=== PATIENT | female | born 1935 | race Caucasian/White ===

== ENCOUNTER 2018-09-21 09:42 | Inpatient (IN) | payer OTHER, MEDICAID ==
[~2018-09-21] VITALS: Ht 162.6 cm; Wt 85.7 kg
--- NOTE | 2018-09-21 09:42 | NUR ---
Patient BIBA ACLS, transferred to bed 10. RN evaluating patient at bedside.
[2018-09-21 09:45] VITALS: BP 140/54
--- NOTE | 2018-09-21 09:50 | NUR ---
BROUGHT IN BY EMS FROM [facility] WITH THE CHIEF C/O CHEST TIGHTNESS FOR 2 WEEKS. PT STATES RECENT ADMISSION FOR PNEUMONIA AND GOT DISCHARGE ON August. HAS SOB. ON NON-REBREATHER. SPO2 100%. HOB ELEVATED. DENIES CHEST PAIN AT THIS TIME. DENIES RECENT FEVER. DENIES N/V/D. BRUISE NOTED ON RIGHT LOWER LEG S/P BANGED ON WHEEL CHAIR. PT DOES NOT KNOWN WHEN IT HAPPENED. AMBULATORY PER PT. A/O X4. MAKES NEEDS KNOWN. DENIES ANY PAIN AT THIS TIME. HX---DM, HTN, CAD, ANXIETY, HYPERLIPIDEMIA, COPD, MRSA SPUTUM, BREAST CA
[2018-09-21] MEDS ORDERED: INSU100S5 SQ (09:58)
[2018-09-21] MEDS ORDERED: ASPI81EC97 PO (09:58)
[2018-09-21] MEDS ORDERED: LINE600T PO (09:58)
[2018-09-21] MEDS ORDERED: ASCO500T45 PO (09:58)
[2018-09-21] MEDS ORDERED: SYN.05 PO (09:58)
[2018-09-21] MEDS ORDERED: ATOR20TA PO ×2 (09:58→13:20)
--- NOTE | 2018-09-21 10:12 | NUR ---
CHEST XRAY AT BEDSIDE
--- NOTE | 2018-09-21 10:17 | NUR ---
CXR AT BEDSIDE----LABS DRAWN AT IV START AND HANED TO LAB
[2018-09-21] MEDS ORDERED: ALBUTEROL SULFATE/IPRATROPIU 3 ML SOL IH ONE ×2 (10:20→10:45)
--- NOTE | 2018-09-21 10:34 | NUR ---
Breathing treatment administered at bedside by respiratory therapist.
[2018-09-21 10:35] LABS: BASOPHILS # (AUTO) 0.1 K/uL (0.00-0.22); BASOPHILS % (AUTO) 0.9 % (0.0-2.0); EOSINOPHILS # (AUTO) 0.4 K/uL (0-0.4); HEMATOCRIT 27.2 % (36-48); HEMOGLOBIN 8.7 g/dL (12.0-16.0); LYMPHOCYTES # (AUTO) 1.5 K/uL (2.5-16.5); LYMPHOCYTES % (AUTO) 11.5 % (20.5-51.1); MEAN CORPUSCULAR HEMOGLOBIN 25 pg (27-31); MEAN CORPUSCULAR HGB CONC 32 g/dL (33-37); MONOCYTES # (AUTO) 1.1 K/uL (0.8-1.0); NEUTROPHILS # (AUTO) 9.7 K/uL (1.8-7.7); NEUTROPHILS % (AUTO) 75.6 % (42.2-75.2); PLATELET COUNT (AUTO) 364 K/uL (140-450); RED BLOOD CELL COUNT(AUTO) 3.54 MIL/uL (4.20-5.40); RED CELL DISTRIBUTION WIDTH 17.5 % (11.6-13.7); WHITE BLOOD COUNT (AUTO) 12.8 K/uL (4.8-10.8)
--- NOTE | 2018-09-21 10:35 | NUR ---
ADMITTING DX: CP HX: DENIES CPOD ASTHMA AWAKE AND ALERT RESPONSIVE TO ASSISTANT WOMEN'S SOCCER COACH VERBAL COMMANDS EDUCATION PROVIDED TO PATIENT WITH ACKNOWLEDGEMENT ON HHN THERAPY AND RESPIRATORY DRUG FOREMENTIONED GIVEN ORDERED ENCOURAGED PATIENT FOR INTERMITTENT DEEP BREATHING DURING THERAPY
--- NOTE | 2018-09-21 10:39 | NUR ---
PT BEING EVELUATED BY DWIGHT GODINEZ AT THIS TIME.
[2018-09-21] MEDS ORDERED: VANCOMYCIN PER PHARMACY MC PRN ×2 (10:45→13:40)
[2018-09-21] MEDS ORDERED: CEFEPIME 2,000 MG in DEXTROSE 5% 100 ML IV ONE (10:45)
[2018-09-21] MEDS ORDERED: LEVOFLOXACIN 750 MG/D5W PREMIX 150 ML IV ONE (10:45)
[2018-09-21] MEDS ORDERED: methylPREDNISolone SS 125 MG/2 ML VIAL IVP ONE (10:45)
[2018-09-21 10:46] LABS: ANION GAP 13.6 (8-16); CHLORIDE 102 mmol/L (98-107); GLUCOSE 169 mg/dL (74-106); POTASSIUM 3.6 mmol/L (3.5-5.1); SODIUM SERUM 140 mmol/L (136-145); UREA NITROGEN, BLOOD 12 mg/dL (7-18)
[2018-09-21 10:48] LABS: PROTHROMBIN TIME 10.8 secs (10.8-13.4)
[2018-09-21] MEDS ORDERED: FUROSEMIDE 40 MG/4 ML VIAL IVP ONE (10:50)
--- NOTE | 2018-09-21 10:57 | NUR ---
FOLLOW UP HHN THERAPY AND RESPIRATORY DRUG GIVEN ORDERED ENCOURAGED PATIENT FOR INTERMITTENT DEEP BREATHING DURING THERAPY
[2018-09-21 11:05] LABS: ALBUMIN 2.7 g/dL (3.4-5.0); ASPARTATE AMINOTRANSFERASE 16 U/L (15-37); TOTAL BILIRUBIN 0.5 mg/dL (0.0-1.0)
[2018-09-21 11:06] LABS: MAGNESIUM 1.1 mg/dL (1.8-2.4); THYROID STIMULATING HORMONE 16.63 uIU/mL (0.34-3.74)
[2018-09-21] MEDS ORDERED: CEFEPIME 2,000 MG VIAL IV ONE (11:06)
[2018-09-21 11:13] LABS: APPEARANCE,URINE SL CLOUDY (CLEAR); BILIRUBIN,URINE NEGATIVE (NEGATIVE); BLOOD, URINE NEGATIVE (NEGATIVE); COLOR,URINE YELLOW (YELLOW); LEUKOCYTE ESTERASE ,URINE 1+ (NEGATIVE); NITRITE, URINE POSITIVE (NEGATIVE); PH,URINE 5.5 (5.0-9.0); UGLUCOSE NEGATIVE (NEGATIVE)
[2018-09-21 11:19] LABS: RBC,URINE 0-5 /HPF (0-5); WBC,URINE 60-80 /HPF (0-5)
[2018-09-21] MEDS ORDERED: MAG SULF 2000 MG/WATER PREMIX 50 ML IV ONE (11:30)
[2018-09-21] MEDS ORDERED: DOCUSATE SODIUM 100 MG GELCAP PO PRN (11:55)
[2018-09-21] MEDS ORDERED: ONDANSETRON 4 MG/2 ML VIAL IM/IVP PRN (11:55)
--- NOTE | 2018-09-21 12:12 | NUR ---
Dr. Kang evaluating patient at bedside.
[2018-09-21 12:27] LABS: PHOSPHORUS 3.9 mg/dL (2.5-4.9)
--- NOTE | 2018-09-21 12:55 | NUR ---
Patient will be admitted to care of Dr. Gonzalez. Admited to tele unit. Transferred to room 116. Belongings list completed. Report to MARCIE Castanon.
--- NOTE | 2018-09-21 12:55 | NUR ---
PT ARRIVED ON THE UNIT. RECEIVED HAND OFF REPORT FROM ER NURSE ELIUD. PT IN ON 15L NON REBREATHER MASK. PT APPEARS STABLE AND IN NO APPARENT DISTRESS. ALL SAFETY MEASURES ARE IN PLACE WILL CONTINUE TO ASSESS PT.
[2018-09-21] MEDS ORDERED: DEXTROSE 50% 50 ML SYR IVP PRN (13:15)
[2018-09-21] MEDS ORDERED: MAGN400S60 PO (13:20)
[2018-09-21] MEDS ORDERED: BISA-213 RC (13:20)
[2018-09-21] MEDS ORDERED: FERR325E14 PO (13:20)
[2018-09-21] MEDS ORDERED: FLEPED RC (13:20)
[2018-09-21] MEDS ORDERED: METO25TA PO (13:20)
[2018-09-21] MEDS ORDERED: ATRN INH (13:20)
[2018-09-21] MEDS ORDERED: BISACODYL 10 MG SUPP RC PRN (13:25)
[2018-09-21] MEDS ORDERED: SODIUM PHOSPHATE PEDIATRIC 67.5 ML ENEM RC PRN (13:25)
[2018-09-21] MEDS ORDERED: MAGNESIUM HYDROXIDE 2400 MG/30 ML UDC PO PRN (13:25)
[2018-09-21] MEDS: ALBUTEROL SULFATE/IPRATROPIU 3 ML SOL IH SCH (13:43)
[2018-09-21] MEDS: NACL 0.9% 1,000 ML IV SCH (13:48)
--- NOTE | 2018-09-21 13:55 | NUR ---
STARTED PTS LEVAQUIN IV FROM ED. NO MORE THAN 25ML OUT OF THE IV WHEN PT ARRIVED FROM ER. 5 MINUTES AFTER STARTING THE IV I NOTICED THE PT ITCHING HER ARM, I NOTICED LOTS OF REDDNESS ON THE PTS ARM DISTAL TO THE IV SITE, STOPPED THE INFUSION AND STARTED MAGNESIUM INFUSION ALSO NOT STARTED IN ED. NOTIFIED DR. GALVAN OF PT ITCHING THE ARM AND THE REDNESS. DR. GALVAN SAID SHE WOULD TAKE A LOOK AT IT.
--- NOTE | 2018-09-21 14:00 | NUR ---
RT AT PT BEDSIDE. RT INFORMED THEY GAVE HER A BREATHING TREATMENT AND ARE WAITING TO SEE IF SHE NEEDS TO BE PLACED ON BIPAP.
--- NOTE | 2018-09-21 14:20 | NUR ---
PLATER HELPER AT BEDSIDE PERFORMING ULTRASOUND OF BILATERAL LOWER EXTREMITIES.
[2018-09-21] MEDS: guaiFENesin 20 MG/ML UDC PO PRN (14:57)
[2018-09-21 16:00] VITALS: BP 129/66
--- NOTE | 2018-09-21 16:04 | NUR ---
REMOVED PT FROM NON REBREATHER TO 4 LITERS OXIMIZER. PT SATURATING 93%
[2018-09-21] MEDS: VANCOMYCIN 1,000 MG in DEXTROSE 5% 250 ML IV SCH (16:08)
--- NOTE | 2018-09-21 16:10 | NUR ---
PT REMOVED NON REBREATHER AND PLACED HER ON 4L OXIMIZER. PT APPEARS STABLE AND IN NO APPARENT DISTRESS. ALL SAFETY MEASURES ARE IN PLACE WILL CONTINUE TO MONITOR.
[2018-09-21] MEDS: BLOOD GLUCOSE MONITORING 1 DEV DEV FS SCH ×2 (17:00→20:39)
--- NOTE | 2018-09-21 17:05 | NUR ---
FINGERSTICK GLUCOSE 337. ADMINISTERED 8 UNITS HUMALOG SUBQ PER SLIDING SCALE ORDERS.
[2018-09-21] MEDS: INSULIN LISPRO SLIDING SCALE 100 UNITS/ML VIAL SUBQ PRN ×2 (17:12→20:44)
--- NOTE | 2018-09-21 18:46 | NUR ---
FREQUENT ROUNDING ON PT PT APPEARS STABLE AND IN NO APPARENT DISTRESS. ALL SAFETY MEASURES ARE IN PLACE. WILL CONTINUE TO MONITOR
[2018-09-21] MEDS ORDERED: SODIUM FERRIC GLUCONATE 125 MG in NACL 0.9% 100 ML IV SCH (19:00)
[2018-09-21] MEDS ORDERED: IPRATROPIUM 0.02% 0.5 MG/2.5 ML NEBU INH SCH (19:00)
--- NOTE | 2018-09-21 19:24 | NUR ---
ENDORSED PT TO PM RN. PT IS STABLE AND IN NO APPARENT DISTRESS. ALL SAFETY MEASURES ARE IN PLACE. IVF INFUSING IV SITE IS PATENT AND SHOWS NO SIGNS OF INFLAMMATION OR INFILTRATION.
--- NOTE | 2018-09-21 19:24 | NUR ---
RECEIVED PATIENT FROM AM SHIFT NURSE FOR CONTINUITY OF CARE. PATIENT IS LYING DOWN, AWAKE, WATCHING TV. PATIENT IS ON 4L OXIMIZER NC. HAS IV ON LEFT FOREARM 22 GA WITH 10 ML/HR OF NORMAL SALINE. PATIENT DENIES ANY PAIN AT THIS TIME. WILL MONITOR PATIENT THROUGHOUT SHIFT.
[2018-09-21 20:00] VITALS: BP 131/60
[2018-09-21] MEDS: BENZONATATE 100 MG CAPLF PO PRN (20:02)
[2018-09-21] MEDS: ACETAMINOPHEN 325 MG TAB PO PRN (20:02)
--- NOTE | 2018-09-21 20:02 | NUR ---
PATIENT COMPLAINS OF COUGH AND THROAT PAIN. ADMINISTERED PO MEDICATIONS ORDERED. WILL CONTINUE TO MONITOR PATIENT.
[2018-09-21] MEDS: LORazepam 2 MG/ML VIAL IM/IVP PRN (20:03)
--- NOTE | 2018-09-21 20:45 | NUR ---
ADMINISTERED MEDICATIONS ORDERED. PATIENT TOLERATED THEM WELL. PATIENT C/O OF COUGH. SENT SPUTUM CULTURE TO THE LAB. WILL CONTINUE TO MONITOR PATIENT.
[2018-09-21] MEDS: MELATONIN 3 MG TAB PO PRN (20:59)
[2018-09-21] MEDS: METOPROLOL 25 MG TAB PO SCH (20:59)
[2018-09-21] MEDS: ATORVASTATIN 20 MG TAB PO SCH (21:00)
[2018-09-21] MEDS: methylPREDNISolone SS 125 MG/2 ML VIAL IVP SCH (21:01)
--- NOTE | 2018-09-21 22:30 | NUR ---
MADE ROUNDS. PATIENT LYING DOWN IN BED, ASLEEP, WITH NO SIGNS OF DISTRESS. WILL CONTINUE TO MONITOR PATIENT.
[2018-09-21] MEDS: PIPER/TAZO 2.25GM/D5W PREMIX 50 ML IV SCH (22:47)
[2018-09-22] VITALS (7 sets, daily range): BP systolic 99–142; BP diastolic 46–67
--- NOTE | 2018-09-22 | NUR ---
VITAL SIGNS TAKEN AND CHARTED. PATIENT DENIES ANY PAIN AT THIS TIME. WILL CONTINUE TO MONITOR PATIENT.
[2018-09-22] MEDS: guaiFENesin 20 MG/ML UDC PO PRN ×3 (00:51→14:53)
[2018-09-22] MEDS: methylPREDNISolone SS 125 MG/2 ML VIAL IVP SCH ×2 (04:38→12:32)
[2018-09-22] MEDS: PIPER/TAZO 2.25GM/D5W PREMIX 50 ML IV SCH ×3 (04:40→20:32)
--- NOTE | 2018-09-22 04:40 | NUR ---
ADMINISTERED IV PUSH MEDICATION ORDERED. PATIENT TOLERATED IT WELL.
[2018-09-22] MEDS: LEVOTHYROXINE 0.075 MG TAB PO SCH (05:44)
--- NOTE | 2018-09-22 05:44 | NUR ---
PATIENT REQUESTED FOR COUGH MEDICATION. HUNG IV ANTIBIOTICS ORDERED. ADMINISTERED 0500 MEDICATIONS ORDERED. PATIENT TOLERATED THEM WELL.
[2018-09-22] MEDS: BLOOD GLUCOSE MONITORING 1 DEV DEV FS SCH ×4 (05:55→20:13)
[2018-09-22] MEDS: INSULIN LISPRO SLIDING SCALE 100 UNITS/ML VIAL SUBQ PRN ×4 (05:57→20:50)
--- NOTE | 2018-09-22 06:00 | NUR ---
CHECKED BLOOD SUGAR LEVEL. ADMINISTERED INSULIN PER SLIDING SCALE ORDER. PATIENT DENIES ANY PAIN AT THIS TIME.
[2018-09-22] MEDS ORDERED: LEVOTHYROXINE 0.05 MG TAB PO SCH (06:30)
--- NOTE | 2018-09-22 07:24 | NUR ---
RECEIVED BEDSIDE REPORT FROM MARCIE BARTHOLOMEW. PT STABLE, SLEEPING, BUT EASILY AROUSABLE. NO SIGNS OF DISTRESS NOTED. DENIES PAIN OR SOB. ON 4L O2 VIA OXIMIZER. NO REDNESS, SWELLING, OR INFLAMMATION NOTED ON IV SITE. CALL SANDERSON WITHIN REACH. BED IN LOWEST POSITION, BED ALARM ON. SAFETY MEASURES IN PLACE. PLAN OF CARE REVIEWED.
--- NOTE | 2018-09-22 07:25 | NUR ---
ENDORSED PATIENT TO AM SHIFT NURSE FOR CONTINUITY OF CARE. PATIENT IS LYING DOWN, ASLEEP, WITH NO SIGNS OF DISTRESS.
[2018-09-22 07:28] LABS: ANION GAP 15.4 (8-16); CARBON DIOXIDE 26.7 mmol/L (21-32); CHLORIDE 100 mmol/L (98-107); CREATININE 1.2 mg/dL (0.6-1.3); GLUCOSE 258 mg/dL (74-106); POTASSIUM 4.1 mmol/L (3.5-5.1); SODIUM SERUM 138 mmol/L (136-145); UREA NITROGEN, BLOOD 16 mg/dL (7-18)
[2018-09-22 07:35] LABS: BASOPHILS % (AUTO) 0.1 % (0.0-2.0); HEMATOCRIT 24.8 % (36-48); HEMOGLOBIN 7.9 g/dL (12.0-16.0); LYMPHOCYTES # (AUTO) 0.8 K/uL (2.5-16.5); LYMPHOCYTES % (AUTO) 10.8 % (20.5-51.1); MEAN CORPUSCULAR HEMOGLOBIN 25 pg (27-31); MEAN CORPUSCULAR HGB CONC 32 g/dL (33-37); MEAN CORPUSCULAR VOLUME 77.1 fL (80-94); MONOCYTES # (AUTO) 0.2 K/uL (0.8-1.0); MONOCYTES % (AUTO) 2.6 % (1.7-9.3); NEUTROPHILS # (AUTO) 6.6 K/uL (1.8-7.7); NEUTROPHILS % (AUTO) 86.5 % (42.2-75.2); PLATELET COUNT (AUTO) 332 K/uL (140-450); RED BLOOD CELL COUNT(AUTO) 3.22 MIL/uL (4.20-5.40); RED CELL DISTRIBUTION WIDTH 16.9 % (11.6-13.7); WHITE BLOOD COUNT (AUTO) 7.7 K/uL (4.8-10.8)
[2018-09-22] MEDS: ALBUTEROL SULFATE/IPRATROPIU 3 ML SOL IH SCH ×3 (07:36→19:47)
[2018-09-22 07:51] LABS: MAGNESIUM 1.5 mg/dL (1.8-2.4); PHOSPHORUS 4.4 mg/dL (2.5-4.9)
[2018-09-22 07:52] LABS: CHOL/HDL RATIO 2.5 (1-4.5)
--- NOTE | 2018-09-22 08:15 | NUR ---
PT REPOSITIONED, LINENS AND GOWN CHANGED, PT STABLE.
[2018-09-22] MEDS: FUROSEMIDE 40 MG/4 ML VIAL IVP SCH ×2 (09:00→09:23)
[2018-09-22] MEDS: METOPROLOL 25 MG TAB PO SCH ×3 (09:00→20:34)
[2018-09-22] MEDS ORDERED: LACTOBACILLUS RHAMNOSUS GG 1 EACH CAP PO SCH (09:00)
[2018-09-22] MEDS: BENZONATATE 100 MG CAPLF PO PRN ×2 (09:22→17:34)
[2018-09-22] MEDS: ASCORBIC ACID 500 MG TAB PO SCH (09:24)
[2018-09-22] MEDS: LACTOBACILLUS RHAMNOSUS GG 1 EACH CAP PO SCH (09:24)
[2018-09-22] MEDS: ECOTRIN 81 MG TABEC PO SCH (09:25)
[2018-09-22] MEDS: FERROUS SULFATE 325 MG TABEC PO SCH (09:25)
[2018-09-22] MEDS: SERTRALINE 50 MG TAB PO SCH (09:25)
--- NOTE | 2018-09-22 09:32 | NUR ---
HELD SCHEDULED METOPROLOL AND LASIX FOR BP 109/45 HR 104, ADMINISTERED ALL OTHER SCHEDULED MEDICATIONS AND PRN TESSALON FOR C/O COUGH. PT TOLERATED WELL. NO OTHER NEEDS AT THIS TIME.
[2018-09-22] MEDS ORDERED: MAG SULF 2000 MG/WATER PREMIX 50 ML IV ONE (10:00)
--- NOTE | 2018-09-22 10:54 | NUR ---
ADMINISTERED SCHEDULED MAGNESIUM, PT TOLERATED WELL. NO OTHER NEEDS AT THIS TIME.
[2018-09-22] MEDS: NACL 0.9% 1,000 ML IV SCH (11:51)
[2018-09-22] MEDS: ACETAMINOPHEN 325 MG TAB PO PRN (11:57)
[2018-09-22] MEDS: LORazepam 2 MG/ML VIAL IM/IVP PRN (11:58)
--- NOTE | 2018-09-22 11:58 | NUR ---
ADMINISTERED 8 UNITS HUMALOG FOR BG 304, PRN ATIVAN FOR C/O ANXIETY, AND PRN TYNEOL FOR 8/10 THROAT PAIN. PT TOLERATED WELL. WILL CONTINUE TO MONITOR.
--- NOTE | 2018-09-22 12:37 | NUR ---
ADMINISTERED SCHEDULED MEDICATIONS, PT TOLERATED WELL. NO OTHER NEEDS AT THIS TIME.
--- NOTE | 2018-09-22 13:10 | NUR ---
INSTRUCTED PT TO BE NPO STARTING AT THIS TIME FOR HER SCHEDULED CT OF CHEST WITH CONTRAST AT 1700. PT VERBALIZED UNDERSTANDING.
--- NOTE | 2018-09-22 14:20 | NUR ---
PT REPOSITIONED, LINENS AND CHUCKS CHANGED. NO OTHER NEEDS AT THIS TIME.
[2018-09-22] MEDS: VANCOMYCIN 1,000 MG in DEXTROSE 5% 250 ML IV SCH (14:54)
--- NOTE | 2018-09-22 15:00 | NUR ---
ADMINISTERED SCHEDULED VANCOMYCIN AND PRN ROBITUSSIN FOR C/O COUGH. PT TOLERATED WELL. PT IS NOW SLEEPING, NO SIGNS OF DISTRESS NOTED. WILL CONTINUE TO MONITOR.
--- NOTE | 2018-09-22 16:30 | NUR ---
VITAL SIGNS TAKEN, PT STABLE. BG CHECKED, 329, PT NEEDS COVERAGE.
--- NOTE | 2018-09-22 17:36 | NUR ---
ADMINISTERED PRN TESSALON PERLES FOR C/O OF COUGH AND 8 UNITS HUMALOG FOR BG 329. PT TOLERATED WELL. NO OTHER NEEDS AT THIS TIME.
--- NOTE | 2018-09-22 18:00 | NUR ---
PER DR WASSERMAN, HE IS CANCELLING BOTH CT CHEST WITH CONTRAST AND VQ SCAN. MADE RADIOLOGY AWARE.
--- NOTE | 2018-09-22 19:05 | NUR ---
ENDORSED PT TO RN TALHA FOR CONTINUITY OF CARE. PT STABLE.
--- NOTE | 2018-09-22 19:10 | NUR ---
RECEIVED FROM AM RN IN BED SITTING UP IN BED AND ABLE TO CARRY A CONVERSATION WELL IN ETHIOPIAN WITH ME . CARE PLANS FOR THE NIGHT DISCUSSED WITH HER AND CALL LIGHT WITH IN REACH. ABLE TO USE CALL LIGHT WELL. A/O X 4. DX. OF SEPSIS, UTI AND CHF. ON ISOLATION PRECAUTION RT HX. MRSA SPUTUM. ENCOURAGED TO CALL FOR ANY HELP SHE MAY NEED. DENIES PAIN AT THIS TIME. TELEMETRY MONITORING.
--- NOTE | 2018-09-22 20:14 | NUR ---
BLOOD SUGAR PER FINGERSTICK 329. PT. REFUSED TO BE COVERED BY INSULIN PER PROTOCOL. A/O X 4. "NO INSULIN FOR ME" EXPLAINED PROS AND CONS OF NOT TAKING IT OR TAKING IT. STILL REFUSED ADAMANTLY. "NO".
[2018-09-22] MEDS: methylPREDNISolone SS 40 MG/ML VIAL IVP SCH (20:33)
[2018-09-22] MEDS: ATORVASTATIN 20 MG TAB PO SCH (20:33)
[2018-09-22] MEDS: MELATONIN 3 MG TAB PO PRN (20:34)
--- NOTE | 2018-09-22 20:50 | NUR ---
PT. HAS DECIDED TO HAVE HUMALOG INSULIN FOR 329 BLOOD SUGAR TAKEN PER FINGERSTICK. MADE RESIDENT MD AWARE THAT SHE HAS FINALLY AGREED TO HAVE IT AFTER FURTHER EXPLAINING AGAIN.
--- NOTE | 2018-09-22 22:14 | NUR ---
PT. SLEEPING AT THIS TIME BUT HR IS 143 JUNCTIONAL . RESIDENT MADE AWARE AND SEEN MONITOR. WITH NEW ORDER FOR EKG. PT. ASYMPTOMATIC. ASKED HER IS SHE IS OK.." YES, I AM OK" WENT BACK TO SLEEP. CALL LIGHT WITH IN REACH.
--- NOTE | 2018-09-22 22:38 | NUR ---
EKG RESULT IN AND RESIDENT MD ERICKSON TALKED WITH PT. AND WITH NEW ORDER TO LOWER HEART RATE. PT. NO COMPLAINTS DONE. A/O X 4. WENT BACK TO SLEEP AFTER.
[2018-09-22] MEDS ORDERED: DILTIAZEM 25 MG/5 ML VIAL IVP SCH (23:00)
--- NOTE | 2018-09-22 23:03 | NUR ---
CARDIZEM IVP 10 MG FOR HR 143 ORDERED . PT. WOKE UP EASILY WHEN TOUCHED. WENT BACK TO SLEEP WHEN EXPLAINED REASON FOR CARDIZEM ORDERED. IVF FLUID INCREASED TO 40 ML/H ORDERED BY RESIDENT MD VERBALLY AT THIS TIME. BP AT THIS TIME 98/50 HR 143. WILL MONITOR CLOSELY.
[2018-09-23] VITALS (9 sets, daily range): BP systolic 114–156; BP diastolic 43–78
--- NOTE | 2018-09-23 01:08 | NUR ---
WAKES UP EASILY WHEN TOUCHED . VITAL SIGNS TAKEN. ABLE TO CARRY A CONVERSATION WITH ME WELL AT THIS TIME. TELEMETRY MONITORING. CALL LIGHT WITH IN REACH. NO SOB.
--- NOTE | 2018-09-23 01:10 | NUR ---
HEART RATE AT THIS TIME WITH IN NORMAL LIMITS. HR 78 .
[2018-09-23] MEDS: guaiFENesin 20 MG/ML UDC PO PRN ×3 (02:08→21:01)
--- NOTE | 2018-09-23 02:08 | NUR ---
WOKE UP AND REQUESTED FOR COUGH SYRUP . MEDICATING REQUESTED. A/O X 4. CALL LIGHT WITH IN REACH.
--- NOTE | 2018-09-23 04:59 | NUR ---
PT. AWAKE AND HR AT THIS TIME RANGING FROM 140'S. RESIDENT MD AWARE. WITH NEW ORDER TO GIVE ATIVAN IVP.
[2018-09-23] MEDS: LORazepam 2 MG/ML VIAL IM/IVP PRN (05:23)
[2018-09-23] MEDS: BLOOD GLUCOSE MONITORING 1 DEV DEV FS SCH ×4 (05:28→20:29)
[2018-09-23] MEDS: methylPREDNISolone SS 40 MG/ML VIAL IVP SCH ×2 (05:31→13:27)
[2018-09-23] MEDS: LEVOTHYROXINE 0.075 MG TAB PO SCH (05:31)
[2018-09-23] MEDS: PIPER/TAZO 2.25GM/D5W PREMIX 50 ML IV SCH ×3 (05:32→20:27)
[2018-09-23] MEDS: INSULIN LISPRO SLIDING SCALE 100 UNITS/ML VIAL SUBQ PRN ×3 (05:37→20:33)
[2018-09-23] MEDS: ALBUTEROL SULFATE/IPRATROPIU 3 ML SOL IH SCH ×3 (06:00→19:24)
--- NOTE | 2018-09-23 06:06 | NUR ---
PATIENT HAS BEEN SCREENED AND CATEGORIZED HIGH NUTRITION RISK. PATIENT WILL BE SEEN WITHIN 1-2 DAYS OF ADMISSION. 09/22/18-09/23/18 FERDINAND ORDOÑEZ MS, RDN
[2018-09-23 06:11] LABS: FOLIC ACID 10.8 ng/mL (>3.0)
--- NOTE | 2018-09-23 06:22 | NUR ---
RESIDENT MD AWARE OF 144 HR PER TELEMETRY. NO FURTHER ORDERS GIVEN. STATED WE WILL WAIT TILL AM SHIFT BECAUSE IT IS TOO SOON FROM ATIVAN IVP ADMINISTERED LATELY.
--- NOTE | 2018-09-23 06:34 | NUR ---
no breathing tx given due to high heart rate of 149 pt has no sob lab at bedside
--- NOTE | 2018-09-23 07:10 | NUR ---
RECEIVED REPORT FROM BINDER TECHNICIAN RN TALHA. PT IS AAOX4, PT ABLE TO FOLLOW COMMANDS AND MAKE NEEDS KNOWN, DENIES PAIN, NO S/S OF DISTRESS OR SOB ON OXYMIZER AT 4L.. DENIES ANY CP, GEN WEAKNESS TO ALL EXTREMITIES, SKIN IS INTACT, WARM AND DRY TO TOUCH. IV TO LEFT FOREARM, 22G, PATENT, RUNNING NS AT 10ML/HR. UPDATED BOARD. UPDATED PATIENT WITH PLAN OF CARE. SAFETY AND ISOLATION MEASURES IN PLACE, CALL LIGHT WITHIN REACH, WILL CONTINUE TO MONITOR.
[2018-09-23 08:17] LABS: HEMATOCRIT 26.3 % (36-48); HEMOGLOBIN 8.2 g/dL (12.0-16.0); MEAN CORPUSCULAR HEMOGLOBIN 24 pg (27-31); MEAN CORPUSCULAR HGB CONC 31 g/dL (33-37); MEAN CORPUSCULAR VOLUME 77.1 fL (80-94); MONOCYTES # (AUTO) 0.5 K/uL (0.8-1.0); MONOCYTES % (AUTO) 3.5 % (1.7-9.3); PLATELET COUNT (AUTO) 394 K/uL (140-450); RED BLOOD CELL COUNT(AUTO) 3.41 MIL/uL (4.20-5.40); RED CELL DISTRIBUTION WIDTH 17.4 % (11.6-13.7); WHITE BLOOD COUNT (AUTO) 15.5 K/uL (4.8-10.8)
[2018-09-23 08:49] LABS: NEUTROPHILS % (AUTO) 90.4 % (42.2-75.2)
[2018-09-23 08:50] LABS: LYMPHOCYTES % (AUTO) 6.1 % (20.5-51.1)
[2018-09-23] MEDS: ECOTRIN 81 MG TABEC PO SCH (08:53)
[2018-09-23] MEDS: LACTOBACILLUS RHAMNOSUS GG 1 EACH CAP PO SCH (08:54)
[2018-09-23] MEDS: SERTRALINE 50 MG TAB PO SCH (08:55)
[2018-09-23] MEDS: FERROUS SULFATE 325 MG TABEC PO SCH (08:55)
[2018-09-23] MEDS: ASCORBIC ACID 500 MG TAB PO SCH (08:55)
--- NOTE | 2018-09-23 09:08 | NUR ---
09/23/18 RD INITIAL ASSESSMENT COMPLETED PLEASE REFER TO NUTRITION ASSESSMENT UNDER CARE ACTIVITY FOR ESTIMATED NUTRITIONAL NEEDS. RD RECOMMENDATIONS: 1. CONTINUE ON CCHO 60 GM DIET TOLERATED. 2. CONSULT RDN PRN. 3. RD WILL F/U 3-5 DAYS; MODERATE RISK. 4. RDN PROVIDED DIABETIC DIET EDUCATION TO PATIENT; PT ACCEPTED DIABETIC DIET EDUCATION. FERDINAND ORDOÑEZ, MS, RDN
[2018-09-23 09:28] LABS: ANION GAP 18.9 (8-16); CARBON DIOXIDE 24.1 mmol/L (21-32); CHLORIDE 100 mmol/L (98-107); CREATININE 1.1 mg/dL (0.6-1.3); GLUCOSE 278 mg/dL (74-106); SODIUM SERUM 139 mmol/L (136-145); UREA NITROGEN, BLOOD 21 mg/dL (7-18)
[2018-09-23 09:30] LABS: MAGNESIUM 2.1 mg/dL (1.8-2.4)
[2018-09-23] MEDS: METOPROLOL 25 MG TAB PO SCH ×2 (09:38→20:30)
[2018-09-23] MEDS: FUROSEMIDE 40 MG/4 ML VIAL IVP SCH (10:00)
[2018-09-23] MEDS ORDERED: ADENOSINE 6 MG/2 ML VIAL IVP SCH (10:05)
--- NOTE | 2018-09-23 10:05 | NUR ---
DR GARCIA DOING ROUNDS. INFORMED DR. SOLIS ABOUT DR. GARCIA'S PRESENCE. NEW ORDERS IN. CALLED PHARMACY TO CHECK ABOUT HOSPITAL PROTOCOLS. WAITING FOR THEIR CALL BACK.
--- NOTE | 2018-09-23 11:10 | NUR ---
RECEIVED PT TRANSFERRED FROM ROOM 116, REPORT OBTAINED AT BEDSIDE, PT IS AAOX4, ABLE TO FOLLOW COMMANDS AND MAKE NEEDS KNOWN, DENIES PAIN, NO S/S OF DISTRESS, WHEEZING LUNG SOUND RICHI. NOTED, ON OXYMIZER AT 4L, O2 SAT 96%. DENIES ANY CP, SVT AT [address], SOFT ROUND ABDOMEN WITH ACTIVE BOWEL SOUNDS, INCONTINENT WITH B&B'S, GENERALIZED WEAKNESS TO ALL EXTREMITIES, SKIN IS INTACT, WARM AND DRY TO TOUCH, BRUISE NOTED TO RIGHT LOWER LEG. IV SITE TO LEFT FOREARM, 22GA, PATENT, RUNNING NS AT 10ML/HR. POSITION CHANGED FOR COMFORT, HOB ELEVATED 30 DEGREES, SAFETY MEASURES IN PLACE, CALL LIGHT WITHIN REACH, WILL CONTINUE TO MONITOR.
--- NOTE | 2018-09-23 11:10 | NUR ---
TRANSFERRED TO ICU BED 1. REPORT GIVEN TO MACHINE OILER AT BEDSIDE FOR CONTINUITY OF CARE. PATIENT IN STABLE CONDITION. ENDORSED ADENOSINE ORDER FROM DR. GARCIA. TOOK ALL OF PATIENT'S BELONGINGS WITH HER.
[2018-09-23] MEDS ORDERED: AMIODARONE 200 MG TAB PO SCH (11:28)
--- NOTE | 2018-09-23 11:28 | NUR ---
PATIENT WAS SVT ON MONITOR, GIVEN ADENOSINE 6MG IVP, PATIENT'S HR WAS CONVERTED TO SR AT [address] GARCIA AND RESIDENT PHYSICIANS AT BEDSIDE.
[2018-09-23] MEDS: NACL 0.9% 1,000 ML IV SCH (11:40)
--- NOTE | 2018-09-23 12:00 | NUR ---
PT HR DROP TO 85, MORE CLAM, STATED MORE COMFORTABLE NOW, VSS, DENIES PAIN, ATE 25% OF LUNCH, WILL CONTINUE TO MONITOR.
--- NOTE | 2018-09-23 12:59 | NUR ---
pt sleeping with no signs of distress at this time no hhn given
--- NOTE | 2018-09-23 14:00 | NUR ---
PT IS ASLEEP IN BED, NO S/S OF DISTRESS, VSS, SELF CHANGED POSITION, WILL CONTINUE TO MONITOR.
[2018-09-23] MEDS: VANCOMYCIN 1,000 MG in DEXTROSE 5% 250 ML IV SCH (14:04)
--- NOTE | 2018-09-23 16:00 | NUR ---
PT IS AWAKE, WATCHING TV AT ROOM, NO S/S OF DISTRESS, VSS, DENIES PAIN, PM CARE AND ORAL CARE PROVIDED, POSITION CHANGED FOR COMFORT.
--- NOTE | 2018-09-23 16:09 | NUR ---
ACCU CHECK WITH 237 MG/DL, PT REFUSED INSULIN AT THIS TIME, RISK AND BENEFIT EXPLAINED TO PT, PT STILL REFUSED, MD AWARE.
--- NOTE | 2018-09-23 18:20 | NUR ---
TRANSFERRED PT BACK TO ROOM 116 VIA BED, REPORT GIVEN TO MARCIE EISENBERG AT BEDSIDE. PT IS IN STABLE CONDITION AT THIS TIME, VSS, DENIES PAIN.
--- NOTE | 2018-09-23 18:21 | NUR ---
PATIENT TRANSFERRED BACK FROM ICU TO ROOM 116. PATIENT SETTLED IN BED, HR 84 ON TELE MONITOR. NO SIGN OF DISTRESS OR SOB NOTED ON 4L O2 VIA OXIMIZER. PATIENT DENIES PAIN. SAFETY AND ISOLATION PRECAUTIONS IN PLACE, CALL LIGHT WITHIN REACH, WILL CONTINUE TO MONITOR PATIENT.
--- NOTE | 2018-09-23 19:10 | NUR ---
REPORT GIVEN TO BOX ESTIMATOR RN AT BEDSIDE FOR CONTINUITY OF CARE. PATIENT IN STABLE CONDITION.
--- NOTE | 2018-09-23 19:20 | NUR ---
RECEIVED FROM AM RN IN BED AWAKE AND WITH BREATHING TREATMENT ON GOING. NO COMPLAINTS DONE AT THIS TIME . CALL LIGHT WITH IN REACH. ABLE TO VERBALIZE NEEDS WELL WITH UTILITY TRACTOR OPERATOR AT THIS TIME. CARE PLANS FOR THE NIGHT EXPLAINED TO HER.
[2018-09-23] MEDS: ACETAMINOPHEN 325 MG TAB PO PRN (20:26)
[2018-09-23] MEDS: ATORVASTATIN 20 MG TAB PO SCH (20:26)
[2018-09-23] MEDS: AMIODARONE 200 MG TAB PO SCH (20:27)
[2018-09-23] MEDS: MELATONIN 3 MG TAB PO PRN (20:46)
--- NOTE | 2018-09-23 21:21 | NUR ---
SLEEPING AT THIS TIME. ALL P.O. MEDICATION TAKEN AND TOLERATED WELL. CALL LIGHT WITH IN REACH. PT. COMFORTABLE . CLEANED BY GIBRAN RT HAD BM. TELEMETRY MONITORING.
--- NOTE | 2018-09-23 21:24 | NUR ---
NEW ORDER BY RESIDENT FOR SPUTUM CULTURE RT PREVIOUS SPUTUM COLLECTED BY RESPIRATORY THERAPIST. EXPLAINED TO PT. AWARE.
--- NOTE | 2018-09-23 22:16 | NUR ---
PATIENT HAS DRY COUGH. UNABLE TO PRODUCE SPUTUM AT THIS TIME. ENCOURAGED TO KEEP TRYING AND THAT I WOULD CHECK EVERY FEW HOURS. CUP LEFT AT BEDSIDE.
--- NOTE | 2018-09-24 00:10 | NUR ---
VITAL SIGNS TAKEN. NO COMPLAINTS DONE. SLEPT BACK EASILY. TELEMETRY MONITORING.
--- NOTE | 2018-09-24 02:43 | NUR ---
SLEEPING WELL. NO RESTLESSNESS. CALL LIGHT WITH IN REACH. ON TELEMETRY MONITORING. HR WITH IN NORMAL LIMITS.
[2018-09-24] MEDS: guaiFENesin 20 MG/ML UDC PO PRN (03:46)
[2018-09-24] MEDS: ALBUTEROL SULFATE/IPRATROPIU 3 ML SOL IH PRN (03:57)
--- NOTE | 2018-09-24 04:00 | NUR ---
PATIENT UNDERSTAND THE USE AND IMPORTANCE OF INCENTIVE SPIROMETRY. REFUSED ATTEMPT STATING SHE WAS TIRED AND REQUESTED TRYING AT A LATER TIME.
--- NOTE | 2018-09-24 04:45 | NUR ---
AM PERSONAL HYGIENE RENDERED BY CNAS. PT. ABLE TO VERBALIZE NEEDS WELL. ABLE TO USE CALL LIGHT FOR HELP WELL. NO COMPLAINT OF SOB THIS SHIFT. ON BREATHING TREATMENTS.
[2018-09-24] MEDS: LEVOTHYROXINE 0.075 MG TAB PO SCH (05:30)
[2018-09-24] MEDS: PIPER/TAZO 2.25GM/D5W PREMIX 50 ML IV SCH ×3 (05:30→20:14)
[2018-09-24] MEDS: BLOOD GLUCOSE MONITORING 1 DEV DEV FS SCH ×4 (05:30→20:14)
[2018-09-24] MEDS: INSULIN LISPRO SLIDING SCALE 100 UNITS/ML VIAL SUBQ PRN ×3 (05:36→20:21)
--- NOTE | 2018-09-24 06:49 | NUR ---
AWAKE AND WANTING TO BE CHANGED BY CNAS RT SHE SAID SHE IS WET WITH URINE. INFORMED CNAS. WILL HAVE HER CLEANED UP. PT. VERBALIZES WELL. TELEMETRY MONITORING. NO S/S OF HYPOGLYCEMIA.
[2018-09-24 07:11] LABS: BASOPHILS % (AUTO) 0.1 % (0.0-2.0); HEMATOCRIT 26.6 % (36-48); HEMOGLOBIN 8.3 g/dL (12.0-16.0); LYMPHOCYTES # (AUTO) 0.9 K/uL (2.5-16.5); LYMPHOCYTES % (AUTO) 7.7 % (20.5-51.1); MEAN CORPUSCULAR HEMOGLOBIN 24 pg (27-31); MEAN CORPUSCULAR HGB CONC 31 g/dL (33-37); MEAN CORPUSCULAR VOLUME 77.3 fL (80-94); MONOCYTES # (AUTO) 0.7 K/uL (0.8-1.0); MONOCYTES % (AUTO) 6.3 % (1.7-9.3); NEUTROPHILS # (AUTO) 9.8 K/uL (1.8-7.7); NEUTROPHILS % (AUTO) 85.9 % (42.2-75.2); PLATELET COUNT (AUTO) 379 K/uL (140-450); RED BLOOD CELL COUNT(AUTO) 3.44 MIL/uL (4.20-5.40); RED CELL DISTRIBUTION WIDTH 17.3 % (11.6-13.7); WHITE BLOOD COUNT (AUTO) 11.5 K/uL (4.8-10.8)
[2018-09-24] MEDS: ALBUTEROL SULFATE/IPRATROPIU 3 ML SOL IH SCH ×3 (07:14→18:53)
--- NOTE | 2018-09-24 07:20 | NUR ---
ENDORSED TO THE AM RN FOR CONTINUITY OF CARE. AWAKE AND ALERT. NO COMPLAINTS DONE.
--- NOTE | 2018-09-24 07:21 | NUR ---
RECEIVED REPORT FROM FORENSIC TOXICOLOGIST NURSE TALHA FOR CONTINUITY OF CARE. PT IN STABLE CONDITION. RESPIRATIONS EVEN AND UNLABORED. O2 4L VIA OXYMIZER. IV INTACT AND PATENT. SAFETY MEASURES IN PLACE. CALL LIGHT AT BEDSIDE. BED IN LOW POSITION. BED ALARM ON. WILL CONTINUE TO MONITOR.
[2018-09-24 07:51] LABS: ANION GAP 14.4 (8-16); CHLORIDE 98 mmol/L (98-107); GLUCOSE 231 mg/dL (74-106); POTASSIUM 3.4 mmol/L (3.5-5.1); SODIUM SERUM 136 mmol/L (136-145); UREA NITROGEN, BLOOD 28 mg/dL (7-18)
[2018-09-24 08:00] VITALS: BP 156/46
[2018-09-24] MEDS: METOPROLOL 25 MG TAB PO SCH ×2 (09:00→20:17)
[2018-09-24] MEDS ORDERED: methylPREDNISolone SS 40 MG/ML VIAL IVP SCH (09:05)
[2018-09-24] MEDS ORDERED: FUROSEMIDE 40 MG TAB PO SCH (09:10)
[2018-09-24] MEDS ORDERED: POTASSIUM CHLORIDE 10 MEQ TABER PO SCH (09:15)
[2018-09-24] MEDS ORDERED: HYDRAGUARD CREAM TP PRN (10:10)
[2018-09-24] MEDS: guaiFENesin 600 MG TABER PO SCH ×2 (10:12→20:18)
[2018-09-24] MEDS: AMIODARONE 200 MG TAB PO SCH ×2 (10:12→20:16)
[2018-09-24] MEDS: ECOTRIN 81 MG TABEC PO SCH (10:12)
[2018-09-24] MEDS: LACTOBACILLUS RHAMNOSUS GG 1 EACH CAP PO SCH (10:12)
[2018-09-24] MEDS: ASCORBIC ACID 500 MG TAB PO SCH (10:12)
[2018-09-24] MEDS: SERTRALINE 50 MG TAB PO SCH (10:13)
[2018-09-24] MEDS: FERROUS SULFATE 325 MG TABEC PO SCH (10:13)
[2018-09-24] MEDS: CHLORHEXADINE GLUC 2% CLOTH TP SCH (10:27)
--- NOTE | 2018-09-24 10:28 | NUR ---
PT LYING IN BED SLEEP AT THIS TIME. RESPIRATIONS EVEN AND UNLABORED. WILL CONTINUE TO MONITOR. BED IN LOW POSITION. CALL LIGHT AT BEDSIDE. BED ALARM ON.
[2018-09-24 12:00] VITALS: BP 143/48
--- NOTE | 2018-09-24 12:01 | NUR ---
PT LYING IN BED WATCHING TV AT THIS TIME. RESPIRATIONS EVEN AND UNLABORED. WILL CONTINUE TO MONITOR.
[2018-09-24] MEDS: NACL 0.9% 1,000 ML IV SCH (13:13)
[2018-09-24] MEDS: ACETYLCYSTEINE 10% (100 MG/ML) 100 MG/ML VIAL INH SCH ×2 (13:23→18:54)
--- NOTE | 2018-09-24 13:32 | NUR ---
PT TALKING TO FAMILY AT BEDSIDE. RESPIRATIONS EVEN AND UNLABORED. CALL LIGHT AT BEDSIDE. BED IN LOW POSITION. BED ALARM ON. WILL CONTINUE TO MONITOR.
[2018-09-24] MEDS: BENZONATATE 100 MG CAPLF PO PRN (13:34)
--- NOTE | 2018-09-24 13:42 | NUR ---
S.T. BEDSIDE SWALLOW EVAL COMPLETED. See report for details. Pt presents w/ adequate oropharyngeal swallow function. No overt s/s aspiration observed. Pt able to self-feed without difficulties. Recommend continue current diet textures (regular diet, thin liquids). No further tx indicated at this time as pt is functioning at baseline leve. DC to [facility]. D/w MARCIE Morel. Time [id number]
[2018-09-24] MEDS: VANCOMYCIN 500 MG in DEXTROSE 5% 100 ML IV SCH (14:52)
--- NOTE | 2018-09-24 15:33 | NUR ---
PT LYING IN BED TALKING TO AT THIS TIME. RESPIRATIONS EVEN AND UNLABORED. BED IN LOW POSITION. BED ALARM ON. CALL LIGHT AT BED SIDE. WILL CONTINUE TO MONITOR.
[2018-09-24] MEDS: ACETAMINOPHEN 325 MG TAB PO PRN (15:49)
[2018-09-24 16:00] VITALS: BP 154/73
--- NOTE | 2018-09-24 17:25 | NUR ---
GAVE ORDERED DUE MEDICATIONS AT THIS TIME. PT TOLERATED WELL. WILL CONTINUE TO MONITOR.
--- NOTE | 2018-09-24 19:15 | NUR ---
GAVE REPORT TO CURRICULUM SUPERVISOR NURSE FOR CONTINUITY OF CARE. PT IN STABLE CONDITION.
--- NOTE | 2018-09-24 19:15 | NUR ---
RECEIVED BEDSIDE REPORT FROM DAY SHIFT NURSE DL RN, PT STABLE, NO DISTRESS NOTED, IV TO L FA 24G PATENT INTACT, INFUSING WELL, PT ON 4LPM O2 VIA OXYMIZER, NO SOB NOTED, V/S TAKEN WNL, INITIAL ASSESSMENT DONE, ALL SAFETY PRECAUTION MET, CALL LIGHT WITHIN REACH, WILL CONTINUE TO MONITOR.
[2018-09-24 20:00] VITALS: BP 147/58
[2018-09-24] MEDS: ATORVASTATIN 20 MG TAB PO SCH (20:16)
[2018-09-24] MEDS: LORazepam 2 MG/ML VIAL IM/IVP PRN (20:25)
[2018-09-24] MEDS: MELATONIN 3 MG TAB PO PRN (20:25)
--- NOTE | 2018-09-24 20:25 | NUR ---
DUE MEDICATION ADMINISTERED, PT STATED WANTS TO TAKE HER MELATONIN, MEDICATION ADMINISTERED, PT TOLERATED WELL, NO DISTRESS NOTED, CALL LIGHT WITHIN REACH, WILL CONTINUE TO MONITOR. Addendum: 09/25/18 at 0131 by Maritza Noguera RN PT ALSO COMPLAINT OF NEEDING HER ANXIETY MEDICATION, MEDICATION PER MD ORDER ADMINISTERED.
[2018-09-24] MEDS ORDERED: FUROSEMIDE 20 MG/2 ML VIAL IVP SCH (21:00)
--- NOTE | 2018-09-24 23:40 | NUR ---
CHECKED ON PT, V/S TAKEN, WITHIN PT BASELINE, CALL LIGHT WITHIN REACH, WILL CONTINUE TO MONITOR.
[2018-09-25] VITALS: BP 152/59
[2018-09-25] MEDS: ALBUTEROL SULFATE/IPRATROPIU 3 ML SOL IH PRN (00:39)
[2018-09-25] MEDS: ACETAMINOPHEN 325 MG TAB PO PRN (01:05)
[2018-09-25] MEDS: BENZONATATE 100 MG CAPLF PO PRN ×2 (01:05→16:44)
[2018-09-25] MEDS: VANCOMYCIN 500 MG in DEXTROSE 5% 100 ML IV SCH (01:05)
--- NOTE | 2018-09-25 01:05 | NUR ---
PT COMPLAINT OF COUGHING AND HEADACHE, MEDICATION PER DR ORDER ADMINISTERED, PT TOLERATED WLEL, NO DISTRESS NOTED, CALL LIGHT WITHIN REACH, WILL CONTINUE TO MONITOR.
[2018-09-25 04:00] VITALS: BP 156/69
--- NOTE | 2018-09-25 04:20 | NUR ---
CHECKED ON PT, PT SLEEPING, V/S TAKEN, WITHIN PT BASELINE, CALL LIGHT WITHIN REACH, WILL CONTINUE TO MONITOR.
[2018-09-25] MEDS: PIPER/TAZO 2.25GM/D5W PREMIX 50 ML IV SCH ×2 (04:44→12:46)
[2018-09-25] MEDS: LEVOTHYROXINE 0.075 MG TAB PO SCH (05:37)
--- NOTE | 2018-09-25 05:37 | NUR ---
DUE MEDICATION ADMINISTERED, PT TOLERATED WELL, NO DISTRESS NOTED, CALL LIGHT WITHIN REACH, WILL CONTINUE TO MONITOR.
[2018-09-25] MEDS: BLOOD GLUCOSE MONITORING 1 DEV DEV FS SCH ×2 (05:39→11:30)
[2018-09-25] MEDS: INSULIN LISPRO SLIDING SCALE 100 UNITS/ML VIAL SUBQ PRN ×2 (06:19→12:51)
[2018-09-25] MEDS: ALBUTEROL SULFATE/IPRATROPIU 3 ML SOL IH SCH ×2 (06:48→13:00)
[2018-09-25] MEDS: ACETYLCYSTEINE 10% (100 MG/ML) 100 MG/ML VIAL INH SCH ×2 (06:48→13:00)
--- NOTE | 2018-09-25 06:48 | NUR ---
PT HAS REFUSED BREATHING TX WANTS TO SLEEP NO SIGNS OF DISTRESS OR SOB
[2018-09-25 07:12] LABS: ANION GAP 10.8 (8-16); CARBON DIOXIDE 32.1 mmol/L (21-32); CHLORIDE 101 mmol/L (98-107); GLUCOSE 228 mg/dL (74-106); POTASSIUM 3.9 mmol/L (3.5-5.1); SODIUM SERUM 140 mmol/L (136-145); UREA NITROGEN, BLOOD 22 mg/dL (7-18)
[2018-09-25 07:16] LABS: BASOPHILS % (AUTO) 0.1 % (0.0-2.0); HEMATOCRIT 25.4 % (36-48); HEMOGLOBIN 8.1 g/dL (12.0-16.0); LYMPHOCYTES % (AUTO) 11.6 % (20.5-51.1); MEAN CORPUSCULAR HEMOGLOBIN 24 pg (27-31); MEAN CORPUSCULAR HGB CONC 32 g/dL (33-37); MEAN CORPUSCULAR VOLUME 76.8 fL (80-94); MONOCYTES # (AUTO) 0.9 K/uL (0.8-1.0); MONOCYTES % (AUTO) 10.2 % (1.7-9.3); NEUTROPHILS # (AUTO) 6.6 K/uL (1.8-7.7); NEUTROPHILS % (AUTO) 78.1 % (42.2-75.2); PLATELET COUNT (AUTO) 348 K/uL (140-450); RED CELL DISTRIBUTION WIDTH 17.4 % (11.6-13.7); WHITE BLOOD COUNT (AUTO) 8.4 K/uL (4.8-10.8)
[2018-09-25 07:25] LABS: MAGNESIUM 1.6 mg/dL (1.8-2.4); PHOSPHORUS 2.8 mg/dL (2.5-4.9)
--- NOTE | 2018-09-25 07:27 | NUR ---
ENDORSED PT TO DAY SHIFT NURSE ALDAIR JACK, PT STABLE, NO DISTRESS NOTED,, CALL LIGHT WITHIN REACH.
--- NOTE | 2018-09-25 07:28 | NUR ---
RECEIVED REPORT FROM SCRAP CRUSHER RNBART. PATIENT RESTING IN BED, NO DISTRESS NOTE ON 3L OXIMIZER. SAFETY PRECAUTIONS IN PLACE. WILL CONTINUE TO MONITOR.
[2018-09-25 08:00] VITALS: BP 168/81
[2018-09-25] MEDS ORDERED: MELA3TAB PO (08:23)
[2018-09-25] MEDS ORDERED: HEPA500056 SUBQ (08:23)
[2018-09-25] MEDS ORDERED: BENZ100C6 PO (08:23)
[2018-09-25] MEDS ORDERED: SYN.075 PO (08:23)
[2018-09-25] MEDS ORDERED: GUAI-791 PO (08:23)
[2018-09-25] MEDS ORDERED: AMIO200T59 PO (08:23)
[2018-09-25] MEDS ORDERED: SERT-146 PO (08:23)
[2018-09-25] MEDS ORDERED: METH40PD15 IVP (08:23)
[2018-09-25] MEDS ORDERED: Hydraguard TP (08:23)
[2018-09-25] MEDS ORDERED: LACT10CA PO (08:23)
[2018-09-25] MEDS ORDERED: METO25TA PO (08:23)
[2018-09-25] MEDS ORDERED: DOCU-299 PO (08:23)
[2018-09-25] MEDS ORDERED: PIPE50SO5 IV (08:23)
[2018-09-25] MEDS ORDERED: METF850T PO (08:37)
[2018-09-25] MEDS ORDERED: POTA10TE30 PO (08:39)
[2018-09-25] MEDS ORDERED: FURO-570 PO (08:39)
[2018-09-25] MEDS ORDERED: metFORMIN 850 MG TAB PO SCH ×2 (08:40→17:00)
[2018-09-25] MEDS ORDERED: FUROSEMIDE 40 MG TAB PO SCH (09:00)
[2018-09-25] MEDS ORDERED: methylPREDNISolone SS 40 MG/ML VIAL IVP SCH (09:00)
[2018-09-25] MEDS ORDERED: CLINICAL MONITORING MC SCH (09:00)
[2018-09-25] MEDS ORDERED: FUROSEMIDE 20 MG/2 ML VIAL IVP SCH (09:00)
[2018-09-25] MEDS: CHLORHEXADINE GLUC 2% CLOTH TP SCH (09:00)
[2018-09-25] MEDS ORDERED: MAGNESIUM OXIDE 400 MG TAB PO SCH (09:00)
[2018-09-25] MEDS: ECOTRIN 81 MG TABEC PO SCH (09:19)
[2018-09-25] MEDS: LACTOBACILLUS RHAMNOSUS GG 1 EACH CAP PO SCH (09:19)
[2018-09-25] MEDS: FERROUS SULFATE 325 MG TABEC PO SCH (09:19)
[2018-09-25] MEDS: AMIODARONE 200 MG TAB PO SCH (09:19)
[2018-09-25] MEDS: guaiFENesin 600 MG TABER PO SCH (09:20)
[2018-09-25] MEDS: METOPROLOL 25 MG TAB PO SCH (09:20)
--- NOTE | 2018-09-25 09:20 | NUR ---
ADMINISTERED SCHEDULED MEDICATIONS. PATIENT REFUSED METFORMIN AND STATED SHE NO LONGER NEEDS TYLENOL.
[2018-09-25] MEDS: SERTRALINE 50 MG TAB PO SCH (09:21)
[2018-09-25] MEDS: ASCORBIC ACID 500 MG TAB PO SCH (09:21)
--- NOTE | 2018-09-25 10:58 | NUR ---
CALLED [facility] [phone] SPOKE WITH ELLY CHISHOLM TO GO TO [facility] AND PROVIDE AUTH FOR [facility] AND [facility] AUTHORIZATION AUTH # [id number] CAN BE USED FOR BOTH. AGA FROM [facility] V[facility]ITED PT AND ACCEPTED PT PT CAN GO TO ROOM 31B. ARRANGED TRANSPORT WITH [facility] TIME 3:30 PM NOTIFIED TYSON JACK
[2018-09-25] MEDS: NACL 0.9% 1,000 ML IV SCH (11:51)
--- NOTE | 2018-09-25 12:51 | NUR ---
GAVE 4 UNITS FOR 214 GLUCOSE. PATIENT TOLERATED WELL. ADMINISTERED SCHEDULED ZOSYN.
[2018-09-25 15:41] VITALS: BP 147/73
--- NOTE | 2018-09-25 16:44 | NUR ---
ADMINSTERED TESSALON REQUESTED BY PATIENT. GAVE REPORT TO [facility] TEAM.
--- NOTE | 2018-09-25 17:15 | NUR ---
PATIENT DISCHARGED TO [facility]. GAVE REPORT TO DHARMESH HILLMAN. PER FACILITY REQUEST 24 GAUGE IV WAS LEFT IN PLACE IN THE LEFT WRIST. PATIENT CHANGED AND CLEANED PRIOR TO TRANSPORT. VITALS STABLE. NO SIGNS OF DISTRESS ON 3L NC, SATURATION 92%, PATIENT HAS COPD.
== END 2018-09-25 17:15 | DRG 871 ==
LOC: MED 09:42 → MTU 11:51 → MIC 09-23 11:20 → MTU 09-23 18:16
PROVIDERS: ADMIT General Practice; ATTEND General Practice
DX: A41.9 Sepsis, unspecified organism (principal); I50.43 Acute on chronic combined systolic (congestive) and diastolic (congestive) heart failure; E43 Unspecified severe protein-calorie malnutrition; J96.01 Acute respiratory failure with hypoxia; N39.0 Urinary tract infection, site not specified; J44.0 Chronic obstructive pulmonary disease with (acute) lower respiratory infection; J44.1 Chronic obstructive pulmonary disease with (acute) exacerbation; I47.1 Supraventricular tachycardia; J70.0 Acute pulmonary manifestations due to radiation; M84.48XA Pathological fracture, other site, initial encounter for fracture; Z68.32 Body mass index [BMI] 32.0-32.9, adult; I11.0 Hypertensive heart disease with heart failure; E83.42 Hypomagnesemia; E86.0 Dehydration; E11.69 Type 2 diabetes mellitus with other specified complication; G31.89 Other specified degenerative diseases of nervous system; Z85.3 Personal history of malignant neoplasm of breast; E89.0 Postprocedural hypothyroidism; Z87.891 Personal history of nicotine dependence; Z90.710 Acquired absence of both cervix and uterus; F32.9 Major depressive disorder, single episode, unspecified; I25.10 Atherosclerotic heart disease of native coronary artery without angina pectoris; E78.5 Hyperlipidemia, unspecified; Z88.8 Allergy status to other drugs, medicaments and biological substances; Z88.2 Allergy status to sulfonamides; Z88.7 Allergy status to serum and vaccine; Z87.01 Personal history of pneumonia (recurrent); Z79.899 Other long term (current) drug therapy; F41.9 Anxiety disorder, unspecified; Z86.14 Personal history of Methicillin resistant Staphylococcus aureus infection; Z96.653 Presence of artificial knee joint, bilateral; D50.9 Iron deficiency anemia, unspecified; X58.XXXA Exposure to other specified factors, initial encounter; Y93.89 Activity, other specified; Y92.89 Other specified places as the place of occurrence of the external cause; Y99.8 Other external cause status; S80.11XA Contusion of right lower leg, initial encounter; E87.6 Hypokalemia; I70.0 Atherosclerosis of aorta; E66.9 Obesity, unspecified
CPT/HCPCS: 36415; 36600; 71045; 71250; 73590; 80048; 80053; 80202; 81001; 82150; 82272; 82607; 82728; 82746; 82803; 82948; 83036; 83540; 83605; 83690; 83735; 83880; 84100; 84134; 84439; 84443; 84481; 84484; 85025; 85045; 85610; 85730; 87040; 87070; 87081; 87086; 87186; 87205; 92610; 93005; 93925; 93970; 94640; 96365; 96372; 96375; 97110; 97116; 97161-GP; 97530; 99285; J0153; J0692; J0696; J1644; J1815; J1940; J1956; J2060; J2543; J2916; J2920; J2930; J3370; J3475; J3490; J7030; J7060; J7620; Q0092

== ENCOUNTER 2018-10-14 18:06 | Emergency (ER) | payer OTHER, MEDICAID ==
[~2018-10-14] VITALS: Ht 149.9 cm; Wt 80.7 kg
[~2018-10-14 18:06] MED LIST: AMIO200T59 PO; ASCO500T45 PO; ASPI81EC97 PO; ATOR20TA PO; ATRN INH; BENZ100C6 PO; BISA-213 RC; DOCU-299 PO; FERR325E14 PO; FLEPED RC; FURO-570 PO; GUAI-791 PO; HEPA500056 SUBQ; Hydraguard TP; INSU100S5 SQ; LACT10CA PO; MAGN400S60 PO; MELA3TAB PO; METF850T PO; METH40PD15 IVP; METO25TA PO; PIPE50SO5 IV; POTA10TE30 PO; SERT-146 PO; SYN.075 PO
--- NOTE | 2018-10-14 18:09 | NUR ---
PATIENT BIBA TO BED 10 AT THIS TIME.
[2018-10-14 18:14] VITALS: BP 136/36
--- NOTE | 2018-10-14 18:15 | NUR ---
PT CRUZA TO ED FROM [facility], C/O GENERALIZED BODY RASH THAT STARTED THIS MORNING, NO C/O PAIN OR ITCHING AT THIS TIME. DENIES ANY UNUSUAL WITH HER ROUTINE. PT AAOX3, RR EVEN AND UNLABORED, IN NO ACUTE DISTRESS. ED MD DR. DIALLO MADE AWARE, WILL CONTINUE TO MONITOR CLOSELY, BED IN LOWEST POSITION.
[2018-10-14] MEDS ORDERED: KETOROLAC 60 MG/2 ML VIAL IM ONE (18:40)
--- NOTE | 2018-10-14 20:00 | NUR ---
PT RESTING IN BED, IN STABLE CONDITION.
--- NOTE | 2018-10-14 21:04 | NUR ---
CALLED [facility] TO GIVE REPORT ON PT RETURN TO THEIR FACILITY, NO ANSWER AT THIS TIME
--- NOTE | 2018-10-14 21:43 | NUR ---
PT LAYING IN BED, SPO2 94% ON RA, RR EVEN AND UNLABORED. PT STATED THAT SHE FEELS GOOD WITHOUT THE OXYGEN, WILL MONITOR. PT ABLE TO AMBULATE TO RESTROOM WITH ASSIST. ALL NEEDS MET AT THIS TIME.
--- NOTE | 2018-10-14 22:31 | NUR ---
CALLED KATHI FROM [facility], MADE HER AWARE THAT PT WILL BE RETURNING TO FACILITY, [facility] SHOT [facility]ACKER TIME AT 2245.
[2018-10-14 23:25] VITALS: BP 124/54
--- NOTE | 2018-10-14 23:25 | NUR ---
Patient discharged with v/s stable. Written and verbal after care instructions given and explained. Patient alert, oriented and verbalized understanding of instructions. Wheelchair assisted with [facility] to custodial [facility]. All questions addressed prior to discharge. ID band removed. Patient advised to follow up with PMD. Rx of LOTRIMIN, BENADRYL given. Patient educated on indication of medication including possible reaction and side effects. Opportunity to ask questions provided and answered.
== END 2018-10-14 23:25 | disposition home or self-care (01) ==
LOC: MED 18:06
DX: R21 Rash and other nonspecific skin eruption (principal); J44.9 Chronic obstructive pulmonary disease, unspecified; I10 Essential (primary) hypertension; E11.9 Type 2 diabetes mellitus without complications; Z79.84 Long term (current) use of oral hypoglycemic drugs; Z79.82 Long term (current) use of aspirin; Z79.4 Long term (current) use of insulin; Z79.899 Other long term (current) drug therapy; Z88.5 Allergy status to narcotic agent; Z88.8 Allergy status to other drugs, medicaments and biological substances
CPT/HCPCS: 99282; J1885

== ENCOUNTER 2018-11-09 10:59 | Inpatient (IN) | payer OTHER, MEDICAID ==
[~2018-11-09] VITALS: Ht 149.9 cm; Wt 78.5 kg
[2018-11-09 11:00] VITALS: BP 148/73
--- NOTE | 2018-11-09 11:20 | NUR ---
83F BIBA C/O EPITAXIS FOR APPROX 20 MIN. NO ACTIVE BLEEDING AT THIS TIME. C/O LEFT TEMPORAL HEADACHE ACHING IN QUALITY, PAIN 5/10. PATIENT STARTED ON 4 L NC. COARSE LUNG SOUNDS. SATURATING 95% ON 4L NC NOW. NAD. AOX4.
--- NOTE | 2018-11-09 11:45 | NUR ---
DR. MIGUEL EVALUATING PATIENT AT BEDSIDE
--- NOTE | 2018-11-09 11:55 | NUR ---
PER DR. MIGUEL, WEAN DOWN O2 NC TO 2L.
--- NOTE | 2018-11-09 12:17 | NUR ---
REFRIGERATION BRAZER/SOLDERER AT BEDSIDE
--- NOTE | 2018-11-09 12:25 | NUR ---
PATIENT IS SATURATING 93% NOW ON 2L NC
--- NOTE | 2018-11-09 12:26 | NUR ---
EMT AT BEDSIDE FOR 12 LEAD EKG
[2018-11-09 12:28] LABS: BASOPHILS # (AUTO) 0.1 K/uL (0.00-0.22); BASOPHILS % (AUTO) 0.5 % (0.0-2.0); EOSINOPHILS # (AUTO) 0.2 K/uL (0-0.4); EOSINOPHILS % (AUTO) 0.9 % (0.0-4.0); HEMATOCRIT 36.6 % (36-48); HEMOGLOBIN 11.5 g/dL (12.0-16.0); LYMPHOCYTES # (AUTO) 2.6 K/uL (2.5-16.5); LYMPHOCYTES % (AUTO) 12.7 % (20.5-51.1); MEAN CORPUSCULAR HEMOGLOBIN 24 pg (27-31); MEAN CORPUSCULAR HGB CONC 31 g/dL (33-37); MEAN CORPUSCULAR VOLUME 77.8 fL (80-94); MONOCYTES # (AUTO) 1.3 K/uL (0.8-1.0); MONOCYTES % (AUTO) 6.3 % (1.7-9.3); NEUTROPHILS # (AUTO) 16.2 K/uL (1.8-7.7); NEUTROPHILS % (AUTO) 79.6 % (42.2-75.2); PLATELET COUNT (AUTO) 428 K/uL (140-450); RED CELL DISTRIBUTION WIDTH 18.1 % (11.6-13.7); WHITE BLOOD COUNT (AUTO) 20.4 K/uL (4.8-10.8)
--- NOTE | 2018-11-09 12:36 | NUR ---
NOTIFIED THAT PATIENT WAS WEANED TO 2L NC AND RANGING 90-93%. PLACED PATIENT ON BEDPAN, PT BECAME SOB AND DESAT TO 84% ON 2L, AND PLACED PT BACK ON 4.5L NC AT THIS TIME. AWARE.
[2018-11-09 12:38] LABS: ANION GAP 8.7 (8-16); CARBON DIOXIDE 32.9 mmol/L (21-32); CHLORIDE 98 mmol/L (98-107); CREATININE 1.3 mg/dL (0.6-1.3); GLUCOSE 269 mg/dL (74-106); POTASSIUM 3.6 mmol/L (3.5-5.1); SODIUM SERUM 136 mmol/L (136-145); UREA NITROGEN, BLOOD 22 mg/dL (7-18)
--- NOTE | 2018-11-09 13:08 | NUR ---
ENDORSED PATIENT TO MARCIE VILLEGAS. PT IN STABLE CONDITION.
--- NOTE | 2018-11-09 13:08 | NUR ---
RECEIVED REPORT FROM MARCIE BANKS. PT IN BED RESTING, IN STABLE CONDITION AT THIS TIME.
[2018-11-09 13:38] LABS: APPEARANCE,URINE CLEAR (CLEAR); BILIRUBIN,URINE NEGATIVE (NEGATIVE); BLOOD, URINE NEGATIVE (NEGATIVE); COLOR,URINE YELLOW (YELLOW); LEUKOCYTE ESTERASE ,URINE TRACE (NEGATIVE); NITRITE, URINE NEGATIVE (NEGATIVE); UGLUCOSE TRACE (NEGATIVE)
[2018-11-09 13:48] LABS: RBC,URINE 0-5 /HPF (0-5)
[2018-11-09] MEDS ORDERED: ACETAMINOPHEN 325 MG TAB PO ONE (14:15)
[2018-11-09] MEDS ORDERED: cefTRIAXone 1,000 MG VIAL ONE (14:44)
[2018-11-09] MEDS ORDERED: MELA3TAB PO (14:49)
[2018-11-09] MEDS ORDERED: NITR0.4T2 SL (14:49)
[2018-11-09] MEDS ORDERED: SLIDE SUBQ (14:49)
[2018-11-09] MEDS ORDERED: [UNRECOGNIZED DRUG - CODE] PO (14:49)
[2018-11-09] MEDS ORDERED: MULT-1868 PO (14:49)
[2018-11-09] MEDS ORDERED: TRAM50TA1 PO (14:49)
[2018-11-09] MEDS ORDERED: LEVO0.083 PO (14:49)
[2018-11-09] MEDS ORDERED: ONDANSETRON 4 MG/2 ML VIAL IM/IVP PRN (14:55)
[2018-11-09] MEDS ORDERED: HYDROcodone/APAP 5/325 MG 1 TAB TAB PO PRN (14:55)
[2018-11-09] MEDS ORDERED: LOTC TP (15:01)
[2018-11-09] MEDS ORDERED: MENT1OIN22 TP (15:01)
[2018-11-09] MEDS ORDERED: FLONAS NS (15:02)
--- NOTE | 2018-11-09 15:36 | NUR ---
PT TRANSFERRED TO THE FLOOR.
[2018-11-09 15:38] LABS: PROTHROMBIN TIME 9.8 secs (10.8-13.4)
[2018-11-09] MEDS ORDERED: NON-FORMULARY ITEM (Melatonin 3 MG) PO PRN (15:45)
--- NOTE | 2018-11-09 15:45 | NUR ---
Patient will be admitted to care of DR. WAYNE. Admited to [facility]. Will go to room 126B. Belongings list completed. BEDSIDE Report GIVEN to MARCIE TUTTLE.
--- NOTE | 2018-11-09 15:50 | NUR ---
PT ARRIVED TO 126B FROM ER, PT AWAKE ALERT RESP EVEN UNLABORED, ON 4L NC O2, PT DENIES PAIN OR DISCOMFORT, SKIN INSPECTED, INTACT, PT ORIENTED TO ROOM AND FLOOR, CALL SANDERSON WITHIN REACH, POC REVIEWED, WILL CONTINUE TO MONITOR
[2018-11-09 16:00] VITALS: BP 145/58
[2018-11-09 16:13] LABS: MAGNESIUM 1.6 mg/dL (1.8-2.4); THYROID STIMULATING HORMONE 20.17 uIU/mL (0.34-3.74)
[2018-11-09] MEDS ORDERED: DEXTROSE 50% 50 ML SYR IVP PRN (16:20)
[2018-11-09] MEDS ORDERED: ALBUTEROL SULFATE/IPRATROPIU 3 ML SOL IH PRN (16:20)
[2018-11-09] MEDS ORDERED: MELATONIN 3 MG TAB PO PRN ×2 (16:30→19:20)
[2018-11-09] MEDS: BLOOD GLUCOSE MONITORING 1 DEV DEV FS SCH ×2 (16:30→21:00)
[2018-11-09] MEDS ORDERED: AZITHROMYCIN 250 MG TAB PO SCH (17:00)
[2018-11-09] MEDS ORDERED: MAG SULF 2000 MG/WATER PREMIX 50 ML IV SCH (18:00)
[2018-11-09] MEDS: INSULIN LISPRO SLIDING SCALE 100 UNITS/ML VIAL SUBQ PRN (18:19)
--- NOTE | 2018-11-09 18:20 | NUR ---
PT C/O PAIN AT IV SITE WITH MAGNESIUM INFUSION, IV FLUSHES WELL WITH NS, PT REFUSES IV MAG, DR BYERS MADE AWARE, OK TO STOP INFUSION.
[2018-11-09] MEDS: NACL 0.9% 1,000 ML IV SCH (18:36)
[2018-11-09] MEDS: ALBUTEROL SULFATE/IPRATROPIU 3 ML SOL IH SCH (19:03)
--- NOTE | 2018-11-09 19:22 | NUR ---
RECIEVED PT AAOX4 ,NID ,IV SITE INTACT AND PATENT ALTHOUGH PT SAID SHE HAD PAIN IN IV SITE WHILE ON MAG . IV BUT IT IS NOW ON 1/10 PAIN SCALE -WILL MONITOR. CALL LIGHT WITHIN REACH , WITH BEDSIDE COMMODE PROVIDED AT BEDSIDE , BED IN LOW POSITION , SIDERAILS UPX2 , PLAN OF CARE INSTRUCTED AND VERBALIZE UNDERSTANDING . WILL CONT. TO MONITOR.
--- NOTE | 2018-11-09 19:22 | NUR ---
REPORT GIVEN TO OFFICE MACHINERY OR EQUIPMENT INSTALLER RN.
[2018-11-09 20:00] VITALS: BP 121/71
[2018-11-09] MEDS: MELATONIN 3 MG TAB PO SCH (20:34)
[2018-11-09] MEDS: METOPROLOL 25 MG TAB PO SCH (21:00)
[2018-11-09] MEDS: AMIODARONE 200 MG TAB PO SCH (21:00)
--- NOTE | 2018-11-09 21:25 | NUR ---
PT COMPLAINING OF NASAL PUFFINESS - WITH O2 AT 4LPM/NC , O2 SAT 96% - WILL REFER TO DR ROSAS .
[2018-11-09] MEDS: FLUTICASONE NASAL 50 MCG/ACTUATION 16 GM BTL NS SCH (21:35)
--- NOTE | 2018-11-09 21:35 | NUR ---
DR ROSAS ORDERED FLONASE NASAL BUT NOT GIVEN BECAUSE WHEN I'M ABOUT TO GIVE THE FLONASE THE PT SLEEP SOUNDLY -WILL GIVE LATTER. CALL LIGHT WITHIN REACH.
[2018-11-10] VITALS: BP 108/60
--- NOTE | 2018-11-10 | NUR ---
MADE ROUNDS , NO SIGNS OF DISTRESS NOTED AT THIS TIME . CALL LIGHT WITHIN REACH.
[2018-11-10] MEDS: traMADol 50 MG TAB PO PRN ×2 (01:55→14:23)
[2018-11-10] MEDS ORDERED: traMADol 50 MG TAB ONE (02:03)
[2018-11-10 04:00] VITALS: BP 108/61
--- NOTE | 2018-11-10 04:00 | NUR ---
MADE ROUNDS , RESP. EVEN AND UNLABORED . CALL LIGHT WITHIN REACH.
[2018-11-10] MEDS: ACETAMINOPHEN 325 MG TAB PO PRN (06:10)
[2018-11-10] MEDS: BLOOD GLUCOSE MONITORING 1 DEV DEV FS SCH ×4 (06:15→21:20)
[2018-11-10] MEDS: INSULIN LISPRO SLIDING SCALE 100 UNITS/ML VIAL SUBQ PRN ×4 (06:52→21:19)
--- NOTE | 2018-11-10 07:15 | NUR ---
RECEIVED BEDSIDE REPORT FROM MARCIE JENKINS. PT STABLE, AWAKE, ALERT AND ORIENTED X4. NO SIGNS OF DISTRESS NOTED. DENIES PAIN OR SOB. ON 4L 02 VIA NC. PT DOES NOT HAVE IV ACCESS, PT REFUSED, MADE AWARE BY PM MARCIE JENKINS. CALL SANDERSON WITHIN REACH. BED IN LOWEST POSITION, BED ALARM ON. SAFETY MEASURES IN PLACE. PLAN OF CARE REVIEWED.
--- NOTE | 2018-11-10 07:15 | NUR ---
ENDORSED TO AM SHIFT - NO IV SITE YET BECAUSE PT. REFUSED - TIM AWARED . FLONASE NOT GIVEN BEC. OF NOT AVAILABLE.
[2018-11-10] MEDS: ALBUTEROL SULFATE/IPRATROPIU 3 ML SOL IH SCH ×3 (07:18→19:39)
[2018-11-10] MEDS: NACL 0.9% 1,000 ML IV SCH (07:35)
[2018-11-10 07:51] LABS: BASOPHILS # (AUTO) 0.1 K/uL (0.00-0.22); BASOPHILS % (AUTO) 0.7 % (0.0-2.0); EOSINOPHILS # (AUTO) 0.6 K/uL (0-0.4); EOSINOPHILS % (AUTO) 4.3 % (0.0-4.0); LYMPHOCYTES % (AUTO) 13.8 % (20.5-51.1); MEAN CORPUSCULAR HEMOGLOBIN 25 pg (27-31); MEAN CORPUSCULAR HGB CONC 31 g/dL (33-37); MONOCYTES # (AUTO) 1.1 K/uL (0.8-1.0); MONOCYTES % (AUTO) 7.6 % (1.7-9.3); NEUTROPHILS # (AUTO) 10.7 K/uL (1.8-7.7); NEUTROPHILS % (AUTO) 73.6 % (42.2-75.2); PLATELET COUNT (AUTO) 381 K/uL (140-450); RED BLOOD CELL COUNT(AUTO) 4.06 MIL/uL (4.20-5.40); RED CELL DISTRIBUTION WIDTH 17.7 % (11.6-13.7); WHITE BLOOD COUNT (AUTO) 14.6 K/uL (4.8-10.8)
[2018-11-10 08:00] VITALS: BP 125/52
[2018-11-10 08:03] LABS: ANION GAP 13.7 (8-16); CARBON DIOXIDE 29.9 mmol/L (21-32); CHLORIDE 98 mmol/L (98-107); CREATININE 1.2 mg/dL (0.6-1.3); GLUCOSE 217 mg/dL (74-106); POTASSIUM 3.6 mmol/L (3.5-5.1); SODIUM SERUM 138 mmol/L (136-145); UREA NITROGEN, BLOOD 19 mg/dL (7-18)
[2018-11-10 08:12] LABS: MAGNESIUM 1.6 mg/dL (1.8-2.4); PHOSPHORUS 3.9 mg/dL (2.5-4.9)
[2018-11-10 08:19] LABS: CHOL/HDL RATIO 3.6 (1-4.5)
--- NOTE | 2018-11-10 08:20 | NUR ---
DR FU AND DR THOMPSON AT THE BEDSIDE TO INFORM PT REGARDING PICC LINE INSERTION.
[2018-11-10] MEDS ORDERED: MAGNESIUM OXIDE 400 MG TAB PO SCH (08:52)
[2018-11-10] MEDS: METOPROLOL 25 MG TAB PO SCH ×2 (09:00→21:00)
[2018-11-10] MEDS ORDERED: LEVOTHYROXINE 0.088 MG TAB PO SCH (09:00)
[2018-11-10] MEDS ORDERED: ASPIRIN PO SCH (09:00)
[2018-11-10] MEDS ORDERED: SERTRALINE HCL 50 MG PO SCH (09:00)
[2018-11-10] MEDS: ATORVASTATIN 20 MG TAB PO SCH (09:32)
[2018-11-10] MEDS: LORATADINE 10 MG TAB PO SCH (09:32)
[2018-11-10] MEDS: LACTOBACILLUS RHAMNOSUS GG 1 EACH CAP PO SCH (09:32)
[2018-11-10] MEDS: ASCORBIC ACID 500 MG TAB PO SCH (09:32)
[2018-11-10] MEDS: POTASSIUM CHLORIDE 10 MEQ TABER PO SCH (09:34)
[2018-11-10] MEDS: AMIODARONE 200 MG TAB PO SCH ×2 (09:34→20:52)
[2018-11-10] MEDS: FERROUS SULFATE 325 MG TABEC PO SCH (09:35)
[2018-11-10] MEDS: ECOTRIN 81 MG TABEC PO SCH (09:35)
[2018-11-10] MEDS: FLUTICASONE NASAL 50 MCG/ACTUATION 16 GM BTL NS SCH ×2 (09:35→20:52)
[2018-11-10] MEDS: SERTRALINE 50 MG TAB PO SCH (09:35)
--- NOTE | 2018-11-10 09:45 | NUR ---
HELD SCHEDULED METOPROLOL FOR BP 125/52, ADMINISTERED ALL OTHER SCHEDULED MEDICATIONS, PT TOLERATED WELL. NO OTHER NEEDS AT THIS TIME.
--- NOTE | 2018-11-10 09:50 | NUR ---
PT SIGNED CONSENT FOR PICC LINE INSERTION.
--- NOTE | 2018-11-10 11:20 | NUR ---
LINENS AND GOWN CHANGED, PT STABLE. NO OTHER NEEDS AT THIS TIME.
[2018-11-10 12:00] VITALS: BP 122/50
--- NOTE | 2018-11-10 12:35 | NUR ---
ADMINISTERED 6 UNITS HUMALOG FOR BG 267. PT TOLERATED WELL.
--- NOTE | 2018-11-10 13:48 | NUR ---
K-PAD APPLIED TO PT'S LOWER BACK PER MD ORDER. PT TOLERATED WELL. WILL CONTINUE TO MONITOR.
--- NOTE | 2018-11-10 13:53 | NUR ---
PATIENT HAS BEEN SCREENED AND CATEGORIZED MODERATE NUTRITION RISK. PATIENT WILL BE SEEN WITHIN 3-5 DAYS OF ADMISSION. 11/12/18 - 11/14/18 RENETTA KING MBA, RD
[2018-11-10] MEDS ORDERED: CYCLOBENZAPRINE 10 MG TAB PO SCH (13:58)
--- NOTE | 2018-11-10 14:27 | NUR ---
ADMINISTERED PRN TRAMADOL FOR C/O 6/10 LOWER BACK PAIN. SCHEDULED ROCEPHIN NOT GIVEN DUE TO PT DOES NOT HAVE IV ACCESS, AWAITING PICC LINE NURSE TO INSERT PICC LINE, DR FU AWARE. PT TOLERATED WELL. WILL CONTINUE TO MONITOR.
[2018-11-10 16:00] VITALS: BP 131/53
--- NOTE | 2018-11-10 16:20 | NUR ---
VITAL SIGNS TAKEN, PT STABLE. NO OTHER NEEDS AT THIS TIME.
[2018-11-10] MEDS: AZITHROMYCIN 250 MG TAB PO SCH (18:05)
--- NOTE | 2018-11-10 18:05 | NUR ---
ADMINISTERED SCHEDULED AZITHROMYCIN AND 2 UNITS HUMALOG FOR BG 168. PT TOLERATED WELL.
[2018-11-10] MEDS ORDERED: CYCLOBENZAPRINE 10 MG TAB PO ONE (18:40)
--- NOTE | 2018-11-10 18:54 | NUR ---
ADMINISTERED SCHEDULED FLEXERIL, PT TOLERATED WELL. PT'S PHONE RECEIVED TO CHARGE IN THE UNIT. WILL ENDORSE TO PRIMO JACK.
--- NOTE | 2018-11-10 19:08 | NUR ---
ENDORSED PT TO MARCIE BRANTLEY FOR CONTINUITY OF CARE. PT STABLE.
[2018-11-10 20:00] VITALS: BP 125/50
--- NOTE | 2018-11-10 20:50 | NUR ---
PICC LINE NURSE PUT A MIDLINE AT LEFT UPPER ARM, PER PICC LINE NURSE SHE CAN ONLY INSERT A SHORT LENGTH SINCE PT HAS NO VEINS AND EMPHASIZE TO BE VERY CAREFUL IN NOT ACCIDENTALLY PULLING IT DURING DRESSING CHANGES, 2 PORTS FLUSHES WELL, IVF FLUID OF NS AT 60ML/H RESUMED, ALL NEEDS ATTENDED.
[2018-11-10] MEDS: MELATONIN 3 MG TAB PO SCH (20:51)
--- NOTE | 2018-11-10 21:30 | NUR ---
BLOOD SUGAR CHECKED WITH 215 RESULT, COVERAGE GIVEN, SNACK PROVIDED, DUE MEDS ADMINISTERED, MONITORED CLOSELY.
[2018-11-11] VITALS: BP 120/42
--- NOTE | 2018-11-11 | NUR ---
PT SLEEPING, EASILY AROUSABLE, VITAL SIGNS STABLE, SAT 93% ON O2 4L NC, NO SOB NOTED, DENIES ANY PAIN, IVF INFUSING WELL, CONTINUE TO MONITOR CLOSELY.
[2018-11-11] MEDS: NACL 0.9% 1,000 ML IV SCH ×2 (00:15→09:47)
[2018-11-11] MEDS ORDERED: KETOROLAC 15 MG/ML VIAL IVP SCH ×2 (01:00→12:00)
--- NOTE | 2018-11-11 04:30 | NUR ---
PT SLEEPING, EASILY AROUSABLE, VITAL SIGNS TAKEN, DBP ON THE LOW SIDE BUT MAP IS ABOVE 65, DENIES ANY PAIN, SAT-92% ON 4L O2 VIA NC, IVF INFUSING WELL, MONITORED CLOSELY.
[2018-11-11 04:35] VITALS: BP 114/42
--- NOTE | 2018-11-11 06:00 | NUR ---
BLOOD SUGAR CHECKED WITH 193 RESULT, COVERAGE GIVEN, DUE SYNTHROID AND PRN TRAMADOL ADMINISTERED FOR BACK PAIN, MONITORED CLOSELY.
[2018-11-11] MEDS: LEVOTHYROXINE 0.1 MG TAB PO SCH (06:01)
[2018-11-11] MEDS: INSULIN LISPRO SLIDING SCALE 100 UNITS/ML VIAL SUBQ PRN ×4 (06:08→20:49)
[2018-11-11] MEDS: BLOOD GLUCOSE MONITORING 1 DEV DEV FS SCH ×4 (06:37→20:51)
[2018-11-11] MEDS: traMADol 50 MG TAB PO PRN (06:38)
[2018-11-11] MEDS: ALBUTEROL SULFATE/IPRATROPIU 3 ML SOL IH SCH ×3 (07:09→19:07)
--- NOTE | 2018-11-11 07:15 | NUR ---
RECEIVED REPORT FROM WOODWORKER NURSE. LYING ON RT SIDE, AAOX4. VSS, NO C/O PAIN AT THIS TIME. NOTED LT UA MIDLINE RUNNING IVF PER ORDER, PORTS FLUSHING WELL WITH NO RESISTANCE. RESPIRATIONS EVEN AND UNLABORED ON 4L O2 VIA N/C, O2 SAT 97%, AUDIBLE CRACKLES TO RT POSTERIOR LOBES UPON AUSCULTATION. LBM ON 11/10, BOWEL SOUNDS ACTIVE, SOFT ABD. PT ON FALL RISK PRECAUTIONS, SAFETY MEASURES IN PLACE, BED ON LOW POSITION, CALL LIGHT WITHIN REACH. REVIEWED POC WITH PT, PT VERBALIZED UNDERSTANDING.
--- NOTE | 2018-11-11 07:20 | NUR ---
PT AWAKE, NO SIGNS OF DISTRESS, REPORT GIVEN TO MARCIE LANGLEY FOR CONTINUITY OF CARE.
[2018-11-11 07:34] LABS: BASOPHILS # (AUTO) 0.1 K/uL (0.00-0.22); BASOPHILS % (AUTO) 0.9 % (0.0-2.0); EOSINOPHILS # (AUTO) 0.8 K/uL (0-0.4); EOSINOPHILS % (AUTO) 6.3 % (0.0-4.0); HEMATOCRIT 30.7 % (36-48); HEMOGLOBIN 9.5 g/dL (12.0-16.0); LYMPHOCYTES # (AUTO) 2.4 K/uL (2.5-16.5); LYMPHOCYTES % (AUTO) 19.8 % (20.5-51.1); MEAN CORPUSCULAR HEMOGLOBIN 25 pg (27-31); MEAN CORPUSCULAR HGB CONC 31 g/dL (33-37); MEAN CORPUSCULAR VOLUME 78.9 fL (80-94); MONOCYTES # (AUTO) 0.9 K/uL (0.8-1.0); MONOCYTES % (AUTO) 7.6 % (1.7-9.3); NEUTROPHILS # (AUTO) 8.1 K/uL (1.8-7.7); NEUTROPHILS % (AUTO) 65.4 % (42.2-75.2); PLATELET COUNT (AUTO) 380 K/uL (140-450); RED BLOOD CELL COUNT(AUTO) 3.89 MIL/uL (4.20-5.40); RED CELL DISTRIBUTION WIDTH 18.1 % (11.6-13.7); WHITE BLOOD COUNT (AUTO) 12.4 K/uL (4.8-10.8)
[2018-11-11 07:50] LABS: ANION GAP 11.5 (8-16); CARBON DIOXIDE 29.1 mmol/L (21-32); CHLORIDE 100 mmol/L (98-107); CREATININE 1.2 mg/dL (0.6-1.3); GLUCOSE 199 mg/dL (74-106); POTASSIUM 3.6 mmol/L (3.5-5.1); SODIUM SERUM 137 mmol/L (136-145); UREA NITROGEN, BLOOD 22 mg/dL (7-18)
[2018-11-11 07:52] LABS: MAGNESIUM 1.8 mg/dL (1.8-2.4); PHOSPHORUS 4.4 mg/dL (2.5-4.9)
[2018-11-11 08:00] VITALS: BP 128/52
[2018-11-11] MEDS: FERROUS SULFATE 325 MG TABEC PO SCH (09:39)
[2018-11-11] MEDS: LACTOBACILLUS RHAMNOSUS GG 1 EACH CAP PO SCH (09:39)
[2018-11-11] MEDS: ATORVASTATIN 20 MG TAB PO SCH (09:39)
[2018-11-11] MEDS: FLUTICASONE NASAL 50 MCG/ACTUATION 16 GM BTL NS SCH ×2 (09:39→20:43)
[2018-11-11] MEDS: LORATADINE 10 MG TAB PO SCH (09:39)
[2018-11-11] MEDS: ECOTRIN 81 MG TABEC PO SCH (09:39)
[2018-11-11] MEDS: ASCORBIC ACID 500 MG TAB PO SCH (09:40)
[2018-11-11] MEDS: SERTRALINE 50 MG TAB PO SCH (09:40)
[2018-11-11] MEDS: AMIODARONE 200 MG TAB PO SCH ×2 (09:40→20:43)
[2018-11-11] MEDS: METOPROLOL 25 MG TAB PO SCH ×2 (09:40→20:53)
--- NOTE | 2018-11-11 10:15 | NUR ---
PROVIDED PT WITH TOOTHBRUSH AND TOOTHPASTE, PT IS INDEPENDENT WITH ORAL CARE. NO SIGNS OF SOB NOTED.
--- NOTE | 2018-11-11 12:25 | NUR ---
PT GIVEN 4 UNITS OF HUMALOG SC TO LT UA PER ORDER. PT HAS NO SIGNS OF HYPERGLYCEMIA AT THIS TIME. WILL CONTINUE TO MONITOR.
[2018-11-11] MEDS: ACETAMINOPHEN 325 MG TAB PO PRN ×2 (12:30→23:29)
--- NOTE | 2018-11-11 13:00 | NUR ---
PT SITTING UP HAVING LUNCH. NO SIGNS OF SOB AT THIS TIME.
--- NOTE | 2018-11-11 13:24 | NUR ---
PT ON O2 3L VIA N/C, PER RESPIRATORY THERAPIST O2 THERAPY GIVEN TO KEEP O2 SAT ABOVE 92%, CHECKED AT 97% AT THIS TIME.
[2018-11-11] MEDS: MUPIROCIN CA NASAL 2% 1GM TUBE NS SCH (14:55)
[2018-11-11] MEDS: CHLORHEXADINE GLUC 2% CLOTH TP SCH (14:56)
--- NOTE | 2018-11-11 14:57 | NUR ---
PT IS AWARE OF POSITIVE RESULT OF MRSA SCREEN IN NARES. GIVEN BACTROBAN, CHLORHEXIDINE AND ROCEPHIN PER ORDER. PT IS AWARE OF INDICATIONS AND POTENTIAL SIDE EFFECTS OF MEDICATIONS. NO C/O PAIN AT THIS TIME.
[2018-11-11 16:00] VITALS: BP 113/42
[2018-11-11] MEDS: AZITHROMYCIN 250 MG TAB PO SCH (17:16)
--- NOTE | 2018-11-11 17:20 | NUR ---
ASSISTED PT TO BSC, GIVEN YUDITH AND SKIN CARE. PT IS ABLE TO STAND UP WITH STANDBY ASSISTANCE.
--- NOTE | 2018-11-11 19:15 | NUR ---
ENDORSED PT TO MOLD LAMINATOR NURSE. PT HAS NO SIGNS OF DISTRESS AT THIS TIME.
--- NOTE | 2018-11-11 19:20 | NUR ---
RECEIVED PT ON BED, AAOX4, ABLE TO MAKE NEEDS KNOWN, VITAL SIGNS TAKEN, DBP ON THE LOW SIDE BUT STABLE, DENIES ANY PAIN, ON O2 3L NC WITH SAT-93%, NO SOB NOTED, HHN BREATHING PER RT, PLAN OF CARE DISCUSSED, SAFETY MEASURES IN PLACE, MAINTAINED ON CONTACT ISOLATION, CALL LIGHT WITHIN REACH.
[2018-11-11] MEDS: MELATONIN 3 MG TAB PO SCH (20:42)
--- NOTE | 2018-11-11 21:10 | NUR ---
BLOOD SUGAR CHECKED WITH 185 RESULT, COVERAGE GIVEN, SNACK PROVIDED, DUE MEDS ADMINISTERED, TOLERATED WELL, ALL NEEDS ATTENDED.
--- NOTE | 2018-11-11 23:30 | NUR ---
PT AWAKE, VITAL SIGNS STABLE, SAT-93% ON 3L NC, NO SOB NOTED, ASSISTED TO BEDSIDE COMMODE AND VOIDED FREELY, ASSISTED BACK TO BED, MEDICATED FOR BACK PAIN WITH TYLENOL, CONTINUE TO MONITOR CLOSELY.
[2018-11-12] VITALS: BP 118/42
--- NOTE | 2018-11-12 03:00 | NUR ---
ROUNDS MADE, SEEN PT SLEEPING, NO SIGNS OF DISTRESS, MONITORED CLOSELY.
[2018-11-12] MEDS: LEVOTHYROXINE 0.1 MG TAB PO SCH (06:00)
[2018-11-12] MEDS: INSULIN LISPRO SLIDING SCALE 100 UNITS/ML VIAL SUBQ PRN ×3 (06:07→20:58)
[2018-11-12 06:35] LABS: ANION GAP 11.2 (8-16); CARBON DIOXIDE 29.8 mmol/L (21-32); CHLORIDE 101 mmol/L (98-107); CREATININE 1.2 mg/dL (0.6-1.3); GLUCOSE 171 mg/dL (74-106); SODIUM SERUM 138 mmol/L (136-145); UREA NITROGEN, BLOOD 24 mg/dL (7-18)
[2018-11-12 06:41] LABS: MAGNESIUM 1.6 mg/dL (1.8-2.4); PHOSPHORUS 4.7 mg/dL (2.5-4.9)
[2018-11-12] MEDS: BLOOD GLUCOSE MONITORING 1 DEV DEV FS SCH ×4 (07:04→20:49)
[2018-11-12] MEDS: ALBUTEROL SULFATE/IPRATROPIU 3 ML SOL IH SCH ×3 (07:14→19:13)
--- NOTE | 2018-11-12 07:26 | NUR ---
PT AWAKE, NO SIGNS OF DISTRESS, BEDSIDE REPORT GIVEN TO MARCIE MORILLO FOR CONTINUITY OF CARE.
--- NOTE | 2018-11-12 07:53 | NUR ---
RECEIVED REPORT FROM LOIN TRIMMER RN. PT RESTING IN BED RECEIVING BREATHING TREATMENT. PT IS AAOX4, AMBULATORY WITH ASSISTANCE. PT ABLE TO MAKE NEEDS KNOWN. PT HAS LEFT UPPER ARM MIDLINE RUNNING NS @ 60ML/HR. EXPLAINED POC TO PT. PT VERBALIZED UNDERSTANDING. WILL ROUND FREQUENTLY ON PT.
[2018-11-12 08:00] VITALS: BP 148/56
[2018-11-12] MEDS ORDERED: guaiFENesin DM 200/20 MG-10 ML 10 ML UDC PO PRN (08:00)
[2018-11-12 08:31] LABS: BASOPHILS # (AUTO) 0.1 K/uL (0.00-0.22); EOSINOPHILS # (AUTO) 0.8 K/uL (0-0.4); EOSINOPHILS % (AUTO) 7.2 % (0.0-4.0); HEMATOCRIT 29.9 % (36-48); HEMOGLOBIN 9.3 g/dL (12.0-16.0); LYMPHOCYTES # (AUTO) 2.3 K/uL (2.5-16.5); LYMPHOCYTES % (AUTO) 20.8 % (20.5-51.1); MEAN CORPUSCULAR HEMOGLOBIN 25 pg (27-31); MEAN CORPUSCULAR HGB CONC 31 g/dL (33-37); MEAN CORPUSCULAR VOLUME 79.3 fL (80-94); MONOCYTES # (AUTO) 0.8 K/uL (0.8-1.0); MONOCYTES % (AUTO) 7.3 % (1.7-9.3); NEUTROPHILS % (AUTO) 63.7 % (42.2-75.2); PLATELET COUNT (AUTO) 392 K/uL (140-450); RED BLOOD CELL COUNT(AUTO) 3.77 MIL/uL (4.20-5.40); RED CELL DISTRIBUTION WIDTH 17.9 % (11.6-13.7); WHITE BLOOD COUNT (AUTO) 10.9 K/uL (4.8-10.8)
[2018-11-12] MEDS: FLUTICASONE NASAL 50 MCG/ACTUATION 16 GM BTL NS SCH ×2 (08:45→20:44)
[2018-11-12] MEDS: FERROUS SULFATE 325 MG TABEC PO SCH (08:45)
[2018-11-12] MEDS: LACTOBACILLUS RHAMNOSUS GG 1 EACH CAP PO SCH (08:45)
[2018-11-12] MEDS: AMIODARONE 200 MG TAB PO SCH ×2 (08:46→20:47)
[2018-11-12] MEDS: LORATADINE 10 MG TAB PO SCH (08:46)
[2018-11-12] MEDS: ATORVASTATIN 20 MG TAB PO SCH (08:47)
[2018-11-12] MEDS: ASCORBIC ACID 500 MG TAB PO SCH (08:47)
[2018-11-12] MEDS: ECOTRIN 81 MG TABEC PO SCH (08:47)
[2018-11-12] MEDS: SERTRALINE 50 MG TAB PO SCH (08:47)
[2018-11-12] MEDS: METOPROLOL 25 MG TAB PO SCH ×2 (08:47→20:47)
[2018-11-12] MEDS: ACETAMINOPHEN 325 MG TAB PO PRN ×2 (08:48→20:46)
--- NOTE | 2018-11-12 09:47 | NUR ---
ADMINISTERED MORNING MEDS. PT TOLERATED WELL. ALL NEEDS CURRENTLY MET. WILL CONTINUE TO ROUND FREQUENTLY ON PT. WILL CONTINUE TO ROUND FREQUENTLY ON PT.
[2018-11-12] MEDS ORDERED: MAG SULF 2000 MG/WATER PREMIX 50 ML IV SCH (10:00)
--- NOTE | 2018-11-12 11:47 | NUR ---
ADMINISTERED 4 UNITS HUMALOG FOR 217 BS. PT TOLERATED WELL. PT LUNCH TO BE DELIVERED. ALL NEEDS MET AT THIS TIME. WILL CONTINUE TO ROUND FREQUENTLY ON PT.
--- NOTE | 2018-11-12 13:18 | NUR ---
PT RESTING IN BED. ALL NEEDS CURRENTLY MET. WILL CONTINUE TO ROUND FREQUENTLY ON PT.
--- NOTE | 2018-11-12 15:29 | NUR ---
PT RESTING IN BED, WILL CONTINUE TO ROUND FREQUENTLY. BED IN LOW POSITION, CALL LIGHT WITHIN REACH.
[2018-11-12 16:05] VITALS: BP 144/87
[2018-11-12] MEDS: AZITHROMYCIN 250 MG TAB PO SCH (16:05)
[2018-11-12] MEDS: MUPIROCIN CA NASAL 2% 1GM TUBE NS SCH (16:06)
[2018-11-12] MEDS: CHLORHEXADINE GLUC 2% CLOTH TP SCH (16:07)
--- NOTE | 2018-11-12 17:32 | NUR ---
PT RESTING IN BED AWAITING DINNER. WILL CONTINUE TO ROUND FREQUENTLY ON PT. BED IN LOW POSITION, CALL LIGHT WITHIN REACH.
--- NOTE | 2018-11-12 19:18 | NUR ---
ENDORSED PT TO INSPECTOR SUBASSEMBLY FOR CONTINUITY OF CARE. PT IN STABLE CONDITION AT THIS TIME.
--- NOTE | 2018-11-12 19:21 | NUR ---
PATIENT IS UNABLE TO GIVE SPUTUM SAMPLE AT THIS TIME. PATIENT STATES SHE HAS NO SPUTUM
--- NOTE | 2018-11-12 19:22 | NUR ---
RECEIVED PT FROM YISEL JACK PT AAOX4 AMBULATES USING BSC ON 02 3 LTS VIA NC NOT SOB NOTED ON TELEMETRY SR INITIAL ASSESSMENT DONE
[2018-11-12 20:00] VITALS: BP 128/89
[2018-11-12] MEDS: MELATONIN 3 MG TAB PO SCH (20:45)
--- NOTE | 2018-11-12 21:30 | NUR ---
BLOOD SUGAR TEST 212 COVERAGE FO;NAN PROTOCOL
[2018-11-12] MEDS: traMADol 50 MG TAB PO PRN (23:54)
[2018-11-13] VITALS: BP 142/57
--- NOTE | 2018-11-13 | NUR ---
PT IS ASSISTED TO USED BSC VOIDING WELL NOT DISTRESS NOTED
[2018-11-13] MEDS: NACL 0.9% 1,000 ML IV SCH (00:15)
--- NOTE | 2018-11-13 04:00 | NUR ---
SPONGE BATH GIVEN LINEN CHANGED PT REPOSITIONED REMAIN STABLE
[2018-11-13] MEDS: BLOOD GLUCOSE MONITORING 1 DEV DEV FS SCH ×2 (06:14→12:16)
[2018-11-13] MEDS: INSULIN LISPRO SLIDING SCALE 100 UNITS/ML VIAL SUBQ PRN ×2 (06:16→12:17)
[2018-11-13] MEDS: ACETAMINOPHEN 325 MG TAB PO PRN (06:19)
[2018-11-13] MEDS: LEVOTHYROXINE 0.1 MG TAB PO SCH (06:19)
[2018-11-13 06:25] LABS: ANION GAP 12.2 (8-16); CARBON DIOXIDE 28.3 mmol/L (21-32); CHLORIDE 101 mmol/L (98-107); CREATININE 1.2 mg/dL (0.6-1.3); GLUCOSE 181 mg/dL (74-106); POTASSIUM 4.5 mmol/L (3.5-5.1); SODIUM SERUM 137 mmol/L (136-145); UREA NITROGEN, BLOOD 19 mg/dL (7-18)
[2018-11-13 06:33] LABS: MAGNESIUM 1.9 mg/dL (1.8-2.4)
[2018-11-13] MEDS: ALBUTEROL SULFATE/IPRATROPIU 3 ML SOL IH SCH ×2 (06:46→13:10)
--- NOTE | 2018-11-13 06:47 | NUR ---
BLOOD SUGAR TEST 180 COVERAGE WITH 2 UNIS SUBQ HUMALOG FOLLOW PROTOCO, AND AFTER PAIN ;MEDIC GIVEN PT IS SLEEPING WELLL
--- NOTE | 2018-11-13 07:15 | NUR ---
RECEIVED BEDSIDE REPORT FROM RING SEWER NURSE FOR CONTINUITY OF CARE. PATIENT AWAKE AND RESTING ON BED AT THIS TIME. PATIENT IS AAOX4. RESPIRATION EVEN AND UNLABORED ON 3LPM VIA NC. LUNG SOUND CLEAR ON AUSCULTATION. DENIED PAIN AT THIS TIME. NO SIGNS OF DISTRESS NOTED. IV ON L WRIST 22G, CLEAN AND INTACT, INFUSING PER MD ORDER. PATIENT IS CONTINENT AND BEDSIDE COMMODE IN PLACE. AMBULATE WITH ASSIST. FALL RISK PROTOCOL IN PLACE. DISCUSSED PLAN OF CARE WITH PATIENT AND PATIENT VERBALIZED UNDERSTANDING. SAFETY MEASURES IN PLACE. BED IN LOW POSITION AND CALL LIGHT WITHIN REACH. INSTRUCTED PATIENT TO USE THE CALL LIGHT FOR ANY ASSISTANCE AND PATIENT SAID OK.
[2018-11-13 07:33] LABS: BASOPHILS # (AUTO) 0.1 K/uL (0.00-0.22); EOSINOPHILS # (AUTO) 0.8 K/uL (0-0.4); EOSINOPHILS % (AUTO) 6.5 % (0.0-4.0); HEMATOCRIT 32.8 % (36-48); HEMOGLOBIN 10.1 g/dL (12.0-16.0); LYMPHOCYTES # (AUTO) 2.5 K/uL (2.5-16.5); LYMPHOCYTES % (AUTO) 20.3 % (20.5-51.1); MEAN CORPUSCULAR HEMOGLOBIN 24 pg (27-31); MEAN CORPUSCULAR HGB CONC 31 g/dL (33-37); MEAN CORPUSCULAR VOLUME 78.8 fL (80-94); MONOCYTES # (AUTO) 0.8 K/uL (0.8-1.0); MONOCYTES % (AUTO) 6.3 % (1.7-9.3); NEUTROPHILS % (AUTO) 65.9 % (42.2-75.2); PLATELET COUNT (AUTO) 376 K/uL (140-450); RED BLOOD CELL COUNT(AUTO) 4.16 MIL/uL (4.20-5.40); RED CELL DISTRIBUTION WIDTH 18.1 % (11.6-13.7); WHITE BLOOD COUNT (AUTO) 12.2 K/uL (4.8-10.8)
[2018-11-13 08:00] VITALS: BP 145/60
[2018-11-13] MEDS: ECOTRIN 81 MG TABEC PO SCH (08:28)
[2018-11-13] MEDS: LACTOBACILLUS RHAMNOSUS GG 1 EACH CAP PO SCH (08:28)
[2018-11-13] MEDS: METOPROLOL 25 MG TAB PO SCH (08:29)
[2018-11-13] MEDS: LORATADINE 10 MG TAB PO SCH (08:29)
[2018-11-13] MEDS: ATORVASTATIN 20 MG TAB PO SCH (08:29)
[2018-11-13] MEDS: POTASSIUM CHLORIDE 10 MEQ TABER PO SCH (08:29)
[2018-11-13] MEDS: AMIODARONE 200 MG TAB PO SCH (08:30)
[2018-11-13] MEDS: FERROUS SULFATE 325 MG TABEC PO SCH (08:30)
[2018-11-13] MEDS: SERTRALINE 50 MG TAB PO SCH (08:30)
[2018-11-13] MEDS: ASCORBIC ACID 500 MG TAB PO SCH (08:30)
[2018-11-13] MEDS: FLUTICASONE NASAL 50 MCG/ACTUATION 16 GM BTL NS SCH (08:32)
--- NOTE | 2018-11-13 08:32 | NUR ---
ADMINISTERED MEDS PER MD ORDER, PATIENT TOLERATED WELL. MEDS EDUCATION PROVIDED TO PATIENT AND PATIENT VERBALIZED UNDERSTANDING. PATIENT AWAKE AND RESTING ON BED AT THIS TIME. FALL RISK PROTOCOL AND CONTACT ISOLATION PROTOCOL IN PLACE. SAFETY SAFETY MEASURES IN PLACE. BED IN LOW POSITION AND CALL LIGHT WITHIN REACH. BED ALARM ACTIVATED. INSTRUCTED PATIENT TO USE THE CALL LIGHT FOR ANY ASSISTANCE AND PATIENT WAS AWARE.
[2018-11-13] MEDS ORDERED: SYN.1 PO (08:56)
[2018-11-13] MEDS ORDERED: LEVO500T98 PO (08:58)
--- NOTE | 2018-11-13 09:45 | NUR ---
PATIENT AWAKE AND RESTING ON BED AT THIS TIME. NO SIGNS OF DISTRESS NOTE. SAFETY MEASURES IN PLACE. BED IN LOW POSITION AND CALL LIGHT WITHIN REACH. BED ALARM ACTIVATED. INSTRUCTED PATIENT TO USE THE CALL LIGHT FOR ANY ASSISTANCE AND PATIENT WAS AWARE.
--- NOTE | 2018-11-13 10:27 | NUR ---
RECEIVED A CALL FROM PATIENT'S SON JOHN AND JOHN WANTS TO KNOW HOW HIS MOM IS DOING, PROVIDED THE CURRENT INFORMATION AND INFORMED THAT PATIENT WILL BE TRANSFER BACK TO [facility] TODAY. JOHN WAS ACKNOWLEDGE AND AWARE OF THE TRANSFER.
--- NOTE | 2018-11-13 10:40 | NUR ---
CALLED [facility] AND SPOKE WITH EDITOR SOUND DHEERAJ. PER DHEERAJ, THE HYDRAULIC CONTROLS TECHNICIAN WILL BE ABLE TO PICK PATIENT UP AT 1445. NOTIFIED PATIENT AND PATIENT WAS AWARE OF THE HASSOCK MAKER TIME.
[2018-11-13] MEDS: traMADol 50 MG TAB PO PRN (10:55)
--- NOTE | 2018-11-13 10:56 | NUR ---
PT RN BUSY AT THE MOMENT. SPOKE WITH SADE AND ADMINISTERED TRAMADOL 50MG PO PRN PER DR. MACHUCA. SCANNER NOT WORKING ON WOW1. WILL ENDORSE TO SADE TO REASSESS PAIN
--- NOTE | 2018-11-13 11:20 | NUR ---
PATIENT AWAKE AND WATCHING TV ON BED. NO SIGN OF DISTRESS NOTED. SAFETY MEASURES IN PLACE. BED IN LOW POSITION AND CALL LIGHT WITHIN REACH. INSTRUCTED PATIENT TO USE THE CALL LIGHT FOR ANY ASSISTANCE AND PATIENT WAS AWARE.
--- NOTE | 2018-11-13 12:40 | NUR ---
ASSISTED PATIENT TO USE THE BEDSIDE COMMODE AND BACK ON BED. POSITIONED PATIENT ON BED COMFORTABLY. NO SIGNS OF DISTRESS NOTES. SAFETY MEASURES IN PLACE. BED IN LOW POSITION AND CALL LIGHT WITHIN REACH. BED ALARM ACTIVATED. INSTRUCTED PATIENT TO USE THE CALL LIGHT FOR ANY ASSISTANCE AND PATIENT WAS AWARE.
--- NOTE | 2018-11-13 13:07 | NUR ---
PATIENT COMPLAINED THAT SHE COUGHS TOO MUCH AND FEELS SO IRRITABLE AND RESTLESS. ADMINISTERED ROBITUSSIN PER MD ORDER, PATIENT TOLERATED WELL. PATIENT AWAKE AND RESTING ON BED AT THIS TIME. NO SIGNS OF DISTRESS NOTES. SAFETY MEASURES IN PLACE. BED IN LOW POSITION AND CALL LIGHT WITHIN REACH. INSTRUCTED PATIENT TO USE THE CALL LIGHT FOR ANY ASSISTANCE AND PATIENT WAS AWARE.
[2018-11-13] MEDS: MUPIROCIN CA NASAL 2% 1GM TUBE NS SCH (14:34)
[2018-11-13] MEDS: CHLORHEXADINE GLUC 2% CLOTH TP SCH (14:34)
--- NOTE | 2018-11-13 14:34 | NUR ---
APPLIED BACTROBAN AND WIPE PATIENT WITH CHLORHEXIDINE CLOTHES, EDUCATION PROVIDED TO PATIENT. YOUTH PASTOR ASSISTED PATIENT TO CHANGE INTO HER OWN CLOTHES. PATIENT IS READY FOR DISCHARGE AND AWAITING FOR PLASTIC BATTERY ASSEMBLER TO ARRIVE. NO SIGNS OF DISTRESS NOTED.
--- NOTE | 2018-11-13 15:10 | NUR ---
DISCHARGE INSTRUCTION PROVIDED TO PATIENT AT BEDSIDE. EDUCATED PATIENT ON FOLLOW UP WITH MD, SEEK MEDICAL HELP IN CASE OF MEDICAL EMERGENCY, DISEASE MANAGEMENT, MEDS REGIMEN AND SIDE EFFECTS. PATIENT VERBALIZED UNDERSTANDING. DC PATIENT'S IV AND CANNULA INTACT, NO BLEEDING AT IV SITE. REMOVED ALL ARM BANDS. PATIENT TOOK ALL HER BELONGINGS. DYE LINE OPERATOR ESCORTED PATIENT WITH THE WHEEL CHAIR TO THE FRONT LOBBY. PATIENT IS GOING TO DISCHARGE AT THIS TIME. PATIENT IS IN STABLE CONDITION.
[2018-11-18] MEDS ORDERED: LACT10CA1 PO (09:56)
[2018-11-18] MEDS ORDERED: AZIT250T3 PO (09:56)
[2018-11-18] MEDS ORDERED: ROC1PM IV (09:56)
[2018-11-18] MEDS ORDERED: FERR325E14 PO (17:19)
== END 2018-11-13 15:10 | disposition home or self-care (01) | DRG 871 ==
LOC: MED 10:59 → MMU 14:58
PROVIDERS: ADMIT General Practice; ATTEND General Practice
PROC: 05HY33Z Insertion of Infusion Device into Upper Vein, Percutaneous Approach (ICD-10-PCS; principal; 2018-11-10)
PROC: B54NZZA Ultrasonography of Left Upper Extremity Veins, Guidance (ICD-10-PCS; 2018-11-10)
DX: A41.9 Sepsis, unspecified organism (principal); J18.9 Pneumonia, unspecified organism; J96.21 Acute and chronic respiratory failure with hypoxia; N39.0 Urinary tract infection, site not specified; I47.1 Supraventricular tachycardia; J44.0 Chronic obstructive pulmonary disease with (acute) lower respiratory infection; I11.0 Hypertensive heart disease with heart failure; I50.9 Heart failure, unspecified; E66.9 Obesity, unspecified; Z68.34 Body mass index [BMI] 34.0-34.9, adult; D50.9 Iron deficiency anemia, unspecified; E03.9 Hypothyroidism, unspecified; E11.65 Type 2 diabetes mellitus with hyperglycemia; E78.5 Hyperlipidemia, unspecified; E83.42 Hypomagnesemia; F41.8 Other specified anxiety disorders; G47.00 Insomnia, unspecified; Z85.3 Personal history of malignant neoplasm of breast; Z92.3 Personal history of irradiation; Z88.5 Allergy status to narcotic agent; Z88.7 Allergy status to serum and vaccine; Z88.8 Allergy status to other drugs, medicaments and biological substances; Z80.3 Family history of malignant neoplasm of breast; Z90.710 Acquired absence of both cervix and uterus; Z96.653 Presence of artificial knee joint, bilateral
CPT/HCPCS: 36415; 71045; 80048; 81001; 82948; 83735; 83880; 84100; 84436; 84443; 84484; 85025; 85610; 85730; 87040; 87070; 87081; 87086; 93005; 94640; 96365; 99285; C1751; J0696; J1644; J1815; J1885; J3475; J7030; J7060; J7620; Q0092

== ENCOUNTER 2018-12-21 11:05 | Inpatient (IN) | payer OTHER, MEDICAID ==
[~2018-12-21] VITALS: Ht 160 cm; Wt 81.6 kg
[~2018-12-21 11:05] MED LIST changes: -ASPI81EC97 PO; -ATOR20TA PO; +AZIT250T3 PO; -BENZ100C6 PO; -BISA-213 RC; -DOCU-299 PO; -FLEPED RC; +FLONAS NS; -GUAI-791 PO; -HEPA500056 SUBQ; -Hydraguard TP; -INSU100S5 SQ; -LACT10CA PO; +LACT10CA1 PO; -MAGN400S60 PO; -MELA3TAB PO; +MELA3TAB56 PO; +MENT1OIN22 TP; -METF850T PO; -METH40PD15 IVP; +MULT-1868 PO; +NITR0.4T2 SL; -PIPE50SO5 IV; -POTA10TE30 PO; +ROC1PM IV; +SLIDE SUBQ; -SYN.075 PO; +SYN.1 PO; +TRAM50TA1 PO; +[UNRECOGNIZED DRUG - CODE] PO
--- NOTE | 2018-12-21 11:05 | NUR ---
Patient [facility] from [facility], transferred to bed 4. RN evaluating patient at bedside.
[2018-12-21 11:11] VITALS: BP 146/57
--- NOTE | 2018-12-21 11:12 | NUR ---
PT BIBA C/O SOB. PT PLACED ON 10L O2 VIA NON-REBREATHER MASK FOR O2 SAT IN 60'S, CURRENT O2 SAT AT 90%. PT TACHYPNEA WITH LABORED BREATHING, WHEEZES PRESNENT THROUGHOUT WITH EXHALATION. PT DENIES CP. ER MD MADE AWARE OF PT CONDITION. MEDHX:COPD, HTN, CHF RX:SEE LIST.
[2018-12-21] MEDS ORDERED: ALBUTEROL 0.083% 2.5 MG/3 ML NEBU INH ONE ×2 (11:15→13:55)
[2018-12-21] MEDS ORDERED: predniSONE 20 MG TAB PO ONE (11:15)
[2018-12-21] MEDS ORDERED: ALBUTEROL SULFATE/IPRATROPIU 3 ML SOL IH ONE ×2 (11:15→13:55)
--- NOTE | 2018-12-21 11:18 | NUR ---
RT AT BEDSIDE FOR TX.
--- NOTE | 2018-12-21 11:30 | NUR ---
LAB AT BEDSIDE
--- NOTE | 2018-12-21 11:35 | NUR ---
UNABLE TO PERFORM IV INSERTION, AFTER 2 ATTEMPTS PT TOLD ME TO STOP, ER CHARGE NURSE YISEL INFORMED.
[2018-12-21 11:40] LABS: HEMATOCRIT 38.6 % (36-48); MEAN CORPUSCULAR HEMOGLOBIN 24 pg (27-31); MEAN CORPUSCULAR HGB CONC 31 g/dL (33-37); MEAN CORPUSCULAR VOLUME 77.3 fL (80-94); PLATELET COUNT (AUTO) 240 K/uL (140-450); RED BLOOD CELL COUNT(AUTO) 4.99 MIL/uL (4.20-5.40); RED CELL DISTRIBUTION WIDTH 16.1 % (11.6-13.7)
[2018-12-21 11:53] LABS: ANION GAP 12.3 (8-16); CARBON DIOXIDE 31.7 mmol/L (21-32); CHLORIDE 98 mmol/L (98-107); CREATININE 1.3 mg/dL (0.6-1.3); GLUCOSE 157 mg/dL (74-106); SODIUM SERUM 139 mmol/L (136-145); UREA NITROGEN, BLOOD 24 mg/dL (7-18)
[2018-12-21 11:59] LABS: ALBUMIN 3.4 g/dL (3.4-5.0); ASPARTATE AMINOTRANSFERASE 23 U/L (15-37); LYMPHOCYTES % (MANUAL) 8 % (20-46); MONOCYTES % (MANUAL) 4 % (5-12); TOTAL BILIRUBIN 0.9 mg/dL (0.0-1.0); WHITE BLOOD COUNT (AUTO) 25.2 K/uL (4.8-10.8)
[2018-12-21] MEDS ORDERED: POTA10TE30 PO (12:45)
[2018-12-21] MEDS ORDERED: ATOR20TA PO (12:45)
--- NOTE | 2018-12-21 13:04 | NUR ---
CALLED LAB TO HAVE BLOOD CULTURES DRAWN ON PT.
--- NOTE | 2018-12-21 13:04 | NUR ---
RECEIVED REPORT FROM YISEL JACK. ASSUMED CARE OF PT AT THIS TIME.
[2018-12-21] MEDS ORDERED: cefTRIAXone 1,000 MG VIAL ONE (13:17)
[2018-12-21] MEDS ORDERED: POTASSIUM CHLORIDE 10 MEQ TABER PO ONE (13:30)
[2018-12-21] MEDS: NACL 0.9% 1,000 ML IV SCH (13:34)
[2018-12-21] MEDS ORDERED: DOCUSATE SODIUM 100 MG GELCAP PO PRN (13:35)
[2018-12-21] MEDS ORDERED: HYDROcodone/APAP 7.5/325 MG 1 TAB PO PRN (13:35)
[2018-12-21] MEDS ORDERED: ONDANSETRON 4 MG/2 ML VIAL IM/IVP PRN (13:35)
[2018-12-21] MEDS ORDERED: FUROSEMIDE 40 MG/4 ML VIAL IVP SCH (13:45)
[2018-12-21] MEDS ORDERED: ONDANSETRON 4 MG/2 ML VIAL IVP ONE (13:55)
--- NOTE | 2018-12-21 14:00 | NUR ---
PT C/O SOB, AND NAUSEA, DR SCHWAB MADE AWARE, WILL REEVALUATE PT.
--- NOTE | 2018-12-21 14:04 | NUR ---
Dr. Paz re-evaluating patient at bedside.
--- NOTE | 2018-12-21 14:05 | NUR ---
Dr. Yoder evaluating patient at bedside.
[2018-12-21 14:28] LABS: CHOL/HDL RATIO 2.2 (1-4.5); FREE T4 (FREE THYROXINE) 1.51 ng/dL (0.76-1.46); MAGNESIUM 1.4 mg/dL (1.8-2.4); PHOSPHORUS 3.9 mg/dL (2.5-4.9); THYROID STIMULATING HORMONE 1.23 uIU/mL (0.34-3.74)
[2018-12-21] MEDS ORDERED: ALBUTEROL SULFATE/IPRATROPIU 3 ML SOL IH PRN (14:35)
[2018-12-21] MEDS ORDERED: DEXTROSE 50% 50 ML SYR IVP PRN (14:35)
--- NOTE | 2018-12-21 14:35 | NUR ---
PT STATES SHE IS FEELING BETTER, NO LONGER C/O SOB. PT 02 SAT AT 86% ON NON REBREATHER. DR POWELL AWARE AND DR SCHWAB MADE AWARE AND OK FOR PT TO BE ADMITTED. PER RT PT ABG DRAWN PH 7.35, AND CO2 W/IN NORMAL RANGE.
--- NOTE | 2018-12-21 14:41 | NUR ---
PT RECEIVING BREATHING TREATMENT AT THIS TIME. O2 SAT 92%
[2018-12-21 14:43] LABS: PROTHROMBIN TIME 10.9 secs (10.8-13.4)
[2018-12-21 14:58] LABS: APPEARANCE,URINE CLEAR (CLEAR); BILIRUBIN,URINE NEGATIVE (NEGATIVE); BLOOD, URINE NEGATIVE (NEGATIVE); COLOR,URINE YELLOW (YELLOW); LEUKOCYTE ESTERASE ,URINE TRACE (NEGATIVE); NITRITE, URINE NEGATIVE (NEGATIVE); UGLUCOSE NEGATIVE (NEGATIVE)
[2018-12-21 15:00] VITALS: BP 98/36
[2018-12-21] MEDS: PIPERACILLIN/TAZOBACTAM 3.375 GM in DEXTROSE 5% 50 ML IV SCH (15:00)
--- NOTE | 2018-12-21 15:00 | NUR ---
RECEIVED ENDORSEMENT FROM ED NURSE. PATIENT IS AAOX4, URUGUAYAN SPEAKING. RESPIRATIONS ARE SHALLOW AND DEEPER WITH SPEAKING ON 15 NON REBREATHER MASK. LEFT HAND 24G IV INTACT AND SL. PATIENT DENIES ANY PAIN AT THIS TIME. VS OBTAINED, MRSA DONE. PLAN OF CARE WAS REVIEWED WITH PATIENT. PATIENT VERBALIZED UNDERSTANDING. SAFETY MEASURES IN PLACE, CALL LIGHT WITHIN REACH.
--- NOTE | 2018-12-21 15:12 | NUR ---
Patient will be admitted to care of DR WAYNE. Admited to TELE. Will go to room 127B. Belongings list completed. Report to JACLYN JACK.
--- NOTE | 2018-12-21 15:15 | NUR ---
PATIENT O2 SAT OF 89-90% ON 15 NONREBREATHER, DR. POWELL MADE AWARE.
[2018-12-21 16:00] VITALS: BP 133/40
[2018-12-21] MEDS ORDERED: MAG SULF 2000 MG/WATER PREMIX 100 ML IV SCH (16:00)
--- NOTE | 2018-12-21 16:15 | NUR ---
LEBRON CATHETER INSERTED. PATIENT TOLERATED WELL. NO OTHER NEEDS AT THIS TIME. Addendum: 12/21/18 at 1847 by Miladys Holt RN ADMINISTERED SCHEDULED MEDICATIONS. PATIENT TOLERATED WELL.
[2018-12-21 16:25] LABS: RBC,URINE NONE SEEN /HPF (0-5); WBC,URINE 0-5 /HPF (0-5)
[2018-12-21] MEDS ORDERED: metFORMIN 500 MG TAB PO SCH (17:00)
[2018-12-21] MEDS: BLOOD GLUCOSE MONITORING 1 DEV DEV FS SCH ×2 (17:02→21:12)
--- NOTE | 2018-12-21 17:20 | NUR ---
RESPONDED TO CALL LIGHT. PATIENT STATED SHE WAS HAVING DIFFICULTY BREATHING. VS OBTAINED. O2 SAT OF 77% ON 15L NONREBREATHER. AT THIS TIME, CALL A RAPID.
--- NOTE | 2018-12-21 17:28 | NUR ---
RESPONDED TO RAPID RESPONSE AND FOUND PT ON NRB SOB. PT THEN PLACED ON BIPAP 14/6, R14, 60%. BIPAP PLUGGED INTO A RED OUTLET WITH ALARMS ON AND FUNCTIONING. PT TACHYPNEIC WILL CONTINUE TO MONITOR.
[2018-12-21] MEDS: INSULIN LISPRO SLIDING SCALE 100 UNITS/ML VIAL SUBQ PRN ×2 (17:48→20:58)
--- NOTE | 2018-12-21 17:54 | NUR ---
ADMINISTERED SCHEDULED MEDICATION. PATIENT TOLERATED WELL. PATIENT ON BIPAP. CRASH CART AT BEDSIDE.
[2018-12-21] MEDS: ALBUTEROL SULFATE/IPRATROPIU 3 ML SOL IH SCH (19:09)
--- NOTE | 2018-12-21 19:41 | NUR ---
ENDORSED TO HEALTH ADMINISTRATOR FOR CONTINUITY OF CARE. PATIENT IS STABLE AT THIS TIME.
--- NOTE | 2018-12-21 19:45 | NUR ---
RECEIVED ENDORSEMENT FORM JACLYN RN DAYSHIFT NURSE AT BEDSIDE FOR CONTINUITY OF CARE, PT IN STABLE CONDITION.
[2018-12-21 20:00] VITALS: BP 108/72
--- NOTE | 2018-12-21 20:00 | NUR ---
PT IS AOX4 , SHE IS IN A LOW BED WITH ALL FALLS PRECAUTIONS IN PLACE. RT AT BEDSIDE, PT ON BIPAP MACHINE, AND IS REQUESTING TYLENOL FOR HER ARM DUE TO HAVING ABG BLOOD GASSES DRAWN. HER IV SITE 24 G ON LEFT HAND. RUNNING MAGNESIUM ORDERED. V/S FOLLOWS T 97.7 P 72 R 28 B/P 108/72 02 95% WITH ALL BIPAP SETTINGS. CALL SANDERSON IN REACH AND ALL NEEDS ATTENDED REQUESTED BY PT.
[2018-12-21] MEDS: MELATONIN 3 MG TAB PO SCH (20:28)
[2018-12-21] MEDS: ACETAMINOPHEN 325 MG TAB PO PRN (20:29)
[2018-12-21] MEDS: METOPROLOL 25 MG TAB PO SCH (20:58)
--- NOTE | 2018-12-21 21:00 | NUR ---
PT GIVEN MELATONIN FOR SLEEP AND HEPARIN ORDERED FOR DVT PREVENTION. EDUCATION REGARDING MEDICATION GIVEN WELL RECEIVED REQUESTED TYLENOL FOR PAIN. WILL CONTINUE TO MONITOR FOR SOB.
[2018-12-21] MEDS ORDERED: VANCOMYCIN PER PHARMACY MC PRN (21:35)
[2018-12-21] MEDS ORDERED: VANCOMYCIN 1GM/DEXT 5% PREMIX 200 ML IV SCH (22:00)
--- NOTE | 2018-12-21 22:00 | NUR ---
FIDELIA HERNÁNDEZ AND IS RUNNING AT 135MLS/HR VIA IV SITE 24G ON LEFT HAND NO S/S OF SOB, PT CONTINUES ON BIPAP. ALL FALLS PRECAUTIONS IN PLACE.
[2018-12-22] VITALS: BP 114/73
--- NOTE | 2018-12-22 00:30 | NUR ---
[facility] V/S FOLLOWS T 97 P 57 R 18 B/P 114/73 02 95% WITH ALL BIPAP SETTINGS.
[2018-12-22] MEDS: PIPERACILLIN/TAZOBACTAM 3.375 GM in DEXTROSE 5% 50 ML IV SCH ×4 (00:53→23:02)
[2018-12-22] MEDS ORDERED: VANCOMYCIN 1,000 MG VIAL ONE (01:27)
[2018-12-22 04:00] VITALS: BP 132/40
--- NOTE | 2018-12-22 04:00 | NUR ---
PT IN BED SLEEPING BIPAP IN PLACE V/S FOLLOWS T 97.0 P 59 R 30 B/P 132/40 02 96% WITH ALL BIPAP SETTINGS.
[2018-12-22] MEDS: LEVOTHYROXINE 0.1 MG TAB PO SCH (06:26)
--- NOTE | 2018-12-22 06:30 | NUR ---
PT GIVEN SYNTHROID. FINGERSTICK IS 183, PT GIVEN 2 UNITS OF HUMALOG COVERAGE WELL ORDERED ZOSYN RUNNING AT 100MLS/HR.
[2018-12-22] MEDS: INSULIN LISPRO SLIDING SCALE 100 UNITS/ML VIAL SUBQ PRN ×2 (06:41→21:17)
[2018-12-22] MEDS: BLOOD GLUCOSE MONITORING 1 DEV DEV FS SCH ×4 (06:43→21:14)
--- NOTE | 2018-12-22 06:50 | NUR ---
RECEIVED PT OFF BIPAP ANXIOUS PT NOT WANTING TO WEAR MASK EXPLAINED TO PT ABOUT HER SATS DROPING LOW AND THAT SHE NEEDED TO CONT WEARING BIPAP SEE AGREED AND PT PLACED BACK ON BIPAP WITH SETTINGS CHARTED WILL CONTINUE TO MONITOR PT
[2018-12-22 06:56] LABS: BASOPHILS % (AUTO) 0.1 % (0.0-2.0); HEMATOCRIT 32.6 % (36-48); LYMPHOCYTES % (AUTO) 8.6 % (20.5-51.1); MEAN CORPUSCULAR HEMOGLOBIN 24 pg (27-31); MEAN CORPUSCULAR HGB CONC 31 g/dL (33-37); MEAN CORPUSCULAR VOLUME 78.3 fL (80-94); MONOCYTES # (AUTO) 1.5 K/uL (0.8-1.0); MONOCYTES % (AUTO) 6.5 % (1.7-9.3); NEUTROPHILS # (AUTO) 19.4 K/uL (1.8-7.7); NEUTROPHILS % (AUTO) 84.8 % (42.2-75.2); PLATELET COUNT (AUTO) 235 K/uL (140-450); RED BLOOD CELL COUNT(AUTO) 4.16 MIL/uL (4.20-5.40); RED CELL DISTRIBUTION WIDTH 15.8 % (11.6-13.7); WHITE BLOOD COUNT (AUTO) 22.9 K/uL (4.8-10.8)
[2018-12-22] MEDS: ALBUTEROL SULFATE/IPRATROPIU 3 ML SOL IH SCH ×3 (06:58→18:56)
[2018-12-22 07:08] LABS: ANION GAP 13.8 (8-16); CARBON DIOXIDE 29.9 mmol/L (21-32); CHLORIDE 99 mmol/L (98-107); CREATININE 1.6 mg/dL (0.6-1.3); GLUCOSE 248 mg/dL (74-106); POTASSIUM 3.7 mmol/L (3.5-5.1); SODIUM SERUM 139 mmol/L (136-145); UREA NITROGEN, BLOOD 32 mg/dL (7-18)
--- NOTE | 2018-12-22 07:10 | NUR ---
REPORT GIVEN TO DL JACK DAYSHIFT NURSE AT BEDSIDE FOR CONTINUITY OF CARE, PT IN STABLE CONDITION.
--- NOTE | 2018-12-22 07:11 | NUR ---
RECEIVED REPORT FROM SHAKER SCREEN OPERATOR NURSE ISAAC FOR CONTINUITY OF CARE. PT IN STABLE CONDITION. RESPIRATIONS EVEN AND UNLABORED. IV INTACT AND PATENT. BIPAP IN PLACE AND PATENT. SAFETY MEASURES IN PLACE. BED IN LOW POSITION. CALL LIGHT AT BEDSIDE. BED ALARM ON. WILL CONTINUE TO MONITOR.
[2018-12-22 08:00] VITALS: BP 101/59
[2018-12-22] MEDS ORDERED: FUROSEMIDE 40 MG/4 ML VIAL IVP SCH (09:00)
--- NOTE | 2018-12-22 09:24 | NUR ---
PT LYING IN BED SLEEP AT THIS TIME. BED IN LOW POSITION. CALL LIGHT AT BEDSIDE. BED ALARM ON. WILL CONTINUE TO MONITOR.
--- NOTE | 2018-12-22 10:01 | NUR ---
FAMILY REQUEST VISIT WITH DR. MUNOZ. DR. MUNOZ AT BEDSIDE TALKING WITH FAMILY.
[2018-12-22] MEDS: FUROSEMIDE 40 MG/4 ML VIAL IVP SCH ×2 (10:23→20:56)
[2018-12-22] MEDS: BENZONATATE 100 MG CAPLF PO PRN (10:23)
[2018-12-22] MEDS: LACTOBACILLUS RHAMNOSUS GG 1 EACH CAP PO SCH (10:23)
[2018-12-22] MEDS: METOPROLOL 25 MG TAB PO SCH (10:23)
[2018-12-22] MEDS: ATORVASTATIN 20 MG TAB PO SCH (10:24)
[2018-12-22] MEDS: POTASSIUM CHLORIDE 10 MEQ TABER PO SCH (10:24)
[2018-12-22] MEDS: ACETAMINOPHEN 325 MG TAB PO PRN ×2 (11:26→17:38)
[2018-12-22 12:00] VITALS: BP 113/60
--- NOTE | 2018-12-22 12:33 | NUR ---
ASSISTED PT WITH A FEW BITES OF FOOD. PT HAS BIPAP ON AT THIS TIME. PT IN STABLE CONDITION. BED IN LOW POSITION. CALL LIGHT AT BEDSIDE. BED ALARM ON. WILL CONTINUE TO MONITOR.
[2018-12-22] MEDS: NACL 0.9% 1,000 ML IV SCH (13:34)
--- NOTE | 2018-12-22 14:01 | NUR ---
PT LYING IN BED SLEEP AT THIS TIME. BIPAP IN PLACE. BED IN LOW POSITION. CALL LIGHT AT BEDSIDE. BED ALARM ON. WILL CONTINUE TO MONITOR.
--- NOTE | 2018-12-22 15:30 | NUR ---
NEW IV PLACED 24G LEFT FOREARM. PT TOLERATED WELL. REMOVED 24G LEFT HAND, PT C/O PAIN. NO INJURY AT SITE NOTED. WILL CONTINUE TO MONITOR.
[2018-12-22 16:00] VITALS: BP 109/69
--- NOTE | 2018-12-22 16:26 | NUR ---
ASSISTED PT TO BEDSIDE COMMODE. PT TOLERATED WELL. WILL CONTINUE TO MONITOR.
--- NOTE | 2018-12-22 17:30 | NUR ---
continued to monitor pt on vent with settings as charted pt awake alert anxious bipap plugged into red outlet ambu bag at bedside
--- NOTE | 2018-12-22 17:30 | NUR ---
POSITIVE MRSA NARES WILL INFORM RESIDENT
--- NOTE | 2018-12-22 18:55 | NUR ---
RECEIVED PT ON BIPAP, LOOKING COMFORTABLE, HHN TX IN LINE , PT DESAT VERY FAST, AND HER RR ARE OVER 30.PT ALERT , NO DISTRESS NOTED
--- NOTE | 2018-12-22 19:27 | NUR ---
GAVE REPORT TO RETAIL PROJECT MERCHANDISER NURSE KISSTAMANNA FOR CONTINUITY OF CARE. PT IN STABLE CONDITION.
--- NOTE | 2018-12-22 19:28 | NUR ---
RECEIVED BEDSIDE REPORT FROM DAY SHIFT NURSE. PATIENT IS AWAKE, ALERT, AND COOPERATIVE. RESPIRATION EVEN UNLABORED ON BIPAP. NO DISTRESS NOTED. SKIN IS WARM AND DRY. IV PATENT AND INTACT. CONTACT PRECAUTION MAINTAINED. PLAN OF CARE WAS DISCUSSED. ALL SAFETY MEASURES IN PLACE. BED IS AT LOW POSITION. CALL LIGHT WITHIN REACH AND VERBALIZES ITS USE. WILL CONTINUE TO MONITOR.
[2018-12-22 20:00] VITALS: BP 110/39
--- NOTE | 2018-12-22 20:00 | NUR ---
VITALS WERE TAKEN. PATIENT BP 110/[address] LOERA (RESIDENTS) REGARDING BP. DR. LOERA INSTRUCT TO HOLD COREG MEDICATION. WILL CONTINUE TO MONITOR.
[2018-12-22] MEDS: VANCOMYCIN 750 MG in DEXTROSE 5% 250 ML IV SCH (20:55)
[2018-12-22] MEDS: MUPIROCIN CA NASAL 2% 1GM TUBE NS SCH (20:55)
[2018-12-22] MEDS: CHLORHEXADINE GLUC 2% CLOTH TP SCH (20:55)
[2018-12-22] MEDS: MELATONIN 3 MG TAB PO SCH (20:56)
[2018-12-22] MEDS: CARVEDILOL 6.25 MG TAB PO SCH (21:00)
--- NOTE | 2018-12-22 21:00 | NUR ---
ALL SCHEDULED MEDS WERE GIVEN PER ORDER. NO ASE NOTED. CALL LIGHT WITHIN REACH. WILL CONTINUE TO MONITOR.
--- NOTE | 2018-12-22 22:55 | NUR ---
PATIENT SLEEPING RESPIRATION EVEN UNLABORED ON BIPAP. NO DISTRESS NOTED. WILL CONTINUE TO MONITOR.
[2018-12-23] VITALS: BP 137/67
--- NOTE | 2018-12-23 | NUR ---
VITALS WERE TAKEN. PATIENT IN STABLE CONDITION. CALL LIGHT WITHIN REACH. WILL CONTINUE TO MONITOR.
--- NOTE | 2018-12-23 02:10 | NUR ---
CHECKED ON PATIENT. PATIENT SLEEPING RESPIRATION EVEN UNLABORED ON ROOM AIR. NO DISTRESS NOTED. CALL LIGHT WITHIN REACH. WILL CONTINUE TO MONITOR. Addendum: 12/23/18 at 0212 by Korin Escoto RN CHECKED ON PATIENT. PATIENT SLEEPING RESPIRATION EVEN UNLABORED ON BIPAP. NO DISTRESS NOTED. CALL LIGHT WITHIN REACH. WILL CONTINUE TO MONITOR.
--- NOTE | 2018-12-23 03:58 | NUR ---
PT STAY IN BIPAP ALL NIGHT, SHE LOOKS COMFORTABLE WITHOUT ANY DISTRESS, BS ARE BILAT CLEAR,
[2018-12-23 04:00] VITALS: BP 136/50
--- NOTE | 2018-12-23 04:17 | NUR ---
VITALS WERE TAKEN. PATIENT IN STABLE CONDITION. NO DISTRESS NOTED. WILL CONTINUE TO MONITOR.
[2018-12-23] MEDS: LEVOTHYROXINE 0.1 MG TAB PO SCH (05:59)
[2018-12-23] MEDS: PIPERACILLIN/TAZOBACTAM 3.375 GM in DEXTROSE 5% 50 ML IV SCH ×3 (06:00→23:03)
[2018-12-23] MEDS: BLOOD GLUCOSE MONITORING 1 DEV DEV FS SCH ×4 (06:39→20:34)
--- NOTE | 2018-12-23 07:11 | NUR ---
ENDORSED PATIENT TO DAY SHIFT NURSE FOR CONTINUITY OF CARE. PATIENT IN STABLE CONDITION,
--- NOTE | 2018-12-23 07:12 | NUR ---
RECEIVED REPORT FROM AROMATHERAPIST NURSE FOR CONTINUITY OF CARE. PT IN STABLE CONDITION. IV INTACT AND PATENT. RESPIRATIONS EVEN AND UNLABORED, BIPAP IN PLACE. SAFETY MEASURES IN PLACE. BED IN LOW POSITION. BED ALARM ON. CALL LIGHT AT BEDSIDE. WILL CONTINUE TO MONITOR.
[2018-12-23 07:43] LABS: BASOPHILS # (AUTO) 0.1 K/uL (0.00-0.22); BASOPHILS % (AUTO) 0.3 % (0.0-2.0); EOSINOPHILS # (AUTO) 0.5 K/uL (0-0.4); EOSINOPHILS % (AUTO) 2.5 % (0.0-4.0); HEMATOCRIT 31.4 % (36-48); HEMOGLOBIN 9.9 g/dL (12.0-16.0); LYMPHOCYTES # (AUTO) 1.7 K/uL (2.5-16.5); LYMPHOCYTES % (AUTO) 9.4 % (20.5-51.1); MEAN CORPUSCULAR HEMOGLOBIN 24 pg (27-31); MEAN CORPUSCULAR HGB CONC 31 g/dL (33-37); MONOCYTES # (AUTO) 1.4 K/uL (0.8-1.0); MONOCYTES % (AUTO) 7.5 % (1.7-9.3); NEUTROPHILS # (AUTO) 14.5 K/uL (1.8-7.7); NEUTROPHILS % (AUTO) 80.3 % (42.2-75.2); PLATELET COUNT (AUTO) 278 K/uL (140-450); RED BLOOD CELL COUNT(AUTO) 4.07 MIL/uL (4.20-5.40); RED CELL DISTRIBUTION WIDTH 15.4 % (11.6-13.7)
[2018-12-23 07:45] LABS: ANION GAP 10.7 (8-16); CARBON DIOXIDE 31.8 mmol/L (21-32); CHLORIDE 100 mmol/L (98-107); CREATININE 1.3 mg/dL (0.6-1.3); GLUCOSE 155 mg/dL (74-106); POTASSIUM 3.5 mmol/L (3.5-5.1); SODIUM SERUM 139 mmol/L (136-145); UREA NITROGEN, BLOOD 32 mg/dL (7-18)
[2018-12-23 07:54] LABS: MAGNESIUM 1.6 mg/dL (1.8-2.4); PHOSPHORUS 3.9 mg/dL (2.5-4.9)
[2018-12-23] MEDS: ALBUTEROL SULFATE/IPRATROPIU 3 ML SOL IH SCH ×3 (07:54→20:27)
[2018-12-23 08:00] VITALS: BP 122/53
--- NOTE | 2018-12-23 08:12 | NUR ---
REMOVED FROM BIPAP TO MASK FOR BREAKFAST MEAL PLACED ON SUPPLEMENTAL OXYGEN AT 10 LPM VIA OXYMIZER ENVIRONMENTAL QUALITY ANALYST TO MONITOR
--- NOTE | 2018-12-23 08:15 | NUR ---
TOLERATING SUPPLEMENTAL OXYGENT VIA OXYMIZER WELL SATURATION 92% ROSA NOTIFIED Addendum: 12/23/18 at 1026 by Rafy Cooper RT OXYGENT = OXYGEN
[2018-12-23] MEDS ORDERED: metFORMIN 500 MG TAB PO SCH (08:30)
[2018-12-23] MEDS: CARVEDILOL 6.25 MG TAB PO SCH ×2 (09:00→20:19)
--- NOTE | 2018-12-23 09:01 | NUR ---
ASSISTED WITH BEDSIDE COMMODE. PT TOLERATED WELL. BIPAP IN PLACE AT THIS TIME.
[2018-12-23] MEDS: ACETAMINOPHEN 325 MG TAB PO PRN ×2 (09:28→21:02)
[2018-12-23] MEDS: ATORVASTATIN 20 MG TAB PO SCH (09:29)
[2018-12-23] MEDS: BENZONATATE 100 MG CAPLF PO PRN (09:29)
[2018-12-23] MEDS: LACTOBACILLUS RHAMNOSUS GG 1 EACH CAP PO SCH (09:29)
[2018-12-23] MEDS: FUROSEMIDE 40 MG/4 ML VIAL IVP SCH ×2 (09:30→20:18)
[2018-12-23] MEDS: POTASSIUM CHLORIDE 10 MEQ TABER PO SCH (09:30)
--- NOTE | 2018-12-23 10:23 | NUR ---
ASLEEP RESTING COMFORTABLY GOOD EQUAL CHEST RISE REMAINS OFF BIPAP TO MASK TOLERATING SUPPLEMENTAL OXYGEN AT 10 LPM VIA OXYMIZER SATURATION 91%
--- NOTE | 2018-12-23 10:26 | NUR ---
REVIEWED PATIENT ASSESSMENT AND DIAGNOSTIC (IE: SATURATION, RR AND CXR'S) ADMITTING COORDINATOR RECOMMENDATION: ACETYLCYSTEINE 2ml/10% WITH HHN TX Q6WA R; CPT Q6WA WITH HHN TX; SATURATION GREATER THAN 89% OR 90%
--- NOTE | 2018-12-23 11:12 | NUR ---
ASSISTED WITH BEDSIDE COMMODE. PT TOLERATED WELL. BIPAP IN PLACE AT THIS TIME.
--- NOTE | 2018-12-23 11:20 | NUR ---
SATURATION 93% ON SUPPLEMENTAL OXYGEMAT 10 LPM VIA OXYMIZER TITRATED FIO2 TO 9 LPM ASSEMBLER TO MONITOR
[2018-12-23 12:00] VITALS: BP 122/43
--- NOTE | 2018-12-23 12:11 | NUR ---
BLOOD SUGAR 158 PT REFUSED COVERAGE. PT IN STABLE CONDITION.
--- NOTE | 2018-12-23 12:52 | NUR ---
PT REQUESTING DEPRESSION MEDICATION. DR. GALVAN IS AWARE ORDERS GIVEN.
[2018-12-23] MEDS ORDERED: busPIRone 5 MG TAB PO SCH (13:00)
[2018-12-23] MEDS ORDERED: MAG SULF 2000 MG/WATER PREMIX 50 ML IV SCH (13:15)
[2018-12-23] MEDS: ACETYLCYSTEINE 10% (100 MG/ML) 100 MG/ML VIAL INH SCH ×2 (13:27→20:27)
--- NOTE | 2018-12-23 13:27 | NUR ---
AWAKE AND ALERT DAUGHTER LEAVING ROOM VISITING 2.5 HOURS SATURATION 89% ON SUPPLEMENTAL OXYGEN 89% ON SUPPLEMENTAL OXYGEN AT 9 LPM VIA OXYMIZER POST HHN THERAPY INCREASED FIO2 TO 10 LPM
--- NOTE | 2018-12-23 13:27 | NUR ---
PATIENT HAS BEEN SCREENED AND CATEGORIZED HIGH NUTRITION RISK. PATIENT WILL BE SEEN WITHIN 1-2 DAYS OF ADMISSION. 12/22/18 - 12/23/18 RENETTA KING MBA, RD
--- NOTE | 2018-12-23 13:27 | NUR ---
THROUGHOUT HHN/CPT THERAPY PATIENT PRESENTING WITH STRONG COUGH WHILE MOBILIZING SECRETIONS PATIENT STATES THAT SHE CANNOT "SPIT OUT SECRETIONS BUT IS SWALLOWING IT"
[2018-12-23] MEDS: NACL 0.9% 1,000 ML IV SCH (13:28)
--- NOTE | 2018-12-23 13:29 | NUR ---
GAVE ORDERED DUE MEDICATIONS AT THIS TIME. FAMILY AT BEDSIDE. RESPIRATIONS EVEN AND UNLABORED. BED IN LOW POSITION. CALL LIGHT AT BEDSIDE. BED ALARM ON.
--- NOTE | 2018-12-23 14:16 | NUR ---
12/23/18 RD INITIAL ASSESSMENT COMPLETED PLEASE REFER TO NUTRITION ASSESSMENT UNDER CARE ACTIVITY FOR ESTIMATED NUTRITIONAL NEEDS. RD RECOMMENDATIONS: 1. RECOMMEND CONTINUE 60G CCHO DIET 2. ADD DIET HEALTHSHAKES TID TO HELP INCREASE PROTEIN & ENERGY INTAKE 3. ENCOURAGE AND ASSIST PATIENT WITH MEALS NEEDED 4. F/U 2-3 DAYS; HIGH RISK RENETTA IKNG MBA, RD
[2018-12-23] MEDS: KETOROLAC 15 MG/ML VIAL IVP SCH (14:44)
--- NOTE | 2018-12-23 15:03 | NUR ---
PLACED BACK ON BIPAP TO MASK AT THIS TIME DUE TO INCREASED SOB AND MAINTAINED DESCENDING SATURATION AT 85%
--- NOTE | 2018-12-23 15:04 | NUR ---
PATIENT C/O OF "TOO MUCH PRESSURE" DECREASED IPAP TO [id number] USING IDEAL BODY WEIGHT FORMULA SpVT GREATER THAN 7CC
--- NOTE | 2018-12-23 15:33 | NUR ---
ASSISTED WITH BEDSIDE COMMODE. PT TOLERATED WELL.
[2018-12-23 16:00] VITALS: BP 110/41
[2018-12-23] MEDS: metFORMIN 500 MG TAB PO SCH (16:52)
--- NOTE | 2018-12-23 18:24 | NUR ---
ASSISTED WITH BEDSIDE COMMODE. PT TOLERATED WELL. BIPAP IN PLACE AT THIS TIME.
--- NOTE | 2018-12-23 19:10 | NUR ---
GAVE REPORT TO FILM COMPOSER NURSE JADYN FOR CONTINUITY OF CARE. PT IN STABLE CONDITION.
--- NOTE | 2018-12-23 19:11 | NUR ---
RECEIVED BEDSIDE REPORT AM SHIFT PATIENT IS AAOX4, THAI SPEAKING. ON TELEMONITOR. PT IS ON BIPAP. LEFT HAND 24G IV INTACT AND INFUSING NS AT 30 ML/ HR PATIENT DENIES ANY PAIN AT THIS TIME. PLAN OF CARE WAS REVIEWED WITH PATIENT. PATIENT VERBALIZED UNDERSTANDING. SAFETY MEASURES IN PLACE, CALL LIGHT WITHIN REACH.
[2018-12-23 20:15] VITALS: BP 124/39
[2018-12-23] MEDS: MUPIROCIN CA NASAL 2% 1GM TUBE NS SCH (20:16)
[2018-12-23] MEDS: CHLORHEXADINE GLUC 2% CLOTH TP SCH (20:17)
[2018-12-23] MEDS: VANCOMYCIN 750 MG in DEXTROSE 5% 250 ML IV SCH (20:18)
[2018-12-23] MEDS: MELATONIN 3 MG TAB PO SCH (20:19)
[2018-12-23] MEDS: INSULIN LISPRO SLIDING SCALE 100 UNITS/ML VIAL SUBQ PRN (20:38)
--- NOTE | 2018-12-23 22:15 | NUR ---
PT DESAT 86%, CALLED RT, FIXED THE BIPAP MACHINE MASK ONLY.CRITICAL CARE TRANSPORT NURSE ALSO CHECKED THE BIPAP MACHINE. PT O2 SAT WENT BACK TO 90%
--- NOTE | 2018-12-23 22:31 | NUR ---
RECHECKED AGAIN OF PT'S BIPAP MACHINE, PT'S BIPAP KEEP ON BEEPING O2 SAT AT 88%, INFORMED RT.
[2018-12-24 00:15] VITALS: BP 109/46
[2018-12-24] MEDS: KETOROLAC 15 MG/ML VIAL IVP SCH ×5 (00:20→17:38)
--- NOTE | 2018-12-24 00:40 | NUR ---
PT ASSISTED TO BEDSIDE COMMODE WITH HELP FROM ANOTHER NURSE. PT O2 SATURATION MONITORED DURING ASSIST TO COMMODE WITH O2 OF 92-93%. PT HAD A BM. PT CLEANED BY TIRE REPAIRER AND ASSISTED BACK INTO BED. O2 SATURATION 90%. PT STATED SHES "FINE" AND WHEN ASKED IF THERE IS DIFFICULTY OF BREATHING, PATIENT STATED "NO".
[2018-12-24 04:10] VITALS: BP 143/61
--- NOTE | 2018-12-24 04:25 | NUR ---
0400 patient did not want to wear bipap any longer. she felt like she couldnt breath with it on. hhntx given to patient and placed pt on 12l nrb mask. pt sats 91%. pt feels better after hhntx and wearing nrb
[2018-12-24] MEDS: PIPERACILLIN/TAZOBACTAM 3.375 GM in DEXTROSE 5% 50 ML IV SCH ×2 (06:42→14:14)
[2018-12-24] MEDS: ACETAMINOPHEN 325 MG TAB PO PRN (06:45)
[2018-12-24] MEDS: LEVOTHYROXINE 0.1 MG TAB PO SCH (06:45)
[2018-12-24] MEDS: BLOOD GLUCOSE MONITORING 1 DEV DEV FS SCH ×4 (06:51→20:41)
--- NOTE | 2018-12-24 06:51 | NUR ---
PT REFUSED INSULIN SHOT OF 2 UNITS Addendum: 12/24/18 at 0655 by Ciara Guerrero RN INFORMED DR. VILLEGAS THAT PT REFUSED 2 UNITS OF HUMALOG , WITH BLD SUGAR 168
--- NOTE | 2018-12-24 06:53 | NUR ---
PT REFUSED THE TORADOL. INFORMED DR. CENTENO
[2018-12-24] MEDS: ALBUTEROL SULFATE/IPRATROPIU 3 ML SOL IH SCH ×3 (07:10→19:34)
[2018-12-24 07:11] LABS: BASOPHILS # (AUTO) 0.1 K/uL (0.00-0.22); BASOPHILS % (AUTO) 0.5 % (0.0-2.0); EOSINOPHILS # (AUTO) 0.8 K/uL (0-0.4); EOSINOPHILS % (AUTO) 5.5 % (0.0-4.0); HEMATOCRIT 32.8 % (36-48); LYMPHOCYTES # (AUTO) 1.7 K/uL (2.5-16.5); LYMPHOCYTES % (AUTO) 11.3 % (20.5-51.1); MEAN CORPUSCULAR HEMOGLOBIN 24 pg (27-31); MEAN CORPUSCULAR HGB CONC 30 g/dL (33-37); MEAN CORPUSCULAR VOLUME 77.7 fL (80-94); MONOCYTES # (AUTO) 1.2 K/uL (0.8-1.0); MONOCYTES % (AUTO) 8.2 % (1.7-9.3); NEUTROPHILS # (AUTO) 11.4 K/uL (1.8-7.7); NEUTROPHILS % (AUTO) 74.5 % (42.2-75.2); PLATELET COUNT (AUTO) 316 K/uL (140-450); RED BLOOD CELL COUNT(AUTO) 4.22 MIL/uL (4.20-5.40); RED CELL DISTRIBUTION WIDTH 15.3 % (11.6-13.7); WHITE BLOOD COUNT (AUTO) 15.3 K/uL (4.8-10.8)
[2018-12-24] MEDS: ACETYLCYSTEINE 10% (100 MG/ML) 100 MG/ML VIAL INH SCH ×3 (07:11→19:34)
--- NOTE | 2018-12-24 07:11 | NUR ---
NOTED AT 0425 OFF BIPAP AT 0400 ON STANDBY RECEIVED ON SUPPLEMENTAL OXYGEN AT 15 LPM VIA NONREBREATHER SATURATION 94% POST THERAPY'S PLACE ON SUPPLEMENTAL OXYGEN AT 10 LPM VIA OXYMIZER HEALTH PLAN MANAGER TO MONITOR HEALTH PLAN MANAGER TO NOTIFY YISEL/MARCIE
--- NOTE | 2018-12-24 07:30 | NUR ---
GAVE REPORT TO AM SHIFT, PT IN STABLE CONDITION FROM BIPAP SWITCHED TO OXYMIZER ON PER RT AT 13 ML/HR. ENDORSED TO NEXT SHIFT
[2018-12-24 07:32] LABS: ANION GAP 11.1 (8-16); CARBON DIOXIDE 30.4 mmol/L (21-32); CHLORIDE 101 mmol/L (98-107); CREATININE 1.3 mg/dL (0.6-1.3); GLUCOSE 168 mg/dL (74-106); POTASSIUM 3.5 mmol/L (3.5-5.1); SODIUM SERUM 139 mmol/L (136-145); UREA NITROGEN, BLOOD 35 mg/dL (7-18)
--- NOTE | 2018-12-24 07:34 | NUR ---
RECEIVED BEDSIDE REPORT FROM VOYAGE MANAGEMENT SYSTEM OPERATOR RN FOR CONTINUITY OF CARE. PATIENT IS AAOX4, MONTSERRATIAN SPEAKING. ON TELE MONITOR. PT IS ON AN OXYMIZER @ 10ML O2 PER HR. PT HAS A LEFT WRIST 20G IV INTACT AND INFUSING NS AT 30 ML/ HR. PATIENT DENIES ANY PAIN AT THIS TIME. PLAN OF CARE WAS REVIEWED WITH PATIENT AND PT VERBALIZED UNDERSTANDING. SAFETY MEASURES IN PLACE, CALL LIGHT WITHIN REACH, BED IN LOW POSITION. WILL ROUND FREQUENTLY ON PT.
[2018-12-24 08:10] VITALS: BP 140/54
[2018-12-24] MEDS: metFORMIN 500 MG TAB PO SCH ×2 (08:50→17:37)
[2018-12-24] MEDS: LACTOBACILLUS RHAMNOSUS GG 1 EACH CAP PO SCH (08:50)
[2018-12-24] MEDS: POTASSIUM CHLORIDE 10 MEQ TABER PO SCH (08:51)
[2018-12-24] MEDS: ATORVASTATIN 20 MG TAB PO SCH (08:51)
[2018-12-24] MEDS: CARVEDILOL 6.25 MG TAB PO SCH ×2 (08:52→20:44)
[2018-12-24] MEDS: busPIRone 5 MG TAB PO SCH (08:52)
[2018-12-24] MEDS: FUROSEMIDE 40 MG/4 ML VIAL IVP SCH (08:53)
--- NOTE | 2018-12-24 09:22 | NUR ---
ADMINISTERED MORNING MEDS TO PT. PT TOLERATED THEM WELL. ALL NEEDS MET. WILL CONTINUE TO ROUND FREQUENTLY ON PT. BED IN LOW POSITION, CALL LIGHT WITHIN REACH.
--- NOTE | 2018-12-24 09:28 | NUR ---
AWAKE AND ALERT VERBALLY RESPONSIVE SATURATION 96% ON SUPPLEMENTAL OXYGEN AT 10 LPM VIA OXYMIZER TITRATED FIO2 TO 9 LPM YISEL/RN NOTIFIED
--- NOTE | 2018-12-24 11:34 | NUR ---
PT RESTING IN BED. ALL NEEDS MET. PT DENIES PAIN AT THIS TIME. WILL CONTINUE TO ROUND FREQUENTLY ON PT.
[2018-12-24 12:00] VITALS: BP 118/70
--- NOTE | 2018-12-24 12:31 | NUR ---
SCHEDULED TORADOL NOT GIVEN TO PT BECAUSE PT DENIES PAIN AT THIS TIME. WILL CONTINUE TO ROUND FREQUENTLY ON PT.
[2018-12-24] MEDS: NYSTATIN POW 100 MU/GM 15 GM BTL TP SCH ×2 (13:16→20:48)
[2018-12-24] MEDS: NACL 0.9% 1,000 ML IV SCH ×2 (13:34→20:34)
--- NOTE | 2018-12-24 13:47 | NUR ---
PT RESTING IN BED. ALL NEEDS MET. WILL CONTINUE TO ROUND FREQUENTLY ON PT.
--- NOTE | 2018-12-24 14:07 | NUR ---
DURING HHN AND CPT THERAPY'S PATIENT WITH INCREASED COUGHING AND SOB SATURATION DESCENDING TO 82% POST THERAPY'S PLACED PATIENT ON SUPPLEMENTAL OXYGEN AT 15 LPM VIA NON REBREATHER FOR SATURATION STABILIZATION DIRECTOR OF GLOBAL SALES TO MONITOR YISEL/MARCIE NOTIFIED
--- NOTE | 2018-12-24 14:38 | NUR ---
SATURATION 94% ON SUPPLEMENTAL OXYGEN AT 15 LPM VIA NON REBREATHER ENVIRONMENTAL JOURNALIST TO MONITOR
--- NOTE | 2018-12-24 15:02 | NUR ---
SATURATION 97% ON SUPPLEMENTAL OXYGEN 15 LPM VIA NON REBREATHER TITRATED TO OXYMIZER AT 12 LPM HOME HEALTH CARE SOCIAL WORKER TO MONITOR
--- NOTE | 2018-12-24 15:43 | NUR ---
PT RESTING IN BE WATCHING TV. ALL NEEDS MET. WILL CONTINUE TO ROUND FREQUENTLY ON PT.
[2018-12-24 16:00] VITALS: BP 115/63
--- NOTE | 2018-12-24 16:39 | NUR ---
PT BS IS 154. PT IS REFUSING INSULIN COVERAGE AT THIS TIME. PT IN STABLE CONDITION BUT WILL KEEP AN EYE ON PT.
[2018-12-24] MEDS: methylPREDNISolone SS 40 MG/ML VIAL IVP SCH (17:38)
[2018-12-24] MEDS: MUPIROCIN CA NASAL 2% 1GM TUBE NS SCH (18:24)
[2018-12-24] MEDS: CHLORHEXADINE GLUC 2% CLOTH TP SCH (18:24)
--- NOTE | 2018-12-24 18:59 | NUR ---
PT RESTING IN BED HAVING DINNER. ALL NEEDS MET.WILL ROUND FREQUENTLY
--- NOTE | 2018-12-24 19:00 | NUR ---
REPORT RECIEVED FROM DAY SHIFT NURSE YISEL JACK. PT. AAOX4. PT. ON O2 HI JEVON 65%. IV L HAND PATENT FLUSHING . F/C PATENT AND DRAINING. PT. STABLE. SAFETY MEASURES IN PLACE. INITIAL ASSESSMENT DONE.
--- NOTE | 2018-12-24 19:43 | NUR ---
192 PLACED PATIENT ON HIGH FLOW AT 67% FIO2. PATIENTS SATS ARE 90% AT THIS TIME. PATIENT STATES IT SEEMS TO HELP HER BETTER THEN DONN
--- NOTE | 2018-12-24 19:47 | NUR ---
ENDORSED PT TO SENIOR ACCOUNT DIRECTOR FOR CONTINUITY OF CARE. PT IN STABLE CONDITION AT THIS TIME.
--- NOTE | 2018-12-24 19:48 | NUR ---
PATIENT REFUSES TO WEAR BIPAP
[2018-12-24 20:00] VITALS: BP 140/70
[2018-12-24] MEDS: MELATONIN 3 MG TAB PO SCH (20:53)
[2018-12-24] MEDS: INSULIN LISPRO SLIDING SCALE 100 UNITS/ML VIAL SUBQ PRN (20:57)
[2018-12-24] MEDS ORDERED: NYSTATIN CRE 100 MU/GM 15 GM TUBE TP SCH (21:00)
--- NOTE | 2018-12-24 22:00 | NUR ---
PT. REMAIN STABLE AFTER MEDS GIVEN. REPOSITION Q2H. CALL LIGHT WITHIN REACH ON TELE SR
--- NOTE | 2018-12-24 22:01 | NUR ---
PATIENT PLACED ON 100% FIO2 ON HIGH FLOW. PATIENT SATS ARE 95%.
[2018-12-25] VITALS: BP 121/51
--- NOTE | 2018-12-25 | NUR ---
PT. RESTING WITH NO DISTRESS. SAFETY MEASURES IN PLACE. CALL LIGHT WITHIN REACH.
[2018-12-25] MEDS: PIPERACILLIN/TAZOBACTAM 3.375 GM in DEXTROSE 5% 50 ML IV SCH ×4 (00:01→23:45)
[2018-12-25] MEDS: methylPREDNISolone SS 40 MG/ML VIAL IVP SCH ×5 (00:02→23:45)
[2018-12-25] MEDS: KETOROLAC 15 MG/ML VIAL IVP SCH ×5 (00:03→23:45)
[2018-12-25] MEDS: VANCOMYCIN 750 MG in DEXTROSE 5% 250 ML IV SCH ×2 (00:04→20:16)
--- NOTE | 2018-12-25 03:00 | NUR ---
PT APPEARS TO BE SLEEPING . RESP WNL. NO DISTRESS NOTED SAFETY MEASURES IN PLACE CALL LIGHT WITHIN REACH.
[2018-12-25 04:42] VITALS: BP 111/58
[2018-12-25] MEDS: LEVOTHYROXINE 0.1 MG TAB PO SCH (06:20)
[2018-12-25] MEDS: BLOOD GLUCOSE MONITORING 1 DEV DEV FS SCH ×4 (06:36→20:17)
[2018-12-25] MEDS: INSULIN LISPRO SLIDING SCALE 100 UNITS/ML VIAL SUBQ PRN ×4 (06:39→20:16)
--- NOTE | 2018-12-25 06:42 | NUR ---
BLOOD SUGAR 240 COVERAGE WITH 4 UNITS SUBQ HUMALOG FOLLOW PROTOCOL
[2018-12-25 06:47] LABS: ANION GAP 13.8 (8-16); CARBON DIOXIDE 28.7 mmol/L (21-32); CHLORIDE 101 mmol/L (98-107); CREATININE 1.3 mg/dL (0.6-1.3); GLUCOSE 252 mg/dL (74-106); POTASSIUM 4.5 mmol/L (3.5-5.1); SODIUM SERUM 139 mmol/L (136-145); UREA NITROGEN, BLOOD 34 mg/dL (7-18)
[2018-12-25] MEDS: ALBUTEROL SULFATE/IPRATROPIU 3 ML SOL IH SCH ×3 (06:56→20:25)
[2018-12-25] MEDS: ACETYLCYSTEINE 10% (100 MG/ML) 100 MG/ML VIAL INH SCH ×3 (06:57→20:26)
[2018-12-25 07:08] LABS: BASOPHILS % (AUTO) 0.1 % (0.0-2.0); HEMATOCRIT 34.2 % (36-48); HEMOGLOBIN 10.6 g/dL (12.0-16.0); LYMPHOCYTES # (AUTO) 1.3 K/uL (2.5-16.5); LYMPHOCYTES % (AUTO) 14.9 % (20.5-51.1); MEAN CORPUSCULAR HEMOGLOBIN 24 pg (27-31); MEAN CORPUSCULAR HGB CONC 31 g/dL (33-37); MEAN CORPUSCULAR VOLUME 78.3 fL (80-94); MONOCYTES # (AUTO) 0.1 K/uL (0.8-1.0); MONOCYTES % (AUTO) 1.5 % (1.7-9.3); NEUTROPHILS # (AUTO) 7.3 K/uL (1.8-7.7); NEUTROPHILS % (AUTO) 83.5 % (42.2-75.2); PLATELET COUNT (AUTO) 339 K/uL (140-450); RED BLOOD CELL COUNT(AUTO) 4.37 MIL/uL (4.20-5.40); RED CELL DISTRIBUTION WIDTH 15.5 % (11.6-13.7); WHITE BLOOD COUNT (AUTO) 8.8 K/uL (4.8-10.8)
--- NOTE | 2018-12-25 07:10 | NUR ---
RECEIVED BEDSIDE REPORT FROM NIGHT NURSE. PT SLEEPING, AROUSABLE TO SPEECH AAO X4. RESPIRATIONS EVEN AND UNLABORED ON HIGH FLOW OXYGEN. IV IN PLACE L H 24 G, ASYMPTOMATIC AND PATENT. SKIN INTACT. NO DISTRESS NOTED. BED IN LOW POSITION. SAFETY MEASURES IN PLACE. CALL LIGHT WITHIN REACH. WILL CONTINUE TO MONITOR.
[2018-12-25 08:00] VITALS: BP 149/64
--- NOTE | 2018-12-25 08:56 | NUR ---
CONTACTED EDITH DELACRUZ OF [employer] AT [phone] REGARDING SNF EVALUATION FOR IV ANTIBIOTICS AND PT. SHE PROVIDED ME WITH FAX NUMBER [phone] TO SEND ORDER. ORDER SENT TO THE PROVIDED NUMBER. I PROVIDED HER WITH MY FAX NUMBER TO SEND CONTRACTED FACILITIES.
[2018-12-25] MEDS: NYSTATIN POW 100 MU/GM 15 GM BTL TP SCH ×3 (09:00→20:17)
[2018-12-25] MEDS: FUROSEMIDE 40 MG/4 ML VIAL IVP SCH (09:47)
[2018-12-25] MEDS: busPIRone 5 MG TAB PO SCH (09:48)
[2018-12-25] MEDS: LACTOBACILLUS RHAMNOSUS GG 1 EACH CAP PO SCH (09:49)
[2018-12-25] MEDS: ATORVASTATIN 20 MG TAB PO SCH (09:49)
[2018-12-25] MEDS: metFORMIN 500 MG TAB PO SCH ×2 (09:49→17:35)
[2018-12-25] MEDS: CARVEDILOL 6.25 MG TAB PO SCH ×2 (09:50→20:16)
--- NOTE | 2018-12-25 10:01 | NUR ---
MEDICATIOSN ADMINISTERED PER ORDER. PT TOLERATED WELL. WILL CONTINUE TO MONITOR.
--- NOTE | 2018-12-25 10:01 | NUR ---
CONTACTED W[facility] AGAIN, TO FOLLOW UP LIST OF CONTRACTED FACILITY. SHE STATED SHE FAXED IT OVER, BUT WILL FAX IT AGAIN. I ALSO PROVIDED HER OF MY EMAIL ADDRESS. WILL FOLLOW UP. Addendum: 12/25/18 at 1045 by Chetna Michelle CM CONTACTED EDITH DELACRUZ AGAIN, I INFORMED HER THAT I CANNOT OPEN THE EMAIL THAT SHE SENT ME. SHE PROVIDED ME WITH THE LISTS. CLINICALS FAXED TO [facility], [facility] AND [facility]. CM TO FOLLOW UP. Addendum: 12/25/18 at 113 by Chetna Michelle CM CONTACTED TERESA ASCENCIO OF [facility] AT [phone], TO FOLLOW UP WITH INQUIRY. SHE STATED SHE DID NOT RECEIVE THE REFERRAL. PROVIDED ME WITH ANOTHER FAX NUMBER [phone]. INQUIRY SENT OVER CONTACTED AGA ADMISSIONS OF [facility] AT [phone], SH STATED HE WILL REVIEW REFERRAL AND WILL GIVE ME A CALL. CONTACTED PATTY ADMISSIONS [facility] AT [phone], SHE STATED SHE WILL HAVE THEIR DON REVIEW REFERRAL AND WILL GIVE ME A CALL BACK. RECEIVED A CALL FROM [facility] REQUESTING FOR CULTURES. PROVIDED ME WITH FAX NUMBER [phone]. COPIES OF CULTURES FAXED OVER TO THE PROVIDED NUMBER. Addendum: 12/25/18 at 1157 by Chetna Michelle CM PER [facility], THEY ARE ABLE TO ACCEPT THE PATIENT. PATIENT WILL GO TO ROOM 38B UNDER DR. GONZALEZ. CHARGE NURSE AND DR. GALVAN MADE AWARE. Addendum: 12/25/18 at 1332 by Chetna Michelle CM EDITH HUNT [employer] MADE AWARE THAT [facility] ACCEPTED THE PATIENT. SHE PROVIDED ME WITH AUTH NUMBER FOR TRANSPORT [id number] AND SAME AUTH NUMBER FOR SNF. CONTACTED PATIENT'S SON JOHN AND INFORMED HIM OF THE DC PLAN AND IS AGREEABLE. I TOLD HIM I WILL GIVE HIM A CALL SOON I GET THE ORDER FOR DC AND THE NAME OF THE ACCEPTING FACILITY. ABLE TO VERBALIZE UNDERSTANDING.
--- NOTE | 2018-12-25 10:15 | NUR ---
DECREASD FIO2 TO 66% SPO2 92
--- NOTE | 2018-12-25 11:34 | NUR ---
MEDICATIONS ADMINISTERED PER ORDER. PT TOLERATED WELL. NO DISTRESS NOTED. WILL CONTINUE TO MONITOR.
[2018-12-25 12:00] VITALS: BP 140/66
--- NOTE | 2018-12-25 12:01 | NUR ---
PT WANTED HIGH FLOW OFF. SPOKE WITH AND TO KEEP O2 SAT AT 92% CHANGED PT TO 7L OXYMIZER AND RN NATALEE AT BEDSIDE
--- NOTE | 2018-12-25 14:06 | NUR ---
MEDICATIONS ADMINISTERED PER ORDER. PT TOLERATED WELL. NO DISTRESS NOTED. WILL CONTINUE TO MONITOR.
[2018-12-25 16:00] VITALS: BP 138/59
--- NOTE | 2018-12-25 17:43 | NUR ---
MEDICATION ADMINISTERED PER ORDER. PT TOLERATED WELL. NO DISTRESS NOTED. WILL CONTINUE TO MONITOR.
[2018-12-25] MEDS: CHLORHEXADINE GLUC 2% CLOTH TP SCH (18:33)
[2018-12-25] MEDS: MUPIROCIN CA NASAL 2% 1GM TUBE NS SCH (18:33)
--- NOTE | 2018-12-25 18:33 | NUR ---
PATIENT SITTING IN BED WITH DINNER TRAY IN FRONT. NO DISTRESS NOTED. SCHEDULED MEDICATIONS DUE GIVEN. WILL CONTINUE TO MONITOR.
--- NOTE | 2018-12-25 19:30 | NUR ---
REPORT GIVEN TO NIGHT NURSE FOR CONTINUITY OF CARE. PT IN STABLE CONDITION.
--- NOTE | 2018-12-25 19:31 | NUR ---
RECEIVED BEDSIDE REPORT FROM DAY RN. PT IS AAOX4 ON OXIMIZER 10L SAT 88-92%. LUNG SOUNDS ARE DIMINISHED. SKIN IS INTACT PER RN. IV ON L HAND 20G NS INFUSING AT 30ML/H. PT WITH LEBRON CATH DRAINING YELLOW URINE. HAS BEDSIDE COMMODE AT BEDSIDE. ON CONTACT ISOLATION FOR ACTIVE MRSA/NARES AND R/O C-DIFF. HAD ONE WATERY BM TODAY PER RN. PT ON IV ANTIBIOTICS. POC DISCUSSED WITH PT. PT ON FLUID RESTRICTION FOR 1.5L CALL LIGHT IS WITHIN REACH. WILL CONTINUE TO MONITOR.
[2018-12-25 20:00] VITALS: BP 153/65
[2018-12-25] MEDS: MELATONIN 3 MG TAB PO SCH (20:16)
--- NOTE | 2018-12-25 20:16 | NUR ---
VITAL SIGNS ARE WITHIN NORMAL LIMITS. GERMAN MEDICATIONS GIVEN. PT TOLERATED WELL. BLOOD SUGAR IS 225 INSULIN GIVEN PER PROTOCOL. ALL NEEDS MET AT THIS TIME. WILL CONTINUE TO MONITOR.
--- NOTE | 2018-12-25 20:30 | NUR ---
RT IS AT BEDSIDE. CALL LIGHT IS WITHIN REACH. WILL CONTINUE TO MONITOR
--- NOTE | 2018-12-25 22:00 | NUR ---
PATIENT IS RESTING COMFORTABLY IN BED. CHEST RISE AND FALL. CALL LIGHT IS WITHIN REACH. WILL CONTINUE TO MONITOR
--- NOTE | 2018-12-25 23:45 | NUR ---
VITAL SIGNS ARE WITHIN NORMAL LIMITS. GERMAN MEDICATIONS GIVEN. PATIENT TOLERATED WELL. ALL NEEDS MET AT THIS TIME. CALL LIGHT IS WITHIN REACH.
[2018-12-26] VITALS: BP 115/56
--- NOTE | 2018-12-26 01:15 | NUR ---
ASSISTED PATIENT TO BEDSIDE COMMODE. HAD ONE SOFT/FORM BM. ALL NEEDS MET AT THIS TIME. CALL LIGHT IS WITHIN REACH. WILL CONTINUE TO MONITOR.
--- NOTE | 2018-12-26 02:10 | NUR ---
PATIENT IS SLEEPING COMFORTABLY IN BED. CHEST RISE AND FALL. CALL LIGHT IS WITHIN REACH. WILL CONTINUE TO MONITOR.
[2018-12-26 04:00] VITALS: BP 139/79
--- NOTE | 2018-12-26 04:00 | NUR ---
VITAL SIGNS ARE WITHIN NORMAL LIMITS. CALL LIGHT IS WITHIN REACH. WILL CONTINUE TO MONITOR
[2018-12-26] MEDS: KETOROLAC 15 MG/ML VIAL IVP SCH ×4 (06:06→23:29)
[2018-12-26] MEDS: methylPREDNISolone SS 40 MG/ML VIAL IVP SCH ×4 (06:06→23:29)
[2018-12-26] MEDS: PIPERACILLIN/TAZOBACTAM 3.375 GM in DEXTROSE 5% 50 ML IV SCH ×3 (06:06→23:31)
[2018-12-26] MEDS: LEVOTHYROXINE 0.1 MG TAB PO SCH (06:06)
[2018-12-26] MEDS: INSULIN LISPRO SLIDING SCALE 100 UNITS/ML VIAL SUBQ PRN ×4 (06:13→20:31)
--- NOTE | 2018-12-26 06:13 | NUR ---
GERMAN MEDICATIONS GIVEN PER ORDERS. BLOOD SUGAR 260 ADMINISTERED INSULIN PER SLIDING SCALE. SNACK AT BEDSIDE. CALL LIGHT IS WITHIN REACH. WILL CONTINUE TO MONITOR.
[2018-12-26] MEDS: ALBUTEROL SULFATE/IPRATROPIU 3 ML SOL IH SCH ×3 (06:46→18:54)
[2018-12-26] MEDS: ACETYLCYSTEINE 10% (100 MG/ML) 100 MG/ML VIAL INH SCH ×3 (06:47→18:54)
[2018-12-26 07:01] LABS: HEMATOCRIT 32.8 % (36-48); LYMPHOCYTES # (AUTO) 1.7 K/uL (2.5-16.5); LYMPHOCYTES % (AUTO) 12.1 % (20.5-51.1); MEAN CORPUSCULAR HEMOGLOBIN 24 pg (27-31); MEAN CORPUSCULAR HGB CONC 30 g/dL (33-37); MEAN CORPUSCULAR VOLUME 78.2 fL (80-94); MONOCYTES # (AUTO) 0.5 K/uL (0.8-1.0); MONOCYTES % (AUTO) 3.3 % (1.7-9.3); NEUTROPHILS % (AUTO) 84.6 % (42.2-75.2); PLATELET COUNT (AUTO) 388 K/uL (140-450); RED CELL DISTRIBUTION WIDTH 15.5 % (11.6-13.7); WHITE BLOOD COUNT (AUTO) 14.2 K/uL (4.8-10.8)
--- NOTE | 2018-12-26 07:26 | NUR ---
GAVE BEDSIDE REPORT TO DAY RN. PT ENDORSED IN STABLE CONDITION.
--- NOTE | 2018-12-26 07:29 | NUR ---
RECEIVED PT FROM NIGHT NURSE IN STABLE CONDITION. IV IN PLACE INFUSING PER ORDER, ASYMPTOMATIC AND PATENT. RESPIRATIONS EVEN AND UNLABORED. NO DISTRESS NOTED. DENIES PAIN. SKIN INTACT. BED IN LOW POSITION. SAFETY MEASURES IN PLACE. CALL LIGHT WITHIN REACH. WILL CONTINUE TO MONITOR.
[2018-12-26 07:52] LABS: ANION GAP 15.2 (8-16); CARBON DIOXIDE 28.8 mmol/L (21-32); CHLORIDE 100 mmol/L (98-107); SODIUM SERUM 140 mmol/L (136-145)
[2018-12-26 07:53] LABS: CREATININE 1.6 mg/dL (0.6-1.3); GLUCOSE 267 mg/dL (74-106); UREA NITROGEN, BLOOD 48 mg/dL (7-18)
[2018-12-26 08:00] VITALS: BP 156/58
[2018-12-26] MEDS: BLOOD GLUCOSE MONITORING 1 DEV DEV FS SCH ×4 (08:01→20:34)
[2018-12-26] MEDS ORDERED: CLINICAL MONITORING MC PRN (08:05)
[2018-12-26] MEDS: ATORVASTATIN 20 MG TAB PO SCH (08:24)
[2018-12-26] MEDS: LACTOBACILLUS RHAMNOSUS GG 1 EACH CAP PO SCH (08:26)
[2018-12-26] MEDS: CARVEDILOL 6.25 MG TAB PO SCH ×2 (08:26→20:34)
[2018-12-26] MEDS: busPIRone 5 MG TAB PO SCH (08:26)
[2018-12-26] MEDS: FUROSEMIDE 40 MG/4 ML VIAL IVP SCH (08:27)
[2018-12-26] MEDS: NYSTATIN POW 100 MU/GM 15 GM BTL TP SCH ×2 (08:28→20:34)
--- NOTE | 2018-12-26 09:31 | NUR ---
MEDICATIONS ADMINISTERED PER ORDER. PT TOLERATED WELL, NO DISTRESS NOTED. WILL CONTINUE TO MONITOR.
[2018-12-26] MEDS ORDERED: CARV6.252 PO (10:10)
[2018-12-26] MEDS ORDERED: LAS20I PO (10:10)
[2018-12-26] MEDS ORDERED: BUS5 PO (10:10)
[2018-12-26] MEDS ORDERED: METF500T PO (10:10)
[2018-12-26] MEDS ORDERED: ALBU3SOL83 IH (10:10)
--- NOTE | 2018-12-26 11:46 | NUR ---
MEDICATIONS ADMINISTERED PER ORDER. PT TOLERATED WELL. NO DISTRESS NOTED. WILL CONTINUE TO MONITOR.
[2018-12-26 12:00] VITALS: BP 155/72
--- NOTE | 2018-12-26 13:18 | NUR ---
Insurance Risk Analyst Note: Per patient's daughter Jocelynn Lancaster , she would like me to meet with patient and explained some sections on Power of Encapsulator for health care documents (patient has a document, it is not completed, it is not notarized nor signed by witnesses). I met with patient at bedside. I explained parts of Power of Encapsulator documents patient did not understand. She verbalized understanding.
--- NOTE | 2018-12-26 13:20 | NUR ---
Machine Finisher Note: Per patient's daughter Jocelynn Lancaster , patient would prefer to be transferred to [facility] upon discharge.
[2018-12-26] MEDS: NACL 0.9% 1,000 ML IV SCH (13:34)
--- NOTE | 2018-12-26 13:44 | NUR ---
MEDICATIONS ADMINISTERED PER ORDER. PT TOLERATED WELL. NO DISTRESS NOTED. WILL CONTINUE TO MONITOR.
--- NOTE | 2018-12-26 15:48 | NUR ---
MEDICATIONS ADMINISTERED PER ORDER. PT TOLERATED WELL. NO DISTRESS NOTED. WILL CONTINUE TO MONITOR.
--- NOTE | 2018-12-26 15:57 | NUR ---
12/26/18 RD FOLLOW UP COMPLETED PLEASE REFER TO NUTRITION ASSESSMENT UNDER CARE ACTIVITY FOR ESTIMATED NUTRITIONAL NEEDS. 1. RECOMMEND 60G CCHO MECHANICAL SOFT DIET 2. RECOMMEND GLUCERNA TID 3. ENCOURAGE AND ASSIST PATIENT WITH MEALS NEEDED 4. NUTRITION EDUCATION ON GENERAL HEALTHY EATING WAS GIVEN. 5. F/U 2-3 DAYS; HIGH RISK REBEKAH VERMA, RD
[2018-12-26 16:00] VITALS: BP 158/70
--- NOTE | 2018-12-26 17:15 | NUR ---
MEDICATIONS ADMINISTERED PER ORDER. PT TOLERATED WELL. NO DISTRESS NOTED. WILL CONTINUE TO MONITOR.
[2018-12-26] MEDS: MUPIROCIN CA NASAL 2% 1GM TUBE NS SCH (18:38)
[2018-12-26] MEDS: CHLORHEXADINE GLUC 2% CLOTH TP SCH (18:39)
--- NOTE | 2018-12-26 19:05 | NUR ---
REPORT GIVEN TO NIGHT NURSE FOR CONTINUITY OF CARE. PT IN STABLE CONDITION.
--- NOTE | 2018-12-26 19:06 | NUR ---
RECEIVED BEDSIDE REPORT FROM DAY RN. PT IS AAOX4 ON OXIMIZER 5L SAT 88-90% PT WITH HX COPD. LUNG SOUNDS ARE DIMINISHED. SKIN IS INTACT PER RN. IV ON L HAND 20G NS INFUSING AT 50ML/H. PT WITH LEBRON CATH DRAINING YELLOW URINE. HAS BEDSIDE COMMODE AT BEDSIDE. ON CONTACT ISOLATION FOR ACTIVE MRSA/NARES. HAD TWO SOFT BM TODAY PER RN. PT ON IV ANTIBIOTICS. POC DISCUSSED WITH PT. PT ON FLUID RESTRICTION FOR 1.5L CALL LIGHT IS WITHIN REACH. WILL CONTINUE TO MONITOR.
[2018-12-26 20:00] VITALS: BP 143/87
[2018-12-26] MEDS: MELATONIN 3 MG TAB PO SCH (20:33)
--- NOTE | 2018-12-26 20:34 | NUR ---
VITAL SIGNS ARE WITHIN NORMAL LIMITS. GERMAN MEDICATIONS GIVEN PER ORDERS. BLOOD SUGAR IS 259 ADMINISTERED INSULIN PER SLIDING SCALE. ALL NEEDS MET AT AT THIS TIME. WILL CONTINUE TO MONITOR.
[2018-12-26] MEDS ORDERED: VANCOMYCIN 750 MG in DEXTROSE 5% 250 ML IV SCH (21:00)
--- NOTE | 2018-12-26 22:04 | NUR ---
PATIENT IS RESTING COMFORTABLY IN BED NO S/S OF RESPIRATORY DISTRESS. ALL NEEDS MET AT THIS TIME. CALL LIGHT IS WITHIN REACH. WILL CONTINUE TO MONITOR
--- NOTE | 2018-12-26 23:29 | NUR ---
VITAL SIGNS ARE WITHIN NORMAL LIMITS. GERMAN MEDICATIONS GIVEN. REPOSITION PATIENT FOR COMFORT. ALL NEEDS MET AT THIS TIME. CALL LIGHT IS WITHIN REACH. WILL CONTINUE TO MONITOR.
[2018-12-27] VITALS: BP 147/90
--- NOTE | 2018-12-27 02:00 | NUR ---
NORCO GIVEN FOR PAIN 08/27. PT TOLERATED WELL. CALL LIGHT IS WITHIN REACH. WILL CONTINUE TO MONITOR.
[2018-12-27 04:00] VITALS: BP 159/80
--- NOTE | 2018-12-27 04:00 | NUR ---
VITAL SIGNS ARE WITHIN NORMAL LIMITS. SAFETY MEASURES ARE IN PLACE. CALL LIGHT IS WITHIN REACH. WILL CONTINUE TO MONITOR.
[2018-12-27] MEDS: INSULIN LISPRO SLIDING SCALE 100 UNITS/ML VIAL SUBQ PRN ×3 (06:00→17:42)
[2018-12-27] MEDS: PIPERACILLIN/TAZOBACTAM 3.375 GM in DEXTROSE 5% 50 ML IV SCH ×2 (06:05→15:16)
[2018-12-27] MEDS: KETOROLAC 15 MG/ML VIAL IVP SCH (06:07)
[2018-12-27] MEDS: LEVOTHYROXINE 0.1 MG TAB PO SCH (06:08)
[2018-12-27] MEDS: methylPREDNISolone SS 40 MG/ML VIAL IVP SCH (06:08)
--- NOTE | 2018-12-27 06:08 | NUR ---
GERMAN MEDICATIONS GIVEN. BLOOD SUGAR 302 INSULIN GIVEN PER SLIDING SCALE. SAFETY MEASURES ARE IN PLACE. NO S/S OF DISTRESS. CALL LIGHT IS WITHIN REACH.
[2018-12-27] MEDS: BLOOD GLUCOSE MONITORING 1 DEV DEV FS SCH ×3 (06:17→16:30)
[2018-12-27] MEDS: ALBUTEROL SULFATE/IPRATROPIU 3 ML SOL IH SCH ×3 (07:10→19:08)
[2018-12-27] MEDS: ACETYLCYSTEINE 10% (100 MG/ML) 100 MG/ML VIAL INH SCH (07:10)
--- NOTE | 2018-12-27 07:10 | NUR ---
GAVE BEDSIDE REPORT TO DAY RN. PT ENDORSED IN STABLE CONDITION.
--- NOTE | 2018-12-27 07:11 | NUR ---
PT RECEIVED FROM NIGHT RN. PT IN BED. 20G IV TO L HAND RUNNING NO AT 50ML/HR. PT AAOX4. RESPIRATORY AT BEDSIDE, PT WILL RECEIVE BREATHING TREATMENT. NO SIGNS OF ACUTE DISTRESS AT THIS TIME. WILL CONTINUE CARE.
[2018-12-27 08:00] VITALS: BP 149/81
--- NOTE | 2018-12-27 08:08 | NUR ---
REVIEWED HHN THERAPY DELIVERY WITH DR ANDRE SANABRIA TO GIVE VIA EZPAP
--- NOTE | 2018-12-27 08:29 | NUR ---
BEDSIDE REPORT RECEIVED FROM KATHRINE JACK FOR CONTINUITY OF CARE.
[2018-12-27] MEDS: LACTOBACILLUS RHAMNOSUS GG 1 EACH CAP PO SCH (09:54)
[2018-12-27] MEDS: busPIRone 5 MG TAB PO SCH (09:55)
[2018-12-27] MEDS: CARVEDILOL 6.25 MG TAB PO SCH (09:55)
[2018-12-27] MEDS: ATORVASTATIN 20 MG TAB PO SCH (09:55)
[2018-12-27] MEDS: FUROSEMIDE 40 MG/4 ML VIAL IVP SCH (09:56)
[2018-12-27] MEDS: NYSTATIN POW 100 MU/GM 15 GM BTL TP SCH (09:58)
[2018-12-27] MEDS: NACL 0.9% 1,000 ML IV SCH (10:01)
--- NOTE | 2018-12-27 10:02 | NUR ---
ADMINISTERED MEDS PER MD ORDER, PATIENT TOLERATED WELL. MEDS EDUCATION PROVIDED TO PATIENT AND PATIENT VERBALIZED UNDERSTANDING. PATIENT DENIED PAIN, SOB AND DIZZINESS. PATIENT IS SITTING UP AND WATCHING TV AT THIS TIME. NO SIGNS OF DISTRESS NOTED. TELE MONITOR ATTACHED. SAFETY MEASURES IN PLACE. BED IN LOW POSITION AND CALL LIGHT WITHIN REACH. INSTRUCTED PATIENT TO USE THE CALL LIGHT FOR ANY ASSISTANCE AND PATIENT WAS AWARE.
--- NOTE | 2018-12-27 10:03 | NUR ---
DR ZIEGLER IS TALKING AND ASSESSING PATIENT BY BEDSIDE AT THIS TIME. NO SIGNS OF DISTRESS NOTED. TELE MONITOR ATTACHED. SAFETY MEASURES IN PLACE.
--- NOTE | 2018-12-27 10:34 | NUR ---
RECEIVED A CALL FROM EDITH HUNT [facility], UPDATED HER OF THE PATIENT'S CONDITION.
--- NOTE | 2018-12-27 11:30 | NUR ---
RESUMED PT CARE FROM MARCIE STUART. PT IN BED. AAOX4. NO SIGNS OF ACUTE DISTRESS AT THIS TIME.
[2018-12-27 12:00] VITALS: BP 117/59
--- NOTE | 2018-12-27 12:06 | NUR ---
DR POWELL NOTIFIED OF BLOOD GLUCOSE 401 AND GAVE A VERBAL ORDER FOR ONE TIME DOSE OF 12 UNITS SLIDING SCALE HUMALOG. WILL ADMINISTER DOSE.
--- NOTE | 2018-12-27 12:42 | NUR ---
PT IN BED EATING LUNCH. SPO2 WAS 79-80 ON 5 L OXYMIZER. PT BREATHING EVEN AND UNLABORED WITH NO SIGNS OF ACUTE DISTRESS. PT WAS ENCOURAGED TO INHALE THROUGH NOSE AND SPO2 RAISED TO 92%. PT RECEIVED TEACHING REGARDING INHALING THROUGH NOSTRILS WHEN EATING.
--- NOTE | 2018-12-27 13:42 | NUR ---
SATURATION 92% ON 4 LPM VOA OXYMIZER POST HHN THERAPY CHANGED OXYGEN DEVICE TO NASAL CANNULA TITRATED FIO2 TO 3 LPM KATHRINE/MARCIE NOTIFIED PATIENT C/O NASAL DRYNESS WITH SLIGHT EPISTASIS HOMOGENIZER OPERATOR TO ADD HUMIDIFIER
--- NOTE | 2018-12-27 13:46 | NUR ---
PT IN BED RT AT BEDSIDE. NO SIGNS OF ACUTE DISTRESS AT THIS TIME. WILL CONTINUE TO ASSESS FOR CHANGES IN CONDITION.
--- NOTE | 2018-12-27 13:50 | NUR ---
TONJA FROM RT ON UNIT AND CHANGED PATIENT TO NASAL CANNULA ON 3L. WILL MONITOR PAT PSO2 SO THAT IT REMAINS ABOVE 88%. PT SPO2 VISUALIZED AT WAS 89% ON 3L ERIC.
--- NOTE | 2018-12-27 14:11 | NUR ---
SPO2 90% ON 3L NC. PT BREATHING EVEN AND UNLABORED. NO SIGNS OF ACUTE DISTRESS. WILL CONTINUE TO ASSESS FOR CHANGES IN CONDITION.
[2018-12-27] MEDS ORDERED: AZITHROMYCIN 500 MG in DEXTROSE 5% 250 ML IV SCH (15:00)
--- NOTE | 2018-12-27 15:03 | NUR ---
SATURATION 86% ON SUPPLEMENTAL OXYGEN AT 3 LPM VIA NC INCREASED FIO2 TO 4 LPM TO MAINTAIN SATURATION EQUAL OR GREATER THAN 88% KATHRINE/MARCIE AWARE
[2018-12-27] MEDS ORDERED: PRED20TA5 PO (15:32)
[2018-12-27] MEDS ORDERED: VANC1PIG IV (15:39)
[2018-12-27] MEDS ORDERED: PIPE1SOL IV (15:39)
--- NOTE | 2018-12-27 15:44 | NUR ---
CALLED [facility] SPOKE WITH RIGO ,PT CAN GO TO ROOM 38B SHE WILL HAVE A ROOMMATE # TO GIVE REPORT [phone] .ARRANGED TRANSPORT WITH [facility] STAFF FIELD ENGINEER TIME 7PM PATIENT AGREED TO GO TO [facility] AND OK WITH STAFF FIELD ENGINEER TIME AT 7 PM NOTIFIED RAF JACK
[2018-12-27 16:00] VITALS: BP 153/94
--- NOTE | 2018-12-27 16:00 | NUR ---
PT REQUESTED THAT I CALL HER SON WANDA TO INFORM HIM THAT SHE IS BEING TRANSFERRED TO [facility] IN [facility]. WANDA WAS INFORMED THAT SHE WILL BE TRANSPORTED AT 7PM TO ROOM 38B.
[2018-12-27] MEDS ORDERED: metFORMIN 850 MG TAB PO SCH (17:00)
--- NOTE | 2018-12-27 17:22 | NUR ---
PT GOWN AND LINENS CHANGED. AFTER CHANGE, PT SPO2 IS 90% ON 5L NC. PT BREATHING EVEN AND UNLABORED ON ROOM AIR. NO SIGNS OF ACUTE DISTRESS AT THIS TIME.
--- NOTE | 2018-12-27 18:15 | NUR ---
SBAR GIVEN TO NURSE KENNEDY FROM [facility] . ALL QUESTIONS ANSWERED AND CALL-BACK NUMBER PROVIDED. PRESCRIPTIONS EXPLAINED IN SBAR.
[2018-12-27] MEDS: ACETAMINOPHEN 325 MG TAB PO PRN (18:22)
[2018-12-27 18:26] VITALS: BP 153/94
--- NOTE | 2018-12-27 19:00 | NUR ---
PT GIVEN DISCHARGE PACKET. ALL DISCHARGE QUESTIONS ANSWERED.
--- NOTE | 2018-12-27 19:15 | NUR ---
PT TAKEN OFF UNIT VIA GURNEY BY [employer] TO [facility]. PT TOOL ALL BELONGINGS WITH HER. LEBRON REMOVED AND DIAPER APPLIED. 20 G IV TO L HAND WAS SALINE LOCKED. PT WAS SUPPLIED WITH SUPPLEMENTAL OXYGEN AT 3L VIA NASAL CANNULA. ALL BELONGINGS TAKEN WITH PATIENT. PT BREATHING EVEN AND UNLABORED AT DISCHARGE. PT STABLE AT DISCHARGE. Addendum: 12/27/18 at 1945 by Brandi Irby RN PATIENT INFORMATION PACKET GIVEN TO [employer] [facility] EMPLOYE[employer] TO HAND OVER TO [facility].
[2018-12-27] MEDS ORDERED: methylPREDNISolone SS 40 MG/ML VIAL IVP SCH (21:00)
== END 2018-12-27 19:25 | DRG 871 ==
LOC: MED 11:05 → MMU 13:40 → MTU 20:50
PROVIDERS: ADMIT Family Medicine; ATTEND Family Medicine
PROC: 5A09457 Assistance with Respiratory Ventilation, 24-96 Consecutive Hours, Continuous Positive Airway Pressure (ICD-10-PCS; principal; 2018-12-21)
PROC: 5A09357 Assistance with Respiratory Ventilation, Less than 24 Consecutive Hours, Continuous Positive Airway Pressure (ICD-10-PCS; 2018-12-23)
PROC: 5A09357 Assistance with Respiratory Ventilation, Less than 24 Consecutive Hours, Continuous Positive Airway Pressure (ICD-10-PCS; 2018-12-24)
DX: A41.9 Sepsis, unspecified organism (principal); J18.9 Pneumonia, unspecified organism; J96.21 Acute and chronic respiratory failure with hypoxia; I26.99 Other pulmonary embolism without acute cor pulmonale; J44.0 Chronic obstructive pulmonary disease with (acute) lower respiratory infection; N39.0 Urinary tract infection, site not specified; I50.30 Unspecified diastolic (congestive) heart failure; E03.9 Hypothyroidism, unspecified; E11.9 Type 2 diabetes mellitus without complications; E78.5 Hyperlipidemia, unspecified; E87.6 Hypokalemia; F32.9 Major depressive disorder, single episode, unspecified; F41.9 Anxiety disorder, unspecified; I11.0 Hypertensive heart disease with heart failure; M19.90 Unspecified osteoarthritis, unspecified site; Z96.653 Presence of artificial knee joint, bilateral; E83.42 Hypomagnesemia; Z79.01 Long term (current) use of anticoagulants; Z88.2 Allergy status to sulfonamides; Z90.710 Acquired absence of both cervix and uterus; Z88.5 Allergy status to narcotic agent; Z88.7 Allergy status to serum and vaccine; Z88.8 Allergy status to other drugs, medicaments and biological substances; Z79.899 Other long term (current) drug therapy; Z85.3 Personal history of malignant neoplasm of breast
CPT/HCPCS: 36415; 36600; 71045; 80048; 80053; 80202; 81001; 82040; 82550; 82803; 82948; 83036; 83605; 83735; 83880; 84100; 84439; 84443; 84484; 85025; 85379; 85610; 85730; 87040; 87070; 87081; 87086; 93005; 94640; 94660; 94667; 96365; 96375; 97110; 97116; 97161-GP; 97530; 99285; J0456; J0696; J1644; J1815; J1885; J1940; J2405; J2543; J2920; J3370; J3475; J7030; J7060; J7512; J7613; J7620; Q0092

== ENCOUNTER 2019-02-13 15:24 | Inpatient (IN) | payer OTHER, MEDICAID ==
[2019-02-13] VITALS (7 sets, daily range): BP systolic 103–174; BP diastolic 49–71
[~2019-02-13] VITALS: Ht 152.4 cm; Wt 83.9 kg
[~2019-02-13 15:24] MED LIST changes: +ALBU3SOL83 IH; -AMIO200T59 PO; -ASCO500T45 PO; +ATOR20TA PO; -AZIT250T3 PO; +BUS5 PO; +CARV6.252 PO; -FLONAS NS; -FURO-570 PO; -LACT10CA1 PO; +LAS20I PO; -MENT1OIN22 TP; +METF500T PO; -METO25TA PO; -MULT-1868 PO; +PIPE1SOL IV; +POTA10TE30 PO; +PRED20TA5 PO; -ROC1PM IV; -SERT-146 PO; +VANC1PIG IV; -[UNRECOGNIZED DRUG - CODE] PO
--- NOTE | 2019-02-13 15:48 | NUR ---
83 Y/O F KENDELL FROM [facility] WITH C/O SOB OVER THE LAST THREE DAYS, PATIENT STATES IT IS GETTING HARDER TO "CATCH HER BREATH". PATIENT HAS SWELLING OF THE ANKLES, BILATERAL FEET X2. PATIENT IS AO4. PATIENT'S SKIN IS INTACT. HX: PNEUMONIA, COPD, HTN, DM, HLD, CHF ALLERGIES: MORPHINE, SULFA, CELEBREX Addendum: 02/13/19 at 1649 by [email or web address] Amendment undone in EDM - 02/13/19 at 1651 by [email or web address] RICHI FOOT PITTING EDEMA Addendum: 02/13/19 at 1650 by [email or web address] R BREAST CANCER & SURGERY
--- NOTE | 2019-02-13 15:54 | NUR ---
LAB AT BEDSIDE
[2019-02-13] MEDS ORDERED: ACETAMINOPHEN 650 MG SUPP RC ONE (15:55)
[2019-02-13] MEDS ORDERED: ACETAMINOPHEN 325 MG TAB PO ONE (15:55)
[2019-02-13] MEDS ORDERED: CEFEPIME 1,000 MG in DEXTROSE 5% 50 ML IV ONE (16:00)
[2019-02-13] MEDS ORDERED: VANCOMYCIN PER PHARMACY MC PRN (16:00)
--- NOTE | 2019-02-13 16:01 | NUR ---
oral surgery technician at bedside.
[2019-02-13] MEDS ORDERED: CEFEPIME 1,000 MG VIAL ONE (16:08)
--- NOTE | 2019-02-13 16:08 | NUR ---
CALLED PHARMACY FOR VANCOMYCIN.
[2019-02-13 16:20] LABS: MEAN CORPUSCULAR VOLUME 75.4 fL (80-94)
--- NOTE | 2019-02-13 16:23 | NUR ---
FLU SWAB PERFORMED AND GIVEN TO LAB
--- NOTE | 2019-02-13 16:24 | NUR ---
LAB AT BEDSIDE
[2019-02-13 16:26] LABS: HEMATOCRIT 33.3 % (36-48); HEMOGLOBIN 10.3 g/dL (12.0-16.0); MEAN CORPUSCULAR HEMOGLOBIN 23 pg (27-31); MEAN CORPUSCULAR HGB CONC 31 g/dL (33-37); PLATELET COUNT (AUTO) 415 K/uL (140-450); RED BLOOD CELL COUNT(AUTO) 4.41 MIL/uL (4.20-5.40); RED CELL DISTRIBUTION WIDTH 17.9 % (11.6-13.7)
[2019-02-13 16:28] LABS: WHITE BLOOD COUNT (AUTO) 31.8 K/uL (4.8-10.8)
--- NOTE | 2019-02-13 16:29 | NUR ---
LAB AT BEDSIDE, DRAWING ADDITIONAL LABS FOR PATEINT
[2019-02-13 16:30] LABS: PROTHROMBIN TIME 10.7 secs (10.8-13.4)
[2019-02-13 16:31] LABS: ANION GAP 19.6 (8-16); ASPARTATE AMINOTRANSFERASE 19 U/L (15-37); CARBON DIOXIDE 25.2 mmol/L (21-32); CHLORIDE 102 mmol/L (98-107); CREATININE 1.5 mg/dL (0.6-1.3); GLUCOSE 223 mg/dL (74-106); POTASSIUM 3.8 mmol/L (3.5-5.1); SODIUM SERUM 143 mmol/L (136-145); TOTAL BILIRUBIN 0.5 mg/dL (0.0-1.0); UREA NITROGEN, BLOOD 21 mg/dL (7-18)
--- NOTE | 2019-02-13 16:31 | NUR ---
CALLED PHARMACY FOR VANCOMYCIN.
--- NOTE | 2019-02-13 16:42 | NUR ---
PT CAME TO ED SOB AND ON NRB MASK. TRIED TO DO ABG ON ROOM AIR BUT PT'S DESATTED VERY FAST. BLOOD GAS DONE ON 100% FIO2. MD AWARE AND AGREES. BLOOD GAS DONE WITH NO INCIDENT. PLACED PT O BIPAP PER MD ORDER AND SETTINGS CHARTED. PT FEEL MORE COMFORTABLE ON BIPAP. PT WAS MILDLY IMPROVED AFTER BIPAP ON. WILL CONTINUE TO MONITOR.
--- NOTE | 2019-02-13 16:43 | NUR ---
ON BIPAP. IPAP 12, EPAP 6, RAte 12, O2 60%.
--- NOTE | 2019-02-13 16:49 | NUR ---
PATIENT HAD BREAST CANCER X 12 YEARS AGO WITH SURGERY, UNABLE TO ACCESS RT ARM FOR IV'S
[2019-02-13] MEDS ORDERED: VANCOMYCIN 1,000 MG in DEXTROSE 5% 250 ML IV SCH (17:05)
[2019-02-13] MEDS ORDERED: VANCOMYCIN 1,000 MG in DEXTROSE 5% 250 ML IV ONE (17:10)
[2019-02-13 17:15] LABS: APPEARANCE,URINE HAZY (CLEAR); BILIRUBIN,URINE 1+ (NEGATIVE); BLOOD, URINE TRACE-I (NEGATIVE); COLOR,URINE YELLOW (YELLOW); LEUKOCYTE ESTERASE ,URINE 1+ (NEGATIVE); NITRITE, URINE NEGATIVE (NEGATIVE); UGLUCOSE NEGATIVE (NEGATIVE)
[2019-02-13 17:16] LABS: RBC,URINE 0-5 /HPF (0-5)
[2019-02-13 17:18] LABS: BASOPHILS % (MANUAL) 0 % (0-2); EOSINOPHILS % (MANUAL) 0 % (0-4); LYMPHOCYTES % (MANUAL) 12 % (20-46); MONOCYTES % (MANUAL) 6 % (5-12)
--- NOTE | 2019-02-13 17:25 | NUR ---
MD ORDERED 500 ML NS BOLUS RELATED TO LACTIC ACID 3.0. IV BOLUS NS STARTED.
[2019-02-13] MEDS ORDERED: DEXT 5% /NACL 0.9% 1,000 ML IV SCH (17:39)
[2019-02-13] MEDS ORDERED: ACETAMINOPHEN 325 MG TAB PO PRN (17:40)
[2019-02-13] MEDS ORDERED: ONDANSETRON 4 MG/2 ML VIAL IM/IVP PRN (17:40)
[2019-02-13] MEDS ORDERED: DOCUSATE SODIUM 100 MG GELCAP PO PRN (17:40)
--- NOTE | 2019-02-13 17:44 | NUR ---
CALLED PHARMACY FOR NITROGLYCERIN TO BE ADMINISTERED.
[2019-02-13] MEDS: NITROGLYCERIN 50 MG/D5W PREMIX 250 ML IV ONE ×2 (17:47→18:55)
--- NOTE | 2019-02-13 18:30 | NUR ---
PT ARRIVED FROM ER. AAXO4. VSS. NO SIGNS OF DISTRESS NOTED. BEDSIDE REPORT RECEIVED FROM MARCIE FRASER.
--- NOTE | 2019-02-13 18:30 | NUR ---
Patient will be admitted to care of dr jiang. Admited to icu. Will go to room 3. Belongings list completed. Report to DENIA JACK.
[2019-02-13] MEDS ORDERED: LORazepam 2 MG/ML VIAL IVP SCH (18:50)
[2019-02-13 18:51] LABS: PHOSPHORUS 3.3 mg/dL (2.5-4.9); THYROID STIMULATING HORMONE 0.65 uIU/mL (0.34-3.74)
--- NOTE | 2019-02-13 18:55 | NUR ---
DR. WASSERMAN AT BEDSIDE. STOP IV NITRO PER DR. WASSERMAN. ORDER CARRIED OUT.
--- NOTE | 2019-02-13 19:10 | NUR ---
PT'S SON WANDA LOUIS ([phone]) CALLED. PER PT, OK TO GIVE FULL UPDATES/INFORMATION TO WANDA. DR. WASSERMAN SPEAKING WITH WANDA ON PHONE AT THIS TIME.
[2019-02-13] MEDS ORDERED: MELATONIN 3 MG TAB PO PRN (19:20)
[2019-02-13] MEDS ORDERED: ALBUTEROL SULFATE/IPRATROPIU 3 ML SOL IH PRN (19:20)
--- NOTE | 2019-02-13 19:30 | NUR ---
RECEIVED BEDSIDE REPORT FROM MORNING NURSE, PATIENT AAO X3, ABLE TO FOLLOW COMMANDS AND MAKE NEEDS KNOWN. BILATERAL LUNGS SOUND RALES WITH TACHYPNEA WITH BIPAP, FIO2 60%, O2 SAT ABOVE 90%, TOLERATE WELL. SR ON THE MONITOR. ACTIVE BOWEL SOUND FROM ALL 4 QUADS, PERIPHERAL IV TO LEFT HAND RUNNING WITH VANCO AT THIS TIME. GENERALIZED WEAKNESS NOTED. PATIENT ABLE TO CHANGE POSITION. SKIN IS INTACT. DENIES PAIN AT THIS TIME. AT BEDSIDE TO ASSESS THE PATIENT. BED IN LOW, BILATERAL SIDE RAILS UP. CALL LIGHT WITHIN REACH. WILL CONTINUE TO MONITOR.
[2019-02-13] MEDS ORDERED: methylPREDNISolone SS 125 MG/2 ML VIAL IVP ONE (19:50)
[2019-02-13] MEDS ORDERED: DEXTROSE 50% 50 ML SYR IVP PRN (20:00)
--- NOTE | 2019-02-13 20:35 | NUR ---
DR. WASSERMAN AND TECH AT BEDSIDE FOR CENTRAL LINE PLACEMENT.
[2019-02-13] MEDS ORDERED: KETOROLAC 30 MG/ML VIAL ONE (20:37)
[2019-02-13] MEDS ORDERED: PIPERACILLIN/TAZOBACTAM 3.375 GM in DEXTROSE 5% 50 ML IV SCH (21:00)
[2019-02-13] MEDS: FERROUS SULFATE 325 MG TABEC PO SCH (21:00)
[2019-02-13] MEDS: CARVEDILOL 6.25 MG TAB PO SCH (21:00)
[2019-02-13] MEDS ORDERED: KETOROLAC 30 MG/ML VIAL IVP SCH (21:30)
--- NOTE | 2019-02-13 21:30 | NUR ---
ADMINISTERED ATIVAN, TORADOL FOR CENTRAL LINE PLACEMENT.
[2019-02-13] MEDS: MAG SULF 2000 MG/WATER PREMIX 50 ML IV SCH (21:39)
[2019-02-13] MEDS: BLOOD GLUCOSE MONITORING 1 DEV DEV FS SCH (21:44)
[2019-02-13] MEDS: PANTOPRAZOLE 40 MG INJ VIAL IVP SCH (21:53)
--- NOTE | 2019-02-13 22:00 | NUR ---
ADMINISTERED SCHEDULED MEDICATIONS ORDERED. COREG AND FERROUS SULFATE TABS ARE HOLD FROM .
[2019-02-13] MEDS ORDERED: FUROSEMIDE 40 MG/4 ML VIAL IVP SCH (22:50)
[2019-02-14] VITALS (17 sets, daily range): BP systolic 101–149; BP diastolic 48–95
--- NOTE | 2019-02-14 | NUR ---
PATIENT IN SLEEP, AROUSABLE TO VOICE, TOLERATED WELL WITH BIPAP. WILL CONTINUE TO MONITOR.
[2019-02-14] MEDS ORDERED: PIPERACILLIN/TAZOBACTAM 2.25 GM VIAL IV ONE (00:07)
[2019-02-14] MEDS: PIPERACILLIN/TAZOBACTAM 2.25 GM in DEXTROSE 5% 50 ML IV SCH ×4 (00:28→18:04)
[2019-02-14] MEDS: MAG SULF 2000 MG/WATER PREMIX 50 ML IV SCH (00:31)
--- NOTE | 2019-02-14 02:30 | NUR ---
PATIENT IN SLEEP WITHOUT DISTRESS. VSS. WILL CONTINUE TO MONITOR.
--- NOTE | 2019-02-14 03:00 | NUR ---
LEBRON CATH INSERTED BY CHARGE NURSE. NO S/S BLEEDING. TOLERATED WELL. WILL CONTINUE TO MONITOR.
--- NOTE | 2019-02-14 05:33 | NUR ---
PT TOLERATING BiPAP WELL. Fi02 60% WITH SP02 98% AND RR 20-22. WILL CONTINUE TO MONITOR PT.
[2019-02-14 06:03] LABS: ANION GAP 14.4 (8-16); CARBON DIOXIDE 27.6 mmol/L (21-32); CHLORIDE 105 mmol/L (98-107); CREATININE 1.3 mg/dL (0.6-1.3); GLUCOSE 265 mg/dL (74-106); SODIUM SERUM 143 mmol/L (136-145); UREA NITROGEN, BLOOD 23 mg/dL (7-18)
[2019-02-14 06:10] LABS: BASOPHILS # (AUTO) 0.1 K/uL (0.00-0.22); BASOPHILS % (AUTO) 0.4 % (0.0-2.0); HEMATOCRIT 28.3 % (36-48); HEMOGLOBIN 8.7 g/dL (12.0-16.0); LYMPHOCYTES % (AUTO) 5.2 % (20.5-51.1); MEAN CORPUSCULAR HEMOGLOBIN 23 pg (27-31); MEAN CORPUSCULAR HGB CONC 31 g/dL (33-37); MEAN CORPUSCULAR VOLUME 75.7 fL (80-94); MONOCYTES # (AUTO) 0.2 K/uL (0.8-1.0); MONOCYTES % (AUTO) 1.2 % (1.7-9.3); NEUTROPHILS # (AUTO) 17.3 K/uL (1.8-7.7); NEUTROPHILS % (AUTO) 93.2 % (42.2-75.2); PLATELET COUNT (AUTO) 318 K/uL (140-450); RED BLOOD CELL COUNT(AUTO) 3.74 MIL/uL (4.20-5.40); RED CELL DISTRIBUTION WIDTH 17.9 % (11.6-13.7); WHITE BLOOD COUNT (AUTO) 18.6 K/uL (4.8-10.8)
[2019-02-14 06:14] LABS: MAGNESIUM 2.3 mg/dL (1.8-2.4)
--- NOTE | 2019-02-14 06:15 | NUR ---
ADMINISTERED SCHEDULED MEDICATION, TOLERATED WELL. NO ACUTE DISTRESS NOTED. VSS. WILL CONTINUE TO MONITOR.
--- NOTE | 2019-02-14 06:20 | NUR ---
AT BEDSIDE TO ASSESS THE PATIENT. WILL FOLLOW THE ORDERS.
[2019-02-14] MEDS: LEVOTHYROXINE 0.1 MG TAB PO SCH (06:26)
[2019-02-14] MEDS: ALBUTEROL SULFATE/IPRATROPIU 3 ML SOL IH SCH ×4 (06:58→19:07)
[2019-02-14] MEDS ORDERED: ALBUTEROL SULFATE/IPRATROPIU 3 ML SOL IH SCH (07:00)
--- NOTE | 2019-02-14 07:15 | NUR ---
RECEIVED BEDSIDE REPORT FROM RENEWALS REPRESENTATIVE NURSE. PT IN BED, ON BIPAP, IPAP 12, EPAP 6, RR12, FIO2 60%. VITALS STABLE. AAO X3, ABLE TO FOLLOW COMMANDS AND MAKE NEEDS KNOWN. LUNGS SOUNDS COARSE. BOWEL SOUNDS ACTIVE. NO EDEMA NOTED. CAP REFILL LESS THAN 2 SECS. SR ON THE MONITOR. CVC TO RIGHT IJ, TRIPLE LUMEN, PATENT AND RUNNING D5NS AT 10ML/HR. IV TO LEFT HAND 20G, FLUSHED, PATENT AND DRESSING INTACT, SL. BED IN LOWEST POSITION, BILATERAL SIDE RAILS UP. CALL LIGHT WITHIN REACH. WILL CONTINUE TO MONITOR.
--- NOTE | 2019-02-14 07:16 | NUR ---
RECEIVED PT ON BIPAP 02/22,12,60% SAT 99%. BIPAP PLUGGED INTO RED OUTLET. BMV AT BEDSIDE. WILL TRY TO PLACE PT ON A NASAL CANNULA AT 5 LPM. MARCIE PARKER NOTIFIED
[2019-02-14] MEDS: BLOOD GLUCOSE MONITORING 1 DEV DEV FS SCH ×4 (07:17→20:26)
[2019-02-14] MEDS: INSULIN LISPRO SLIDING SCALE 100 UNITS/ML VIAL SUBQ PRN ×4 (07:20→20:30)
--- NOTE | 2019-02-14 07:30 | NUR ---
PT DID NOT TOLERATE NASAL CANNULA. PT PLACED BACK ON BIPAP AT PREVIOUS SETTINGS
--- NOTE | 2019-02-14 07:47 | NUR ---
PATIENT HAS BEEN SCREENED AND CATEGORIZED HIGH NUTRITION RISK. PATIENT WILL BE SEEN WITHIN 1-2 DAYS OF ADMISSION. 02/15/19-02/16/[address]
[2019-02-14] MEDS ORDERED: metFORMIN 500 MG TAB PO SCH (08:00)
[2019-02-14] MEDS: FERROUS SULFATE 325 MG TABEC PO SCH ×2 (08:18→20:20)
[2019-02-14] MEDS: CARVEDILOL 6.25 MG TAB PO SCH ×2 (08:18→20:20)
[2019-02-14] MEDS: LACTOBACILLUS RHAMNOSUS GG 1 EACH CAP PO SCH (08:18)
[2019-02-14] MEDS: ATORVASTATIN 20 MG TAB PO SCH (08:18)
[2019-02-14] MEDS: PANTOPRAZOLE 40 MG INJ VIAL IVP SCH ×2 (08:18→20:20)
[2019-02-14] MEDS: FUROSEMIDE 20 MG/2 ML VIAL IVP SCH (08:19)
[2019-02-14] MEDS: methylPREDNISolone SS 40 MG/ML VIAL IVP SCH ×3 (08:22→20:20)
[2019-02-14] MEDS: guaiFENesin DM 200/20 MG-10 ML 10 ML UDC PO PRN ×2 (08:35→17:09)
[2019-02-14] MEDS: busPIRone 5 MG TAB PO SCH (09:02)
[2019-02-14] MEDS ORDERED: SODIUM FERRIC GLUCONATE 125 MG in NACL 0.9% 100 ML IV SCH (09:30)
--- NOTE | 2019-02-14 09:36 | NUR ---
PT PLACED ON HIGH FLOW PER DR. WALKER. AT 40L @60%
[2019-02-14] MEDS ORDERED: traMADol 50 MG TAB PO PRN (09:45)
[2019-02-14] MEDS ORDERED: diphenhydrAMINE 50 MG/ML VIAL IVP PRN (09:45)
--- NOTE | 2019-02-14 10:10 | NUR ---
PT HAD BREAKFAST. EATING WELL.
--- NOTE | 2019-02-14 10:25 | NUR ---
DR GARCIA CAME AND ASSESSED PT, IS AWARE OF ELEVATED TROP.
--- NOTE | 2019-02-14 10:30 | NUR ---
DENIES ANY PAIN AT THIS TIME.
--- NOTE | 2019-02-14 10:40 | NUR ---
DR GANDARA CAME AND ASSESSED PT.
--- NOTE | 2019-02-14 10:45 | NUR ---
PT OXYGEN SAT IS 90-94% WITH HIGH FLOW OXYGEN AT FIO2 60%. PT HAS INTERMITTENT COUGHING, NOT ABLE TO COUGH UP SPUTUM. DR GANDARA ORDERED IS. TAUGHT PT HOW TO USE IS. PT DID RETURN DEMONSTRATION, ABLE TO REACH 500ML VOLUME.
--- NOTE | 2019-02-14 12:05 | NUR ---
BLOOD SUGAR 415, CONFIRMED 2ND TRY 412. NOTIFIED DR WALKER WHO SAID 10 UNITS IS GOOD, NO ADDITIONAL NEEDED RIGHT NOW.
[2019-02-14] MEDS: BENZOCAINE/MENTHOL 1 LOZ MM PRN ×2 (12:12→14:20)
--- NOTE | 2019-02-14 14:30 | NUR ---
PT PLACED ON 6 LITERS OXYMIZER SAT 92-93%. PT SEEMS MORE COMFORTABLE ON THIS DEVICE. WILL CONTINUE TO MONITOR
--- NOTE | 2019-02-14 14:30 | NUR ---
PT C/O TOO MUCH CONDENSATION FROM THE HIGH FLOW O2. CALLED RTLOBO SWITCH IT TO OXYMIZER. PT TOLERATED WELL, O2 SAT 95%. Addendum: 02/14/19 at 1521 by Ulises Espinoza RN OXYMIZER 8L.
[2019-02-14] MEDS: NACL 0.9% 500 ML IV SCH (15:31)
--- NOTE | 2019-02-14 15:40 | NUR ---
RECEIVED REPORT FROM ELENA FOR CONTINUITY OF CARE.NO CO PAIN NOR ANY DISCOMFORT.PT ON OXYMIZER.RIGHT IJ CENTRAL LINE PATENT AND INTACT.LEFT HAND 20 GAUGE IV INTACT AND PATENT.LEBRON TO GRAVITY.
[2019-02-14] MEDS: KETOROLAC 15 MG/ML VIAL IVP PRN (16:03)
[2019-02-14] MEDS: BUDESONIDE 0.5 MG/2 ML NEBU INH SCH (19:11)
--- NOTE | 2019-02-14 19:30 | NUR ---
RECEIVED REPORT FROM MORNING RNRICHARD, FOR CONTINUITY OF CARE. VS STABLE AT THIS TIME. AFEBRILE. PT SPEAKS DANISH. ABLE TO MAKE NEEDS KNOWN. ABLE TO FOLLOW COMMANDS. PERRL. DENIES PAIN. ALERT AND ORIENTED X4. S1+S2 HEARD. SR ON MONITOR. PULSES PALPABLE IN ALL EXTREMITIES. LUNG SOUNDS CLEAR. ON OXIMIZER AT 9L/MIN. NO SOB NOTED. INTERMITTENT COUGH BUT NON-PRODUCTIVE. BOWEL SOUNDS ACTIVE. ABDOMEN ROUND, SOFT AND NONDISTENDED. LEBRON CATHETER IN PLACE. DRAINING CLEAR AND YELLOW URINE. LEBRON CATHETER SECURED IN PLACE. SKIN IS WARM AND DRY. PT HAS PERIPHERAL IV ACCESS ON LEFT HAND 20G THAT IS SALINE LOCKED. RIGHT IJ CENTRAL LINE TRIPLE LUMEN PRESENT. DRESSING CLEAN, DRY AND ASYMPTOMATIC. HOB KEPT AT 30 DEGREES. CALL LIGHT WITHIN REACH. ALL SAFETY PRECAUTIONS ARE IN PLACE. WILL CONTINUE TO MONITOR PT.
--- NOTE | 2019-02-14 20:00 | NUR ---
PT LOOKING FOR HER PHONE TESTER ROCKET ENGINE. LOOKED ALL OVER THE ROOM AND THERE WAS NO PHONE TESTER ROCKET ENGINE FOUND. WILL FOLLOW-UP REGARDING THE PHONE TESTER ROCKET ENGINE.
--- NOTE | 2019-02-14 22:13 | NUR ---
NO CHANGE IN PT'S CONDITION AT THIS TIME. VS REMAINS STABLE. PT ABLE TO REPOSITION SELF WITH MINIMAL ASSIST. NO SOB NOTED. ALL SAFETY PRECAUTIONS ARE IN PLACE.
--- NOTE | 2019-02-14 22:58 | NUR ---
RECEIVED PT ON OXYMIZER 6L WITH SP02 95%, AND CLEAR BREATH SOUNDS. NO RESPIRATORY DISTRESS NOTED. TX GIVEN ORDERED WITH NO ADVERSE REACTION. WILL CONTINUE TO MONITOR PT.
[2019-02-15] VITALS (9 sets, daily range): BP systolic 123–155; BP diastolic 55–95
[2019-02-15] MEDS: PIPERACILLIN/TAZOBACTAM 2.25 GM in DEXTROSE 5% 50 ML IV SCH ×4 (00:35→17:16)
--- NOTE | 2019-02-15 00:39 | NUR ---
VS STABLE. SR ON MONITOR. OXYGEN SATURATION WNL. DENIES PAIN. PT ATTEMPTING TO SLEEP AT THIS TIME. MELATONIN ALREADY GIVEN TO PT. ADVISED PT TO GIVE THE MEDICATION TIME TO TAKE EFFECT. OFFERED EXTRA BLANKET TO PT BUT REFUSED. WILL CONTINUE TO MONITOR RESPIRATORY STATUS.
--- NOTE | 2019-02-15 02:28 | NUR ---
PT AFEBRILE. AWAKENS TO NAME. PT DENIES ANY DISCOMFORT AT THIS TIME. DENIES PAIN. OFFERED TO ASSIST IN REPOSITIONING AND PT AGREED. VS REMAINS STABLE. ALL SAFETY PRECAUTIONS ARE STILL IN PLACE. WILL CONTINUE TO MONITOR PT.
--- NOTE | 2019-02-15 04:15 | NUR ---
PT WANTED TO BE CLEANED AROUND 6AM. WILL WAKE UP PT THEN. AT THIS TIME. VS REMAINS STABLE. OXYGEN SATURATION WNL. ALL SAFETY PRECAUTIONS ARE IN PLACE. WILL CONTINUE TO MONITOR PT.
[2019-02-15] MEDS: methylPREDNISolone SS 40 MG/ML VIAL IVP SCH ×3 (05:53→20:46)
[2019-02-15] MEDS: LEVOTHYROXINE 0.1 MG TAB PO SCH (05:54)
--- NOTE | 2019-02-15 06:03 | NUR ---
WOKE UP PT TO START BED BATH, BUT PT SAID TO WAIT LATER IN THE MORNING WHEN IT IS NO LONGER SO COLD. INFORMED PT THAT WARM WATER CAN BE USED, BUT STILL REFUSED.
--- NOTE | 2019-02-15 06:10 | NUR ---
DR. WALKER AT BEDSIDE TO SEE PT. UPDATED HIM REGARDING PT'S CONDITION.
[2019-02-15 06:36] LABS: BASOPHILS % (AUTO) 0.1 % (0.0-2.0); HEMATOCRIT 27.2 % (36-48); HEMOGLOBIN 8.4 g/dL (12.0-16.0); LYMPHOCYTES # (AUTO) 1.3 K/uL (2.5-16.5); LYMPHOCYTES % (AUTO) 5.7 % (20.5-51.1); MEAN CORPUSCULAR HEMOGLOBIN 23 pg (27-31); MEAN CORPUSCULAR HGB CONC 31 g/dL (33-37); MEAN CORPUSCULAR VOLUME 75.1 fL (80-94); MONOCYTES # (AUTO) 0.7 K/uL (0.8-1.0); MONOCYTES % (AUTO) 2.8 % (1.7-9.3); NEUTROPHILS # (AUTO) 21.1 K/uL (1.8-7.7); NEUTROPHILS % (AUTO) 91.4 % (42.2-75.2); PLATELET COUNT (AUTO) 356 K/uL (140-450); RED BLOOD CELL COUNT(AUTO) 3.62 MIL/uL (4.20-5.40); WHITE BLOOD COUNT (AUTO) 23.1 K/uL (4.8-10.8)
[2019-02-15 06:44] LABS: ANION GAP 12.7 (8-16); CARBON DIOXIDE 29.2 mmol/L (21-32); CHLORIDE 104 mmol/L (98-107); CREATININE 1.5 mg/dL (0.6-1.3); GLUCOSE 269 mg/dL (74-106); POTASSIUM 3.9 mmol/L (3.5-5.1); SODIUM SERUM 142 mmol/L (136-145); UREA NITROGEN, BLOOD 29 mg/dL (7-18)
[2019-02-15 06:46] LABS: MAGNESIUM 1.8 mg/dL (1.8-2.4); PHOSPHORUS 4.8 mg/dL (2.5-4.9)
--- NOTE | 2019-02-15 07:15 | NUR ---
RECEIVED BEDSIDE REPORT FROM SANTO HAT BLOCKING OPERATOR RN, FOR CONTINUITY OF CARE. PATIENT IS AAOX4, SKIN IS WARM, DRY, INTACT. SHE HAS NASAL OXIMIZER 9LPM, BREATHING EVEN AND UNLABORED, PATIENT HAS A NON PRODUCTIVE COUGH. SHE IS SR ON MONITOR, COMPLAINS OF 8/10 NECK PAIN. SHE HAS LEBRON CATHETER IN PLACE. HOB IS 45 DEGREES, SIDE RAILS UP 3X, BED LOCKED IN LOW POSITION. NO DISTRESS AT THIS TIME.
[2019-02-15] MEDS: ALBUTEROL SULFATE/IPRATROPIU 3 ML SOL IH SCH ×3 (07:16→18:57)
[2019-02-15] MEDS: BUDESONIDE 0.5 MG/2 ML NEBU INH SCH ×2 (07:16→18:57)
[2019-02-15] MEDS: BLOOD GLUCOSE MONITORING 1 DEV DEV FS SCH ×4 (07:35→20:47)
[2019-02-15] MEDS: INSULIN LISPRO SLIDING SCALE 100 UNITS/ML VIAL SUBQ PRN ×4 (07:38→20:50)
--- NOTE | 2019-02-15 07:38 | NUR ---
DR. WAYNE AND RESIDENTS AT BEDSIDE, WILL FOLLOW UP ON ANY ORDERS.
[2019-02-15] MEDS: FERROUS SULFATE 325 MG TABEC PO SCH ×2 (08:05→20:46)
[2019-02-15] MEDS: LACTOBACILLUS RHAMNOSUS GG 1 EACH CAP PO SCH (08:05)
[2019-02-15] MEDS: CARVEDILOL 6.25 MG TAB PO SCH ×2 (08:05→20:46)
[2019-02-15] MEDS: PANTOPRAZOLE 40 MG INJ VIAL IVP SCH ×2 (08:06→20:45)
[2019-02-15] MEDS: guaiFENesin DM 200/20 MG-10 ML 10 ML UDC PO PRN (08:06)
[2019-02-15] MEDS: ATORVASTATIN 20 MG TAB PO SCH (08:06)
[2019-02-15] MEDS: KETOROLAC 15 MG/ML VIAL IVP PRN (08:07)
[2019-02-15] MEDS: FUROSEMIDE 20 MG/2 ML VIAL IVP SCH (08:07)
[2019-02-15] MEDS: busPIRone 5 MG TAB PO SCH (08:07)
--- NOTE | 2019-02-15 08:39 | NUR ---
ADMINISTERED SCHEDULED MEDS AND PRN TORADOL AND ROBITUSSIN. PATIENT TOLERATED WELL.
[2019-02-15] MEDS: LORazepam 2 MG/ML VIAL IM/IVP PRN (12:23)
[2019-02-15] MEDS: BENZOCAINE/MENTHOL 1 LOZ MM PRN (12:24)
--- NOTE | 2019-02-15 12:51 | NUR ---
*S.T. Bedside swallow eval completed* See report. Pt presents w/ adequate oropharyngeal swallow function for currently ordered diet textures of mechanical soft diet and thin liquids. Pt was observed self-feeding from lunch tray diced fruit and juice from straw. No overt s/s aspiration observed. Pt did demonstrate mild delay of pharyngeal swallow initiation due to SOB. However, pt is able to self-feed w/o difficulty. Pt requests that foods be chopped slightly smaller than what she has been receiving. Recommend: 1) Continue current diet textures of mechanical soft chopped, thin liquids okay. Request for FNS kitchen to chop food into slightly smaller bite sized pieces, per pt request. 2) P.O. meds okay whole as tolerated. Pt is currently tolerating her reported baseline diet. Therefore, no further swallow tx indicated at this time. DC to [facility]. Endorsed to MARCIE Silveira. Time [id number]
--- NOTE | 2019-02-15 13:51 | NUR ---
DR. WALKER AT BEDSIDE TO INFORM PATIENT ON CT SCAN OF CHEST WITH CONTRAST, PATIENT'S SON AT BEDSIDE. PATIENT PROVIDES CONSENT FOR CT SCAN
--- NOTE | 2019-02-15 15:07 | NUR ---
PT REFUSED BREATHING TX. PT SAID SHE IS IN NO SOB. PT SAT 96-97%.
[2019-02-15] MEDS: NACL 0.9% 500 ML IV SCH (16:07)
--- NOTE | 2019-02-15 16:08 | NUR ---
CALLED DOG HANDLER OR TRAINER REGARDING TAKING PATIENT TO CT FOR CT OF CHEST WITH CONTRAST, STATES THAT PATIENT'S CREATININE IS HIGH FOR CONTRAST. WILL NOTIFY THE PHYSICIAN
--- NOTE | 2019-02-15 16:39 | NUR ---
CALLED RESIDENT CAN VACUUM TESTER PHYSICIAN, DR. ASHRAF, AWARE ABOUT PATIENT'S CREATININE AND FLUID RESTRICTION OF 1500ML/DAY.
[2019-02-15] MEDS: VANCOMYCIN HCL 750 MG in NACL 0.9% 250 ML IV SCH (17:06)
--- NOTE | 2019-02-15 18:16 | NUR ---
ENDORSED REPORT TO [facility] RNLISA FOR CONTINUITY OF CARE.
--- NOTE | 2019-02-15 18:32 | NUR ---
TRANSFERRED PATIENT TO [facility] BED 121 B VIA WHEELCHAIR. PATIENT IS ON 9LPM NASAL OXIMIZER, SR ON MONITOR. NO SIGNS OF DISTRESS NOTED.
--- NOTE | 2019-02-15 18:45 | NUR ---
PT ARRIVED ON THE UNIT ORIENTED PT TO THE UNIT. SET UP IVF. PT APPEARS STABLE AND IN NO APPARENT DISTRESS. RT AT BEDSIDE PERFORMING TREATMENT.
--- NOTE | 2019-02-15 19:22 | NUR ---
ENDORSED PT TO PM RN PT APPEARS STABLE AND NO APPARENT DISTRESS. ALL SAFETY MEASURES ARE IN PLACE PT HAS LEBRON CATH IN PLACE. RIGHT IJ CENTRAL LINE IN PLACE AND IS ON 5L 02 VIA NASAL OXIMIZER/
--- NOTE | 2019-02-15 19:24 | NUR ---
RECIEVED PT AAOX4 , ON O2 OXIMIZER AT 5LPM - O2 SAT WNL , WITH CENTRAL LINE AT JUGULAR VEIN AT RIGHT SIDE AND LEFT HAND G 20G , ON ACCESS LEAD PLAN OF CARE DISCUSSED AND VERBALIZE UNDERSTANDING , WITH FC DRAINING CLEAR U.O , SKIN INTACT , CALL LIGHT WITHIN REACH- FOR CT SCAN OF THE CHEST W/O CONTRAST BUT THE PT SAID MAYBE LATTER BECAUSE I WANT TO REST AND SLEP FOR A WHILE - WILL CONT. TO MONITOR.
--- NOTE | 2019-02-15 22:00 | NUR ---
MADE ROUNDS , NO S/SX OF ACUTE DISTRESS - O2 SAT WNL.
[2019-02-16] VITALS: BP 136/60
--- NOTE | 2019-02-16 | NUR ---
MADE ROUNDS , NO S/SXS OF ACUTE DISTRESS - O2 SAT WNL . ON DRESS OPERATOR - SR
[2019-02-16] MEDS: PIPERACILLIN/TAZOBACTAM 2.25 GM in DEXTROSE 5% 50 ML IV SCH ×5 (00:17→23:51)
--- NOTE | 2019-02-16 02:00 | NUR ---
SLEEPING - O2 SAT 94% CALL LIGHT WITHIN GUERLINE - CALL LIGHT WITHIN REACH
[2019-02-16] MEDS: KETOROLAC 15 MG/ML VIAL IVP PRN ×2 (02:30→15:43)
[2019-02-16] MEDS: guaiFENesin DM 200/20 MG-10 ML 10 ML UDC PO PRN ×3 (02:58→21:16)
[2019-02-16 04:00] VITALS: BP 152/72
--- NOTE | 2019-02-16 04:00 | NUR ---
MADE ROUNDS , COUGHING INTERMITTENTLY , SLEEPS AT INTERVALS - CALL LIGHT WITHIN REACH O2 SAT . -WNL
[2019-02-16] MEDS: methylPREDNISolone SS 40 MG/ML VIAL IVP SCH ×2 (05:25→21:11)
[2019-02-16 06:07] LABS: FOLIC ACID 9.1 ng/mL (>3.0)
[2019-02-16] MEDS ORDERED: BENZONATATE 100 MG CAPLF PO PRN (06:15)
--- NOTE | 2019-02-16 06:20 | NUR ---
CHEST CT SCAN W/O CONTRAST NOT YET DONE - TRIED TO CONTACT CT DEPT - NO ONE ANSWER - DR WASSERMAN INFORMED.
[2019-02-16] MEDS: BLOOD GLUCOSE MONITORING 1 DEV DEV FS SCH ×4 (06:23→21:04)
[2019-02-16] MEDS: LEVOTHYROXINE 0.1 MG TAB PO SCH (06:25)
[2019-02-16] MEDS: BENZOCAINE/MENTHOL 1 LOZ MM PRN ×2 (06:26→10:52)
[2019-02-16] MEDS: INSULIN LISPRO SLIDING SCALE 100 UNITS/ML VIAL SUBQ PRN ×3 (06:33→17:49)
[2019-02-16] MEDS: LORazepam 2 MG/ML VIAL IM/IVP PRN (06:50)
--- NOTE | 2019-02-16 07:05 | NUR ---
RECEIVED BEDSIDE REPORT FROM NIGHTSHIFT NURSE. PATIENT WAS LYING IN BED UPON ARRIVAL. ABLE TO MAKE NEEDS KNOWN. NO COMPLAINTS OF PAIN AT THIS TIME. SKIN WARM AND DRY TO TOUCH. RESPIRATIONS EVEN AND UNLABORED WITH NO SOB OR RESPIRATORY DISTRESS. IV SITE IS IN LEFT WRIST. IV SITE IS CLEAN, PATENT, AND INTACT. PATIENT IS STABLE. SAFETY MEASURES: HOB ELEVATED, BE DIN LOWEST POSITION, BED ALARM ACTIVATED, TELE MONITORS ATTACHED, AND CALL LIGHT WITHIN REACH. WILL CONTINUE TO MONITOR.
[2019-02-16 07:07] LABS: HEMATOCRIT 30.1 % (36-48); HEMOGLOBIN 9.2 g/dL (12.0-16.0); MEAN CORPUSCULAR HEMOGLOBIN 23 pg (27-31); MEAN CORPUSCULAR HGB CONC 31 g/dL (33-37); MEAN CORPUSCULAR VOLUME 75.4 fL (80-94); PLATELET COUNT (AUTO) 478 K/uL (140-450); RED BLOOD CELL COUNT(AUTO) 3.99 MIL/uL (4.20-5.40); RED CELL DISTRIBUTION WIDTH 18.3 % (11.6-13.7)
[2019-02-16] MEDS: ALBUTEROL SULFATE/IPRATROPIU 3 ML SOL IH SCH ×4 (07:09→21:15)
[2019-02-16] MEDS: BUDESONIDE 0.5 MG/2 ML NEBU INH SCH ×2 (07:09→21:15)
--- NOTE | 2019-02-16 07:15 | NUR ---
ENDORSED TO AM SHIFT WITH STABLE CONDITION - STILL FOR CT SCAN OF THE CHEST.
[2019-02-16 07:16] LABS: ANION GAP 12.6 (8-16); CARBON DIOXIDE 29.3 mmol/L (21-32); CHLORIDE 104 mmol/L (98-107); CREATININE 1.4 mg/dL (0.6-1.3); GLUCOSE 291 mg/dL (74-106); POTASSIUM 3.9 mmol/L (3.5-5.1); SODIUM SERUM 142 mmol/L (136-145); UREA NITROGEN, BLOOD 37 mg/dL (7-18)
[2019-02-16 08:00] VITALS: BP 173/77
[2019-02-16 08:20] LABS: WHITE BLOOD COUNT (AUTO) 25.4 K/uL (4.8-10.8)
[2019-02-16 08:21] LABS: LYMPHOCYTES % (MANUAL) 6 % (20-46); MONOCYTES % (MANUAL) 3 % (5-12)
--- NOTE | 2019-02-16 08:29 | NUR ---
RECEIVED A CRITICAL LAB FOR WBC 25.4. REPORTED TO DR PAPPAS AND DR PAPPAS WAS AWARE. NO ORDER RECEIVED AT THIS TIME.
[2019-02-16] MEDS: busPIRone 5 MG TAB PO SCH (08:35)
[2019-02-16] MEDS: LACTOBACILLUS RHAMNOSUS GG 1 EACH CAP PO SCH (08:35)
[2019-02-16] MEDS: CARVEDILOL 6.25 MG TAB PO SCH ×2 (08:37→21:12)
[2019-02-16] MEDS: FERROUS SULFATE 325 MG TABEC PO SCH ×2 (08:37→21:12)
[2019-02-16] MEDS: PANTOPRAZOLE 40 MG INJ VIAL IVP SCH ×2 (08:37→21:12)
[2019-02-16] MEDS: FUROSEMIDE 20 MG/2 ML VIAL IVP SCH (08:38)
--- NOTE | 2019-02-16 08:38 | NUR ---
PATIENT'S BP 177/77, NOTIFIED DR PAPPAS AND ADMINISTERED SCHEDULED BP MED, WILL REASSESS BP. ADMINISTERED MEDICATIONS PRESCRIBED PER MD. PATIENT TOLERATED WELL. MEDICATION EDUCATION PERFORMED TO PATIENT. PT ABLE TO VERBALIZE UNDERSTANDING. PATIENT COMPLAINED IV SITE ON L HAND MAKING HER NOT COMFORTABLE, DC IV AND CANNULA INTACT, NO BLEEDING AT IV SITE. NO COMPLAINTS AT THIS TIME. PATIENT IS LYING IN BED AWAKE, SPO2 AT 96% ON 5LPM VIA OXYMIZER. ABLE TO MAKE NEEDS KNOWN. RESPIRATIONS EVEN AND UNLABORED WITH NO SOB OR RESPIRATORY DISTRESS. SAFETY MEASURES: HOB ELEVATED, BED IN LOWEST POSITION, BED ALARM ACTIVATED, TELE MONITOR ATTACHED. CALL LIGHT WITHIN REACH. INSTRUCTED PATIENT TO USE THE CALL LIGHT FOR ANY ASSISTANCE AND PATIENT WAS AWARE.
--- NOTE | 2019-02-16 08:39 | NUR ---
CALLED RADIOLOGY DEPT [id number] AND SPOKE TO JIMMY. NOTIFIED JIMMY THAT PATIENT IS READY FOR CT SCAN. JIMMY WAS AWARE AND SAID [facility] DIRECTOR [employer]OL WILL BE COMING SHORTLY.
[2019-02-16] MEDS ORDERED: ATORVASTATIN 20 MG TAB PO SCH (09:00)
--- NOTE | 2019-02-16 09:25 | NUR ---
PATIENT COUGHS INTERMITTENT, AND FEELS UNCOMFORTABLE. ADMINISTERED COUGH SYRUP MD PRESCRIBED, MED EDUCATION PROVIDED TO PATIENT AND PATIENT VERBALIZED OK. CT [facility] TRANSFERRED PATIENT TO [facility] FOR CT SCAN. PATIENT IS IN STABLE CONDITION.
[2019-02-16] MEDS ORDERED: amLODIPine 5 MG TAB PO SCH (10:20)
[2019-02-16] MEDS ORDERED: hydrALAZINE 20 MG/ML VIAL IVP SCH ×2 (10:30→12:04)
--- NOTE | 2019-02-16 10:33 | NUR ---
RECHECKED PT'S BP WHICH RESULTED IN 164/83. DR. PAPPAS MADE AWARE. DR. PAPPAS PUT IN A ONE TIME ORDER FOR APRESOLINE 20MG.
--- NOTE | 2019-02-16 10:35 | NUR ---
02/16/19 RD INITIAL ASSESSMENT COMPLETED PLEASE REFER TO NUTRITION ASSESSMENT UNDER CARE ACTIVITY FOR ESTIMATED NUTRITIONAL NEEDS. RD RECOMMENDATIONS 1. ADD CCHO 60 G DIET TO CURRENT DIET REGIMEN (CARDIAC, MECH SOFT TEXTURE, THIN LIQUIDS) FOR IMPROVED BG MANAGEMENT. 2. IF PO INTAKE DECREASES TO <75% ESTIMATED NEEDS, ADD GLUCERNA BID WITH MEALS FOR ADDED SUPPLEMENTATION. 3. RD TO FOLLOW UP MODERATE RISK, 3-5 DAYS KENDALL YEAGER, RD
--- NOTE | 2019-02-16 10:40 | NUR ---
SENIOR IT SECURITY ANALYST ASSISTED PATIENT TO USE THE BEDSIDE COMMODE AND BACK TO BED. NO SIGNS OF DISTRESS NOTED. SAFETY MEASURES IN PLACE. FALL RISK PROTOCOL IN PLACE AND BED ALARM ACTIVATED.
[2019-02-16] MEDS: ATORVASTATIN 20 MG TAB PO SCH (10:51)
--- NOTE | 2019-02-16 10:54 | NUR ---
RDN spoke with Pt and Pt's daughter regarding Pt's dislike for Mechanical Soft diet. Pt expressed dislike for grounded meat and preference for chopped. Pt expresses desire for a grilled cheese sandwich with the bread toast every well. RDN explained reason for mechanical soft diet as well as risk and benefits for prescribed diet. RN and Pt's daughter explained reason for diet order and encouraged Pt to follow order. MATAN spoke with MD regarding Pt's concerns. MD to discuss current diet texture/consistency with Pt.
--- NOTE | 2019-02-16 10:55 | NUR ---
ASSESS BP PRIOR TO ADMINISTERING MEDICATION. BP RESULTED IN 169/79 WITH A PULSE OF 86BPM. ADMINISTERED SCHEDULED MEDICATION PRESCRIBED PER MD. MEDICATION EDUCATION PERFORMED TO PATIENT. PATIENT ABLE TO VERBALIZE UNDERSTANDING. PATIENT TOLERATED WELL. NO COMPLAINTS OR CONCERNS AT THIS TIME.
--- NOTE | 2019-02-16 11:45 | NUR ---
PATIENT IS LAYING IN BED RELAXING. NO COMPLAINTS OR CONCERNS AT THIS TIME. RESPIRATIONS EVEN AND UNLABORED WITH NO SOB. SPO2 STATING AT 95% ON OXIMIZER AT 5.0. PICC LINE TRIPLE LUMEN IS DRY, INTACT, AND PATENT. NO REDNESS, INFILTRATING, OR COMPLICATIONS AT THIS TIME. LEBRON CATHETER IS DRAINING CLEAR YELLOW URINE WITHIN THE DRAINAGE BAG. NO SEDIMENTS OR HEMATURIA NOTED. SAFETY MEASURES: HOB ELEVATED, BED IN LOWEST POSITION, CALL LIGHT WITHIN REACH, BED ALARM ACTIVATED, TELE MONITORS ATTACHED. FREQUENT ROUNDS MADE. WILL CONTINUE TO MONITOR
--- NOTE | 2019-02-16 11:54 | NUR ---
REASSESSED PATIENTS BLOOD PRESSURE AFTER ALLOTTED TIME. RESULTED IN 178/84 WITH A HEART RATE OF 79. DR. PAPPAS WAS MADE AWARE AND MADE A NEW ONE TIME ORDER OF APRESOLINE 20MG VIA IVPUSH. Addendum: 02/16/19 at 1225 by Brittani Leal RN APRESOLINE 0.25
[2019-02-16 12:00] VITALS: BP 178/84
--- NOTE | 2019-02-16 12:11 | NUR ---
PATIENT RECEIVED HER LUNCH TRAY, ADMINISTERED 8 UNITS OF HUMALOG FOR BLOOD GLUCOSE 330 VIA SUBQ. ADMINISTERED HYDRALAZINE FOR HIGH BP AND SCHEDULE ANTIBIOTIC, MEDS EDUCATION PROVIDED TO PATIENT AND PATIENT VERBALIZED UNDERSTANDING. PATIENT AWAKE AND DENIED ANY PAIN, SOB, AND DIZZINESS AT THIS TIME. NO SIGNS OF DISTRESS NOTED. SAFETY MEASURES IN PLACE. BED IN LOW POSITION AND CALL LIGHT WITHIN REACH. TELE MONITOR ATTACHED. BED ALARM ACTIVATED.
--- NOTE | 2019-02-16 13:24 | NUR ---
REASSESS PATIENTS BLOOD PRESSURE WHICH RESULTED IN 142/61 WITH A HEART RATE OF 89. PATIENT TOLERATED WELL. NO COMPLICATIONS AT THIS TIME. REPOSITIONED THE PATIENT PER HER REQUEST. SAFETY MEASURES: HOB ELEVATED, BED ALARM ACTIVATED, TELE MONITOR ACTIVATED, BED IN LOWEST POSITION, CALL LIGHT WITHIN REACH.
--- NOTE | 2019-02-16 14:30 | NUR ---
PATIENT IS LYING IN BED WATCHING TV. ABLE TO MAKE NEEDS KNOWN. NO COMPLAINTS OR CONCERNS AT THIS TIME. SKIN WARM AND DRY TO TOUCH. RESPIRATIONS EVEN AND UNLABORED WITH NO SOB OR RESPIRATORY DISTRESS. SAFETY MEASURES: HOB ELEVATED, BED ALARM IN PLACE, BED IN LOWEST POSITION, TELE MONITOR ATTACHED, AND CALL LIGHT WITHIN REACH. FREQUENT CHECKS MADE
[2019-02-16] MEDS ORDERED: VANCOMYCIN PER PHARMACY MC PRN (14:40)
--- NOTE | 2019-02-16 15:02 | NUR ---
PATIENT IS ASLEEP IN BED. AROUSABLE TO VOICE AND TACTILE STIMULATION. ABLE TO MAKE NEEDS KNOWN. RESPIRATIONS EVEN AND UNLABORED WITH NO SOB OR RESPIRATORY DISTRESS. SAFETY MEASURES IN PLACE: BED IN LOWEST POSITION, HOB ELEVATED, BED ALARM ACTIVATED, TELE MONITOR ATTACHED, AND CALL LIGHT WITHIN REACH. FREQUENT CHECKS MADE
--- NOTE | 2019-02-16 15:20 | NUR ---
ASSESSED PATIENT AND TOLD PATIENT IS GOING TO RECEIVE A BREATHING TX. PT CLAIMS SHE IS IN NO SOB AND IS SAT AROUND 95-96%. I LET THE PATIENT KNOW THAT SHE DOES HAVE A PRN IF NEEDED JUST LET THE NURSE KNOW. PT AGREED AND LET HER KNOW HER NEXT ONE WILL BE 1900
[2019-02-16] MEDS: NACL 0.9% 500 ML IV SCH (15:43)
--- NOTE | 2019-02-16 15:43 | NUR ---
PATIENT CALLED AND MENTIONED THAT HER PAIN WAS A 7 OUT OF 10 ON HER LOWER BACK. ADMINISTRATED IV PUSH PRN PAIN MEDICATION. PT TOLERATED WELL. MEDICATION EDUCATION PERFORMED, PATIENT ABLE TO VERBALIZE UNDERSTANDING AND TEACH BACK. SAFETY MEASURES: HOB ELEVATED, BED IN LOWEST POSITION, CALL LIGHT WITHIN REACH, BED ALARM ACTIVATED, AND TELE MONITORS ATTACHED.
[2019-02-16 16:00] VITALS: BP 160/67
--- NOTE | 2019-02-16 16:23 | NUR ---
NOTIFIED MD PAPPAS ABOUT PT BP BEING 160/67. DR. PAPPAS MADE AWARE. SAID TO GIVE THE PO APRESOLINE EARLY, DESPITE THE NEXT DOSE BEING AT 2100. ADMINISTERED PER MD ORDERED.
[2019-02-16] MEDS: hydrALAZINE 25 MG TAB PO SCH (16:30)
--- NOTE | 2019-02-16 17:19 | NUR ---
MANAGER SOCIAL RESPONSIBILITY NOTIFIED THAT WE NEED TO GRAB SOME BLOOD SAMPLES FROM THE PT PICC LINE. UNCLAMPED AND CLEANED OFF LUMEN PRIOR TO FLUSHING.FLUSHED WITH 10ML OF NORMAL SALINE, WITHDREW 10ML OF BLOOD TO DISCARD, WITHDREW 10ML OF BLOOD FOR THE SAMPLES, FLUSHED 10ML OF NORMAL SALINE, AND THEN CLEANED THE HUB AND CLAMPED THE LUMEN. PATIENT TOLERATED WELL. NO SIGNS OF COMPLICATIONS OR DISTRESS. PATIENT IS STABLE.
--- NOTE | 2019-02-16 17:49 | NUR ---
PATIENT RECEIVED HER DINNER TRAY, ADMINISTERED 10 UNIT HUMALOG FOR BLOOD GLUCOSE 356. PATIENT TOLERATED WELL. MED Dec[employer] PROVIDED TO PATIENT. DR PAPPAS IS TALKING TO PATIENT AT BEDSIDE. NO SIGNS OF DISTRESS NOTED. SAFETY MEASURES IN PLACE. TELE MONITOR ATTACHED.
[2019-02-16] MEDS ORDERED: metFORMIN 850 MG TAB PO SCH (17:50)
--- NOTE | 2019-02-16 18:04 | NUR ---
ADMINISTERED IVPB MEDICATION PRESCRIBED PER MD ORDER. MEDICATION WOULD NOT SCAN SO MANUAL ENTRY HAD TO BE PERFORMED. MEDICATION EDUCATION PERFORMED TO PATIENT. PATIENT IS ABLE TO VERBALIZE UNDERSTANDING AND TEACH BACK. PATIENT TOLERATED MEDICATION. NO COMPLAINTS OR CONCERNS AT THIS TIME. RESPIRATIONS EVEN AND UNLABORED WITH NO SOB OR RESPIRATORY DISTRESS. SAFETY MEASURES: HOB ELEVATED, BED IN LOWEST POSITION, CALL LIGHT WITHIN REACH.
--- NOTE | 2019-02-16 19:02 | NUR ---
ENDORSED AT BEDSIDE TO NIGHTSHIFT NURSE. PATIENT WAS LYING IN BED WATCHING TV UPON ARRIVAL. ABLE TO MAKE NEEDS KNOWN. RESPIRATIONS EVEN AND UNLABORED WITHOUT SOB OR RESPIRATORY DISTRESS. NO COMPLAINTS OR CONCERNS AT THIS TIME. PATIENT IS STABLE
--- NOTE | 2019-02-16 19:02 | NUR ---
RECIEVED PT AAOX4 , ON HOOK TO V/S MACHINE - O2 SAT AT WNL , BP ON WNL , ON O2 OXIMIZER AT 5LPM , WITH TRIPLE LUMEN ON RIGHJT JUGULAR LINDSAY , DENIES ANY PAIN AT THIS TIME , PLAN OF CARE DISCUSSED AND VERBALIZE UNDERSTANDING - CALL LIGHT WITH REACH , RING SANDERSON WITHIN REACH , WITH FC DRAINING CLEAR U.O , ON SAFETY / FALL PREACAUTION PROTOCOL , ON STRICTLY 1.5L ORAL FLD. INTAKE - REMINDS THE PT, ON WARE CLEANER - SR - WILL CONT. TO MONITOR.
[2019-02-16 20:00] VITALS: BP 144/72
--- NOTE | 2019-02-16 21:00 | NUR ---
HGT 244 - REFUSED INSULIN SHOT - INFORMED CHARGE NURSE - WILL CONT. TO MONITOR.
--- NOTE | 2019-02-16 21:00 | NUR ---
REQUESTING MELATONIN TAB - NO MELATONIN IN MST - INFORMED FACTORY MANAGER .
--- NOTE | 2019-02-16 21:42 | NUR ---
MELATONIN BROUGHT BY DEVELOPMENT GEOLOGIST - BUT PT ALREADY SLEEPING - STANDY MELATONIN - IF PT WILL ASK IT AGAIN.
[2019-02-17] VITALS: BP 140/70
[2019-02-17 04:00] VITALS: BP 142/68
[2019-02-17] MEDS: hydrALAZINE 25 MG TAB PO SCH ×3 (05:00→21:18)
[2019-02-17] MEDS: PIPERACILLIN/TAZOBACTAM 2.25 GM in DEXTROSE 5% 50 ML IV SCH ×3 (06:40→18:30)
[2019-02-17] MEDS: LEVOTHYROXINE 0.1 MG TAB PO SCH (06:41)
[2019-02-17] MEDS: BLOOD GLUCOSE MONITORING 1 DEV DEV FS SCH ×5 (06:41→21:41)
[2019-02-17] MEDS: INSULIN LISPRO SLIDING SCALE 100 UNITS/ML VIAL SUBQ PRN ×5 (06:43→21:29)
--- NOTE | 2019-02-17 07:20 | NUR ---
PATIENT HANDOFF REPORT CONDUCTED BY SURVEY ASSOCIATE NURSE FOR CONTINUITY OF CARE. PATIENT IS RESTING IN BED, IV RUNNING NORMAL SALINE IN RIGHT AC. NO SIGNS OF DISTRESS NOTED. BED IN LOWEST POSITION, CALL LIGHT ON AND WITHIN REACH, WILL CONTINUE TO MONITOR.
[2019-02-17 07:21] LABS: BASOPHILS % (AUTO) 0.1 % (0.0-2.0); HEMATOCRIT 29.7 % (36-48); HEMOGLOBIN 9.1 g/dL (12.0-16.0); LYMPHOCYTES # (AUTO) 1.5 K/uL (2.5-16.5); LYMPHOCYTES % (AUTO) 7.9 % (20.5-51.1); MEAN CORPUSCULAR HEMOGLOBIN 23 pg (27-31); MEAN CORPUSCULAR HGB CONC 31 g/dL (33-37); MEAN CORPUSCULAR VOLUME 75.4 fL (80-94); MONOCYTES # (AUTO) 0.6 K/uL (0.8-1.0); MONOCYTES % (AUTO) 3.1 % (1.7-9.3); NEUTROPHILS # (AUTO) 17.1 K/uL (1.8-7.7); NEUTROPHILS % (AUTO) 88.9 % (42.2-75.2); PLATELET COUNT (AUTO) 443 K/uL (140-450); RED BLOOD CELL COUNT(AUTO) 3.94 MIL/uL (4.20-5.40); RED CELL DISTRIBUTION WIDTH 17.7 % (11.6-13.7); WHITE BLOOD COUNT (AUTO) 19.2 K/uL (4.8-10.8)
[2019-02-17 07:58] LABS: ANION GAP 12.5 (8-16); CARBON DIOXIDE 30.4 mmol/L (21-32); CHLORIDE 102 mmol/L (98-107); CREATININE 1.5 mg/dL (0.6-1.3); GLUCOSE 295 mg/dL (74-106); POTASSIUM 3.9 mmol/L (3.5-5.1); SODIUM SERUM 141 mmol/L (136-145); UREA NITROGEN, BLOOD 45 mg/dL (7-18)
[2019-02-17] MEDS: BUDESONIDE 0.5 MG/2 ML NEBU INH SCH ×2 (07:58→19:51)
[2019-02-17] MEDS: ALBUTEROL SULFATE/IPRATROPIU 3 ML SOL IH SCH ×4 (07:58→19:50)
[2019-02-17 08:00] VITALS: BP 156/82
[2019-02-17 08:00] LABS: MAGNESIUM 1.6 mg/dL (1.8-2.4); PHOSPHORUS 3.9 mg/dL (2.5-4.9)
--- NOTE | 2019-02-17 08:10 | NUR ---
AWAKE AND ALERT TOLERATED INCENTIVE SPIROMETRY THERAPY WELL WITHOUT INCIDENT ENCOURAGED PATIENT TO USE INCENTIVE SPIROMETRY EVERY 1-2 HOURS WHILE AWAKE
[2019-02-17] MEDS: PANTOPRAZOLE 40 MG INJ VIAL IVP SCH ×2 (08:48→21:15)
[2019-02-17] MEDS: methylPREDNISolone SS 40 MG/ML VIAL IVP SCH ×2 (08:49→21:13)
[2019-02-17] MEDS: FUROSEMIDE 20 MG/2 ML VIAL IVP SCH (08:51)
[2019-02-17] MEDS: FERROUS SULFATE 325 MG TABEC PO SCH ×2 (08:52→21:18)
[2019-02-17] MEDS: busPIRone 5 MG TAB PO SCH (08:53)
[2019-02-17] MEDS: ATORVASTATIN 20 MG TAB PO SCH (08:53)
[2019-02-17] MEDS: CARVEDILOL 6.25 MG TAB PO SCH ×2 (08:54→21:19)
[2019-02-17] MEDS: LACTOBACILLUS RHAMNOSUS GG 1 EACH CAP PO SCH (08:54)
--- NOTE | 2019-02-17 09:30 | NUR ---
PATIENT IS IN BED WATCHING TELEVISION, NO SIGNS OF DISTRESS NOTED. MEDICATIONS TOLERATED WELL. DENIES PAIN AT THIS TIME, VERBALIZES READINESS FOR DISCHARGE. BED IN LOW POSITION, CALL LIGHT ON AND WITHIN REACH. WILL CONTINUE TO MONITOR.
--- NOTE | 2019-02-17 11:07 | NUR ---
PATIENT IS SLEEPING IN BED, OBSERVED CHEST RISE AND FALL. BED IN LOW POSITION, CALL LIGHT ON AND WITHIN REACH. WILL CONTINUE TO MONITOR.
--- NOTE | 2019-02-17 11:59 | NUR ---
SATURATION 96% ON SUPPLEMENTAL OXYGEN AT 5 LPM VIA OXYMIZER POST HHN THERAPY TITRATED FIO2 TO 3 LPM
[2019-02-17 12:00] VITALS: BP 155/66
[2019-02-17] MEDS ORDERED: MAGNESIUM OXIDE 400 MG TAB PO SCH (12:31)
--- NOTE | 2019-02-17 13:40 | NUR ---
FREQUENT ROUNDING ON PT PT APPEARS STABLE AND IN NO APPARENT DISTRESS. ALL SAFETY MEASURES ARE IN PLACE WILL CONTINUE TO MONITOR.
[2019-02-17] MEDS: NACL 0.9% 500 ML IV SCH (15:30)
--- NOTE | 2019-02-17 15:34 | NUR ---
FREQUENT ROUNDING ON PT PT APPEARS STABLE AND IN NO APPARENT DISTRESS. ALL SAFETY MEASURES ARE IN PLACE PT HAS RIGHT IJ CENTRAL LINE. PT HAS OXIMIZER IN PLACE. PT HAS LEBRON CATH IN PLACE. DRAINING WELL. ALL SAFETY MEASURES ARE IN PLACE WILL CONTINUE TO MONITOR
[2019-02-17 16:00] VITALS: BP 172/73
--- NOTE | 2019-02-17 16:35 | NUR ---
SATURATION 94% ON SUPPLEMENTAL OXYGEN AT 3 LPM VIA OXYMIZER POST HHN THERAPY CHANGED OXYGEN DEVICE TO A NASAL CANNULA TITRATED FIO2 TO 2 LPM MARCIE JERRY "Mariano"/RN NOTIFIED
[2019-02-17] MEDS: VANCOMYCIN HCL 750 MG in NACL 0.9% 250 ML IV SCH (17:14)
--- NOTE | 2019-02-17 17:30 | NUR ---
PATIENT IS RESTING IN BED, DINNER IS SERVED, COVERAGE OF HUMALOG INSULIN WAS GIVEN FOR HIGH BLOOD SUGAR. TOLERATING IV ANTIBIOTICS WELL. PATIENT WAS MOVED TO 2 L O2 NASAL CANNULA. O2 SAT ARE WNL. BED IN LOW POSITION, CALL LIGHT ON AND WITHIN REACH, WILL CONTINUE TO MONITOR.
--- NOTE | 2019-02-17 19:25 | NUR ---
RECEIVED BEDSIDE REPORT FROM AM SHIFT NURSE. PATIENT LYING IN BED AWAKE. NO SOB OR DISTRESS NOTED. ON 2LPM VIA NC. IV ACCESS NOTED ON RIGHT IJ TRIPLE LUMEN AND LEFT HAND 22 GAUGE, PATENT AND INTACT. SKIN IS INTACT. F/C IN PLACE, DRAINING WELL. INITIAL ASSESSMENT DONE. BOARD UPDATED. BED IN LOW. CALL LIGHT PLACED WITHIN PT REACH. WILL CONTINUE TO MONITOR PATIENT.
[2019-02-17 20:15] VITALS: BP 138/56
[2019-02-17] MEDS: LORazepam 2 MG/ML VIAL IM/IVP PRN (21:14)
--- NOTE | 2019-02-17 22:10 | NUR ---
ROUNDS DONE. VISIBLE CHEST RISE AND FALL NOTED. WILL CONTINUE TO MONITOR PATIENT.
--- NOTE | 2019-02-18 00:02 | NUR ---
VITALS TAKEN AT THIS TIME. NO SOB OR DISTRESS NOTED. WILL CONTINUE TO MONITOR PATIENT.
[2019-02-18 00:20] VITALS: BP 141/63
[2019-02-18] MEDS: PIPERACILLIN/TAZOBACTAM 2.25 GM in DEXTROSE 5% 50 ML IV SCH ×3 (01:00→11:39)
--- NOTE | 2019-02-18 02:56 | NUR ---
RT CAME TO ASSESS PATIENT. O2 INCREASED TO 4LPM VIA NASAL CANNULA TO MAINTAIN O2 OF 95-96%. WILL CONTINUE TO MONITOR PATIENT.
--- NOTE | 2019-02-18 04:03 | NUR ---
VITALS TAKEN AT THIS TIME. NO SOB OR DISTRESS NOTED. WILL CONTINUE TO MONITOR PATIENT.
[2019-02-18 04:57] VITALS: BP 163/77
[2019-02-18] MEDS: hydrALAZINE 25 MG TAB PO SCH ×3 (05:12→20:37)
--- NOTE | 2019-02-18 06:55 | NUR ---
BLOOD GLUCOSE RESULT OF 269 WITH 6 UNITS OF REGULAR HUMALOG INSULIN GIVEN.
[2019-02-18] MEDS: INSULIN LISPRO SLIDING SCALE 100 UNITS/ML VIAL SUBQ PRN ×4 (06:57→20:44)
[2019-02-18] MEDS: LEVOTHYROXINE 0.1 MG TAB PO SCH (07:00)
[2019-02-18] MEDS: BLOOD GLUCOSE MONITORING 1 DEV DEV FS SCH ×4 (07:02→20:52)
[2019-02-18] MEDS: BUDESONIDE 0.5 MG/2 ML NEBU INH SCH ×2 (07:13→21:20)
[2019-02-18] MEDS: ALBUTEROL SULFATE/IPRATROPIU 3 ML SOL IH SCH ×4 (07:13→21:20)
--- NOTE | 2019-02-18 07:13 | NUR ---
HX: COPD/CHF SATURATION 98% ON SUPPLEMENTAL OXYGEN AT 4 LPM VIA NC POST HHN THERAPY TITRATED FIO2 TO 2 LPM KAY/MARCIE NOTIFIED
--- NOTE | 2019-02-18 07:25 | NUR ---
PT IN STABLE CONDITION. CALL LIGHT WITHIN PATIENT REACH. ENDORSED TO WILSON FOR CONTINUITY OF CARE.
--- NOTE | 2019-02-18 07:34 | NUR ---
RECEIVED PT FROM MUD ANALYSIS SUPERVISOR NURSEBELGICA, PT IS HAVING BREATHING TREATMENT, RT ON THE BEDSIDE, RT LOWERED O2 AT 2L NC, SIDE RAILS ARE UP AND CALL LIGHT WITHIN REACH, LEBRON CATHETER IN PLACE, FALL PRECAUTION ENFORCED, AOX4, ON FLUID RESTRICTION OF 1,500ML/DAY, ON BEDREST, BUT ASSIST, NO SIGN OF DISTRESS NOTED AND WILL CONTINUE TO MONITOR PT.
[2019-02-18 08:00] VITALS: BP 163/63
[2019-02-18 08:03] LABS: BASOPHILS % (AUTO) 0.2 % (0.0-2.0); EOSINOPHILS % (AUTO) 0.2 % (0.0-4.0); HEMATOCRIT 30.8 % (36-48); HEMOGLOBIN 9.5 g/dL (12.0-16.0); LYMPHOCYTES % (AUTO) 11.8 % (20.5-51.1); MEAN CORPUSCULAR HEMOGLOBIN 23 pg (27-31); MEAN CORPUSCULAR HGB CONC 31 g/dL (33-37); MEAN CORPUSCULAR VOLUME 74.7 fL (80-94); MONOCYTES # (AUTO) 0.8 K/uL (0.8-1.0); MONOCYTES % (AUTO) 4.8 % (1.7-9.3); NEUTROPHILS # (AUTO) 14.3 K/uL (1.8-7.7); PLATELET COUNT (AUTO) 454 K/uL (140-450); RED BLOOD CELL COUNT(AUTO) 4.12 MIL/uL (4.20-5.40); RED CELL DISTRIBUTION WIDTH 17.4 % (11.6-13.7); WHITE BLOOD COUNT (AUTO) 17.2 K/uL (4.8-10.8)
[2019-02-18] MEDS: LACTOBACILLUS RHAMNOSUS GG 1 EACH CAP PO SCH (08:26)
[2019-02-18] MEDS: CARVEDILOL 6.25 MG TAB PO SCH ×2 (08:27→20:37)
[2019-02-18] MEDS: FERROUS SULFATE 325 MG TABEC PO SCH ×2 (08:27→20:37)
[2019-02-18] MEDS: busPIRone 5 MG TAB PO SCH (08:28)
[2019-02-18] MEDS: ATORVASTATIN 20 MG TAB PO SCH (08:28)
[2019-02-18] MEDS: FUROSEMIDE 20 MG/2 ML VIAL IVP SCH (08:31)
[2019-02-18] MEDS: methylPREDNISolone SS 40 MG/ML VIAL IVP SCH ×2 (08:32→20:38)
--- NOTE | 2019-02-18 08:59 | NUR ---
GIVEN AM MEDICATIONS. EXPLAINED TO PATIENT THE INDICATIONS AND SIDE EFFECTS. VERBALIZED UNDERSTANDING. PT. TOLERATED WELL. WILL CONTINUE TO MONITOR. BED IN LOW POSITION. CALL LIGHT WITHIN REACH. NO DISTRESS NOTED AT THIS TIME.
[2019-02-18 09:06] LABS: ANION GAP 10.5 (8-16); CARBON DIOXIDE 32.4 mmol/L (21-32); CHLORIDE 103 mmol/L (98-107); CREATININE 1.4 mg/dL (0.6-1.3); GLUCOSE 277 mg/dL (74-106); POTASSIUM 3.9 mmol/L (3.5-5.1); SODIUM SERUM 142 mmol/L (136-145); UREA NITROGEN, BLOOD 38 mg/dL (7-18)
[2019-02-18 09:08] LABS: MAGNESIUM 1.5 mg/dL (1.8-2.4); PHOSPHORUS 3.2 mg/dL (2.5-4.9)
[2019-02-18] MEDS: PANTOPRAZOLE 40 MG INJ VIAL IVP SCH ×2 (09:48→20:38)
--- NOTE | 2019-02-18 11:35 | NUR ---
DR. FU CAME TO THE ROOM OF PT AND SPOKE TO PT REGARDING DIET REGIMEN FOR THE DM, PT RESPONDED APPROPRIATELY AND VERBALIZED UNDERSTANDING. WILL MONITOR PT.
--- NOTE | 2019-02-18 11:39 | NUR ---
PT' WAS GIVEN ZOSYN VIA PIGGYBACK NOW AND 10 UNITS INSULIN FOR THE BLOOD GLUCOSE RESULT OS 393. WILL MONITOR PT.
--- NOTE | 2019-02-18 11:48 | NUR ---
TEACHINGS REGARDING DM DIET MANAGEMENT WAS GIVEN TO PT AND VERBALIZED UNDERSTANDING.
[2019-02-18 12:00] VITALS: BP 160/53
--- NOTE | 2019-02-18 12:12 | NUR ---
PT WQAS GIVEN HYDRALAZINE NOW, BP IS 160/56, PULSE IS 90, O2 SATURATION IS 93%. WILL MONITOR PT.
[2019-02-18] MEDS ORDERED: ZOS2.25I IV (13:33)
--- NOTE | 2019-02-18 14:10 | NUR ---
DC PLANN[age] YRS OLD WAS ADMITTED FROM [facility] WITH A DX OF SEPSIS, CHF AND HYPOXIA. PT HAS A HX OF COPD, HTN, DM. PT AMBULATES WITH WALKER AND WHEELCHAIR . ADMINISTER NITRO DRIP FOR CHF VANCO AND CEFEPIME, IVF, PULMO CONSULT WITH DR GANDARA VISITED PT AND CONTINUE WITH CURRENT TREATMENT , RT PROTOCOL INITIATED. DC PLAN LTAC EVAL VS SNF PLACEMENT. MARYELLEN FROM [place] EVALUATED PT AND JINA FROM [place] VISITED AND EVALUATED PT. CALLED [facility] [phone] AND LEFT MESSAGE FOR AUTHORIZATION. JAN TO FOLLOW. Addendum: 02/18/19 at 1543 by Valerie Vences CM DC PLANNING: RECEIVED A CALL FROM [facility] STATED THEY ARE DENYING FOR LTAC EVAL BECAUSE THEY ARE NOT CONTRACTED. BUT PT CAN STILL GO TO SNF. [place] IS THE CONTRACTED FACILITY .[id number] LOMELI WAITING FOR RESPONSE. Addendum: 02/18/19 at 1639 by Valerie Vences CM DC PLANNING PER DR LOMELI PT CAN GO TO [facility] FOR IV ROCEPHIN QDAILY AND ZITHROMAX PO . SPOKE WITH JINA AT [place] ,PT CAN GO TO ROOM [facility] # TO GIVE [id number] AND ARRANGED TRANSPORT WITH [facility] [phone] PROCESS IMPROVEMENT MANAGER TIME BETWEEN 9:00-9:15 PM
[2019-02-18] MEDS: NACL 0.9% 500 ML IV SCH (15:42)
[2019-02-18 16:00] VITALS: BP 152/68
--- NOTE | 2019-02-18 16:36 | NUR ---
BLOOD GLUCOSE CHECK DONE AND RESULT IS 460, DR. FU WAS INFORMED AND MADE AN ORDER TO GIVE HUMALOG 20 UNITS.
--- NOTE | 2019-02-18 16:57 | NUR ---
MAGNESIUM RIDER 2GM WAS GIVEN VIA IV TO PT FOR MG LEVEL OF 1.5, INSULIN 20 UNITS WAS GIVEN ON THE ABDOMEN FOR BLOOD GLUCOSE OF 469. WILL MONITOR PT.
[2019-02-18] MEDS ORDERED: MAG SULF 2000 MG/WATER PREMIX 50 ML IV SCH (17:00)
[2019-02-18] MEDS ORDERED: CEFT1VIA7 IV (17:12)
[2019-02-18] MEDS ORDERED: AZIT250T11 PO (17:12)
--- NOTE | 2019-02-18 17:30 | NUR ---
GIVEN ROCEPHIN VIA IVPB. EXPLAINED TO PATIENT INDICATION AND SIDE EFFECTS. VERBALIZED UNDERSTANDING. CALL LIGHT WITHIN REACH. BED IN LOW POSITION. NO DISTRESS NOTED AT THIS TIME.
--- NOTE | 2019-02-18 18:47 | NUR ---
CALLED [facility] AT [phone], GAVE REPORT TO CAR SALTEREdwige STILLAH, AND GAVE REPORT REGARDING THE PT, INFORMED [facility] THAT PT WILL BE TRANSPIRED AT 9PM VIA [facility], AND WILL BE PLACE IN 21-B. PLAN OF CARE WAS STATED TO CAR SALTER LYDIA TO CONTINUE ROCEPHIN 1G DAILY X5 AND AZITHROMYCIN 500 MG PO DAILY X5 DAYS, OXYGEN SUPPLEMENT, INHALED BRONCHODILATORS, FOLLOW UP CXR FOR RESOLUTION OF PNA. [facility] ACKNOWLEDGE AND VERBALIZED UNDERSTANDING.
--- NOTE | 2019-02-18 19:15 | NUR ---
ENDORSED PT TO LEAD GENERATION SPECIALIST NURSEBELGICA FOR CONTINUITY OF THE DISCHARGE PROCESS. PT IS STABLE AT THIS TIME.
--- NOTE | 2019-02-18 19:16 | NUR ---
RECEIVED BEDSIDE REPORT FROM AM SHIFT NURSE. PATIENT IS LYING IN BED AWAKE. NO SOB OR DISTRESS NOTED. ON 2LPM VIA NASAL CANNULA. IV ACCESS ON RIGHT IJ TRIPLE LUMEN AND LEFT HAND 22 GAUGE, SALINE LOCK. LEBRON CATHETER IN PLACE, DRAINING WELL. INITIAL ASSESSMENT DONE. BOARD UPDATED. WILL CONTINUE TO MONITOR PATIENT.
[2019-02-18 20:05] VITALS: BP 137/67
--- NOTE | 2019-02-18 21:20 | NUR ---
BREATHING TREATMENT NOT GIVEN. PATIENT BEING PREPARED FOR DISCHARGE.
--- NOTE | 2019-02-18 21:25 | NUR ---
DISCHARGE PAPERWORK SIGNED BY PATIENT AND PLACED IN PACKET. DISCHARGE PACKET GIVEN TO PATIENT. PATIENT CHANGED AND CLEANED. LEBRON CATHETER IN PLACE, DRAINING WELL. IV ACCESS ON RIGHT IJ TRIPLE LUMEN, PATENT AND INTACT. PATIENT SKIN IS INTACT. BELONGINGS PLACED IN BAG AND GIVEN TO TRANSPORT. PATIENT IS PUT ON 2LPM O2 VIA NASAL CANNULA. PATIENT TRANSFERRED TO [facility] BY 3 PERSON ASSIST. PATIENT IS BEING TRANSFERRED TO [place] BY [facility]. PATIENT VITAL SIGNS STABLE UPON DISCHARGE.
[2019-02-19] MEDS ORDERED: AZITHROMYCIN 250 MG TAB PO SCH (09:00)
== END 2019-02-18 21:25 | DRG 871 ==
LOC: MED 15:24 → MIC 18:02 → MTU 02-15 18:30
PROVIDERS: ADMIT General Practice; ATTEND General Practice
PROC: 5A09357 Assistance with Respiratory Ventilation, Less than 24 Consecutive Hours, Continuous Positive Airway Pressure (ICD-10-PCS; principal; 2019-02-13)
PROC: 02HV33Z Insertion of Infusion Device into Superior Vena Cava, Percutaneous Approach (ICD-10-PCS; 2019-02-13)
PROC: B548ZZA Ultrasonography of Superior Vena Cava, Guidance (ICD-10-PCS; 2019-02-13)
DX: A41.9 Sepsis, unspecified organism (principal); J69.0 Pneumonitis due to inhalation of food and vomit; N17.0 Acute kidney failure with tubular necrosis; I21.A1 Myocardial infarction type 2; J96.21 Acute and chronic respiratory failure with hypoxia; I50.43 Acute on chronic combined systolic (congestive) and diastolic (congestive) heart failure; J44.1 Chronic obstructive pulmonary disease with (acute) exacerbation; E44.0 Moderate protein-calorie malnutrition; I13.0 Hypertensive heart and chronic kidney disease with heart failure and stage 1 through stage 4 chronic kidney disease, or unspecified chronic kidney disease; N39.0 Urinary tract infection, site not specified; R65.20 Severe sepsis without septic shock; Z68.36 Body mass index [BMI] 36.0-36.9, adult; D50.9 Iron deficiency anemia, unspecified; E03.9 Hypothyroidism, unspecified; E11.22 Type 2 diabetes mellitus with diabetic chronic kidney disease; E11.65 Type 2 diabetes mellitus with hyperglycemia; E78.5 Hyperlipidemia, unspecified; E83.42 Hypomagnesemia; F41.9 Anxiety disorder, unspecified; F17.210 Nicotine dependence, cigarettes, uncomplicated; G47.00 Insomnia, unspecified; N18.9 Chronic kidney disease, unspecified; Z90.710 Acquired absence of both cervix and uterus; Z96.653 Presence of artificial knee joint, bilateral; Z88.5 Allergy status to narcotic agent; Z88.2 Allergy status to sulfonamides; Z88.7 Allergy status to serum and vaccine; Z88.8 Allergy status to other drugs, medicaments and biological substances
CPT/HCPCS: 36415; 36600; 71045; 71250; 80048; 80053; 81001; 82550; 82553; 82607; 82746; 82803; 82948; 83036; 83540; 83605; 83735; 83874; 83880; 84100; 84443; 84484; 85025; 85045; 85610; 85730; 87040; 87081; 87086; 87186; 87804; 92610; 93005; 94640; 94660; 96365; 96366; 96367; 97116; 97161-GP; 97530; 99285; C9113; J0360; J0692; J0696; J1642; J1644; J1885; J1940; J2060; J2543; J2916; J2920; J2930; J3370; J3475; J3490; J7030; J7042; J7060; J7620; J7626; Q0092

== ENCOUNTER 2019-03-21 12:55 | Inpatient (IN) | payer OTHER, MEDICAID ==
[~2019-03-21] VITALS: Ht 149.9 cm; Wt 78.0 kg
[~2019-03-21 12:55] MED LIST changes: +AZIT250T11 PO; +CEFT1VIA7 IV; -PIPE1SOL IV; -VANC1PIG IV
[2019-03-21 13:01] VITALS: BP 134/90
[2019-03-21] MEDS ORDERED: ALBUTEROL 0.083% 2.5 MG/3 ML NEBU INH ONE (13:05)
[2019-03-21] MEDS ORDERED: ALBUTEROL SULFATE/IPRATROPIU 3 ML SOL IH ONE (13:05)
--- NOTE | 2019-03-21 13:15 | NUR ---
BIB EMS FROM SNF FOR SOB FOR 3 DAYS.PT AWAKE, ALERT.ABLE TO FOLLOW COMMANDS. ON NON REBREATHER. O2 SATS 98 %. SKIN IS PINK/WARM/DRY; LUNGS SOUND RALE; HR EVEN AND REGULAR; PT DENIES ANY FEVER, CP, AT THIS TIME; PATIENT STATES PAIN OF 0/10 AT THIS TIME; PT C/O COUGH. VSS; PATIENT POSITIONED FOR COMFORT; HOB ELEVATED; BEDRAILS UP X2; BED DOWN. ER MD MADE AWARE OF PT STATUS.
[2019-03-21 13:52] LABS: HEMATOCRIT 31.1 % (36-48); HEMOGLOBIN 9.6 g/dL (12.0-16.0); MEAN CORPUSCULAR HEMOGLOBIN 23 pg (27-31); MEAN CORPUSCULAR HGB CONC 31 g/dL (33-37); MEAN CORPUSCULAR VOLUME 75.7 fL (80-94); PLATELET COUNT (AUTO) 508 K/uL (140-450); RED CELL DISTRIBUTION WIDTH 17.6 % (11.6-13.7); WHITE BLOOD COUNT (AUTO) 24.4 K/uL (4.8-10.8)
--- NOTE | 2019-03-21 13:58 | NUR ---
URINE SAMPLE COLLECTED BY CATH. URINE DIP RESULTS NOTIFIED DR. SCHWAB
[2019-03-21 14:02] LABS: ANION GAP 16.4 (8-16); CARBON DIOXIDE 25.4 mmol/L (21-32); CHLORIDE 103 mmol/L (98-107); CREATININE 1.3 mg/dL (0.6-1.3); GLUCOSE 157 mg/dL (74-106); POTASSIUM 4.8 mmol/L (3.5-5.1); SODIUM SERUM 140 mmol/L (136-145); UREA NITROGEN, BLOOD 22 mg/dL (7-18)
[2019-03-21] MEDS ORDERED: cefTRIAXone 1,000 MG VIAL ONE (14:05)
[2019-03-21 14:08] LABS: ALBUMIN 2.5 g/dL (3.4-5.0); ASPARTATE AMINOTRANSFERASE 17 U/L (15-37); TOTAL BILIRUBIN 0.5 mg/dL (0.0-1.0)
[2019-03-21 14:27] LABS: LYMPHOCYTES % (MANUAL) 10 % (20-46); MONOCYTES % (MANUAL) 10 % (5-12)
[2019-03-21] MEDS ORDERED: LOPE-289 PO (14:40)
[2019-03-21] MEDS ORDERED: LORA10TA19 PO (14:40)
[2019-03-21] MEDS ORDERED: ACET-2619 PO (14:40)
[2019-03-21] MEDS ORDERED: ASPI-1884 PO (14:40)
[2019-03-21] MEDS ORDERED: methylPREDNISolone SS 125 MG/2 ML VIAL IVP ONE (14:50)
[2019-03-21] MEDS ORDERED: ACETAMINOPHEN 325 MG TAB PO PRN (14:55)
[2019-03-21] MEDS ORDERED: ONDANSETRON 4 MG/2 ML VIAL IM/IVP PRN (14:55)
[2019-03-21] MEDS ORDERED: DOCUSATE SODIUM 100 MG GELCAP PO PRN (14:55)
[2019-03-21] MEDS: NACL 0.9% 1,000 ML IV SCH (14:55)
[2019-03-21 14:59] LABS: APPEARANCE,URINE CLEAR (CLEAR); BILIRUBIN,URINE 1+ (NEGATIVE); BLOOD, URINE NEGATIVE (NEGATIVE); COLOR,URINE YELLOW (YELLOW); LEUKOCYTE ESTERASE ,URINE NEGATIVE (NEGATIVE); NITRITE, URINE NEGATIVE (NEGATIVE); PH,URINE 5.5 (5.0-9.0); UGLUCOSE NEGATIVE (NEGATIVE)
[2019-03-21] MEDS ORDERED: DEXTROSE 50% 50 ML SYR IVP PRN (15:05)
[2019-03-21] MEDS ORDERED: ALBUTEROL SULFATE/IPRATROPIU 3 ML SOL IH PRN (15:40)
--- NOTE | 2019-03-21 15:45 | NUR ---
RECEIVED BEDSIDE REPORT FROM CIGARETTE PACKING MACHINE OPERATOR PT AWAKE AND ALERT. PT IS ON 02 VIA OXZIMIZER. ALL SAFETY MEASURES ARE IN PLACE. WILL CONTINUE TO MONITOR. ORIENTED PT TO ROOM AND UNIT. PT FAMILY AT BEDSIDE. VITALS ARE STABLE. MRSA NARES COLLECTED. WILL CONTINUE TO MONITOR.
--- NOTE | 2019-03-21 15:45 | NUR ---
TRANSFERRED PT TO TELE 108B BY [facility]. ALL PERSONAL BELONGINGS WITH PT. PT'S FAMILY WITH PT.
[2019-03-21 16:00] VITALS: BP 129/69
[2019-03-21 16:10] LABS: MAGNESIUM 1.1 mg/dL (1.8-2.4); PHOSPHORUS 3.1 mg/dL (2.5-4.9)
[2019-03-21] MEDS ORDERED: VANCOMYCIN PER PHARMACY MC PRN (16:15)
[2019-03-21] MEDS: BLOOD GLUCOSE MONITORING 1 DEV DEV FS SCH ×2 (16:30→20:43)
[2019-03-21] MEDS ORDERED: LOPERAMIDE 2 MG CAP PO PRN (16:35)
[2019-03-21] MEDS ORDERED: traMADol 50 MG TAB PO PRN (16:35)
[2019-03-21] MEDS ORDERED: NITROGLYCERIN 0.4 MG TAB SL PRN (16:35)
--- NOTE | 2019-03-21 17:05 | NUR ---
FREQUENT ROUNDING, PT APPEARS STABLE, NO SIGNS OF DISTRESS. IV INFUSING WELL, INTACT AND PATENT. ON HIGH FLOW OXYGEN. WILL CONTINUE MONITORING
[2019-03-21] MEDS: INSULIN LISPRO SLIDING SCALE 100 UNITS/ML VIAL SUBQ PRN ×2 (17:46→20:50)
--- NOTE | 2019-03-21 17:54 | NUR ---
PLACED PATIENT ON HIGH FLOW NASAL CANNULA AT 55L/75% FIO2. SPO2 90%. NO ACUTE RESPIRATORY DISTRESS NOTED AT THIS TIME. WILL CONTINUE TO MONITOR.
[2019-03-21] MEDS ORDERED: VANCOMYCIN 1,000 MG in DEXTROSE 5% 250 ML IV SCH (18:00)
[2019-03-21] MEDS: metFORMIN 850 MG TAB PO SCH (18:00)
[2019-03-21] MEDS: CARVEDILOL 6.25 MG TAB PO SCH (18:00)
[2019-03-21] MEDS ORDERED: MAG SULF 2000 MG/WATER PREMIX 100 ML IV SCH (18:00)
[2019-03-21] MEDS ORDERED: FUROSEMIDE 40 MG/4 ML VIAL IVP SCH (18:00)
[2019-03-21] MEDS ORDERED: ALBUTEROL SULFATE/IPRATROPIU 3 ML SOL IH SCH (19:00)
--- NOTE | 2019-03-21 19:11 | NUR ---
REPORT GIVEN TO COCOA POWDER MIXER OPERATOR NURSE FOR CONTINUITY OF CARE. PT APPEARS STABLE. CALL LIGHT WITHIN PT'S REACH.
[2019-03-21] MEDS: ALBUTEROL SULFATE/IPRATROPIU 3 ML SOL IH SCH (19:27)
[2019-03-21 20:00] VITALS: BP 136/65
[2019-03-21] MEDS: PIPERACILLIN/TAZOBACTAM 2.25 GM in DEXTROSE 5% 50 ML IV SCH (20:46)
[2019-03-21] MEDS: FERROUS SULFATE 325 MG TABEC PO SCH (20:47)
[2019-03-21] MEDS: ATORVASTATIN 20 MG TAB PO SCH (20:47)
[2019-03-21] MEDS ORDERED: ZOLPIDEM 5 MG TAB PO SCH (21:00)
[2019-03-21] MEDS: methylPREDNISolone SS 125 MG/2 ML VIAL IVP SCH (21:06)
[2019-03-22] MEDS: ALBUTEROL SULFATE/IPRATROPIU 3 ML SOL IH SCH ×4 (01:00→20:05)
--- NOTE | 2019-03-22 01:01 | NUR ---
PER PATIENT, DOES NOT WANT [address]. WANTS TO SLEEP. WILL CALL IF FEELS SHE NEEDS A TX. WILL CONT. TO MONITOR.
[2019-03-22] MEDS ORDERED: guaiFENesin DM 200/20 MG-10 ML 10 ML UDC ONE (01:09)
[2019-03-22 06:00] VITALS: BP 144/69
[2019-03-22] MEDS: BLOOD GLUCOSE MONITORING 1 DEV DEV FS SCH ×5 (06:29→20:26)
[2019-03-22] MEDS: methylPREDNISolone SS 125 MG/2 ML VIAL IVP SCH ×2 (06:35→13:00)
[2019-03-22] MEDS: LEVOTHYROXINE 0.1 MG TAB PO SCH (06:36)
[2019-03-22] MEDS: PIPERACILLIN/TAZOBACTAM 2.25 GM in DEXTROSE 5% 50 ML IV SCH ×3 (06:37→20:32)
[2019-03-22] MEDS: INSULIN LISPRO SLIDING SCALE 100 UNITS/ML VIAL SUBQ PRN ×4 (06:38→20:30)
[2019-03-22 07:12] LABS: BASOPHILS % (AUTO) 0.1 % (0.0-2.0); HEMATOCRIT 30.4 % (36-48); HEMOGLOBIN 9.4 g/dL (12.0-16.0); LYMPHOCYTES # (AUTO) 1.8 K/uL (2.5-16.5); MEAN CORPUSCULAR HEMOGLOBIN 23 pg (27-31); MEAN CORPUSCULAR HGB CONC 31 g/dL (33-37); MEAN CORPUSCULAR VOLUME 75.4 fL (80-94); MONOCYTES # (AUTO) 0.4 K/uL (0.8-1.0); MONOCYTES % (AUTO) 1.9 % (1.7-9.3); NEUTROPHILS # (AUTO) 17.6 K/uL (1.8-7.7); PLATELET COUNT (AUTO) 548 K/uL (140-450); RED BLOOD CELL COUNT(AUTO) 4.03 MIL/uL (4.20-5.40); RED CELL DISTRIBUTION WIDTH 17.5 % (11.6-13.7); WHITE BLOOD COUNT (AUTO) 19.7 K/uL (4.8-10.8)
[2019-03-22 07:17] LABS: MAGNESIUM 1.7 mg/dL (1.8-2.4); PHOSPHORUS 4.6 mg/dL (2.5-4.9)
[2019-03-22 07:18] LABS: CHOL/HDL RATIO 3.1 (1-4.5)
--- NOTE | 2019-03-22 07:20 | NUR ---
RECEIVED REPORT FROM FOCUS PULLER NURSE. PATIENT LYING DOWN IN BED WATCHING TV. NO DISTRESS NOTED. DENIES ANY PAIN. RESPIRATIONS EVEN, UNLABORED, CURRENTLY ON OXIMIZER 7L/MIN PATIENT WANTS HIGH FLOW OXYGEN OFF TO EAT BREAKFAST, RESPIRATORY THERAPIST AWARE AND PLACED ON OXYMIZER. AAOX4, CALM, COOPERATIVE, SKIN COLOR APPROPRIATE TO ETHNICITY, WARM TO TOUCH. SKIN COLOR APPROPRIATE TO ETHNICITY, WARM TO TOUCH. SKIN INTACT. IV SITE INTACT, PATENT, AND INFUSING IVF PER MD ORDERS. REVIEWED PLAN OF CARE WITH PATIENT. PATIENT VERBALIZED UNDERSTANDING. SAFETY MEASURES IN PLACE, CALL LIGHT WITHIN REACH. WILL CONTINUE TO MONITOR.
[2019-03-22 07:22] LABS: CHLORIDE 102 mmol/L (98-107); CREATININE 1.1 mg/dL (0.6-1.3); GLUCOSE 225 mg/dL (74-106); POTASSIUM 5.1 mmol/L (3.5-5.1); SODIUM SERUM 140 mmol/L (136-145); UREA NITROGEN, BLOOD 22 mg/dL (7-18)
[2019-03-22] MEDS: NACL 0.9% 1,000 ML IV SCH ×2 (07:35→21:04)
--- NOTE | 2019-03-22 07:56 | NUR ---
PT COMPLAINED ABOUT HIGH FLOW. PLACED PT ON OXYMIZER AT 7L. SPO2 88-90%. MD AT BEDSIDE AND AWARE. WILL CONTINUE TO MONITOR.
[2019-03-22 08:00] VITALS: BP 157/78
[2019-03-22 08:17] LABS: ANION GAP 15.5 (8-16); CARBON DIOXIDE 27.6 mmol/L (21-32)
--- NOTE | 2019-03-22 08:35 | NUR ---
PATIENT HAS BEEN SCREENED AND CATEGORIZED MODERATE NUTRITION RISK. PATIENT WILL BE SEEN WITHIN 3-5 DAYS OF ADMISSION. 03/24/19 03/26/[address]
[2019-03-22] MEDS: busPIRone 5 MG TAB PO SCH (09:00)
[2019-03-22] MEDS: ASPIRIN 81 MG TAB.CHEW PO SCH (09:00)
[2019-03-22] MEDS: CARVEDILOL 6.25 MG TAB PO SCH ×2 (09:00→16:38)
[2019-03-22] MEDS: LORATADINE 10 MG TAB PO SCH (09:00)
[2019-03-22] MEDS: FERROUS SULFATE 325 MG TABEC PO SCH ×2 (09:00→20:38)
[2019-03-22] MEDS: FUROSEMIDE 40 MG/4 ML VIAL IVP SCH (09:01)
[2019-03-22] MEDS: metFORMIN 850 MG TAB PO SCH ×2 (09:01→16:38)
[2019-03-22] MEDS: guaiFENesin 20 MG/ML UDC PO PRN ×2 (09:01→18:54)
--- NOTE | 2019-03-22 09:08 | NUR ---
PATIENT SITTING DOWN IN BEDSIDE COMMODE. SCHEDULED MEDICATIONS DUE GIVEN. WILL CONTINUE TO MONITOR.
--- NOTE | 2019-03-22 10:15 | NUR ---
DC PLANNING: CONTACTED JAN POST OF [facility] AT [phone] TO PROVIDE UPDATE. INFORMED HER WELL THAT DC PLAN IS PENDING ON THE PATIENT'S RESPONSE TO TREATMENT. SHE REQUESTED TO FAX OVER CLINICALS TO [phone]. CLINICALS SENT TO THE PROVIDED NUMBER. I ALSO ASKED HER IF THERE WILL BE AN RECEPTIONIST DOCTOR'S OFFICE CM DURING THE WEEKEND. SHE STATED TO CALL HER NUMBER. IF PATIENT WILL BE DC TO A SNF, THEY ARE CONTRACTED WITH [facility] [phone] AND [facility] [phone] AND FOR TRANSPORTATION, [facility] [phone]. Addendum: 03/23/19 at 1442 by Valerie Vences CM DC PLANNING: SEEN BY CARDIO DR GARCIA ,ECHO SHOWED NO SIGNS CHF CONT WITH TREATMENT FOR PNA/COPD. PULMO DR HAWTHORNE SEEN PATIENT CONTINUE IV STEROIDS , ZOSYN AND BREATHING TREATMENT. 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 CM TO FOLLOW Addendum: 03/25/19 at 1410 by Chetna Michelle CM RECEIVED AN ORDER FOR DC TO SNF FOR IV ANTIBIOTIC. MET WITH THE PATIENT AT THE BEDSIDE TO DISCUSS DC PLAN. SHE ST[facility] 2 BED ROOM AND ASSEMBLER FILTERS WILL BE NOT TOO LATE. REFERRAL SENT TO [facility]. PER TERESA OF [facility], PATIENT WILL GO TO ROOM 21B UNDER DR. GONZALEZ. CONTACTED JAN POST OF [employer] AT [phone] REGARDING DC PLAN. PROVIDED ME WITH AUTH [id number] FOR SNF AND TRANSPORT WITH [facility]. CONTACTED [facility] AT [phone], ABLE TO SPEAK TO MAGALY. ASSEMBLER FILTERS WILL BE AT 1830. DR. CHAMBERS, PRIMARY RN AND CHARGE NURSE MADE AWARE. PATIENT MADE AWARE WELL AND IS AGREEABLE. LEFT MESSAGE TO PATIENT'S SON AT [phone] REGARDING DC.
--- NOTE | 2019-03-22 11:30 | NUR ---
PATIENT SITTING IN BED WATCHING TV. NO DISTRESS NOTED. DENIES ANY PAIN. WILL CONTINUE TO MONITOR.
[2019-03-22 12:00] VITALS: BP 147/92
[2019-03-22] MEDS ORDERED: MAG SULF 2000 MG/WATER PREMIX 50 ML IV SCH (12:00)
--- NOTE | 2019-03-22 13:02 | NUR ---
PATIENT LYING DOWN IN BED. NO DISTRESS NOTED. DENIES ANY PAIN. OXIMIZER O2 DECREASED TO 4L/MIN PER RT. SCHEDULED MEDICATIONS DUE GIVEN. WILL CONTINUE TO MONITOR.
--- NOTE | 2019-03-22 15:47 | NUR ---
*S.T. BEDSIDE SWALLOW EVAL COMPLETED* See report for details. Pt presents w/ mild oral difficulty managing solids due to limited natural dentition. Mild delay in pharyngeal swallow initiation due to prolonged mastication/gumming and SOB. No overt s/s aspiration observed. Recommend: 1) Continue regular diet textures as tolerated. Thin liquids okay. Straws okay. 2) P.O. meds okay whole, one at a time. No further tx indicated at this time. DC to [facility]. Endorsed to MARCIE Posada. Time [phone]
[2019-03-22 16:00] VITALS: BP 135/67
--- NOTE | 2019-03-22 16:39 | NUR ---
PATIENT LYING DOWN IN BED WATCHING TV. NO DISTRESS NOTED. DENIES ANY PAIN. SCHEDULED MEDICATIONS DUE GIVEN. WILL CONTINUE TO MONITOR.
--- NOTE | 2019-03-22 18:54 | NUR ---
PATIENT COMPLAINS OF COUGHING ROBITUSSIN MEDICATION GIVEN AT THIS TIME. WILL CONTINUE TO MONITOR.
--- NOTE | 2019-03-22 19:13 | NUR ---
GAVE REPORT TO SUPERVISOR CANVAS PRODUCTS NURSE FOR CONTINUITY OF CARE. PATIENT IN STABLE CONDITION.
--- NOTE | 2019-03-22 19:14 | NUR ---
RECEIVED REPORT FROM AM NURSE, PT AWAKE, ALERT ORIENTED X 4, WITH OXYMIZER ON 4 LITER O2, WITH IVF ON THE LEFT HAND 22G, RUNNING NS 60ML/H. NO SIGNS OF DISTRESS NOTED, CALL LIGHT WITHIN REACH. PLACED ON FALL RISK
[2019-03-22 20:00] VITALS: BP 149/66
[2019-03-22] MEDS: ATORVASTATIN 20 MG TAB PO SCH (20:38)
[2019-03-22] MEDS: MELATONIN 3 MG TAB PO PRN (20:38)
[2019-03-22] MEDS: methylPREDNISolone SS 40 MG/ML VIAL IVP SCH (20:38)
--- NOTE | 2019-03-22 21:30 | NUR ---
PT CLEANED, MADE COMFORTABLE, CHUX CHANGED, PT SIDELYING WHILE SLEEPING, PT ABLE TO TURN FROM SIDE TO SIDE
--- NOTE | 2019-03-22 22:00 | NUR ---
PT IN STABLE CONDITION; NO COMPLAINTS OF PAIN NO RESPIRATORY DISTRESS. WILL CONTINUE TO MONITOR
[2019-03-23] VITALS: BP 146/67
[2019-03-23] MEDS: ALBUTEROL SULFATE/IPRATROPIU 3 ML SOL IH SCH ×4 (00:59→19:02)
--- NOTE | 2019-03-23 00:59 | NUR ---
PATIENT IS ASLEEP. PT DID NOT WANT TO BE WOKEN UP IF ASLEEP FOR HHNTX. PT WILL CALL IF SHE NEEDS ONE
--- NOTE | 2019-03-23 02:00 | NUR ---
PT SLEEPING, NOT IN DISTRESS. ABISAI CONTINUE TO MONITOR
--- NOTE | 2019-03-23 03:03 | NUR ---
WENT TO BEDSIDE COMMODE WITH ASSISTANCE. WITH BM NOTED
[2019-03-23] MEDS: PIPERACILLIN/TAZOBACTAM 2.25 GM in DEXTROSE 5% 50 ML IV SCH ×3 (04:58→21:18)
[2019-03-23] MEDS: methylPREDNISolone SS 40 MG/ML VIAL IVP SCH ×2 (05:04→14:02)
[2019-03-23] MEDS: guaiFENesin 20 MG/ML UDC PO PRN ×3 (05:21→16:05)
[2019-03-23 06:00] VITALS: BP 146/67
[2019-03-23] MEDS: LEVOTHYROXINE 0.1 MG TAB PO SCH (06:25)
[2019-03-23] MEDS: BLOOD GLUCOSE MONITORING 1 DEV DEV FS SCH ×4 (06:25→21:12)
[2019-03-23] MEDS: INSULIN LISPRO SLIDING SCALE 100 UNITS/ML VIAL SUBQ PRN ×4 (06:29→21:20)
--- NOTE | 2019-03-23 07:08 | NUR ---
PT AWAKE, ALERT ORIENTED X 4. PT IN STABLE CONDITION. ENDORSED TO NEXT SHIFT.
--- NOTE | 2019-03-23 07:10 | NUR ---
RECEIVED REPORT FROM NIGHT NURSE, PT IS STABLE ON 4 LITER O2, OXIMETER, SAFETY MEASURES IN PLACE, LH 22G, RUNNING NS 60ML/H. NO SIGNS OF DISTRESS NOTED, CALL LIGHT WITHIN REACH.
--- NOTE | 2019-03-23 07:30 | NUR ---
DIETARY:LEFT A MESSAGE PT WOULD LIKE COTTAGE CHEESE AND FRUIT FOR BREAKFAST
--- NOTE | 2019-03-23 07:53 | NUR ---
PT DEFERS HHN AND VITALS WANTS TO EAT
[2019-03-23 07:55] LABS: BASOPHILS % (AUTO) 0.1 % (0.0-2.0); HEMATOCRIT 32.2 % (36-48); HEMOGLOBIN 9.8 g/dL (12.0-16.0); LYMPHOCYTES # (AUTO) 1.9 K/uL (2.5-16.5); MEAN CORPUSCULAR HEMOGLOBIN 23 pg (27-31); MEAN CORPUSCULAR HGB CONC 30 g/dL (33-37); MEAN CORPUSCULAR VOLUME 75.7 fL (80-94); MONOCYTES # (AUTO) 0.7 K/uL (0.8-1.0); MONOCYTES % (AUTO) 2.5 % (1.7-9.3); NEUTROPHILS # (AUTO) 24.6 K/uL (1.8-7.7); NEUTROPHILS % (AUTO) 90.4 % (42.2-75.2); PLATELET COUNT (AUTO) 703 K/uL (140-450); RED BLOOD CELL COUNT(AUTO) 4.25 MIL/uL (4.20-5.40); RED CELL DISTRIBUTION WIDTH 17.6 % (11.6-13.7)
[2019-03-23 08:00] VITALS: BP 150/57
[2019-03-23 08:05] LABS: WHITE BLOOD COUNT (AUTO) 27.2 K/uL (4.8-10.8)
--- NOTE | 2019-03-23 08:20 | NUR ---
PT REQUEST OXYMIZER TURNED DOWN TO 3 L SPO2 CURRENTLY 98
[2019-03-23] MEDS: CARVEDILOL 6.25 MG TAB PO SCH ×2 (08:32→17:23)
[2019-03-23] MEDS: metFORMIN 850 MG TAB PO SCH (08:32)
[2019-03-23] MEDS: LORATADINE 10 MG TAB PO SCH (08:33)
[2019-03-23] MEDS: ASPIRIN 81 MG TAB.CHEW PO SCH (08:33)
[2019-03-23] MEDS: FERROUS SULFATE 325 MG TABEC PO SCH ×2 (08:35→21:18)
[2019-03-23] MEDS: busPIRone 5 MG TAB PO SCH (08:35)
[2019-03-23] MEDS: FUROSEMIDE 40 MG/4 ML VIAL IVP SCH (08:36)
--- NOTE | 2019-03-23 09:49 | NUR ---
GAVE PT ROBITUSSIN FOR COUGH. PT TOLERATED WELL. PT IS COUGHING, OTHERWISE STABLE, CALL LIGHT WITHIN REACH.
[2019-03-23 10:57] LABS: ANION GAP 16.9 (8-16); CARBON DIOXIDE 27.1 mmol/L (21-32); CHLORIDE 102 mmol/L (98-107); CREATININE 1.4 mg/dL (0.6-1.3); GLUCOSE 312 mg/dL (74-106); SODIUM SERUM 142 mmol/L (136-145); UREA NITROGEN, BLOOD 31 mg/dL (7-18)
[2019-03-23 11:02] LABS: MAGNESIUM 1.8 mg/dL (1.8-2.4); PHOSPHORUS 4.8 mg/dL (2.5-4.9)
[2019-03-23 12:00] VITALS: BP 138/63
[2019-03-23] MEDS: CHLORHEXADINE GLUC 2% CLOTH TP SCH (12:00)
[2019-03-23] MEDS ORDERED: VANCOMYCIN 1,000 MG in DEXTROSE 5% 250 ML IV SCH (12:00)
--- NOTE | 2019-03-23 13:20 | NUR ---
PT OFF THE UNIT FOR CT.
--- NOTE | 2019-03-23 13:44 | NUR ---
PT BACK IN ROOM FROM CT.
[2019-03-23] MEDS: MUPIROCIN CA NASAL 2% 1GM TUBE NS SCH (14:02)
--- NOTE | 2019-03-23 15:29 | NUR ---
PT ASLEEP IN BED, RESPIRATIONS ARE EVEN AND UNLABORED ON 4L OXIMIZER, CALL LIGHT WITHIN REACH.
[2019-03-23] MEDS: LACTOBACILLUS RHAMNOSUS GG 1 EACH CAP PO SCH (15:56)
[2019-03-23 16:00] VITALS: BP 153/66
[2019-03-23] MEDS: metFORMIN 500 MG TAB PO SCH (17:22)
[2019-03-23] MEDS: NACL 0.9% 1,000 ML IV SCH (17:37)
--- NOTE | 2019-03-23 17:57 | NUR ---
PT EATING DINNER, PT IS STABLE, NO SIGNS OF DISTRESS, CALL LIGHT WITHIN REACH.
--- NOTE | 2019-03-23 19:20 | NUR ---
GAVE REPORT TO NIGHT NURSE FOR CONTINUITY OF CARE, PT IS STABLE, CALL LIGHT WITHIN REACH.
[2019-03-23 20:00] VITALS: BP 141/61
--- NOTE | 2019-03-23 20:00 | NUR ---
ASSUMED CARE. RECEIVED ALERT,ORIENTED. AFEBRILE, NOT IN ACUTE DISTRESS. DENIES ANY PAIN OR DISCOMFORT. WITH IV FLUID NS INFUSING AT 60 ML/HR VIA LEFT WRIST #22 IV LINE. SAO2=93% ON 4 LPM O2 VIA [employer] CANNULA. VS STABLE, WILL CONTINUE TO MONITOR. NEEDS ATTENDED.
[2019-03-23] MEDS: NYSTATIN POW 100 MU/GM 15 GM BTL TP SCH (21:00)
[2019-03-23] MEDS: ATORVASTATIN 20 MG TAB PO SCH (21:18)
[2019-03-23] MEDS: MELATONIN 3 MG TAB PO PRN (21:18)
--- NOTE | 2019-03-23 21:22 | NUR ---
FINGERSTICK BLOOD SUGAR SROKF=837. 4 UNITS OF HUMALOG SQ GIVEN PER SLIDING SCALE. NYSTATIN POWDER NOT AVAILABLE VIA [employer]. CHART CALCULATOR MARAYN MADE AWARE AND SAID SHE CHECKED EVERYWHERE AND IT'S NOT AVAILABLE AT THIS TIME. WILL ENDORSE TO AM SHIFT RN IN AM. DUE MEDS AND MELATONIN 3 MG PO GIVEN REQUESTED FOR SLEEP.
[2019-03-24] VITALS: BP 143/61
--- NOTE | 2019-03-24 | NUR ---
AWAKE, NOT IN ACUTE DISTRESS. NO PAIN OR DISCOMFORT NOTED. SIDE RAILS UP, CALL LIGHT WITHIN REACH. KEPT WARM AND COMFORTABLE. VS REMAIN STABLE. WILL CONTINUE TO MONITOR.
[2019-03-24] MEDS: ALBUTEROL SULFATE/IPRATROPIU 3 ML SOL IH SCH ×4 (00:35→20:24)
[2019-03-24] MEDS: guaiFENesin 20 MG/ML UDC PO PRN ×3 (01:59→13:17)
--- NOTE | 2019-03-24 01:59 | NUR ---
COMPLAINED OF COUGH. ROBITUSSIN 100 MG (5 ML) PO GIVEN REQUESTED.
--- NOTE | 2019-03-24 04:00 | NUR ---
ASLEEP,NOT IN ANY KIND OF DISTRESS. PT. REMAINS STABLE AND PAIN FREE.
[2019-03-24] MEDS: PIPERACILLIN/TAZOBACTAM 2.25 GM in DEXTROSE 5% 50 ML IV SCH ×3 (05:03→20:58)
[2019-03-24 06:33] LABS: HEMATOCRIT 28.6 % (36-48); HEMOGLOBIN 8.7 g/dL (12.0-16.0); LYMPHOCYTES # (AUTO) 1.6 K/uL (2.5-16.5); MEAN CORPUSCULAR HEMOGLOBIN 23 pg (27-31); MEAN CORPUSCULAR HGB CONC 31 g/dL (33-37); MEAN CORPUSCULAR VOLUME 76.3 fL (80-94); MONOCYTES # (AUTO) 0.9 K/uL (0.8-1.0); MONOCYTES % (AUTO) 4.5 % (1.7-9.3); NEUTROPHILS # (AUTO) 17.8 K/uL (1.8-7.7); PLATELET COUNT (AUTO) 604 K/uL (140-450); RED BLOOD CELL COUNT(AUTO) 3.74 MIL/uL (4.20-5.40); RED CELL DISTRIBUTION WIDTH 17.5 % (11.6-13.7); WHITE BLOOD COUNT (AUTO) 20.3 K/uL (4.8-10.8)
[2019-03-24] MEDS: BLOOD GLUCOSE MONITORING 1 DEV DEV FS SCH ×4 (06:38→20:58)
[2019-03-24] MEDS: LEVOTHYROXINE 0.1 MG TAB PO SCH (06:44)
[2019-03-24] MEDS: INSULIN LISPRO SLIDING SCALE 100 UNITS/ML VIAL SUBQ PRN ×3 (06:45→20:56)
--- NOTE | 2019-03-24 06:45 | NUR ---
FINGERSTICK BLOOD SUGAR PWLBS=530. 4 UNITS F REGULAR INSULIN SQ GIVEN A PER SLIDING SCALE. DUE MEDICATION ALSO GIVEN. Addendum: 03/24/19 at 0702 by Agency 01 MARCIE RN ROBITUSSIN 100 MG PO GIVEN REQUESTED FOR COUGH.
--- NOTE | 2019-03-24 07:02 | NUR ---
ENDORSED CARE TO CAMILLE VILLA.
--- NOTE | 2019-03-24 07:05 | NUR ---
RECEIVED BEDSIDE REPORT FROM NIGHTSHIFT NURSE. PT SLEEPING IN BED UPON ARRIVAL. RESPONSIVE TO VERBAL AND TACTILE STIMULI. ABLE TO MAKE NEEDS KNOWN. RESPIRATIONS EVEN AND UNLABORED WITH NO SOB OR RESPIRATORY DISTRESS. IV SITE LEFT WRIST CLEAN, DRY, AND INTACT. SAFETY MEASURES IN PLACE. WILL CONTINUE TO MONITOR.
[2019-03-24 07:09] LABS: ANION GAP 14.6 (8-16); CARBON DIOXIDE 27.3 mmol/L (21-32); CHLORIDE 104 mmol/L (98-107); CREATININE 1.3 mg/dL (0.6-1.3); GLUCOSE 223 mg/dL (74-106); POTASSIUM 3.9 mmol/L (3.5-5.1); SODIUM SERUM 142 mmol/L (136-145); UREA NITROGEN, BLOOD 40 mg/dL (7-18)
[2019-03-24 07:11] LABS: MAGNESIUM 1.4 mg/dL (1.8-2.4); PHOSPHORUS 4.2 mg/dL (2.5-4.9)
[2019-03-24 07:24] LABS: NEUTROPHILS % (AUTO) 87.7 % (42.2-75.2)
[2019-03-24 07:25] LABS: LYMPHOCYTES % (AUTO) 7.8 % (20.5-51.1)
[2019-03-24 08:00] VITALS: BP 140/72
[2019-03-24] MEDS: FUROSEMIDE 40 MG/4 ML VIAL IVP SCH (09:18)
[2019-03-24] MEDS: busPIRone 5 MG TAB PO SCH (09:20)
[2019-03-24] MEDS: FERROUS SULFATE 325 MG TABEC PO SCH ×2 (09:20→20:49)
--- NOTE | 2019-03-24 09:20 | NUR ---
ADMINISTERED MEDICATION PRESCRIBED PER MD ORDER. PT TOLERATED WELL. MEDICATION EDUCATION PERFORMED. PT VERBALIZED UNDERSTANDING. SAFETY MEASURES IN PLACE
[2019-03-24] MEDS: ASPIRIN 81 MG TAB.CHEW PO SCH (09:21)
[2019-03-24] MEDS: LORATADINE 10 MG TAB PO SCH (09:21)
[2019-03-24] MEDS: metFORMIN 500 MG TAB PO SCH ×2 (09:21→16:32)
[2019-03-24] MEDS: LACTOBACILLUS RHAMNOSUS GG 1 EACH CAP PO SCH (09:22)
[2019-03-24] MEDS: CARVEDILOL 6.25 MG TAB PO SCH ×2 (09:22→16:32)
[2019-03-24] MEDS: NACL 0.9% 1,000 ML IV SCH (09:55)
[2019-03-24] MEDS: NYSTATIN POW 100 MU/GM 15 GM BTL TP SCH ×2 (10:48→20:54)
--- NOTE | 2019-03-24 11:32 | NUR ---
HOURLY ROUNDING. PT RESTING IN BED. ABLE TO MAKE NEEDS KNOWN. SKIN WARM AND DRY TO TOUCH. RESPIRATIONS EVEN AND UNLABORED WITH NO SOB OR RESPIRATORY DISTRESS. SAFETY MEASURES IN PLACE. WILL CONTINUE TO MONITOR.
[2019-03-24] MEDS: CHLORHEXADINE GLUC 2% CLOTH TP SCH (12:22)
[2019-03-24] MEDS: MUPIROCIN CA NASAL 2% 1GM TUBE NS SCH (12:27)
[2019-03-24] MEDS ORDERED: BENZONATATE 100 MG CAPLF PO PRN (13:00)
[2019-03-24] MEDS ORDERED: guaiFENesin/CODEINE 100/10MG 5 ML UDC PO PRN (13:20)
[2019-03-24] MEDS ORDERED: MAG SULF 2000 MG/WATER PREMIX 50 ML IV SCH (14:00)
--- NOTE | 2019-03-24 14:40 | NUR ---
ADMINISTERED MEDICATION PRESCRIBED PER MD ORDER. PT TOLERATED WELL. MEDICATION EDUCATION PERFORMED. PT VERBALIZED UNDERSTANDING. SAFETY MEASURES IN PLACE.
[2019-03-24 16:00] VITALS: BP 145/96
--- NOTE | 2019-03-24 16:32 | NUR ---
ADMINISTERED MEDICATION PRESCRIBED PER MD ORDER. PT TOLERATED WELL. MEDICATION EDUCATION PERFORMED. PT VERBALIZED UNDERSTANDING AND COULD TEACH BACK. SAFETY MEASURES IN PLACE.
--- NOTE | 2019-03-24 18:15 | NUR ---
HOURLY ROUNDING. PT RESTING IN BED. ABLE TO MAKE NEEDS KNOWN. RESPIRATIONS EVEN AND UNLABORED WITH NO SOB OR RESPIRATORY DISTRESS. SKIN WARM AND DRY TO TOUCH. PT IS STABLE.
--- NOTE | 2019-03-24 19:20 | NUR ---
ENDORSED TO NIGHTSHIFT NURSE. PT RESTING IN BED. ABLE TO MAKE NEEDS KNOWN. RESPIRATIONS EVEN AND UNLABORED WITH NO SOB OR RESPIRATORY DISTRESS. SKIN WARM AND DRY TO TOUCH. PT IS STABLE.
--- NOTE | 2019-03-24 19:25 | NUR ---
RECEIVED BEDSIDE REPORT FROM DAY SHIFT NURSE. PATIENT IS AWAKE, ALERT, AND COOPERATIVE. RESPIRATION EVEN UNLABORED ON 2L NC. NO DISTRESS NOTED. SKIN IS WARM AND DRY. NO IV SITE NOTED. PATIENT PLACE ON CONTACT PRECAUTION FOR MRSA SPUTUM AND NARES. ALL SAFETY MEASURES IN PLACE. BED IS AT LOW POSITION. CALL LIGHT WITHIN REACH AND VERBALIZES ITS USE. WILL CONTINUE TO MONITOR.
--- NOTE | 2019-03-24 20:15 | NUR ---
INITIAL ASSESSMENT DONE. VITALS WERE TAKEN. INSERT NEW IV TO THE LEFT FA 22G. TOLERATED WELL. WILL CONTINUE TO MONITOR.
--- NOTE | 2019-03-24 20:33 | NUR ---
RECEIVED PATIENT ON 3L NASAL CANNULA, PULSE OX SAT 91%. SCHEDULED BREATHING TREATMENT ADMINISTERED. TOLERATED TX WELL WITHOUT ADVERSE SIDE EFFECTS. NO ACUTE RESPIRATORY DISTRESS NOTED. WILL CONTINUE TO MONITOR. Addendum: 03/24/19 at 2046 by Raiza Ng RT PATIENT MADE AWARE OF MEDICATION FREQUENCY.
[2019-03-24] MEDS: ATORVASTATIN 20 MG TAB PO SCH (20:49)
[2019-03-24] MEDS: guaiFENesin/CODEINE 100/10MG 5 ML UDC PO PRN (20:53)
--- NOTE | 2019-03-24 20:53 | NUR ---
ALL SCHEDULED MEDS WERE GIVEN PER ORDER. PATIENT COMPLAINED OF COUGH. PRN COUGH MEDICINE GIVEN. PATIENT ASKED FOR SLEEPING AID. PATIENT GIVEN PRN SLEEPING AID PER ORDER. WILL CONTINUE TO MONITOR
[2019-03-24] MEDS: MELATONIN 3 MG TAB PO PRN (20:58)
[2019-03-24] MEDS ORDERED: FUROSEMIDE 40 MG/4 ML VIAL IVP SCH (21:00)
--- NOTE | 2019-03-24 22:45 | NUR ---
PATIENT SLEEPING RESPIRATION EVEN UNLABORED ON 3L NC. NO DISTRESS NOTED. WILL CONTINUE TO MONITOR.
[2019-03-25] VITALS: BP 151/67
--- NOTE | 2019-03-25 00:12 | NUR ---
VITALS WERE TAKEN. PATIENT IN STABLE CONDITION. NO DISTRESS NOTED. WILL CONTINUE TO MONITOR.
[2019-03-25] MEDS: ALBUTEROL SULFATE/IPRATROPIU 3 ML SOL IH SCH ×4 (01:00→18:43)
--- NOTE | 2019-03-25 01:12 | NUR ---
REFUSED SCHEDULED BREATHING TREATMENT. WILL CONTINUE TO MONITOR.
[2019-03-25] MEDS: NACL 0.9% 1,000 ML IV SCH ×2 (02:15→11:03)
--- NOTE | 2019-03-25 02:30 | NUR ---
PATIENT SLEEPING RESPIRATION EVEN UNLABORED ON 3L NC O2. NO DISTRESS NOTED. WILL CONTINUE TO MONITOR.
--- NOTE | 2019-03-25 03:21 | NUR ---
PATIENT COMPLAINED OF HEADACHE. PRN TYLENOL GIVEN PER ORDER. WILL CONTINUE TO MONITOR.
--- NOTE | 2019-03-25 04:05 | NUR ---
CHECKED PATIENT. PATIENT SLEEPING NO DISTRESS NOTED. WILL CONTINUE TO MONITOR,
[2019-03-25] MEDS: PIPERACILLIN/TAZOBACTAM 2.25 GM in DEXTROSE 5% 50 ML IV SCH ×3 (04:08→20:17)
[2019-03-25] MEDS: LEVOTHYROXINE 0.1 MG TAB PO SCH (06:33)
[2019-03-25] MEDS: BLOOD GLUCOSE MONITORING 1 DEV DEV FS SCH ×4 (06:33→20:26)
[2019-03-25] MEDS: INSULIN LISPRO SLIDING SCALE 100 UNITS/ML VIAL SUBQ PRN ×2 (06:37→12:21)
--- NOTE | 2019-03-25 07:07 | NUR ---
RECEIVED REPORT FROM GALVANOMETER ASSEMBLER NURSE MILLIE. PT AWAKE, ORIENTED X4. IV ON LT WRIST LT FA 20 GA RUNNING IVF PER ORDER. RESPIRATIONS EVEN AND UNLABORED ON O2 3L VIA N/C. ACTIVE BS, SOFT ABD. PT IS ON FALL RISK PRECAUTIONS, SAFETY MEASURES IN PLACE. REVIEWED POC WITH PT, PT VERBALIZED UNDERSTANDING.
--- NOTE | 2019-03-25 07:08 | NUR ---
ENDORSED PATIENT TO DAY SHIFT NURSE. PATIENT IN STABLE CONDITION.
[2019-03-25 07:41] LABS: BASOPHILS % (AUTO) 0.1 % (0.0-2.0); EOSINOPHILS # (AUTO) 0.2 K/uL (0-0.4); EOSINOPHILS % (AUTO) 1.4 % (0.0-4.0); HEMATOCRIT 30.2 % (36-48); HEMOGLOBIN 9.2 g/dL (12.0-16.0); LYMPHOCYTES # (AUTO) 2.6 K/uL (2.5-16.5); LYMPHOCYTES % (AUTO) 16.9 % (20.5-51.1); MEAN CORPUSCULAR HEMOGLOBIN 23 pg (27-31); MEAN CORPUSCULAR HGB CONC 31 g/dL (33-37); MEAN CORPUSCULAR VOLUME 75.4 fL (80-94); MONOCYTES # (AUTO) 1.1 K/uL (0.8-1.0); MONOCYTES % (AUTO) 7.3 % (1.7-9.3); NEUTROPHILS # (AUTO) 11.3 K/uL (1.8-7.7); NEUTROPHILS % (AUTO) 74.3 % (42.2-75.2); PLATELET COUNT (AUTO) 657 K/uL (140-450); RED BLOOD CELL COUNT(AUTO) 4.01 MIL/uL (4.20-5.40); RED CELL DISTRIBUTION WIDTH 17.7 % (11.6-13.7); WHITE BLOOD COUNT (AUTO) 15.2 K/uL (4.8-10.8)
[2019-03-25 07:56] LABS: ANION GAP 10.4 (8-16); CARBON DIOXIDE 31.6 mmol/L (21-32); CHLORIDE 105 mmol/L (98-107); CREATININE 1.2 mg/dL (0.6-1.3); GLUCOSE 162 mg/dL (74-106); SODIUM SERUM 143 mmol/L (136-145); UREA NITROGEN, BLOOD 35 mg/dL (7-18)
[2019-03-25 08:00] VITALS: BP 156/83
--- NOTE | 2019-03-25 08:00 | NUR ---
PT'S BLOOD PRESSURE ELEVATED 156/83, PT HAS ANTIHYPERTENSIVES PER ORDER, WILL ADMINISTER.
[2019-03-25] MEDS: CARVEDILOL 6.25 MG TAB PO SCH ×2 (08:04→16:27)
[2019-03-25] MEDS: metFORMIN 500 MG TAB PO SCH ×2 (08:05→16:27)
[2019-03-25] MEDS: LACTOBACILLUS RHAMNOSUS GG 1 EACH CAP PO SCH (08:05)
[2019-03-25] MEDS: busPIRone 5 MG TAB PO SCH (08:05)
[2019-03-25] MEDS: FERROUS SULFATE 325 MG TABEC PO SCH ×2 (08:05→20:17)
[2019-03-25] MEDS: guaiFENesin/CODEINE 100/10MG 5 ML UDC PO PRN ×2 (08:06→16:25)
[2019-03-25] MEDS: ASPIRIN 81 MG TAB.CHEW PO SCH (08:06)
[2019-03-25] MEDS: LORATADINE 10 MG TAB PO SCH (08:06)
[2019-03-25] MEDS: NYSTATIN POW 100 MU/GM 15 GM BTL TP SCH ×2 (08:14→20:26)
[2019-03-25 08:28] LABS: MAGNESIUM 1.7 mg/dL (1.8-2.4); PHOSPHORUS 3.5 mg/dL (2.5-4.9)
[2019-03-25] MEDS ORDERED: FUROSEMIDE 40 MG/4 ML VIAL IVP SCH (09:00)
[2019-03-25] MEDS ORDERED: VANCOMYCIN 750 MG in NACL 0.9% 250 ML IV SCH (09:00)
[2019-03-25] MEDS ORDERED: FLUCONAZOLE 200 MG/NS PREMIX 100 ML IV SCH (09:00)
--- NOTE | 2019-03-25 09:00 | NUR ---
PT REQUESTED TO BE REPOSITIONED IN BED, NO SIGNS OF RESPIRATORY DISTRESS AT THIS TIME.
[2019-03-25] MEDS ORDERED: ZOS3.375I IV (09:09)
[2019-03-25] MEDS ORDERED: CHLO118S2 TP (09:09)
[2019-03-25] MEDS ORDERED: Vancomycin Per Pharmacy MC (09:09)
[2019-03-25] MEDS ORDERED: [UNRECOGNIZED DRUG - CODE] IV (09:09)
[2019-03-25] MEDS ORDERED: MUPI2CRE22 NS (09:09)
[2019-03-25] MEDS ORDERED: LACT10CA PO (09:11)
[2019-03-25] MEDS ORDERED: ROBAC PO (10:04)
[2019-03-25 11:00] VITALS: BP 140/56
--- NOTE | 2019-03-25 11:45 | NUR ---
PT HAS NO S/S OF HYPERGLYCEMIA, BLOOD SUGAR AT 199, WILL ADMINISTER HUMALOG PER SLIDING SCALE.
[2019-03-25] MEDS: MUPIROCIN CA NASAL 2% 1GM TUBE NS SCH (12:20)
[2019-03-25] MEDS: CHLORHEXADINE GLUC 2% CLOTH TP SCH (12:20)
--- NOTE | 2019-03-25 13:05 | NUR ---
PT IS AWARE THAT SHE WILL BE TRANSFERRED TO SNF TODAY. ALL QUESTIONS ANSWERED AND CLARIFIED.
--- NOTE | 2019-03-25 14:15 | NUR ---
PT IS AWARE THAT THE RECREATION FACILITY ATTENDANT TIME WILL BE AT 1830, PT IS AGREEABLE.
[2019-03-25 16:00] VITALS: BP 144/62
--- NOTE | 2019-03-25 16:30 | NUR ---
PT'S HAS NO S/S OF HYPERGLYCEMIA, BLOOD SUGAR IS 140. WILL CONTINUE TO MONITOR.
[2019-03-25] MEDS ORDERED: LACTOBACILLUS RHAMNOSUS GG 1 EACH CAP PO SCH (17:00)
[2019-03-25] MEDS ORDERED: MAGNESIUM OXIDE 400 MG TAB PO SCH (18:00)
--- NOTE | 2019-03-25 18:30 | NUR ---
PT IS AWARE THAT TRANSPORT TIME HAS CHANGED TO 1930, PT IS AGREEABLE.
--- NOTE | 2019-03-25 19:30 | NUR ---
ENDORSED PT TO DIRECTOR MONEY NURSE KISSES. PT HAS NO SIGNS OF DISTRESS AT THIS TIME.
--- NOTE | 2019-03-25 19:30 | NUR ---
RECEIVED BEDSIDE REPORT FROM DAY SHIFT NURSE. PATIENT IS AWAKE, ALERT, AND COOPERATIVE. RESPIRATION EVEN UNLABORED ON 2L NC. NO DISTRESS NOTED. SKIN IS WARM AND DRY. IV PATENT AND INTACT. PATIENT PLACE ON CONTACT PRECAUTION FOR MRSA SPUTUM AND NARES. ALL SAFETY MEASURES IN PLACE. BED IS AT LOW POSITION. CALL LIGHT WITHIN REACH AND VERBALIZES ITS USE. WILL CONTINUE TO MONITOR.
--- NOTE | 2019-03-25 19:45 | NUR ---
GIVEN REPORT TO DHARMESH MOSCOSO FROM [facility] AT . ALL QUESTIONS ANSWERED AND CLARIFIED.
[2019-03-25] MEDS: ATORVASTATIN 20 MG TAB PO SCH (20:17)
--- NOTE | 2019-03-25 20:30 | NUR ---
ALL SCHEDULED MEDS WERE GIVEN PER ORDER. NO ASE NOTED. WILL CONTINUE TO MONITOR.
--- NOTE | 2019-03-25 21:30 | NUR ---
SPOKE TO PRIMIER REGARDING THE HAT IRONER TIME OF THE PATIENT. I WAS TOLD 45-1 HOUR MORE FROM THE ORIGINAL TIME AT 2130. AWAITING FOR HAT IRONER.
--- NOTE | 2019-03-25 22:22 | NUR ---
CHECKED PATIENT. PATIENT IN BED WATCHING TV RESPIRATION EVEN UNLABORED ON 2L NC. NO DISTRESS NOTED. WILL CONTINUE TO MONITOR. AWAITING FOR CONVEYOR MECHANIC
--- NOTE | 2019-03-25 23:15 | NUR ---
PATIENT LEFT THE FACILITY IN STABLE CONDITION WITH BELONGINGS AND WAS PICKED UP BY 2 PERSONNEL FROM [facility]. PATIENT IS HEADING TO [facility]. ALL REPORTS GIVEN.
== END 2019-03-25 23:15 | DRG 871 ==
LOC: MED 12:55 → MTU 14:59
PROVIDERS: ADMIT General Practice; ATTEND General Practice
DX: A41.9 Sepsis, unspecified organism (principal); J69.0 Pneumonitis due to inhalation of food and vomit; I50.43 Acute on chronic combined systolic (congestive) and diastolic (congestive) heart failure; E43 Unspecified severe protein-calorie malnutrition; J96.01 Acute respiratory failure with hypoxia; J15.212 Pneumonia due to Methicillin resistant Staphylococcus aureus; J44.0 Chronic obstructive pulmonary disease with (acute) lower respiratory infection; J44.1 Chronic obstructive pulmonary disease with (acute) exacerbation; D68.59 Other primary thrombophilia; G47.00 Insomnia, unspecified; E03.9 Hypothyroidism, unspecified; D50.9 Iron deficiency anemia, unspecified; E83.42 Hypomagnesemia; D47.3 Essential (hemorrhagic) thrombocythemia; J30.9 Allergic rhinitis, unspecified; K52.9 Noninfective gastroenteritis and colitis, unspecified; E78.5 Hyperlipidemia, unspecified; G89.29 Other chronic pain; E11.9 Type 2 diabetes mellitus without complications; Z96.653 Presence of artificial knee joint, bilateral; F17.210 Nicotine dependence, cigarettes, uncomplicated; I11.0 Hypertensive heart disease with heart failure; Z87.01 Personal history of pneumonia (recurrent); Z68.34 Body mass index [BMI] 34.0-34.9, adult; Z90.710 Acquired absence of both cervix and uterus; Z88.6 Allergy status to analgesic agent; Z88.5 Allergy status to narcotic agent; Z88.2 Allergy status to sulfonamides; Z88.7 Allergy status to serum and vaccine; Z79.899 Other long term (current) drug therapy; Z85.3 Personal history of malignant neoplasm of breast
CPT/HCPCS: 36415; 36600; 71045; 71250; 80048; 80053; 80202; 81003; 82803; 82948; 83605; 83735; 83880; 84100; 84484; 85025; 87040; 87070; 87081; 87086; 87186; 87205; 92610; 93005; 94640; 96365; 96375; 99285; J0696; J1450; J1644; J1815; J1940; J2543; J2920; J2930; J3370; J3475; J7030; J7060; J7613; J7620; Q0092

== ENCOUNTER 2019-04-20 05:04 | Inpatient (IN) | payer MEDICAID, OTHER ==
[~2019-04-20] VITALS: Ht 152.4 cm; Wt 54.4 kg
[~2019-04-20 05:04] MED LIST changes: +ACET-2619 PO; -ALBU3SOL83 IH; +ASPI-1884 PO; -ATRN INH; -AZIT250T11 PO; -CEFT1VIA7 IV; +CHLO118S2 TP; +LACT10CA PO; +LOPE-289 PO; +LORA10TA19 PO; +MUPI2CRE22 NS; -PRED20TA5 PO; +ROBAC PO; -SLIDE SUBQ; +Vancomycin Per Pharmacy MC; +ZOS3.375I IV; +[UNRECOGNIZED DRUG - CODE] IV
--- NOTE | 2019-04-20 05:04 | NUR ---
RAMSEY RDZ ALS TO ER BED 09
[2019-04-20 05:30] VITALS: BP 136/68
[2019-04-20] MEDS ORDERED: SODIUM CHLORIDE FLUSH 10 ML SYR IVF STA (05:31)
--- NOTE | 2019-04-20 05:40 | NUR ---
PT BIBA FROM [facility] C/O SOB AT MIDNIGHT. PT WAS T[place]A,SHALLOW, ON 6L NC. SPO2 95%. NO USE OF ACCESSORY MUSCLE. CLEAR SEECH. NO SOB PRESENT. VSS. NONPRODUCTIVE COUGH. LUNG SOUNDS ARE CRACKLES ALL THROUGHOUT. A & O X4. ALLERGIES: FLU SHOT,SULFA, MORPHINE PMH: COPD, CHF, BREAT CANCER, LYMPH NODE REMOVAL ON RIGHT ARM. DO NOT USE RIGHT ARM FOR BP OR POKING.
--- NOTE | 2019-04-20 05:40 | NUR ---
NONPITTING EDEMA ON BLE.
[2019-04-20 06:41] LABS: HEMATOCRIT 32.2 % (36-48); HEMOGLOBIN 9.8 g/dL (12.0-16.0); MEAN CORPUSCULAR HEMOGLOBIN 23 pg (27-31); MEAN CORPUSCULAR HGB CONC 31 g/dL (33-37); MEAN CORPUSCULAR VOLUME 76.5 fL (80-94); PLATELET COUNT (AUTO) 381 K/uL (140-450); RED BLOOD CELL COUNT(AUTO) 4.21 MIL/uL (4.20-5.40); RED CELL DISTRIBUTION WIDTH 17.3 % (11.6-13.7); WHITE BLOOD COUNT (AUTO) 23.5 K/uL (4.8-10.8)
[2019-04-20 06:56] LABS: ALBUMIN 2.7 g/dL (3.4-5.0); ANION GAP 11.9 (8-16); ASPARTATE AMINOTRANSFERASE 9 U/L (15-37); CARBON DIOXIDE 29.9 mmol/L (21-32); CHLORIDE 102 mmol/L (98-107); CREATININE 1.5 mg/dL (0.6-1.3); GLUCOSE 145 mg/dL (74-106); POTASSIUM 3.8 mmol/L (3.5-5.1); SODIUM SERUM 140 mmol/L (136-145); TOTAL BILIRUBIN 0.3 mg/dL (0.0-1.0); UREA NITROGEN, BLOOD 26 mg/dL (7-18)
--- NOTE | 2019-04-20 07:04 | NUR ---
XR AT BEDSIDE.
--- NOTE | 2019-04-20 07:08 | NUR ---
JAYLEEN LOPEZ RN TO HAVE EKG DONE.
--- NOTE | 2019-04-20 07:09 | NUR ---
Pt report given to MARCIE LOPEZ. Transfer of care at this time.
[2019-04-20] MEDS ORDERED: DIAZEPAM 5 MG TAB PO STA (07:22)
[2019-04-20 07:46] LABS: BASOPHILS % (MANUAL) 0 % (0-2); EOSINOPHILS % (MANUAL) 2 % (0-4); LYMPHOCYTES % (MANUAL) 10 % (20-46); METAMYELOCYTES % 1 % (0-0); MONOCYTES % (MANUAL) 10 % (5-12); MYELOCYTES % 2 % (0-0)
--- NOTE | 2019-04-20 08:00 | NUR ---
SKIN PICTURE TAKEN , CHARGE NURSE AWARE , PICTURE ON FILE
--- NOTE | 2019-04-20 08:14 | NUR ---
WANDA OKEEFE OF PT PHONE
--- NOTE | 2019-04-20 08:39 | NUR ---
pt resting in bed, side rail x2
[2019-04-20] MEDS ORDERED: VANCOMYCIN 1,000 MG in DEXTROSE 5% 250 ML IV ONE (08:45)
[2019-04-20] MEDS ORDERED: MEROPENEM 1,000 MG in NACL 0.9% 100 ML IV ONE (08:45)
[2019-04-20] MEDS ORDERED: MEROPENEM 1,000 MG VIAL IV ONE (09:01)
[2019-04-20] MEDS ORDERED: VANCOMYCIN 1,000 MG VIAL ONE (09:12)
[2019-04-20] MEDS ORDERED: ONDANSETRON 4 MG/2 ML VIAL IVP PRN (09:40)
[2019-04-20] MEDS ORDERED: ACETAMINOPHEN 325 MG TAB PO PRN (09:40)
[2019-04-20 10:10] VITALS: BP 154/59
--- NOTE | 2019-04-20 10:10 | NUR ---
RECEIVED PT FROM ER NURSE, PT IS AWAKE AND ALERT ORIENTEDX4, ON O2 4L NC, FALL RISK, RESTRICTED ARM ON THE RT SIDE FOR S/P REMOVAL OF LYMPH NODE, V/S TAKEN AND BP IS 154/50, O2 SATURATION IS 71% ON 4L O2 NC, SKIN TEAR NOTED IN BETWEEN THE BUTTOCKS, WILL REINFORCE, PERIPHERAL LINE ON THE LEFT FA G. 22 WITH VANCOMYCIN INFUSING AT 165ML/HR, NO SIGN OF DISTRESS NOTED AND WILL MONITOR PT.
[2019-04-20 10:14] LABS: BILIRUBIN,URINE NEGATIVE (NEGATIVE); BLOOD, URINE NEGATIVE (NEGATIVE); COLOR,URINE YELLOW (YELLOW); LEUKOCYTE ESTERASE ,URINE 3+ (NEGATIVE); NITRITE, URINE NEGATIVE (NEGATIVE); PH,URINE >=9.0 (5.0-9.0); UGLUCOSE NEGATIVE (NEGATIVE)
--- NOTE | 2019-04-20 10:15 | NUR ---
[facility] Admited to [facility]. Will go to room 121B. Belongings list completed. Report to KAY JACK .
--- NOTE | 2019-04-20 10:15 | NUR ---
MRSA SWAB DONE TO PT NOW SAMPLE SENT TO LAB.
[2019-04-20 10:24] LABS: PROTHROMBIN TIME 10.5 secs (10.8-13.4)
[2019-04-20 10:34] LABS: FREE T4 (FREE THYROXINE) 1.65 ng/dL (0.76-1.46); MAGNESIUM 0.9 mg/dL (1.8-2.4); PHOSPHORUS 3.4 mg/dL (2.5-4.9); THYROID STIMULATING HORMONE 0.31 uIU/mL (0.34-3.74)
[2019-04-20] MEDS: NACL 0.9% 1,000 ML IV SCH (10:38)
[2019-04-20] MEDS: FUROSEMIDE 40 MG/4 ML VIAL IVP SCH ×2 (10:48→17:11)
[2019-04-20] MEDS ORDERED: ALBUTEROL SULFATE/IPRATROPIU 3 ML SOL IH PRN (10:55)
[2019-04-20 11:03] LABS: APPEARANCE,URINE SLIGHTLY HAZY (CLEAR)
[2019-04-20 11:04] LABS: RBC,URINE NONE SEEN /HPF (0-5); WBC,URINE 20-60 /HPF (0-5)
--- NOTE | 2019-04-20 11:25 | NUR ---
INFLUENZA A&B SAMPLE DONE TO PT NOW AND SAMPLE WAS WAS SENT TO LAB
--- NOTE | 2019-04-20 11:50 | NUR ---
RT IS ASSESSING PT NOW AMND A 40% VENTURI MASK WAS PLACED ON PT AND O2 SATURATION IS AT 79%, WILL MONITOR PT.
[2019-04-20] MEDS: methylPREDNISolone SS 40 MG/ML VIAL IVP SCH ×2 (12:06→22:06)
--- NOTE | 2019-04-20 12:06 | NUR ---
PT WAS GIVEN IV SOLU-MEDROL VIA IV PUSH NOW.
--- NOTE | 2019-04-20 12:11 | NUR ---
WOUND ASSESSMENT WAS DONE, SKIN TEAR NOTED AND VERSATEL DRESSING WAS PLACED IN BETWEEN THE PT'S BUTTOCKS. WILL MONITOR PT.
[2019-04-20] MEDS ORDERED: VANCOMYCIN PER PHARMACY MC PRN (12:15)
--- NOTE | 2019-04-20 12:17 | NUR ---
PT'S O2 SATURATION IS AT 90% NOW VIA VENTURI MASK AT 40%. WILL MONITOR PT.
[2019-04-20] MEDS ORDERED: DEXTROSE 50% 50 ML SYR IVP PRN (12:30)
[2019-04-20] MEDS ORDERED: guaiFENesin 600 MG TABER PO SCH (12:56)
--- NOTE | 2019-04-20 12:57 | NUR ---
CALLED RT AND PT WAS PLACED ON NA NO-REBREATHER MASK AND PT'S O2 SATURATION IS 96%, WILL MONITOR PT.
[2019-04-20] MEDS: ALBUTEROL SULFATE/IPRATROPIU 3 ML SOL IH SCH ×2 (13:00→20:53)
--- NOTE | 2019-04-20 13:09 | NUR ---
pt refused breathing tx wants to be changed and to eat her jello called to room due to pt desat to 75% on venti mask at 50% talked to dr. zaragoza concerning pts o2 sat.
--- NOTE | 2019-04-20 14:09 | NUR ---
PT WAS GIVEN GUAIFENESIN ORAL TABLET NOW AND PT TOLERATED THE WHOLE PILL, O2 SATURATION NOW IS 99% ON NON-REBREATHER MASK, WILL MONITOR PT,
[2019-04-20] MEDS: MAG SULF 2000 MG/WATER PREMIX 100 ML IV SCH ×2 (14:10→18:32)
--- NOTE | 2019-04-20 14:10 | NUR ---
PT WAS GIVEN MAGNESIUM SULFATE FIRST BAG NOW VIA IV, FOR MG LEVEL OF 0.9, WILL MONITOR PT.
[2019-04-20 16:00] VITALS: BP 119/62
[2019-04-20] MEDS: BLOOD GLUCOSE MONITORING 1 DEV DEV FS SCH ×2 (16:55→21:00)
--- NOTE | 2019-04-20 16:55 | NUR ---
PT WAS INFORMED OF THE BLOOD GLUCOSE RESULT OF 216 AND PT VERBALIZED REFUSAL TO RECEIVE INSULIN, DR. WASSERMAN WAS INFORMED. WILL MONITOR PT.
[2019-04-20] MEDS ORDERED: metFORMIN 500 MG TAB PO SCH (17:00)
[2019-04-20] MEDS: PIPERACILLIN/TAZOBACTAM 2.25 GM in DEXTROSE 5% 50 ML IV SCH (17:12)
--- NOTE | 2019-04-20 17:12 | NUR ---
PT WAS GIVEN LASIX VIA IV PUSH, BP IS 148/67, PULSE IS 99, O2 SATURATION IS 99% , ORAL MEDICATION AND IV ZOSYN WERE GIVEN ALSO, WILL MONITOR PT.
--- NOTE | 2019-04-20 18:32 | NUR ---
SECOND BAG OF MAGNESIUM IV WAS GIVEN TO PT NOW FOR MG LEVEL OF 0.9, WILL MONITOR PT.
--- NOTE | 2019-04-20 19:15 | NUR ---
RECEIVED REPORT FORM KAY JACK DAYSHIFT NURSE AT BEDSIDE FOR CONTINUITY OF CARE, PT IN STABLE CONDITION.
--- NOTE | 2019-04-20 19:15 | NUR ---
ENDORSED PT TO TIME CLERK NURSETEODORO FOR CONTINUITY OF CARE.
--- NOTE | 2019-04-20 20:00 | NUR ---
PT IN BED AOX4 WITH REBREATHER MASK ON. PT HAS NO S/S OF PAIN OR DISTRESS NOTED. PT HAS 22G ON LEFT F/A INTACT AND ASYMPTOMATIC RUNNING NORMAL SALINE AT 20MLS/HR. V/S FOLLOWS: T 97.2 P 92 R 18 B/P 118/56 02 99% ON 15 LITERS WITH REBREATHER MASK. PT DENIES PAIN, ALL FALLS PRECAUTIONS IN PLACE.
--- NOTE | 2019-04-20 21:00 | NUR ---
PT FINGERSTICK IS 220, SHE WAS GIVEN HUMALOG COVERAGE PER S/S. PT ALSO GIVEN ORDERED COLACE, COREG, MUCINEX WELL HEPARIN. ALL REQUESTED NEEDS ATTENDED AND CALL SANDERSON IN REACH.
--- NOTE | 2019-04-20 22:00 | NUR ---
PT GIVEN PO/PRN MELATONIN FOR SLEEPING. PT ASSISTED WITH TURNING AND REPOSITIONING IN BED IV FLUIDS OF NORMAL SALINE CONTINUES TO RUN AT 20MLS/HR TO KVO.
[2019-04-20] MEDS: DOCUSATE SODIUM 100 MG GELCAP PO SCH (22:14)
[2019-04-20] MEDS: CARVEDILOL 6.25 MG TAB PO SCH (22:15)
[2019-04-20] MEDS: guaiFENesin 600 MG TABER PO SCH (22:15)
[2019-04-20] MEDS: MELATONIN 3 MG TAB PO PRN (22:17)
[2019-04-20] MEDS: INSULIN LISPRO SLIDING SCALE 100 UNITS/ML VIAL SUBQ PRN (22:23)
[2019-04-21] VITALS: BP 118/56
[2019-04-21] MEDS: PIPERACILLIN/TAZOBACTAM 2.25 GM in DEXTROSE 5% 50 ML IV SCH ×5 (00:08→23:57)
--- NOTE | 2019-04-21 00:30 | NUR ---
LINDSAYSYN HUNG AND RUNNING ORDERED. PT TURNED, CHANGED AND REPOSITIONED IN BED ALL REQUESTED NEEDS ATTENDED V/S FOLLOWS: T 97.4 P 80 R 18 B/P 126/52 02 99% WITH 15 LITERS REBREATHER MASK. ALL FALLS PRECAUTIONS IN PLACE .
[2019-04-21] MEDS: methylPREDNISolone SS 40 MG/ML VIAL IVP SCH (05:28)
[2019-04-21] MEDS: LEVOTHYROXINE 0.088 MG TAB PO SCH (06:35)
[2019-04-21] MEDS: BLOOD GLUCOSE MONITORING 1 DEV DEV FS SCH ×4 (06:36→21:11)
[2019-04-21] MEDS: INSULIN LISPRO SLIDING SCALE 100 UNITS/ML VIAL SUBQ PRN ×4 (06:38→21:07)
[2019-04-21 06:59] LABS: HEMATOCRIT 31.6 % (36-48); HEMOGLOBIN 9.6 g/dL (12.0-16.0); MEAN CORPUSCULAR HEMOGLOBIN 23 pg (27-31); MEAN CORPUSCULAR HGB CONC 31 g/dL (33-37); MEAN CORPUSCULAR VOLUME 76.3 fL (80-94); PLATELET COUNT (AUTO) 398 K/uL (140-450); RED BLOOD CELL COUNT(AUTO) 4.13 MIL/uL (4.20-5.40); RED CELL DISTRIBUTION WIDTH 16.6 % (11.6-13.7); WHITE BLOOD COUNT (AUTO) 15.5 K/uL (4.8-10.8)
[2019-04-21] MEDS: ALBUTEROL SULFATE/IPRATROPIU 3 ML SOL IH SCH ×3 (06:59→19:33)
--- NOTE | 2019-04-21 06:59 | NUR ---
PT GIVEN ORDERED MEDS FINGERSTICK IS 236, 4 UNITS OF HUMALOG GIVEN. SYNTHROID GIVEN ORDERED. COMMODE PLACE AT BEDSID3. PT NEEDS ASSIST FROM BED TO COMMODE. PT DOWNGRADED TO 7 LITERS OF 02 VIA OXYMIZER. UPDATED REPORT NANDA VILLANUEVA RN DAYSHIFT NURSE AT BEDSIDE, FOR CONTINUITY OF CARE.
--- NOTE | 2019-04-21 07:20 | NUR ---
RECEIVED PT FROM BI ARCHITECT NURSE, TEODORO, PT IS AWAKE AND SEATED ON THE COMMODE BEING ASSISTED BY MACHINE STONE POLISHER APPRENTICE, IV LINE ON THE LEFT FA G. 22 WITH IVF OF NS INFUSING AT 10ML/HR, PT IS ON 7L OXYMIZER O2 SATURATION IS AT 91%. FALL PRECAUTION INITIATED, SIDE RAILS ARE UP AND CALL LIGHT WITHIN REACH, NO SIG N OF DISTRESS NOTED AND WILL MONITOR PT.
[2019-04-21 07:22] LABS: CHOL/HDL RATIO 3.3 (1-4.5); PHOSPHORUS 5.3 mg/dL (2.5-4.9)
[2019-04-21 07:32] LABS: BASOPHILS % (MANUAL) 0 % (0-2); EOSINOPHILS % (MANUAL) 0 % (0-4); LYMPHOCYTES % (MANUAL) 12 % (20-46); MONOCYTES % (MANUAL) 3 % (5-12)
[2019-04-21 07:49] LABS: ANION GAP 15.5 (8-16); CARBON DIOXIDE 28.3 mmol/L (21-32); CHLORIDE 99 mmol/L (98-107); CREATININE 1.5 mg/dL (0.6-1.3); GLUCOSE 243 mg/dL (74-106); POTASSIUM 3.8 mmol/L (3.5-5.1); SODIUM SERUM 139 mmol/L (136-145); UREA NITROGEN, BLOOD 33 mg/dL (7-18)
[2019-04-21 08:00] VITALS: BP 136/59
[2019-04-21] MEDS: FUROSEMIDE 40 MG/4 ML VIAL IVP SCH ×3 (09:00→17:16)
[2019-04-21] MEDS ORDERED: VANCOMYCIN 500 MG in DEXTROSE 5% 100 ML IV SCH (09:00)
[2019-04-21] MEDS: NACL 0.9% 1,000 ML IV SCH (09:37)
[2019-04-21] MEDS ORDERED: SODIUM FERRIC GLUCONATE 125 MG in NACL 0.9% 100 ML IV SCH (10:00)
[2019-04-21] MEDS ORDERED: metFORMIN 850 MG TAB ONE (10:02)
[2019-04-21] MEDS: busPIRone 5 MG TAB PO SCH (10:12)
[2019-04-21] MEDS: CARVEDILOL 6.25 MG TAB PO SCH ×2 (10:13→20:41)
[2019-04-21] MEDS: LACTOBACILLUS RHAMNOSUS GG 1 EACH CAP PO SCH (10:14)
[2019-04-21] MEDS: FERROUS GLUCONATE 324 MG TAB PO SCH (10:14)
[2019-04-21] MEDS: ASPIRIN 81 MG TAB.CHEW PO SCH (10:15)
[2019-04-21] MEDS: guaiFENesin 600 MG TABER PO SCH ×2 (10:15→20:41)
[2019-04-21] MEDS ORDERED: metFORMIN 850 MG TAB PO SCH (10:19)
[2019-04-21] MEDS: ATORVASTATIN 20 MG TAB PO SCH (10:22)
[2019-04-21] MEDS: DOCUSATE SODIUM 100 MG GELCAP PO SCH ×2 (10:22→20:41)
--- NOTE | 2019-04-21 10:22 | NUR ---
PT WAS GIVEN THE SCHEDULED AM MEDICATIONS ORALLY BUT THE LASIX WAS WASTED FOR THE REASON THAT THE IV LINE WAS INFILTRATED AND ADMINISTRATION WAS NOT SUCCESSFUL, OTHER IV MEDICATIONS WERE PENDING TO BE ADMINISTERED FOR PICC LINE INSERTION, DR. WASSERMAN WAS NOTIFIED. WILL MONITOR PT.
[2019-04-21] MEDS ORDERED: HYDROmorphone 1 MG/ML AMP IVP SCH (10:48)
[2019-04-21] MEDS ORDERED: LORazepam 2 MG/ML VIAL IVP SCH (10:48)
[2019-04-21] MEDS ORDERED: HYDROmorphone 2 MG TAB PO SCH (12:04)
[2019-04-21] MEDS ORDERED: LORazepam 2 MG/ML VIAL IM/IVP SCH (12:05)
[2019-04-21] MEDS ORDERED: LORazepam 1 MG TAB PO SCH (12:15)
--- NOTE | 2019-04-21 12:40 | NUR ---
TIME OUT WAS DONE, FOR THE CENTRAL LINE PLACEMENT, BY DR. WASSERMAN, CORRECT SITE PLACEMENT MARKED, US RIGGER THIRD AND RNS ON BEDSIDE, PT VERIFIED NAME AND DATE OF ..
--- NOTE | 2019-04-21 12:50 | NUR ---
CENTRAL LINE PLACEMENT WAS STARTED NOW BY DR. WASSERMAN .
--- NOTE | 2019-04-21 13:10 | NUR ---
CENTRAL LINE PLACEMENT WAS FINISHED NOW BY DR. WASSERMAN.
--- NOTE | 2019-04-21 13:15 | NUR ---
X- RAY OIS BEING DONE TO VERIFY CENTRAL LINE PLACEMENT AND DR. WASSERMAN VERIFIED AND VERBALIZED THAT CENTRAL LINE IS GOOD TO BE USE. WILL CARRY OUT MD ORDER.
[2019-04-21] MEDS ORDERED: HYDROmorphone 2 MG TAB PO ONE (13:25)
[2019-04-21] MEDS ORDERED: LIDOCAINE 2% 1000 MG/50 ML VIAL INJ ONE (13:25)
--- NOTE | 2019-04-21 13:30 | NUR ---
PT WAS GIVEN 6 UNITS ON THE LEFT UA FOR THE BLOOD GLUCOSE OF 296, WILL MONITOR PT.
[2019-04-21] MEDS: KETOROLAC 15 MG/ML VIAL IVP PRN (13:46)
--- NOTE | 2019-04-21 13:46 | NUR ---
PT WAS GIVEN FERRLECIT AND PAIN MEDICATION VIA IV PUSH AND PIGGYBACK NOW FOR C/O PAIN RATE OF 9/10, BP IS 159/81, PULSE IS 82, O2 SATURATION IS AT 94%, NO SIGN OF DISTRESS NOTED AND WILL MONITOR PT.
--- NOTE | 2019-04-21 13:55 | NUR ---
PT WAS GIVEN A BREATHING TREATMENT NOW. NO SIGN OF DISTRESS NOTED. WILL MONITOR PT
[2019-04-21] MEDS: MUPIROCIN CA NASAL 2% 1GM TUBE NS SCH (15:28)
[2019-04-21] MEDS: CHLORHEXADINE GLUC 2% CLOTH TP SCH (15:33)
--- NOTE | 2019-04-21 15:33 | NUR ---
PT WAS GIVEN BACTROBAN OINTMENT NASAL AND IV ZOSYN NOW, CHLORHEXIDINE WIPES DONE, WILL MONITOR PT
[2019-04-21 16:00] VITALS: BP 131/55
[2019-04-21] MEDS: VANCOMYCIN 500 MG in DEXTROSE 5% 100 ML IV SCH (17:17)
[2019-04-21] MEDS: metFORMIN 850 MG TAB PO SCH (17:17)
--- NOTE | 2019-04-21 17:17 | NUR ---
PT WAS GIVEN SCHEDULED IV MEDICATIONS AND ORAL, TOLERATED, WILL MONITOR PT.
--- NOTE | 2019-04-21 19:15 | NUR ---
RECEIVED REPORT FROM KAY JACK DAYSHIFT NURSE AT BEDSIDE FOR CONTINUITY OF CARE, PT IN STABLE CONDITION.
--- NOTE | 2019-04-21 19:40 | NUR ---
PT IN BED, SHE HAS A CENTRAL LINE RIGHT IJ WITH TRIPLE LUMEN RUNNING NORMAL SALINE AT 10 MLS/HR TO KVO. PT IS NOW ON 4.5 LITERS OF 02 VIA OXYMIZER. NO S/S OF SOB , PAIN OR DISTRESS NOTED. V/S FOLLOWS; T 97.1 P 80 R 18 B/P 137/58 02 94% ON ROOM AIR. ALL FALLS PRECAUTIONS IN PLACE AND CALL SANDERSON IN REACH.
[2019-04-21] MEDS: MELATONIN 3 MG TAB PO PRN (20:42)
--- NOTE | 2019-04-21 21:00 | NUR ---
PT RECEIVED ALL DUE MEDS OF COLACE, MUCINEX, COREG, SQ HEPARIN WELL PRN MELATONIN, FINGERSTICK IS 187, 2 UNITS OF HUMALOG COVERAGE GIVEN. EDUCATION REGARDING MEDICATION GIVEN AT BEDSIDE. ALL REQUESTED NEEDS ATTENDED AND ALL FALLS PRECAUTIONS IN PLACE.
--- NOTE | 2019-04-21 22:30 | NUR ---
PT IN BED SLEEPING NO S/S OF PAIN OR DISTRESS NOTED, ALL FALLS PRECAUTIONS IN PLACE.
[2019-04-22] VITALS: BP 116/57
--- NOTE | 2019-04-22 | NUR ---
PT IN BED SLEEPING 02 STAT IS 93 % WITH OXYMIZER AT 4 LITERS. IV SITE ON R IJ INTACT AND RUNNING ORDERED ZOSYN AT 100 MLS/HR. V/S FOLLOWS: T 98.0 P 76 R 18 B/P 02 93% WITH 4.5LITERS VIA OXYMIZER. ALL FALLS PRECAUTIONS IN PLACE.
--- NOTE | 2019-04-22 02:00 | NUR ---
PT IN BED SLEEPING, R IJ CENTRAL LINE IN PLACE AND RUNNING N/S AT 10MLS/HR TO KVO. PT ASLEEP 02 RANGING FROM 88% -90% WITH 4 .5 LITERS VIA OXYMIZER. ALL FALLS PRECAUTIONS IN PLACE .
--- NOTE | 2019-04-22 04:15 | NUR ---
PT AWAKE C/O THAT SHE HAD AN INCONTINENT ACCIDENT IN BED. PT WAS CLEANED UP AND MADE COMFORTABLE IN BED. R IJ INTACT AND RUNNING N/S AT 10 TO KVO. PT HAD NO C/O OF PAIN OR SOB. ALL REQUESTED NEEDS ATTENDED BY STAFF.
[2019-04-22] MEDS: LEVOTHYROXINE 0.088 MG TAB PO SCH (05:48)
[2019-04-22] MEDS: PIPERACILLIN/TAZOBACTAM 2.25 GM in DEXTROSE 5% 50 ML IV SCH ×3 (05:53→18:30)
[2019-04-22] MEDS: BLOOD GLUCOSE MONITORING 1 DEV DEV FS SCH ×4 (06:01→21:49)
[2019-04-22 06:07] LABS: ANION GAP 13.2 (8-16); CARBON DIOXIDE 30.6 mmol/L (21-32); CHLORIDE 98 mmol/L (98-107); CREATININE 1.9 mg/dL (0.6-1.3); GLUCOSE 129 mg/dL (74-106); POTASSIUM 3.8 mmol/L (3.5-5.1); SODIUM SERUM 138 mmol/L (136-145); UREA NITROGEN, BLOOD 49 mg/dL (7-18)
--- NOTE | 2019-04-22 06:15 | NUR ---
ZOSYN HUNG AND RUNNING AT 100MLS/HR FINGERSTICK IS 134, NO HUMALOG COVERAGE NEEDED. WOUND CARE PROVIDED TO SKIN TEAR IN BETWEEN BUTTOCKS NO C/O VOICED, NO SOB NOTED WIHT OXIMUZER AT 4.5 LITERS OF SUPPLEMENTAL O2. ALL FALLS PRECAUTIONS IN PLACE.
[2019-04-22 06:20] LABS: MAGNESIUM 1.8 mg/dL (1.8-2.4); PHOSPHORUS 5.7 mg/dL (2.5-4.9)
[2019-04-22 06:25] LABS: BASOPHILS # (AUTO) 0.1 K/uL (0.00-0.22); BASOPHILS % (AUTO) 0.4 % (0.0-2.0); EOSINOPHILS % (AUTO) 0.1 % (0.0-4.0); HEMATOCRIT 33.5 % (36-48); HEMOGLOBIN 10.1 g/dL (12.0-16.0); LYMPHOCYTES # (AUTO) 2.5 K/uL (2.5-16.5); MEAN CORPUSCULAR HEMOGLOBIN 23 pg (27-31); MEAN CORPUSCULAR HGB CONC 30 g/dL (33-37); MEAN CORPUSCULAR VOLUME 76.4 fL (80-94); MONOCYTES # (AUTO) 1.3 K/uL (0.8-1.0); MONOCYTES % (AUTO) 6.1 % (1.7-9.3); NEUTROPHILS # (AUTO) 16.9 K/uL (1.8-7.7); NEUTROPHILS % (AUTO) 81.4 % (42.2-75.2); PLATELET COUNT (AUTO) 482 K/uL (140-450); RED BLOOD CELL COUNT(AUTO) 4.39 MIL/uL (4.20-5.40); RED CELL DISTRIBUTION WIDTH 16.9 % (11.6-13.7)
[2019-04-22] MEDS: ALBUTEROL SULFATE/IPRATROPIU 3 ML SOL IH SCH ×3 (07:00→20:40)
--- NOTE | 2019-04-22 07:20 | NUR ---
RECEIVED REPORT FROM TRIAGE SPECIALIST NURSE. PT IS AROUSABLE TO NAME, ORIENTED X4, DENIES PAIN. NOTED RT IJ RUNNING IVF PER ORDER. RESPIRATIONS EVEN AND UNLABORED ON O2 OXIMIZER 4.5L. ABD SOFT, ACTIVE BS. PT ON FALL RISK PRECAUTIONS, SAFETY MEASURES IN PLACE, CALL LIGHT WITHIN REACH. REVIEWED POC WITH PT, PT VERBALIZED UNDERSTANDING.
[2019-04-22 07:39] LABS: WHITE BLOOD COUNT (AUTO) 20.7 K/uL (4.8-10.8)
[2019-04-22 08:00] VITALS: BP 111/49
[2019-04-22] MEDS: metFORMIN 850 MG TAB PO SCH ×2 (08:49→17:35)
[2019-04-22] MEDS: ASPIRIN 81 MG TAB.CHEW PO SCH (08:50)
[2019-04-22] MEDS: CARVEDILOL 6.25 MG TAB PO SCH ×2 (08:50→21:56)
[2019-04-22] MEDS: FUROSEMIDE 40 MG/4 ML VIAL IVP SCH (08:50)
[2019-04-22] MEDS: guaiFENesin 600 MG TABER PO SCH ×2 (08:50→21:56)
[2019-04-22] MEDS: ATORVASTATIN 20 MG TAB PO SCH (08:50)
[2019-04-22] MEDS: LACTOBACILLUS RHAMNOSUS GG 1 EACH CAP PO SCH (08:50)
[2019-04-22] MEDS: DOCUSATE SODIUM 100 MG GELCAP PO SCH ×2 (08:50→21:56)
--- NOTE | 2019-04-22 08:50 | NUR ---
ADMINISTERED MEDICATIONS PER ORDER, PT VERBALIZED UNDERSTANDING OF INDICATIONS AND POTENTIAL SIDE EFFECTS OF EACH MEDICATION.
[2019-04-22] MEDS: busPIRone 5 MG TAB PO SCH (09:02)
[2019-04-22] MEDS: NACL 0.9% 1,000 ML IV SCH (09:37)
--- NOTE | 2019-04-22 10:37 | NUR ---
Audit Partner Note: Basic Screen: Yes High Risk DC Screen Yes Name: BAYRON BIRD Home Relationship: SON Pre-Admission Living Arrangements: Other Other: [facility] Prior ADL Needs Assistance Current Home Health Name/Tel: N/A Current DME/02 Name/Tel: WHEELCHAIR, OXYGEN Current Hospice Name/Tel: N/A Current Dialysis Name/Tel: N/A Healthcare Decision Maker: Next of Kin Other: BAYRON BIRD - SON Advance Directive No Physician Orders for Life Sustaining Treatment Form No Patient/Family Have Educational Needs No Discipline: Case Mgt/Social Svcs Tentative Discharge Plan/Destination: Other Other: [facility] Will require assistance post discharge: No Referred to Data Warehouse Manager: No Tentative Discharge Plan Summary: Patient is an 83-year-old female admitted for bilateral pneumonia. Patient has PMHX of COPD, DM, HTN, CHF, and insomnia. Patient was admitted from [facility]. SW contacted Kenzie from [facility] [phone]. Per Kenzie, patient's healthcare decision maker is patient's son Bayron Bird [phone]. Per Kenzie, patient needs assistance with ADLs and is alert/oriented at baseline. Tentative discharge plan is for patient to return to [facility]. No further needs identified. Signature: KRYSTAL Nichols Date: Apr 22, 2019 Time: 10:36
--- NOTE | 2019-04-22 11:30 | NUR ---
BS AT 149, NO S/S OF HYPERGLYCEMIA. PT HAS NO SIGNS OF DISTRESS AT THIS TIME.
[2019-04-22] MEDS: ASCORBIC ACID 500 MG TAB PO SCH (12:04)
--- NOTE | 2019-04-22 13:30 | NUR ---
PT IS RESTING IN BED IN SUPINE POSITION, WATCHING TV AT THIS TIME. RESPIRATIONS EVEN AND UNLABORED ON O2 3L VIA OXIMIZER.
--- NOTE | 2019-04-22 13:54 | NUR ---
DC PLANNIN YRS OLD FEMALE PATIENT WAS ADMITTED FROM [facility] WITH A DX PF PNEUMONIA .PT HAS A HX OF CHF HTN, DM COPD. ADMINISTERED VANCOMYCIN AND ZOSYN IV. DC PLAN PER FAMILY DAUGHTER HAS A CONCERN NOT TO RETURN TO [facility] DUE TO INSUFFICIENT CARE. CALLED FARA MONTOYA SPOKE WITH SEJAL ADDRESSED THE ISSUE TRANSFERRED ME TO HER MILEAGE CLERK CALLED JAYME [phone] SPOKE WITH EDITH DISCUSSED DAUGHTER'S CONCERN. EDITH STATED WILL LOOK FOR ANOTHER ONE AND WILL LET US KNOW. CALLED GENIE DAUGHTER AT [phone] LEFT A MESSAGE TO CALL US BACK CM TO FOLLOW. Addendum: 04/22/19 at 1620 by Valerie Vences CM DC PLANNING RECEIVED A CALL FROM SHELLEY SHARMA STATED SHE TALKED TO THE SON PIA AND EXPLAINED THE SITUATION THAT CAN NOT GO ANY ASSISTED LIVING WITH ABX PER EDITH PT'S SON PIA AGREED TO GO TO [place] AND EDITH WILL LOOK FOR ANOTHER ASSISTED LIVING. RECEIVED A CALL FROM PIA PT'S SON STATED OK TO GO TO SNF FOR IV ABX AND THE CHOICE OF SNF IS [facility], HE PROVIDE ME HIS OFFICE NUMBER [phone] AND CELL# [phone] . CM TO FOLLOW Addendum: 04/23/19 at 1121 by Valerie Vences CM DC PLANNING: SEEN BY PHOTOGRAPHY COLORIST DR TINEO CONTINUE IV LASIX RECOMMENDED OUTPATIENT CARDIOLOGY FOLLOW UP. DC PLAN PER PT'S SON PIA REQUEST TO GO TO [facility] FOR IV ABX AND PHYSICAL THERAPY WILL CONTACT AND FAX THE INQUIRY TO [facility] CM TO FOLLOW. Addendum: 04/23/19 at 1624 by Valerie Vences CM DC PLANNING: FAXED ALL THE PAPERWORK TO [facility] AND SPOKE WITH MONIK, [facility] NO RN AT NIGHT TO GIVE THE IV ABX AND ALSO NO PRIVATE ROOM, CALLED THE SON PIA NOTIFIED HIM THE SITUATION AND HE WILL TALK TO HIS MOM AND OK WITH ANY 2 BEDS OR IF SHE GETS THE END SIDE SHE WILL BE OK. AND PIA AGREED TO SEE ANY OTHER [facility] FACILITY.CALLED FARA SHARMA AT [phone] LEFT A MESSAGE CM TO FOLLOW Addendum: 04/24/19 at 1430 by Valerie Vences CM DC PLANNING: PATIENT IS ACCEPTING AT [facility] CAN GO TO ROOM 24A # TO GIVE REPORT [phone] AUTH # FOR TRANSPORT [id number] ARRANGED TRANSPORT WITH [facility] ELIGIBILITY TECHNICIAN TIME 7 PM. NIKKIE CHAWLA RN Addendum: 04/24/19 at 1441 by Valerie Vences CM DC PLANNING ELIGIBILITY TECHNICIAN TIME WILL BE 8:30-8:45 PM NIKKIE CHAWLA RN Addendum: 04/24/19 at 1655 by Valerie Vences CM LATE ENTRY 1400 IM LETTER DISCUSSED AND GIVEN TO THE PATIENT AND SIGNED BY THE PT
[2019-04-22] MEDS: VANCOMYCIN 500 MG in DEXTROSE 5% 100 ML IV SCH (15:16)
--- NOTE | 2019-04-22 15:40 | NUR ---
PT GIVEN SKIN AND YUDITH CARE AT THIS TIME. PT IS COOPERATIVE. NO SIGNS OF DISTRESS AT THIS TIME.
--- NOTE | 2019-04-22 17:00 | NUR ---
BS AT 114, NO S/S OF HYPERGLYCEMIA. PT IS AWARE OF PLAN TO TRANSFER TO SNF FOR IV ABX THERAPY.
[2019-04-22] MEDS: CHLORHEXADINE GLUC 2% CLOTH TP SCH (17:35)
[2019-04-22] MEDS: SERTRALINE 50 MG TAB PO SCH (17:35)
[2019-04-22] MEDS: MUPIROCIN CA NASAL 2% 1GM TUBE NS SCH (17:35)
[2019-04-22] MEDS: CALCIUM ACETATE 667 MG TAB PO SCH (17:36)
--- NOTE | 2019-04-22 18:30 | NUR ---
ADMINISTERED ZOSYN PER ORDER, PT IS AWARE OF INDICATIONS AND POTENTIAL SIDE EFFECTS.
--- NOTE | 2019-04-22 19:10 | NUR ---
ENDORSED PT TO HEALTH COMMUNICATIONS SPECIALIST NURSE. PT HAS NO S/S OF DISTRESS AT THIS TIME.
--- NOTE | 2019-04-22 19:15 | NUR ---
RECEIVED PT FROM DAYSORFT NURSE PT IS AAOX4 ON BED REST IV ON RT NECKE IJ ON OXIMIZER 4 LTS NOT DISTRESS NOTED REPOSITIONED INITIAL ASSESSMENT DONE
[2019-04-22 20:00] VITALS: BP 127/53
--- NOTE | 2019-04-22 21:30 | NUR ---
BLOOD SUGAR TEST 170 COVERAGE WITH 2 UNITS SUB Q HUMALOG FOLLOW PROTOCOL
[2019-04-22] MEDS: INSULIN LISPRO SLIDING SCALE 100 UNITS/ML VIAL SUBQ PRN (21:50)
[2019-04-22] MEDS: MELATONIN 3 MG TAB PO PRN (21:57)
[2019-04-23] VITALS: BP 117/54
--- NOTE | 2019-04-23 | NUR ---
PT SLEEPING WELL NOT DISTRESS NOTED IV ON RT NECK INFUSING WELL
[2019-04-23] MEDS: PIPERACILLIN/TAZOBACTAM 2.25 GM in DEXTROSE 5% 50 ML IV SCH ×4 (00:40→18:10)
--- NOTE | 2019-04-23 04:00 | NUR ---
SPONGE BATH GIVEN LINEN CHANGED, REPOSITIONED Q2H ON OXIMIZER 4 LTS
[2019-04-23] MEDS: BLOOD GLUCOSE MONITORING 1 DEV DEV FS SCH ×4 (05:49→21:47)
[2019-04-23 06:13] LABS: BASOPHILS # (AUTO) 0.1 K/uL (0.00-0.22); BASOPHILS % (AUTO) 0.9 % (0.0-2.0); EOSINOPHILS # (AUTO) 0.5 K/uL (0-0.4); EOSINOPHILS % (AUTO) 3.5 % (0.0-4.0); HEMATOCRIT 31.5 % (36-48); HEMOGLOBIN 9.8 g/dL (12.0-16.0); LYMPHOCYTES # (AUTO) 2.5 K/uL (2.5-16.5); LYMPHOCYTES % (AUTO) 16.8 % (20.5-51.1); MEAN CORPUSCULAR HEMOGLOBIN 24 pg (27-31); MEAN CORPUSCULAR HGB CONC 31 g/dL (33-37); MEAN CORPUSCULAR VOLUME 76.3 fL (80-94); MONOCYTES # (AUTO) 0.9 K/uL (0.8-1.0); MONOCYTES % (AUTO) 5.7 % (1.7-9.3); NEUTROPHILS # (AUTO) 10.8 K/uL (1.8-7.7); NEUTROPHILS % (AUTO) 73.1 % (42.2-75.2); PLATELET COUNT (AUTO) 510 K/uL (140-450); RED BLOOD CELL COUNT(AUTO) 4.12 MIL/uL (4.20-5.40); RED CELL DISTRIBUTION WIDTH 16.9 % (11.6-13.7); WHITE BLOOD COUNT (AUTO) 14.8 K/uL (4.8-10.8)
[2019-04-23] MEDS: LEVOTHYROXINE 0.088 MG TAB PO SCH (06:14)
[2019-04-23 06:19] LABS: ANION GAP 15.8 (8-16); CHLORIDE 100 mmol/L (98-107); CREATININE 1.8 mg/dL (0.6-1.3); GLUCOSE 129 mg/dL (74-106); POTASSIUM 3.8 mmol/L (3.5-5.1); SODIUM SERUM 141 mmol/L (136-145); UREA NITROGEN, BLOOD 57 mg/dL (7-18)
--- NOTE | 2019-04-23 06:20 | NUR ---
BLOOD SUGAR TEST 131 NOT COVERAGE PT RESTING ON BED COMFORTABLE , PT WILL BE ENDORSED TODAY SHIFT NURSE FOR CONTINUE OF CARE
[2019-04-23 06:23] LABS: MAGNESIUM 1.4 mg/dL (1.8-2.4); PHOSPHORUS 3.8 mg/dL (2.5-4.9)
--- NOTE | 2019-04-23 07:10 | NUR ---
RECEIVED BEDSIDE REPORT FROM GENERAL FARMWORKER NURSE FOR CONTINUITY OF CARE. PT IS RESTING ON BED AT THIS TIME. AROUSABLE TO VOICE. RESPIRATION EVEN AND UNLABORED ON 4LPM VIA OXYMIZER. DENIED PAIN, SOB, AND DIZZINESS. NO SIGNS OF DISTRESS NOTED. REJ TRIPLE LUMEN, CLEAN AND INTACT, INFUSING NS AT 10 ML/H AT THIS TIME. PT IS INCONTINENT AND BEDREST. CONTACT AND FALL RISK PROTOCOL IN PLACE, SIGNS POSTED. SAFETY MEASURES IN PLACE. BED IN LOW POSITION AND CALL LIGHT WITHIN REACH. INSTRUCTED PT TO USE THE CALL LIGHT FOR ANY ASSISTANCE AND PT WAS AWARE.
[2019-04-23 08:00] VITALS: BP 156/60
[2019-04-23] MEDS: ALBUTEROL SULFATE/IPRATROPIU 3 ML SOL IH SCH ×3 (08:11→19:30)
[2019-04-23] MEDS: metFORMIN 850 MG TAB PO SCH ×2 (09:36→16:43)
[2019-04-23] MEDS: DOCUSATE SODIUM 100 MG GELCAP PO SCH ×2 (09:37→21:00)
[2019-04-23] MEDS: NACL 0.9% 1,000 ML IV SCH (09:37)
[2019-04-23] MEDS: SERTRALINE 50 MG TAB PO SCH (09:37)
[2019-04-23] MEDS: CARVEDILOL 6.25 MG TAB PO SCH ×2 (09:38→21:38)
[2019-04-23] MEDS: busPIRone 5 MG TAB PO SCH (09:38)
[2019-04-23] MEDS: LACTOBACILLUS RHAMNOSUS GG 1 EACH CAP PO SCH (09:39)
[2019-04-23] MEDS: ATORVASTATIN 20 MG TAB PO SCH (09:39)
[2019-04-23] MEDS: ASPIRIN 81 MG TAB.CHEW PO SCH (09:39)
[2019-04-23] MEDS: guaiFENesin 600 MG TABER PO SCH ×2 (09:40→21:39)
[2019-04-23] MEDS: FUROSEMIDE 40 MG/4 ML VIAL IVP SCH (09:40)
[2019-04-23] MEDS: ASCORBIC ACID 500 MG TAB PO SCH (09:40)
[2019-04-23] MEDS: CALCIUM ACETATE 667 MG TAB PO SCH ×2 (09:40→16:43)
[2019-04-23] MEDS: FERROUS GLUCONATE 324 MG TAB PO SCH (09:45)
--- NOTE | 2019-04-23 09:45 | NUR ---
ADMINISTERED SCHEDULED AM MEDS PER MD ORDER, MEDS EDUCATION PROVIDED TO PT AND PT VERBALIZED OK. PT TOLERATED MEDS WELL. ASSISTED WASTE TRANSPORTATION TECHNICIAN TO CLEAN AND REPOSITION PT. SPO2 AT 96% WITH 4LPM VIA OXYMIZER. NO SIGNS OF DISTRESS NOTED. FALL RISK PROTOCOL IN PLACE AND BED ALARM ACTIVATED. SAFETY MEASURES IN PLACE. BED IN LOW POSITION AND CALL LIGHT WITHIN REACH. INSTRUCTED PT TO USE THE CALL LIGHT FOR ANY ASSISTANCE AND PT WAS AWARE.
[2019-04-23 10:06] LABS: FOLIC ACID 4.4 ng/mL (>3.0)
--- NOTE | 2019-04-23 10:42 | NUR ---
FOUNTAIN OPERATOR IS ASSISTING PT TO USE THE BEDSIDE COMMODE AND BACK TO BED SAFELY. NO SIGNS OF DISTRESS NOTED. SAFETY MEASURES IN PLACE.
[2019-04-23] MEDS: MAG SULF 2000 MG/WATER PREMIX 100 ML IV SCH ×2 (11:37→14:30)
--- NOTE | 2019-04-23 11:41 | NUR ---
ADMINISTERED MAG SULFATE FOR LOW AM MAG 1.4 FROM LAB, MED ED PROVIDED TO PT AND PT SAID OK. CHECKED BLOOD GLUCOSE AND RECEIVED 131, NO COVERAGE NEEDED. PT IS RESTING ON BED AT THIS TIME, SPO2 AT 97% ON 4LPM VIA OXIMIZER. NO SIGNS OF DISTRESS NOTED. SAFETY MEASURES IN PLACE. BED IN LOW POSITION AND CALL LIGHT WITHIN REACH. BED ALARM ACTIVATED.
--- NOTE | 2019-04-23 13:14 | NUR ---
WITH ASSIST FROM DECKHAND, ASSESSED PT'S SKIN TEAR ON BUTTOCK, CLEAN AND DRY, KEEP DRY, BOAT CANVAS MAKER INSTALLER. NO SIGNS OF DISTRESS NOTED. SAFETY MEASURES IN PLACE.
--- NOTE | 2019-04-23 14:30 | NUR ---
HUNG 2ND BAG OF MAG SULFATE FOR LOW MAG 1.4 FROM AM LAB, MED ED PROVIDED TO PT AND PT SAID OK. PT IS RESTING ON BED AT THIS TIME. NO SIGNS OF DISTRESS NOTED. SAFETY MEASURES IN PLACE. BED ALARM ACTIVATED.
--- NOTE | 2019-04-23 15:40 | NUR ---
PT IS RESTING ON BED. DENIED PAIN, SOB, AND DIZZINESS. NO SIGNS OF DISTRESS NOTED. SAFETY MEASURES IN PLACE. BED ALARM ACTIVATED.
[2019-04-23 16:00] VITALS: BP 134/49
[2019-04-23] MEDS: MUPIROCIN CA NASAL 2% 1GM TUBE NS SCH (16:42)
[2019-04-23] MEDS: CHLORHEXADINE GLUC 2% CLOTH TP SCH (16:43)
[2019-04-23] MEDS: VANCOMYCIN 500 MG in DEXTROSE 5% 100 ML IV SCH (16:44)
--- NOTE | 2019-04-23 16:44 | NUR ---
ADMINISTERED SCHEDULED MEDS PER MD ORDER, MEDS EDUCATION PROVIDED TO PT AND PT SAID OK. PT TOLERATED MEDS WELL. COST COORDINATOR IS CLEANING AND REPOSITION PT. NO SIGNS OF DISTRESS NOTED. SAFETY MEASURES IN PLACE. BED ALARM ACTIVATED.
--- NOTE | 2019-04-23 17:47 | NUR ---
BIOMEDICAL FIELD SERVICE ENGINEER ASSISTING PT TO USE THE BEDSIDE COMMODE AND BACK TO BED SAFELY. NO SIGNS OF DISTRESS NOTED. SAFETY MEASURES IN PLACE. FALL RISK PROTOCOL IN PLACE AND BED ALARM ACTIVATED. INSTRUCTED PT TO USE THE CALL LIGHT FOR ANY ASSISTANCE AND PT WAS AWARE.
--- NOTE | 2019-04-23 18:10 | NUR ---
ADMINISTERED ZOSYN VIA IVPB PER MD ORDER, MED ED PROVIDED TO PT AND PT VERBALIZED UNDERSTANDING. PT IS EATING DINNER AND WATCHING TV ON BED AT THIS TIME. DENIED PAIN, SOB, AND DIZZINESS. NO SIGNS OF DISTRESS NOTED. SAFETY MEASURES IN PLACE. BED ALARM ACTIVATED.
--- NOTE | 2019-04-23 19:20 | NUR ---
ENDORSED PT AT BEDSIDE TO ELECTRIC BLASTING CAP ASSEMBLER CHARGE NURSE TEODORO FOR CONTINUITY OF CARE. PT AWAKE AND WATCHING TV ON BED AT THIS TIME. DENIED PAIN, SOB, AND DIZZINESS. RESPIRATION EVEN AND UNLABORED ON 4LPM VIA OXIMIZER, SPO2 AT 97%. NO SIGNS OF DISTRESS NOTED. PT IS IN STABLE CONDITION. SAFETY MEASURES IN PLACE. BED ALARM ACTIVATED.
--- NOTE | 2019-04-23 19:45 | NUR ---
RECEIVED PATIENT ON 5L OXYMIZER, PULSE OX SAT 98%. SCHEDULED BREATHING TREATMENT ADMINISTERED. TOLERATED TX WELL WITHOUT ADVERSE SIDE EFFECTS. INCENTIVE SPIROMETRY EDUCATION REINFORCED. PATIENT PERFORMED RETURN DEMONSTRATION WITH GOOD EFFORT. PLACED PATIENT ON 3L NASAL CANNULA, PT TOLERATING WELL AT THIS TIME, PULSE OX SAT 94%. BUBBLE HUMIDIFIER ADDED TO OXYGEN FOR COMFORT. NO ACUTE RESPIRATORY DISTRESS NOTED AT THIS TIME. WILL CONTINUE TO MONITOR.
--- NOTE | 2019-04-23 20:30 | NUR ---
RECEIVED PATIENT AOX4 IN BED, ON 4L O2. NO S/S OF DISTRESS NOTED AT THIS TIME. PT WITH INTERMITTENT COUGH BUT UNABLE TO EXPECTORATE SPUTUM. BED LOWERED WITH CALL LIGHT WITHIN REACH. WILL CONTINUE TO MONITOR
[2019-04-23 21:35] VITALS: BP 139/62
[2019-04-23] MEDS: MELATONIN 3 MG TAB PO PRN (21:39)
[2019-04-24] MEDS: KETOROLAC 15 MG/ML VIAL IVP PRN (00:25)
[2019-04-24] MEDS: PIPERACILLIN/TAZOBACTAM 2.25 GM in DEXTROSE 5% 50 ML IV SCH ×4 (00:26→18:24)
--- NOTE | 2019-04-24 00:49 | NUR ---
CENTRAL LINE DRESSING CHANGED
--- NOTE | 2019-04-24 02:00 | NUR ---
PT ASLEEP IN BED. NO S/S OF DISTRESS NOTED
[2019-04-24] MEDS: BLOOD GLUCOSE MONITORING 1 DEV DEV FS SCH ×3 (06:02→16:42)
[2019-04-24] MEDS: LEVOTHYROXINE 0.088 MG TAB PO SCH (06:03)
[2019-04-24 06:15] LABS: BASOPHILS # (AUTO) 0.1 K/uL (0.00-0.22); BASOPHILS % (AUTO) 0.7 % (0.0-2.0); EOSINOPHILS # (AUTO) 0.6 K/uL (0-0.4); EOSINOPHILS % (AUTO) 4.3 % (0.0-4.0); HEMATOCRIT 30.8 % (36-48); HEMOGLOBIN 9.5 g/dL (12.0-16.0); LYMPHOCYTES # (AUTO) 2.8 K/uL (2.5-16.5); LYMPHOCYTES % (AUTO) 19.9 % (20.5-51.1); MEAN CORPUSCULAR HEMOGLOBIN 23 pg (27-31); MEAN CORPUSCULAR HGB CONC 31 g/dL (33-37); MONOCYTES # (AUTO) 0.9 K/uL (0.8-1.0); MONOCYTES % (AUTO) 6.5 % (1.7-9.3); NEUTROPHILS # (AUTO) 9.5 K/uL (1.8-7.7); NEUTROPHILS % (AUTO) 68.6 % (42.2-75.2); PLATELET COUNT (AUTO) 529 K/uL (140-450); RED BLOOD CELL COUNT(AUTO) 4.05 MIL/uL (4.20-5.40); RED CELL DISTRIBUTION WIDTH 16.7 % (11.6-13.7); WHITE BLOOD COUNT (AUTO) 13.9 K/uL (4.8-10.8)
[2019-04-24 06:39] LABS: ANION GAP 9.2 (8-16); CARBON DIOXIDE 33.5 mmol/L (21-32); CHLORIDE 100 mmol/L (98-107); CREATININE 1.4 mg/dL (0.6-1.3); GLUCOSE 152 mg/dL (74-106); POTASSIUM 3.7 mmol/L (3.5-5.1); SODIUM SERUM 139 mmol/L (136-145); UREA NITROGEN, BLOOD 39 mg/dL (7-18)
[2019-04-24 06:46] LABS: MAGNESIUM 2.4 mg/dL (1.8-2.4); PHOSPHORUS 2.8 mg/dL (2.5-4.9)
--- NOTE | 2019-04-24 07:25 | NUR ---
PATIENT REPORT GIVEN TO DAYSHIFT NURSE. PATIENT ENDORSED IN STABLE CONDITION
--- NOTE | 2019-04-24 07:27 | NUR ---
RECEIVED BEDSIDE REPORT FROM LAUNDRY ROUTE DRIVER NURSE FOR CONTINUITY OF CARE. PT IS RESTING ON BED AT THIS TIME. AROUSABLE TO VOICE. RESPIRATION EVEN AND UNLABORED ON 4 LPM VIA OXYMIZER. DENIED PAIN, SOB, AND DIZZINESS. NO SIGNS OF DISTRESS NOTED. REJ TRIPLE LUMEN, CLEAN AND INTACT, INFUSING NS AT 10 ML/H AT THIS TIME. PT IS CONTINENT AND ABLE TO USE CALL LIGHT FOR ASSISTANCE TO USE THE BEDSIDE COMMODE. PT IS ABLE TO AMBULATE WITH ASSIST. CONTACT AND FALL RISK PROTOCOL IN PLACE, SIGNS POSTED. SAFETY MEASURES IN PLACE. BED IN LOW POSITION AND CALL LIGHT WITHIN REACH. INSTRUCTED PT TO USE THE CALL LIGHT FOR ANY ASSISTANCE AND PT WAS AWARE.
[2019-04-24 08:00] VITALS: BP 163/65
[2019-04-24] MEDS: ALBUTEROL SULFATE/IPRATROPIU 3 ML SOL IH SCH ×3 (08:02→19:00)
[2019-04-24] MEDS: FERROUS GLUCONATE 324 MG TAB PO SCH (08:58)
[2019-04-24] MEDS: busPIRone 5 MG TAB PO SCH (08:58)
[2019-04-24] MEDS: ASCORBIC ACID 500 MG TAB PO SCH (08:59)
[2019-04-24] MEDS: guaiFENesin 600 MG TABER PO SCH (09:00)
[2019-04-24] MEDS: ATORVASTATIN 20 MG TAB PO SCH (09:00)
[2019-04-24] MEDS ORDERED: LACTOBACILLUS RHAMNOSUS GG 1 EACH CAP PO SCH (09:00)
[2019-04-24] MEDS: FUROSEMIDE 40 MG/4 ML VIAL IVP SCH (09:01)
[2019-04-24] MEDS: CARVEDILOL 6.25 MG TAB PO SCH (09:02)
[2019-04-24] MEDS: metFORMIN 850 MG TAB PO SCH ×2 (09:02→17:17)
[2019-04-24] MEDS: ASPIRIN 81 MG TAB.CHEW PO SCH (09:03)
[2019-04-24] MEDS: CALCIUM ACETATE 667 MG TAB PO SCH ×2 (09:03→17:16)
[2019-04-24] MEDS: DOCUSATE SODIUM 100 MG GELCAP PO SCH (09:04)
[2019-04-24] MEDS: SERTRALINE 50 MG TAB PO SCH (09:04)
[2019-04-24] MEDS: LACTOBACILLUS RHAMNOSUS GG 1 EACH CAP PO SCH (09:06)
--- NOTE | 2019-04-24 09:09 | NUR ---
CHECKED BP PRIOR TO MEDS ADMINISTRATION, RECEIVED BP 140/59 PULSE 74. ADMINISTERED SCHEDULED AM MEDS, PT REFUSED COLACE AND STATED "I WENT TO BATHROOM 3X YESTERDAY, I DONT WANT IT." PROVIDED MEDS EDUCATION TO PT AND PT VERBALIZED UNDERSTANDING. PT TOLERATED PO MEDS WELL. DENIED PAIN, SOB, AND DIZZINESS. PT AWAKE AND TALKING ON HER PHONE. NO SIGNS OF DISTRESS NOTED. SAFETY MEASURES IN PLACE. BED ALARM ACTIVATED.
[2019-04-24] MEDS: NACL 0.9% 1,000 ML IV SCH (09:37)
[2019-04-24] MEDS ORDERED: HUMSLIDE SUBQ (10:43)
[2019-04-24] MEDS ORDERED: FERR324T11 PO (10:43)
[2019-04-24] MEDS ORDERED: GLUC-805 FS (10:43)
[2019-04-24] MEDS ORDERED: GUAI-791 PO (10:43)
[2019-04-24] MEDS ORDERED: CHLO118S2 TP (10:43)
[2019-04-24] MEDS ORDERED: LEVO0.087 PO (10:43)
[2019-04-24] MEDS ORDERED: VANC500P28 IV (10:43)
[2019-04-24] MEDS ORDERED: PIPE50SO5 IV (10:43)
[2019-04-24] MEDS ORDERED: MUPI2CRE22 NS (10:43)
[2019-04-24] MEDS ORDERED: LACT10CA PO (10:43)
[2019-04-24] MEDS ORDERED: VITC500 PO (10:43)
[2019-04-24] MEDS ORDERED: D50SYR IVP (10:43)
--- NOTE | 2019-04-24 11:41 | NUR ---
PT AWAKE AND WATCHING TV ON BED. DENIED PAIN, SOB AND DIZZINESS. NO SIGNS OF DISTRESS NOTED. SAFETY MEASURES IN PLACE. BED ALARM ACTIVATED.
[2019-04-24] MEDS: INSULIN LISPRO SLIDING SCALE 100 UNITS/ML VIAL SUBQ PRN (12:17)
--- NOTE | 2019-04-24 12:17 | NUR ---
PT RECEIVED HER LUNCH TRAY, ADMINISTERED 4 UNITS OF HUMALOG FOR BLOOD GLUCOSE 211 VIA SUBQ, AND ZOSYN VIA IVPB, MEDS ED PROVIDED TO PT AND PT VERBALIZED OK. PT IS SITTING UP ON CHAIR AND EATING LUNCH. NO SIGNS OF DISTRESS NOTED. SAFETY MEASURES IN PLACE. CALL LIGHT WITHIN REACH. INSTRUCTED PT TO USE THE CALL LIGHT FOR ANY ASSISTANCE AND PT WAS AWARE.
--- NOTE | 2019-04-24 12:49 | NUR ---
DR SOLIS IS TALKING TO PATIENT AT BEDSIDE. NO SIGNS OF DISTRESS NOTED.
--- NOTE | 2019-04-24 13:18 | NUR ---
HIM MANAGER ASSISTED PT TO GO BACK ON BED SAFELY. PT IS RESTING ON BED AT THIS TIME. NO SIGNS OF DISTRESS NOTED. SAFETY MEASURES IN PLACE. BED ALARM ACTIVATED.
--- NOTE | 2019-04-24 13:28 | NUR ---
04/24/19 RD INITIAL ASSESSMENT COMPLETED PLEASE REFER TO NUTRITION ASSESSMENT UNDER CARE ACTIVITY FOR ESTIMATED NUTRITIONAL NEEDS. 1. CONTINUE CCHO 60GM AND CARDIAC DIET TOLERATED 2. ENCOURAGE PO INTAKE 3. RD TO FOLLOW-UP 3-5 DAYS, MODERATE RISK REBEKAH VERMA, RD
--- NOTE | 2019-04-24 14:00 | NUR ---
ATTENDED TO PT'S CALL LIGHT AND PER PT, "I WANT TO KNOW WHERE AM I GOING AND WHEN I AM GOING? I AM NOT LEAVING TO ANYWHERE AFTER 6 O'CLOCK." CALLED [employer]T [employer]ER AND LEFT A MESSAGE FOR RADHIKA. EXPLAINED TO PT THAT I WILL FIND OUT FROM THE [facility]ER AND WILL LET HER KNOW SOON POSSIBLE. PT SAID OK.
--- NOTE | 2019-04-24 14:38 | NUR ---
ATTENDED TO PT'S CALL LIGHT AND EXPLAINED TO PT THAT SHE WILL TRANSFER TO [facility] THIS EVENING AT 7 PM. PT WAS AWARE AND SAID "OK, BUT I WANT TO TALK TO THE UPSET OPERATOR." CALLED RADHIKA AND LEFT A BRIEF MESSAGE. PT AWAKE AND SITTING UP ON BED WATCHING TV. NO SIGNS OF DISTRESS NOTED. SAFETY MEASURES IN PLACE. BED ALARM ACTIVATED.
[2019-04-24] MEDS: VANCOMYCIN 500 MG in DEXTROSE 5% 100 ML IV SCH (15:52)
--- NOTE | 2019-04-24 15:52 | NUR ---
ADMINISTERED VANCOMYCIN VIA IVPB PER MD ORDER, [facility] ED PROVIDED TO PT AND PT SAID OK. PT AWAKE AND RESTING ON BED. NO SIGNS OF DISTRESS NOTED. SAFETY MEASURES IN PLACE. BED ALARM ACTIVATED.
[2019-04-24 16:00] VITALS: BP 152/58
--- NOTE | 2019-04-24 16:13 | NUR ---
CALLED PT'S DAUGHTER GENIE [phone] AND GENIE WAS AWARE THAT PT IS GOING TO FILE SYSTEM INSTALLER AT 8 PM AND TRANSFER TO [facility]. ANSWERED ALL GENIE'S QUESTIONS AND PROVIDED A CALL BACK NUMBER FOR FURTHER QUESTION.
--- NOTE | 2019-04-24 16:30 | NUR ---
TOLERATED INCENTIVE SPIROMETRY THERAPY WELL WITHOUT ADVERSE REACTIONS NOTED ENCOURAGED PATIENT TO USE INCENTIVE SPIROMETRY EVERY 1-2 HOURS WHILE AWAKE
--- NOTE | 2019-04-24 16:33 | NUR ---
CALLED [facility] [phone] TO GIVE REPORT, PER DIRECTOR OF PUBLIC WORKS, THE RN IS ON THE PHONE AND SHE WILL ASK HER TO CALL ME BACK ONCE SHE OFF THE PHONE. PROVIDED MY NAME AND A CALL BACK NUMBER.
--- NOTE | 2019-04-24 16:46 | NUR ---
WOUND PICTURE-SKIN TEAR ON BUTTOCK TAKEN, AND COVERED WITH VERSATEL. HORTICULTURE PROFESSOR IS CLEANING AND REPOSITIONING PT, PT TOLERATED WELL. NO SIGNS OF DISTRESS NOTED. SAFETY MEASURES IN PLACE. BED ALARM ACTIVATED.
--- NOTE | 2019-04-24 17:00 | NUR ---
CALLED [facility] AND SPOKE WITH WENCESLAO. PROVIDED FULL REPORT TO WENCESLAO AND ANSWERED ALL WENCESLAO'S QUESTIONS. WENCESLAO WAS AWARE THAT PT IS GOING TO BE ABSENCE MANAGEMENT CONSULTANT FROM HOSPITAL AT 8 PM AND TRANSFER TO HER FACILITY IN ROOM 24A. PROVIDED A CALL BACK NUMBER FOR ANY FURTHER QUESTION.
[2019-04-24] MEDS: MUPIROCIN CA NASAL 2% 1GM TUBE NS SCH (17:16)
[2019-04-24] MEDS: CHLORHEXADINE GLUC 2% CLOTH TP SCH (17:17)
--- NOTE | 2019-04-24 17:17 | NUR ---
ADMINISTERED MEDS PER MD ORDER VIA PO, MEDS EDUCATION PROVIDED AND PT VERBALIZED OK. PT TOLERATED MEDS WELL. PT AWAKE AND WATCHING TV ON BED. NO SIGNS OF DISTRESS NOTED. SAFETY MEASURES IN PLACE. BED ALARM ACTIVATED.
--- NOTE | 2019-04-24 18:24 | NUR ---
ADMINISTERED ZOSYN IVPB. INFUSING WELL. MED ED TO PATIENT DONE. NO A/R NOTED. PATIENT AWAKE WATCHING TV. BED IN LOW POSITION. CALL LIGHT WITHIN REACH.
--- NOTE | 2019-04-24 19:15 | NUR ---
ENDORSED PATIENT AT BEDSIDE TO COMMUNICATIONS AND SIGNALS SUPERVISOR NURSE JOON. LEARY IS CHANGING PATIENT INTO [place]. NO SIGN OF DISTRESS NOTED. PATIENT IS IN STABLE CONDITION.
--- NOTE | 2019-04-24 19:16 | NUR ---
RECEIVED BEDSIDE REPORT FROM DAY SHIFT NURSE FOR CONTINUITY OF CARE. PT IS RESTING ON BED AT THIS TIME. AROUSABLE TO VOICE. RESPIRATION EVEN AND UNLABORED ON 2 LPM VIA NC. DENIED PAIN, SOB, AND DIZZINESS. NOTED. REJ TRIPLE LUMEN, CLEAN AND INTACT, INFUSING NS AT 10 ML/H AT THIS TIME. PT IS CONTINENT AND ABLE TO USE CALL LIGHT FOR ASSISTANCE TO USE THE BEDSIDE COMMODE. PT IS ABLE TO AMBULATE WITH ASSIST. BED IN LOW POSITION AND CALL LIGHT WITHIN REACH. PT WAITING FOR TRANSPORTATION.
--- NOTE | 2019-04-24 20:40 | NUR ---
TRANSPORTATION TEAM CAME AND PICKED PT UP. PT IN STABLE CONDITION.
== END 2019-04-24 20:40 | DRG 871 ==
LOC: MED 05:04 → MTU 09:37
PROVIDERS: ADMIT General Practice; ATTEND General Practice
PROC: 02HV33Z Insertion of Infusion Device into Superior Vena Cava, Percutaneous Approach (ICD-10-PCS; principal; 2019-04-21)
PROC: B548ZZA Ultrasonography of Superior Vena Cava, Guidance (ICD-10-PCS; 2019-04-21)
DX: A41.9 Sepsis, unspecified organism (principal); J69.0 Pneumonitis due to inhalation of food and vomit; N17.0 Acute kidney failure with tubular necrosis; E43 Unspecified severe protein-calorie malnutrition; J96.21 Acute and chronic respiratory failure with hypoxia; J96.22 Acute and chronic respiratory failure with hypercapnia; I50.31 Acute diastolic (congestive) heart failure; J44.1 Chronic obstructive pulmonary disease with (acute) exacerbation; N39.0 Urinary tract infection, site not specified; R65.20 Severe sepsis without septic shock; Z68.23 Body mass index [BMI] 23.0-23.9, adult; B96.4 Proteus (mirabilis) (morganii) as the cause of diseases classified elsewhere; D50.9 Iron deficiency anemia, unspecified; E03.9 Hypothyroidism, unspecified; E78.5 Hyperlipidemia, unspecified; E83.42 Hypomagnesemia; F32.9 Major depressive disorder, single episode, unspecified; F41.9 Anxiety disorder, unspecified; I11.0 Hypertensive heart disease with heart failure; M19.90 Unspecified osteoarthritis, unspecified site; Z96.653 Presence of artificial knee joint, bilateral; Z22.322 Carrier or suspected carrier of Methicillin resistant Staphylococcus aureus; Z85.3 Personal history of malignant neoplasm of breast; Z87.891 Personal history of nicotine dependence; Z88.2 Allergy status to sulfonamides; Z90.710 Acquired absence of both cervix and uterus; Z92.3 Personal history of irradiation; Z88.1 Allergy status to other antibiotic agents; Z88.7 Allergy status to serum and vaccine
CPT/HCPCS: 36415; 36600; 71045; 80048; 80053; 80202; 81001; 82150; 82607; 82746; 82803; 82948; 83540; 83605; 83690; 83735; 83880; 84100; 84439; 84443; 84484; 85025; 85045; 85610; 85730; 87040; 87081; 87086; 87186; 87804; 93005; 93308; 94640; 96365; 96367; 97110; 97112; 97116; 97161-GP; 97530; 99291; C1751; J1642; J1644; J1885; J1940; J2001; J2185; J2543; J2916; J2920; J3370; J3475; J7030; J7060; J7620; Q0092

== ENCOUNTER 2020-01-26 09:40 | Inpatient (IN) | payer OTHER, MEDICAID, SELFPAY ==
[~2020-01-26] VITALS: Ht 160 cm; Wt 73.0 kg
[~2020-01-26 09:40] MED LIST changes: -ACET-2619 PO; +ACET-9882 PO; +ALBU0.0912 IH; +ASCO500T95 PO; +ATA25 PO; +ATRN INH; -CHLO118S2 TP; +DIT5 PO; +FAMO-90 PO; +FLUC200T PO; +FURO-572 PO; +HYD1C TP; -LACT10CA PO; -LAS20I PO; +LEVO0.087 PO; -LOPE-289 PO; +MELA3TAB21 PO; -MELA3TAB56 PO; +MULT-1328 PO; -MUPI2CRE22 NS; -POTA10TE30 PO; -ROBAC PO; +SERT50TA PO; +SIME80TA22 PO; -SYN.1 PO; -Vancomycin Per Pharmacy MC; +ZINC10OI TP; -ZOS3.375I IV; -[UNRECOGNIZED DRUG - CODE] IV
--- NOTE | 2020-01-26 09:40 | NUR ---
PT KENDELL FROM [facility] AND PLACED IN BED 1. COVID PRECUATIONS IN PLACE.
[2020-01-26 09:41] VITALS: BP 134/51
--- NOTE | 2020-01-26 09:43 | NUR ---
PT PLACED ON 3 LEAD ECG AND PULSE OX.
--- NOTE | 2020-01-26 09:48 | NUR ---
Patient being evaluated by Dr. Hendrix at bedside.
[2020-01-26] MEDS ORDERED: NACL 0.9% 250 ML IV ONE (09:55)
--- NOTE | 2020-01-26 10:01 | NUR ---
84 Y/F PT BIBA FROM [facility] FOR GENERALIZED WEAKNESS, LETHARGY, AND FEVER SINCE YESTERDAY. HIGHEST FEVER WAS 101.8 YESTERDAY AND TYLENOL WAS GIVEN. PT IS AFEBRILE AT THIS TIME. A&OX4. DENIES ANY PAIN, COUGH, SOB, OR CP. PER EMS, PT HAS BEEN EXPOSED TO COVID WITH UNKNOWN DATE. PT LUNGS CLEAR, ABD SOFT, BS ACTIVE X 4. PULSES 2+. DENIES DYSURIA. PMH: ANEMIA, ANXIETY, HTN, HLD, COPD, HF, HYPOTHYROIDISM, PNA, DM, MALIGNANT NEOPLASM OF LEFT BREAST, NSTEMI, INSOMNIA, MRSA MEDS: SEE LIST
--- NOTE | 2020-01-26 10:20 | NUR ---
LAB AT BEDSIDE.
--- NOTE | 2020-01-26 10:24 | NUR ---
COVID X2, RSV AND FLU SWAB COLLECTED AND GIVEN TO PHLEB, PT TOLERATED WELL.
--- NOTE | 2020-01-26 10:39 | NUR ---
XR AT BEDSIDE.
[2020-01-26 10:41] LABS: BASOPHILS % (AUTO) 0.3 % (0.0-2.0); EOSINOPHILS % (AUTO) 0.4 % (0.0-4.0); HEMATOCRIT 24.8 % (36-48); HEMOGLOBIN 7.9 g/dL (12.0-16.0); LYMPHOCYTES # (AUTO) 1.1 K/uL (2.5-16.5); LYMPHOCYTES % (AUTO) 12.3 % (20.5-51.1); MEAN CORPUSCULAR HEMOGLOBIN 24 pg (27-31); MEAN CORPUSCULAR HGB CONC 32 g/dL (33-37); MEAN CORPUSCULAR VOLUME 76.5 fL (80-94); MONOCYTES # (AUTO) 0.7 K/uL (0.8-1.0); MONOCYTES % (AUTO) 8.3 % (1.7-9.3); NEUTROPHILS # (AUTO) 6.8 K/uL (1.8-7.7); NEUTROPHILS % (AUTO) 78.7 % (42.2-75.2); PLATELET COUNT (AUTO) 221 K/uL (140-450); RED BLOOD CELL COUNT(AUTO) 3.25 MIL/uL (4.20-5.40); RED CELL DISTRIBUTION WIDTH 15.7 % (11.6-13.7); WHITE BLOOD COUNT (AUTO) 8.6 K/uL (4.8-10.8)
[2020-01-26 10:52] LABS: PROTHROMBIN TIME 11.3 secs (10.8-13.4)
[2020-01-26 10:54] LABS: ALBUMIN 1.8 g/dL (3.4-5.0); ANION GAP 18.6 (8-16); ASPARTATE AMINOTRANSFERASE 15 U/L (15-37); CARBON DIOXIDE 17.4 mmol/L (21-32); CHLORIDE 111 mmol/L (98-107); CREATININE 2.4 mg/dL (0.6-1.3); GLUCOSE 124 mg/dL (74-106); SODIUM SERUM 144 mmol/L (136-145); TOTAL BILIRUBIN 0.2 mg/dL (0.0-1.0); UREA NITROGEN, BLOOD 53 mg/dL (7-18)
[2020-01-26 10:56] LABS: RSV NEGATIVE (NEGATIVE)
[2020-01-26] MEDS ORDERED: SERT50TA PO (10:57)
[2020-01-26] MEDS ORDERED: SYN.1 PO (10:57)
[2020-01-26] MEDS ORDERED: FURO-570 PO (10:57)
[2020-01-26] MEDS ORDERED: POTA10TE30 PO (10:57)
[2020-01-26 11:05] LABS: LACTATE DEHYDROGENASE 113 U/L (81-234)
--- NOTE | 2020-01-26 11:14 | NUR ---
PROVIDED YUDITH CARE TO PT. PT WITH MEDIUM BM, SOFT AND GREENISH. PTS LINEN CHANGED, AND PLACED IN GOWN.
[2020-01-26 11:19] LABS: C-REACTIVE PROTEIN QUANT 19.6 mg/dL (0.0-0.9)
--- NOTE | 2020-01-26 11:32 | NUR ---
SPOKE TO PTS SON WANDA AND GAVE HIM AN UPDATE ON PTS STATUS. PHONE NUMBER [phone]
[2020-01-26 12:01] LABS: APPEARANCE,URINE CLOUDY (CLEAR); BILIRUBIN,URINE NEGATIVE (NEGATIVE); BLOOD, URINE NEGATIVE (NEGATIVE); COLOR,URINE YELLOW (YELLOW); LEUKOCYTE ESTERASE ,URINE 3+ (NEGATIVE); NITRITE, URINE POSITIVE (NEGATIVE); UGLUCOSE NEGATIVE (NEGATIVE)
[2020-01-26] MEDS ORDERED: ONDANSETRON 4 MG/2 ML VIAL IM/IVP PRN (12:05)
[2020-01-26] MEDS ORDERED: DOCUSATE SODIUM 100 MG GELCAP PO PRN (12:05)
[2020-01-26 12:07] LABS: RBC,URINE NONE SEEN /HPF (0-5); WBC,URINE TOO MANY TO COUNT /HPF (0-5)
[2020-01-26] MEDS ORDERED: POTASSIUM CHLORIDE 10 MEQ TABER PO ONE (12:10)
[2020-01-26] MEDS ORDERED: MAG SULF 2000 MG/WATER PREMIX 50 ML IV ONE (12:10)
[2020-01-26] MEDS ORDERED: DEXTROSE 50% 50 ML SYR IVP PRN (12:10)
[2020-01-26] MEDS ORDERED: ALBUTEROL HFA MDI 90 MCG/ACTUATION 8 GM INH PRN (12:10)
[2020-01-26] MEDS ORDERED: cefTRIAXone 1,000 MG VIAL ONE (12:13)
[2020-01-26 12:20] LABS: MAGNESIUM 1.3 mg/dL (1.8-2.4); PHOSPHORUS 3.5 mg/dL (2.5-4.9)
--- NOTE | 2020-01-26 12:33 | NUR ---
CALLED MARCIE GRAJEDA AND GAVE REPORT.
[2020-01-26] MEDS ORDERED: MAG SULF 2000 MG/WATER PREMIX 50 ML IV SCH (12:41)
[2020-01-26] MEDS ORDERED: POTASSIUM CHLORIDE 10 MEQ TABER PO SCH (12:42)
--- NOTE | 2020-01-26 12:50 | NUR ---
RECEIVED THIS 84 YEAR OLD FEMALE PER LUIGI FROM ER, ADMITTED CASE OF COVID POSITIVE, DEHYDRATION, ANNIA. AWAKE ,ALERT, ORIENTEDX2, BREATHING SPONTANEOUSLY WITH O2 AT 3L/MIN VIA NC, NON LABORED NOTED. WITH IV CANNULA G 22 AT LEFT ON SALINE LOCK NOTED. SKIN WARM TO TOUCH AND INTACT. WITH LEBRON CATHETER F16 ATTACHED TO URINE BAG DRAINING TO A YELLOW URINE NOTED. MRSA NARES SWAB DONE. SAFETY MEASURES IN PLACE AND CONTINUE MONITOR.
--- NOTE | 2020-01-26 12:57 | NUR ---
Patient will be admitted to care of DR. SLOIS. Admited to TELE. Will go to room 115. Belongings list completed. Report to MARCIE GRAJEDA.
[2020-01-26] MEDS: NACL 0.9% 1,000 ML IV SCH (13:30)
--- NOTE | 2020-01-26 13:36 | NUR ---
DR. SOLIS MADE ROUNDS AND ASSESSED THE PATIENT, CLARIFIED THE ORDER OF POTASSIUM AND MAGNESIUM REPLACEMENT, ACCORDING TO HIM GIVE ANOTHER 40MEQ OF POTASSIUM AND TOTAL 4000MG OF MAGNESIUM ORDERED, NOTED
[2020-01-26] MEDS ORDERED: MAGNESIUM OXIDE 400 MG TAB PO PRN (13:40)
[2020-01-26] MEDS ORDERED: POTASSIUM CHLORIDE 10 MEQ TABER PO PRN (13:40)
[2020-01-26] MEDS ORDERED: HYDROCORTISONE 1% CRM 30 GM TUBE TP PRN (14:50)
[2020-01-26] MEDS ORDERED: NITROGLYCERIN 0.4 MG TAB SL SCH (14:50)
[2020-01-26] MEDS ORDERED: SIMETHICONE 80 MG TAB.CHEW PO PRN (14:50)
--- NOTE | 2020-01-26 15:38 | NUR ---
PASSED LARGE AMOUNT OF SOFT GREENISH STOOL, CLEANSE AND CHUX CHANGE, KEPT COMFORTABLE TO BED,
[2020-01-26] MEDS: busPIRone 5 MG TAB PO SCH (16:37)
[2020-01-26] MEDS: metFORMIN 500 MG TAB PO SCH (16:38)
--- NOTE | 2020-01-26 16:48 | NUR ---
GLUCOSE-147, NO INSULIN COVERAGE. DUE MEDICATION GIVEN
[2020-01-26] MEDS: BLOOD GLUCOSE MONITORING 1 DEV DEV FS SCH ×2 (16:53→21:00)
--- NOTE | 2020-01-26 17:01 | NUR ---
DR. HAMMER MADE ROUNDS, MADE ORDER TO TRANSFUSE 1 UNIT CONVALESCENT PLASMA AND UPDATE PATIENT STATUS. CONENT SIGNED BY DR. HAMMER, ID
[2020-01-26] MEDS ORDERED: remdesivir COMMUNICATION ORDER 1 EA MISC MC PRN (17:15)
--- NOTE | 2020-01-26 17:42 | NUR ---
IMMEDIATE FAMILY, MR JOHN CARTER, SON CONTACTED TO OBTAIN THE CONSENT FOR TRANSFUSION OF CONVALESCENT PLASMA, AGREED AND VERBALIZED UNDERSTANDING. VERIFIED BY SECOND NURSE KAY.
--- NOTE | 2020-01-26 17:53 | NUR ---
BLOOD BANK PERSONNEL CALLED, CONVALESCENT PLASMA NOT AVAILABLE AND AVAILABLE AFTER 24HRS, CHARGE NURSE MADE AWARE.
--- NOTE | 2020-01-26 18:18 | NUR ---
HAVING HER DINNER, NOT IN DISTRESS NOTED
--- NOTE | 2020-01-26 19:30 | NUR ---
RECEIVED REPORT FROM EDUARD RN DAYSHIFT NURSE AT BEDSIDE FOR CONTINUITY OF CARE, PT IN STABLE CONDITION.
--- NOTE | 2020-01-26 20:18 | NUR ---
ENDORSED TP ADJUNCT BUSINESS INSTRUCTOR IN STABLE CONDITION FOR CONTINUITY OF CARE AND PLAN OF CARE DISCUSSED. CONVALESCENT PLASMA WILL BE AVAILABLE AFTER 24HRS PER THE BLOOD BANK.
--- NOTE | 2020-01-26 20:20 | NUR ---
PT SITTING UP IN BED AOX 2-3. PT FINGERSTICK IS 129, NO HUMALOG COVERAGE NEEDED. PT GIVEN ORDERED ND SCHEDULED COREG, PEPCID AND HEPARIN. PT EDUCATED AT BED BEDSIDE REGARDING DIAGNOSIS AND PURPOSES FOR MEDICATION, INCLUDING SIDE EFFECTS. V/S FOLLOWS: T 97.3 P 90 R 20 B/P15 02 99% ON 6 LITERS VIA N/C. ALL REQUESTS ATTENDED BY STAFF AND CALL SANDERSON IN REACH.
[2020-01-26] MEDS: FAMOTIDINE 20 MG TAB PO SCH (22:11)
[2020-01-26] MEDS: carvediloL 6.25 MG TAB PO SCH (22:11)
--- NOTE | 2020-01-27 00:35 | NUR ---
PT IN BED AOX2-3. PT V/S FOLLOWS: T 97.0 P 73 R 20 B/P 106/58 02 IS 98%. ALL REQUESTED NEEDS ATTENDED BY STAFF.
--- NOTE | 2020-01-27 04:15 | NUR ---
PT IN BED SHE WAS TURNED,CHANGED AND REPOSITIONED IN BED. V/S FOLLOWS: T 97.5 P 83 R 18 B/P 131/91 02 84 AND GOING DOWN DESPITE REPLACING PULSE OX. RT CALLED TO ASSES PT.
--- NOTE | 2020-01-27 05:00 | NUR ---
RT PLACE PT ON 9 LITERS OF OXYMIZER SHE IS NOW STATING 93%. LAB CALLED REGARDING PLASMA, PT AGAIN GAVE VERBAL CONSENT THAT SHE WILL TAKE THE CONVALESCENTS PLASMA. PLASMA IS BEING THAWED.
[2020-01-27] MEDS: LEVOTHYROXINE 0.088 MG TAB PO SCH (05:41)
--- NOTE | 2020-01-27 06:00 | NUR ---
FINGERSTICK IS 127 NO HUMALOG COVERAGE NEEDED.
[2020-01-27] MEDS: BLOOD GLUCOSE MONITORING 1 DEV DEV FS SCH ×4 (06:04→20:37)
--- NOTE | 2020-01-27 07:20 | NUR ---
RECEIVED REPORT FROM UPSETTER SETTER UP NURSE. PATIENT LYING DOWN IN BED SLEEPING, AROUSABLE BY VOICE. NO DISTRESS NOTED. DENIES ANY PAIN. AAOX3, CALM, COOPERATIVE, SKIN COLOR APPROPRIATE TO ETHNICITY, WARM TO TOUCH. SKIN INTACT. RESPIRATIONS EVEN, UNLABORED, ON O2 9L/MIN VIA OXIMIZER. IV SITE INTACT, PATENT, AND INFUSING IVF PER MD ORDERS. LEBRON CATHETER IN PLACE. REVIEWED PLAN OF CARE WITH PATIENT. PATIENT VERBALIZED UNDERSTANDING. SAFETY MEASURES IN PLACE, CALL LIGHT WITHIN REACH. WILL CONTINUE TO MONITOR.
[2020-01-27 08:00] VITALS: BP 145/71
[2020-01-27] MEDS ORDERED: ENOXAPARIN 40 MG/0.4 ML SYR SUBQ SCH (09:00)
--- NOTE | 2020-01-27 09:22 | NUR ---
PATIENT HAS BEEN SCREENED AND CATEGORIZED MODERATE NUTRITION RISK. PATIENT WILL BE SEEN WITHIN 3-5 DAYS OF ADMISSION. 01/29/20 01/31/[address]
[2020-01-27] MEDS: FUROSEMIDE 40 MG TAB PO SCH (10:40)
[2020-01-27] MEDS: busPIRone 5 MG TAB PO SCH ×3 (10:41→18:00)
[2020-01-27] MEDS: OXYBUTYNIN 5 MG TAB PO SCH (10:41)
[2020-01-27] MEDS: carvediloL 6.25 MG TAB PO SCH ×2 (10:42→20:25)
[2020-01-27] MEDS: ASPIRIN 81 MG TAB.CHEW PO SCH (10:42)
[2020-01-27] MEDS: metFORMIN 500 MG TAB PO SCH ×2 (10:42→18:00)
[2020-01-27] MEDS: SERTRALINE 50 MG TAB PO SCH (10:42)
[2020-01-27] MEDS: LORATADINE 10 MG TAB PO SCH (10:42)
[2020-01-27] MEDS: FERROUS SULFATE 325 MG TABEC PO SCH (10:43)
[2020-01-27] MEDS: ATORVASTATIN 20 MG TAB PO SCH (10:43)
[2020-01-27] MEDS: ASCORBIC ACID 500 MG TAB PO SCH (10:43)
[2020-01-27] MEDS: ZINC SULF 220 MG CAP PO SCH (10:44)
[2020-01-27] MEDS: VITAMIN D 400 IU TAB PO SCH (10:49)
--- NOTE | 2020-01-27 11:19 | NUR ---
PER PHARMACIST MICHELL, PATIENT NOT CANDIDATE FOR REMDESIVIR AT THIS TIME DUE TO DECREASED RENAL FUNCTION. IF RENAL FUNCTION IMPROVES, CAN DISPENSE ANOTHER DAY. WILL LET MD KNOW.
[2020-01-27 12:00] VITALS: BP 122/56
[2020-01-27] MEDS: NACL 0.9% 1,000 ML IV SCH (12:05)
--- NOTE | 2020-01-27 12:15 | NUR ---
SOCIAL WORK NOTE: Patient's Orientation Unable To Assess Information Provided By JOHN CARTER - SON Comments SW WAS UNABLE TO MEET PATIENT AT BEDSIDE DUE TO MEDICAL CONDITION. SW COMPLETED ASSESSMENT WITH PATIENT'S SON, JOHN. Plumber Pipe Fitting, Realtionship and Phone Number JOHN CARTER SON [phone] [place] SON [phone] Healthcare Power of Media Clerk No Does Patient Have a POLST No Identifying Problems No Social Work Triggers Is A Social Work Consult Needed No Mandate Report Filed No Explanation Of Identifying Problems PATIENT IS AN 84-YEAR-OLD MALE ADMITTED FOR COVID AND DEHYDRATION. PATIENT HAS PMHX OF COPD, DIABETES, HYPERTENSION, PULMONARY FIBROSIS, AND HEART FAILURE. PATIENT WAS ADMITTED FROM [facility]IV[facility]. Admitted From Assisted Living/Resident Pre-Admission Level Of Functioning Status Total Care Prior Resources/Services Used In Last 12 Months Assisted Living Prior DME Home Oxygen Walker Wheelchair Dialysis Comments N/A Living Situation Asst'd Living/Board &Care Patient Had Caregiver Yes Home Support No Caregiver Issues Financial Issues No Known Financial Issue Referral To The Financial Counselor Needed No Factors/Needs Assist Living/B & C Plcmt Explanation And Or Other Factors Affecting/Possible DC Needs PATIENT'S SON STATED THAT HE IS AGREEABLE TO SNF PLACEMENT UNTIL PATIENT CAN RETURN TO [facility]. Pt/Rep Participated In Discharge Plan Yes Patient/Family Agress With Discharge Plan Yes Discharge Plan Comments TENTATIVE DISCHARGE PLAN IS FOR PATIENT TO RETURN HOME. DC Plan Status Initiated
--- NOTE | 2020-01-27 12:34 | NUR ---
DISCHARGE PLANNING: JAN HUTCHINSON [facility] UPDATED OF THE PATIENT'S CONDITION. SHE PROVIDED ME WITH TRACKING NUMBER [id number]. SHE STATED THEY DO NOT PROVIDE AUTH UNTIL DISCHARGE. Addendum: 01/27/20 at 1249 by Rosalie Curran CM DC HOT WATER HEATER INSTALLER: SPOKE TO PATIENTS JOHN RUDD [phone] ABOUT DC TO SNF. HE STATED THAT HIS MOTHER MAKES HER OWN MEDICAL DECISIONS SO TO SPEAK TO HER TO SEE IF SHE HAS A PREFERENCE IN SNF. Addendum: 01/27/20 at 1302 by Rosalie Curran CM DC HOT WATER HEATER INSTALLER: CALLED PATIENTS ROOM PHONE TO DISCUSS PREFERENCE IN SNF. SHE WOULD NOT RESPOND TO MY QUESTIONS SO I ASKED HER IF SHE WOULD LIKE ME TO CALL HER SON, SHE SAID YES. CONTACTED SON HE WILL DISCUSS WITH HIS BROTHER AND CONTACT ME BACK. Addendum: 01/27/20 at 1407 by Chetna Michelle THIS IS AN 84 Y/O FEMALE PATIENT FROM [facility], WHO WAS BIBA DUE TO GENERALIZED WEAKNESS AND POSSIBLE FEVER WITH FATIGUE. PAST MEDICAL HISTORY INCLUDE COPD, DIABETES, HTN, PULMONARY FIBROSIS, HEART FAILURE, ANXIETY DISORDER, DEPRESSION DISORDER, BREAST CA, HYPOTHYROIDISM ANEMIA, OVERACTIVE BLADDER AND TOTAL KNEE REPLACEMENT. CURRENT LABS INCLUDE WBC 8.6, H/H 7.9/24.8, NA/K 144/3.0, BUN/CREA 53/2.4, FIBRINOGEN 456. RAPID COVID TEST POSITIVE, PCR PENDING. ON DECADRON, ROCEPHIN, REMDESIVIR. WITH CONVALESCENT PLASMA ORDER. ID AND PULMO CONSULTS IN PLACE. ON OXIMIZER AT 9 LPM, O2 SAT 98%. DC PLAN PENDING ON PATIENT'S RESPONSE TO TREATMENT. Addendum: 01/28/20 at 1019 by Rosalie Curran CM DC HOT WATER HEATER INSTALLER: SPOKE TO BOTH OF THE PATIENTS SONS JOHN AND WANDA. THEY ARE BOTH IN AGREEMENT TO THEIR MOTHER GOING TO [facility]. WILL FAX PATIENTS CLINICALS Addendum: 01/28/20 at 1428 by Rosalie Curran CM DC HOT WATER HEATER INSTALLER: RECEIVED A CALL FROM CRYSTAL AT [facility], THEY ARE ABLE TO ACCEPT THIS PATIENT. NOTIFIED JASPER AT [facility]. Addendum: 01/31/20 at 1121 by Rosalie Curran CM DC HOT WATER HEATER INSTALLER: RECEIVED DC ORDER TO SNF. PATIENT WILL GO TO [facility] ROOM 113-[address] RODAS. NOTIFIED PATIENTS JOHN RUDD [phone] ABOUT DISCHARGE AND DISCUSSED RIGHTS OF MEDICARE. IMM DOCUMENTED. Addendum: 01/31/20 at 1122 by Rosalie Curran CM MIREILLE MONZON: JAN HUTCHINSON FROM [employer] [phone] WILL BE SETTING UP TRANSPORTATION WITH [facility] AND CONTACT ME BACK WITH ETA. Addendum: 01/31/20 at 1154 by Rosalie Curran CM [place]RE[place]LE MONZON: CONTACTED [facility] AND SPOKE TO STEFANIE TO NOTIFY THEM THAT PATIENT WILL BE DISCHARGED TO [facility] TODAY. Addendum: 01/31/20 at 1406 by Rosalie Curran CM [place]RE[place] MONZON: JASPER WAS NOT ABLE TO SET UP TRANSPORTATION FOR THIS PATIENT WITH [facility]. CONTACTED JOSE CARLOS AT [facility] TO SEE IF SHE IS ABLE TO SET UP TRANSPORTATION. HOWEVER, WHEN I NOTIFIED HER THAT PATIENT IS ON 6L NASAL CANNULA SHE STATED THAT THEY COULD NOT ACCEPT THE PATIENT. NOTIFIED JASPER SHE ASKED THAT I FAX THE CLINICALS TO [facility]. Addendum: 01/31/20 at 1411 by Rosalie Curran CM [place]RE[place]LE MONZON: FAXED PATIENTS CLINICALS TO [facility]. WILL FOLLOW UP Addendum: 01/31/20 at 1453 by Rosalie Curran CM [place]RE[place] MONZON: RECEIVED CALL FROM KATE FROM [facility]. THEY ARE NOT ABLE TO ACCEPT THE PATIENT WITH 6L OXYGEN Addendum: 01/31/20 at 1526 by Rosalie Curran CM [place]RE[place] MONZON: FAXED PATIENTS CLINICALS TO [facility] [phone] FAX # [phone]. SPOKE TO SOLA THEY HAVE RECEIVED THE PACKET AND HER DON IS REVIEWING. SHE WILL CONTACT ME BACK SHORTLY. Addendum: 01/31/20 at 1631 by Rosalie Curran CM MIRE[place]LE MONZON: FOLLOWED UP WITH SOLA AT [facility] OF TODAY THEY ARE NOT ABLE TO ACCEPT THIS PATIENT BECAUSE THEY ARE ON A HOLD BY THE DEPARTMENT OF HEALTH Addendum: 02/02/20 at 1516 by Javed Ng JAYME SPOKE WITH DR. MILTON WHO STATED THAT PATIENT IS NOT STABLE FOR DISCHARGE AT THIS TIME. Addendum: 02/03/20 at 1043 by Rosalie Curran CM [place]RE[place] MONZON: SPOKE TO CRYSTAL THIS MORNING AT [facility] THEY ARE ABLE TO ACCEPT THIS PATIENT TODAY SINCE SHE IS AT 5 LITERS NASAL CANNULA. PATIENT CAN GO TO ROOM 113-A UND[address] DR. RODAS Addendum: 02/03/20 at 1107 by Rosalie Curran CM [place] MONZON: SPOKE TO JASPER MONTOYA AT [facility] SHE IS GOING TO SET UP TRANSPORTATION WITH [facility] AND CONTACT ME BACK. Addendum: 02/03/20 at 1323 by Rosalie Curran CM [place]RE[place] MONZON: CALLED JASPER AND [facility] [employer] REGARDING TRANSPORTATION FOR THIS PATIENT. Addendum: 02/03/20 at 1337 by Rosalie Curran CM DC HOT WATER HEATER INSTALLER: CONTACTED [facility] THEY DO NOT PROVIDE OXYGEN FOR PATIENTS. [facility] DOES NOT HAVE DRIVERS IN OUR AREA AT THIS TIME AND [facility] DOES NOT PROVIDE TRANSPORTATION FOR COVID POSITIVE Addendum: 02/03/20 at 1353 by Rosalie Curran CM DC HOT WATER HEATER INSTALLER: CRYSTAL FROM [facility] WAS ABLE TO SEND HER POSTAL SORTING OFFICER FOR US. SHE ASKED IF WE ARE ABLE TO PROVIDE OXYGEN FOR PATIENT AND SHE WILL BRING IT BACK. CALLED DIGNA SALCEDO HE SAID THAT IS WAS OKAY LONG THEY BRING IT BACK. NOTIFIED MARCIE HAND THAT PATIENT WILL BE PICKED UP AROUND 2:40PM
--- NOTE | 2020-01-27 13:34 | NUR ---
SCHEDULED MEDICATIONS DUE GIVEN. WILL CONTINUE TO MONITOR.
--- NOTE | 2020-01-27 14:35 | NUR ---
1 UNIT CONVALESCENT PLASMA STARTED. WILL CONTINUE TO MONITOR.
--- NOTE | 2020-01-27 15:48 | NUR ---
Covid + results received from lab. Copy to housekeeping director and Magdalena from infection control
[2020-01-27 16:00] VITALS: BP 128/55
[2020-01-27] MEDS: INSULIN LISPRO SLIDING SCALE 100 UNITS/ML VIAL SUBQ PRN (18:00)
--- NOTE | 2020-01-27 18:11 | NUR ---
SCHEDULED MEDICATIONS DUE GIVEN. WILL CONTINUE TO MONITOR.
--- NOTE | 2020-01-27 19:15 | NUR ---
RECEIVED BEDSIDE REPORT FROM DAY SHIFT NURSE. PATIENT IS AWAKE, ALERT, AND COOPERATIVE. RESPIRATION EVEN UNLABORED ON 6L NON-REBREATHER MASK. NO DISTRESS NOTED. SKIN IS WARM AND DRY. IV PATENT AND INTACT. LEBRON CATHETER DRAINING YELLOW URINE. PLAN OF CARE WAS DISCUSSED. ALL SAFETY MEASURES IN PLACE. BED IS AT LOW POSITION. CALL LIGHT WITHIN REACH.
--- NOTE | 2020-01-27 19:25 | NUR ---
GAVE REPORT TO CHIEF DESIGN ENGINEER NURSE FOR CONTINUITY OF CARE. PATIENT IN STABLE CONDITION.
[2020-01-27 20:00] VITALS: BP 129/60
[2020-01-27] MEDS: FAMOTIDINE 20 MG TAB PO SCH (20:25)
--- NOTE | 2020-01-27 20:37 | NUR ---
INITIAL ASSESSMENT DONE. VITALS WERE TAKEN. PATIENT BLOOD SUGAR 165. PATIENT REFUSED INSULIN PER PATIENT HER SUGAR IS NOT THAT HIGH FOR HER TO TAKE THE SHOT. EDUCATED THE PATIENT AND EXPLAINED THE RISK AND BENEFITS X2 STILL REFUSED. WILL CONTINUE TO MONITOR.
--- NOTE | 2020-01-27 22:40 | NUR ---
CHECKED PATIENT. PATIENT WATCHING TV NO DISTRESS NOTED, WILL CONTINUE TO MONITOR
[2020-01-28] VITALS: BP 106/65
--- NOTE | 2020-01-28 00:05 | NUR ---
VITALS WERE TAKEN. PATIENT IN STABLE CONDITION. NO DISTRESS NOTED
--- NOTE | 2020-01-28 01:57 | NUR ---
MADE ROUNDS. PATIENT SLEEPING. RESPIRATION EVEN UNLABORED ON 6L OXYMIZER O2. NO DISTRESS NOTED. WILL CONTINUE TO MONITOR.
[2020-01-28 04:00] VITALS: BP 148/75
--- NOTE | 2020-01-28 04:11 | NUR ---
VITALS WERE TAKEN. SHIP CEILER AT BEDSIDE. PROVIDED MORNING CARE AND PERICARE
[2020-01-28] MEDS: BLOOD GLUCOSE MONITORING 1 DEV DEV FS SCH ×4 (06:32→20:32)
[2020-01-28] MEDS: LEVOTHYROXINE 0.088 MG TAB PO SCH (06:32)
--- NOTE | 2020-01-28 07:12 | NUR ---
ENDORSED PATIENT TO DAY SHIFT NURSE AT BEDSIDE FOR CONTINUITY OF CARE
--- NOTE | 2020-01-28 07:14 | NUR ---
RECEIVED REPORT FROM NIGHT NURSE PT IS AAOX4 ON 9LPM OXYGEN VIA OXIMIZER FULL CODE AND CCHO 60 GRMS IV SITES INTACT AND PATENT, 1 UNIT PLASMA GIVEN ON 01/27/20.SAFETY MEASURES IN PLACE AND CALL LIGHT WITHIN REACH. WILL CONTINUE TO MONITOR.
[2020-01-28 07:21] LABS: BASOPHILS % (AUTO) 0.1 % (0.0-2.0); HEMATOCRIT 32.3 % (36-48); HEMOGLOBIN 10.2 g/dL (12.0-16.0); LYMPHOCYTES # (AUTO) 0.9 K/uL (2.5-16.5); LYMPHOCYTES % (AUTO) 6.7 % (20.5-51.1); MAGNESIUM 2.5 mg/dL (1.8-2.4); MEAN CORPUSCULAR HEMOGLOBIN 24 pg (27-31); MEAN CORPUSCULAR HGB CONC 32 g/dL (33-37); MEAN CORPUSCULAR VOLUME 76.5 fL (80-94); MONOCYTES # (AUTO) 0.6 K/uL (0.8-1.0); MONOCYTES % (AUTO) 4.3 % (1.7-9.3); NEUTROPHILS # (AUTO) 11.5 K/uL (1.8-7.7); NEUTROPHILS % (AUTO) 88.9 % (42.2-75.2); PLATELET COUNT (AUTO) 369 K/uL (140-450); RED BLOOD CELL COUNT(AUTO) 4.22 MIL/uL (4.20-5.40); RED CELL DISTRIBUTION WIDTH 15.7 % (11.6-13.7)
[2020-01-28 07:24] LABS: ANION GAP 22.9 (8-16); CARBON DIOXIDE 17.9 mmol/L (21-32); CHLORIDE 103 mmol/L (98-107); CREATININE 3.2 mg/dL (0.6-1.3); GLUCOSE 117 mg/dL (74-106); POTASSIUM 4.8 mmol/L (3.5-5.1); SODIUM SERUM 139 mmol/L (136-145)
[2020-01-28 08:00] VITALS: BP 158/70
[2020-01-28 08:27] LABS: UREA NITROGEN, BLOOD 66 mg/dL (7-18)
[2020-01-28] MEDS: LORATADINE 10 MG TAB PO SCH (08:42)
[2020-01-28] MEDS: SERTRALINE 50 MG TAB PO SCH (08:43)
[2020-01-28] MEDS: ASCORBIC ACID 500 MG TAB PO SCH (08:43)
[2020-01-28] MEDS: metFORMIN 500 MG TAB PO SCH (08:44)
[2020-01-28] MEDS: ZINC SULF 220 MG CAP PO SCH (08:44)
[2020-01-28] MEDS: VITAMIN D 400 IU TAB PO SCH (08:44)
[2020-01-28] MEDS: ASPIRIN 81 MG TAB.CHEW PO SCH (08:45)
[2020-01-28] MEDS: FERROUS SULFATE 325 MG TABEC PO SCH (08:45)
[2020-01-28] MEDS: ATORVASTATIN 20 MG TAB PO SCH (08:45)
[2020-01-28] MEDS: FUROSEMIDE 40 MG TAB PO SCH (08:46)
[2020-01-28] MEDS: OXYBUTYNIN 5 MG TAB PO SCH (08:46)
[2020-01-28] MEDS: carvediloL 6.25 MG TAB PO SCH ×2 (08:46→20:36)
[2020-01-28] MEDS: busPIRone 5 MG TAB PO SCH ×3 (08:47→16:26)
--- NOTE | 2020-01-28 08:47 | NUR ---
MEDICATIONS DUE GIVEN CHECK VITAL SIGNS PRIOR TO MEDICATION BP 158/70 IN 108 AND PATIENT TOLERATED WELL, PATIENT IS WEAK UNABLE TO FEED HERSELF. SAFETY MEASURES IN PLACE CALL LIGHT WITHIN REACH.
--- NOTE | 2020-01-28 09:20 | NUR ---
PATIENT WAS EVALUATED BY THE PHYSICAL THERAPY, BALANCE TRAINING AND PATIENT IS WEAK AND HAD A HARD TIME MAINTAINING BALCE DUE TO GENERALIZED WEAKNESS, SATURATION AT 97%. SAFETY MEASURES IN PLACE, CALL LIGHT WITHIN REACH. WILL CONTINUE TO MONITOR.
--- NOTE | 2020-01-28 11:30 | NUR ---
BLOOD SUGAR AT 216 MG/DL INSULIN COVERAGE GIVEN
[2020-01-28] MEDS: INSULIN LISPRO SLIDING SCALE 100 UNITS/ML VIAL SUBQ PRN ×3 (11:41→20:35)
[2020-01-28 12:00] VITALS: BP 115/50
--- NOTE | 2020-01-28 12:00 | NUR ---
MADE ROUNDS AT THIS TIME AND CHECK VITAL SIGNS PT IS STABLE.
[2020-01-28] MEDS: NACL 0.9% 1,000 ML IV SCH (12:09)
[2020-01-28] MEDS: CHLORHEXADINE GLUC 2% CLOTH TP SCH (13:38)
[2020-01-28] MEDS: MUPIROCIN CA NASAL 2% 1GM TUBE NS SCH (13:38)
[2020-01-28 16:00] VITALS: BP 110/48
--- NOTE | 2020-01-28 16:30 | NUR ---
BLOOD SUGAR LEVEL AT 200 MG/DL INSULIN COVERAGE GIVEN. AND MEDICATION DUE GIVEN.
--- NOTE | 2020-01-28 19:08 | NUR ---
ENDORSED TO NIGHT NURSE FOR CONTINUITY OF CARE. PT IS STABLE.
--- NOTE | 2020-01-28 19:10 | NUR ---
RECEIVED BEDSIDE REPORT FROM DAY SHIFT NURSE FOR CONTINUITY OF CARE. PT IS AWAKE AND ALERT. A&OX4. ON 9L OXIMIZER WITH BREATHING UNLABORED. O2 SAT IS AT 98% AT THIS TIME. SR ON TELE MONITORING. DIAPER IS IN PLACE AND DRY. LEBRON CATHETER IN PLACE WELL. SKIN IS WARM, DRY, AND INTACT. IV IS IN THE LEFT HAND 22 GAUGE RUNNING NS FLUIDS. BED IS IN THE LOWEST POSITION AND CALL LIGHT IS WITHIN REACH. PLAN OF CARE DISCUSSED.
[2020-01-28 20:00] VITALS: BP 113/59
[2020-01-28] MEDS: FAMOTIDINE 20 MG TAB PO SCH (20:35)
--- NOTE | 2020-01-28 20:35 | NUR ---
PT'S BS READING WAS 179. PT RECEIVED 2 UNITS HUMALOG INSULIN PER SLIDING SCALE. MEDICATION EDUCATION WAS GIVEN AND PT VERBALIZED UNDERSTANDING.
--- NOTE | 2020-01-28 22:30 | NUR ---
PT'S LINENS WERE SOILED WITH A BM. PT WAS CHANGED AND REPOSITIONED. BM WAS BROWN, LIQUID, AND MALODOROUS. PT COMPLAINS THAT SHE NEVER HAS DIARRHEA LIKE THIS. EDUCATION WAS PROVIDED AND PT VERBALIZED UNDERSTANDING. BED IS IN THE LOWEST POSITION. FALL PRECAUTIONS IN PLACE.
[2020-01-29] VITALS: BP 126/71
--- NOTE | 2020-01-29 00:30 | NUR ---
ROUNDED ON PT. SHE IS SLEEPING IN SEMI FOWLERS POSITION. PT IS ON 9L O2 OXIMIZER WITH O2 SAT AT 98%. CHEST RISE AND FALL IS SYMMETRICAL. NO RESPIRATORY DISTRESS NOTED.
--- NOTE | 2020-01-29 03:00 | NUR ---
PT'S LINENS ARE SOILED WITH A BM. PT WAS CHANGED AND REPOSITIONED. PT HAD A LIQUID BM, BROWN IN COLOR. PT WAS GIVEN WATER TO DRINK AND A SNACK TO EAT. NO DISTRESS NOTED.
[2020-01-29 04:00] VITALS: BP 127/54
--- NOTE | 2020-01-29 04:16 | NUR ---
PT REPOSITIONS SELF IN BED. PT ABLE TO TURN WELL. PILLOWS UNDERNEATH BONY REGIONS. PT IS STABLE AT THIS TIME.
--- NOTE | 2020-01-29 06:15 | NUR ---
IV IS INFILTRATED AND LEFT ARM IS SWOLLEN. ARM WAS PLACED ON A PILLOW TO ELEVATE AND DISPERSE THE FLUID. IV WAS REMOVED AND CANNULA WAS INTACT.
--- NOTE | 2020-01-29 06:30 | NUR ---
BS READING WAS 132. PT DOES NOT NEED INSULIN COVERAGE PER SLIDING SCALE. PT IS STABLE AT THIS TIME. O2 SAT IS 97% ON 9L O2 OXIMIZER. PT WAS CHANGED AND REPOSITIONED.
[2020-01-29] MEDS: LEVOTHYROXINE 0.088 MG TAB PO SCH (06:33)
[2020-01-29] MEDS: BLOOD GLUCOSE MONITORING 1 DEV DEV FS SCH ×4 (06:43→22:05)
--- NOTE | 2020-01-29 07:05 | NUR ---
NEW IV WAS PLACED ON PT. IV IS IN THE LEFT WRIST 24 GAUGE. IV IS PATENT AND INFUSING. LEFT ARM IS INFILTRATED AND PILLOWS ARE IN PLACE.
--- NOTE | 2020-01-29 07:15 | NUR ---
ENDORSED PT TO DAY SHIFT NURSE FOR CONTINUITY OF CARE. PT IS AWAKE AND ALERT. BED IS IN THE LOWEST POSITION AND CALL LIGHT IS WITHIN REACH. PLAN OF CARE WAS DISCUSSED. PT IS STABLE. EYE GLASSES AND CELL PHONE ARE AT BEDSIDE. NO RESPIRATORY DISTRESS NOTED.
--- NOTE | 2020-01-29 07:20 | NUR ---
REC'D BEDSIDE ENDORSEMENT FROM NIGHTSHIFT NURSE. PATIENT IS IN BED WATCHING TV. WILL CONTINUE W/ POC.
[2020-01-29 07:30] LABS: BASOPHILS % (AUTO) 0.1 % (0.0-2.0); HEMATOCRIT 31.3 % (36-48); HEMOGLOBIN 9.7 g/dL (12.0-16.0); LYMPHOCYTES # (AUTO) 1.2 K/uL (2.5-16.5); LYMPHOCYTES % (AUTO) 7.8 % (20.5-51.1); MEAN CORPUSCULAR HEMOGLOBIN 24 pg (27-31); MEAN CORPUSCULAR HGB CONC 31 g/dL (33-37); MEAN CORPUSCULAR VOLUME 76.9 fL (80-94); MONOCYTES # (AUTO) 0.7 K/uL (0.8-1.0); MONOCYTES % (AUTO) 4.5 % (1.7-9.3); NEUTROPHILS # (AUTO) 13.5 K/uL (1.8-7.7); NEUTROPHILS % (AUTO) 87.6 % (42.2-75.2); PLATELET COUNT (AUTO) 348 K/uL (140-450); RED BLOOD CELL COUNT(AUTO) 4.07 MIL/uL (4.20-5.40); RED CELL DISTRIBUTION WIDTH 16.1 % (11.6-13.7); WHITE BLOOD COUNT (AUTO) 15.4 K/uL (4.8-10.8)
[2020-01-29 08:00] VITALS: BP 135/46
[2020-01-29 08:24] LABS: ANION GAP 20.9 (8-16); CARBON DIOXIDE 18.2 mmol/L (21-32); CHLORIDE 103 mmol/L (98-107); CREATININE 2.9 mg/dL (0.6-1.3); GLUCOSE 163 mg/dL (74-106); POTASSIUM 4.1 mmol/L (3.5-5.1); SODIUM SERUM 138 mmol/L (136-145)
[2020-01-29 08:27] LABS: MAGNESIUM 2.4 mg/dL (1.8-2.4); PHOSPHORUS 4.4 mg/dL (2.5-4.9)
[2020-01-29 08:30] LABS: UREA NITROGEN, BLOOD 66 mg/dL (7-18)
--- NOTE | 2020-01-29 08:30 | NUR ---
RECEIVED CALL FROM CHEMISTRY THAT PATIENT BUN 66. AWARE. WILL CONTINUE TO MONITOR
[2020-01-29] MEDS: ASPIRIN 81 MG TAB.CHEW PO SCH (09:00)
[2020-01-29] MEDS: FERROUS SULFATE 325 MG TABEC PO SCH (09:00)
--- NOTE | 2020-01-29 09:15 | NUR ---
PT RESTING IN BED. ABLE TO MAKE NEEDS KNOWN. RESPIRATIONS EVEN AND UNLABORED WITH NO SOB OR RESPIRATORY DISTRESS. SKIN WARM AND DRY TO TOUCH. WILL CONTINUE TO MONITOR
[2020-01-29] MEDS: busPIRone 5 MG TAB PO SCH ×3 (10:03→16:37)
[2020-01-29] MEDS: VITAMIN D 400 IU TAB PO SCH (10:04)
[2020-01-29] MEDS: ASCORBIC ACID 500 MG TAB PO SCH (10:04)
[2020-01-29] MEDS: ATORVASTATIN 20 MG TAB PO SCH (10:05)
[2020-01-29] MEDS: ZINC SULF 220 MG CAP PO SCH (10:05)
[2020-01-29] MEDS: carvediloL 6.25 MG TAB PO SCH ×2 (10:05→21:53)
[2020-01-29] MEDS: FUROSEMIDE 40 MG TAB PO SCH (10:06)
[2020-01-29] MEDS: LORATADINE 10 MG TAB PO SCH (10:06)
[2020-01-29] MEDS: OXYBUTYNIN 5 MG TAB PO SCH (10:07)
[2020-01-29] MEDS: SERTRALINE 50 MG TAB PO SCH (10:07)
[2020-01-29] MEDS: ACETAMINOPHEN 325 MG TAB PO PRN ×2 (10:07→22:09)
--- NOTE | 2020-01-29 10:25 | NUR ---
ADMINISTERED SCHED MED PRESCRIBED PER MD ORDER. PT TOLERATED WELL. MEDICATION EDUCATION PERFORMED. PT VERBALIZED UNDERSTANDING. SAFETY MEASURES IN PLACE. WILL CONTINUE TO MONITOR
--- NOTE | 2020-01-29 11:30 | NUR ---
PT BLOOD SUGAR IS 132. NO INSULIN NEEDED AT THIS TIME. WILL CONTINUE TO MONITOR
[2020-01-29 12:00] VITALS: BP 130/72
[2020-01-29] MEDS: NACL 0.9% 1,000 ML IV SCH (12:06)
[2020-01-29] MEDS: MUPIROCIN CA NASAL 2% 1GM TUBE NS SCH (13:13)
[2020-01-29] MEDS: CHLORHEXADINE GLUC 2% CLOTH TP SCH (13:13)
--- NOTE | 2020-01-29 13:18 | NUR ---
ADMINISTERED SCHED MED PRESCRIBED PER MD ORDER. PT TOLERATED WELL. MEDICATION EDUCATION PERFORMED. PT VERBALIZED UNDERSTANDING. SAFETY MEASURES IN PLACE. WILL CONTINUE TO MONITOR
[2020-01-29 16:00] VITALS: BP 132/75
--- NOTE | 2020-01-29 16:30 | NUR ---
PT BLOOD SUGAR IS 154. PT DID NOT WANT INSULIN. EDUCATED PT ON IMPORTANCE OF INSULIN ADMINISTRATION. PT SAID THAT SHE STILL DOES NOT WANT IT. MD AWARE. WILL CONTINUE TO MONITOR
--- NOTE | 2020-01-29 19:33 | NUR ---
ENDORSED TO NIGHTSHIFT FOR CONTINUITY OF CARE. PT IS STABLE
--- NOTE | 2020-01-29 19:35 | NUR ---
PT CHECKED. NO DISTRESS NOTED. HR 86 SATURATION 96% ON 9L OXYMIZER. WILL CONT TO MONITOR
--- NOTE | 2020-01-29 19:38 | NUR ---
RECEIVED PT IN STABLE CONDITION FROM AM NURSE . AAOX4. ON TELE MONITOR. DROPLET PRECAUTION DUE TO COVID +. ON O2 9L OXYMIZERPROTOCOL FOLLOWED. BEDREST. WITH IVF INFUSING WELL ON THE LT WRIST G#24. CLEAR AND PATENT. NEEDS ATTENDED. BED ON LOWEST POSITION. SIDE RAILS UP X2. CALL LIGHT WITHIN REACH. WILL CONTINUE TO MONITOR.
[2020-01-29 20:00] VITALS: BP 140/66
[2020-01-29] MEDS: FAMOTIDINE 20 MG TAB PO SCH (21:53)
[2020-01-29] MEDS: INSULIN LISPRO SLIDING SCALE 100 UNITS/ML VIAL SUBQ PRN (22:05)
--- NOTE | 2020-01-29 22:30 | NUR ---
C/O COUGH . PAGED DR. MILTON .CALLED BACK WITH ORDER.
[2020-01-29] MEDS ORDERED: PROMETH/CODEINE 6.25-10MG/5ML 5 ML UDC ONE (23:41)
[2020-01-30] VITALS: BP 149/76
--- NOTE | 2020-01-30 00:03 | NUR ---
PT REFUSED THE COUGH MEDICINE. NOT GIVEN.
[2020-01-30] MEDS: MELATONIN 3 MG TAB PO PRN ×2 (00:53→21:16)
--- NOTE | 2020-01-30 02:00 | NUR ---
CHECKED ON PT . ASLEEP. NOMS/S OF ANY DISTRESS NOTED. O2 SAT 95% ON O2 9L OXIMIZER.
[2020-01-30 04:00] VITALS: BP 138/70
--- NOTE | 2020-01-30 04:00 | NUR ---
MADE ROUNDS. VITAL SIGNS TAKEN. STABLE . O2 SAT 95% .
[2020-01-30] MEDS: LEVOTHYROXINE 0.088 MG TAB PO SCH (05:43)
[2020-01-30] MEDS: BLOOD GLUCOSE MONITORING 1 DEV DEV FS SCH ×5 (05:49→22:30)
--- NOTE | 2020-01-30 05:49 | NUR ---
BLOOD SUGAR WAS CHECKED THIS AM RESULT 131. NO INSULIN COVERAGE NEEDED.
[2020-01-30] MEDS: LOPERAMIDE 2 MG CAP PO PRN ×2 (06:59→13:02)
[2020-01-30] MEDS: NACL 0.9% 1,000 ML IV SCH (07:03)
--- NOTE | 2020-01-30 07:25 | NUR ---
ENDORSED PT IN STABLE CONDITION TO AM NURSE.
--- NOTE | 2020-01-30 07:30 | NUR ---
RECEIVED PT FROM MEDICAL EQUIPMENT SALES NURSE, IV TKO TO R. WRIST, OXIMIZER @ 9LPM O2, TELE MONITOR, LEBRON PRESENT, SAFETY AND FALL PRECAUTIONS IN PLACE.
[2020-01-30 07:38] LABS: HEMATOCRIT 29.3 % (36-48); HEMOGLOBIN 9.1 g/dL (12.0-16.0); MEAN CORPUSCULAR HEMOGLOBIN 24 pg (27-31); MEAN CORPUSCULAR HGB CONC 31 g/dL (33-37); MEAN CORPUSCULAR VOLUME 76.1 fL (80-94); PLATELET COUNT (AUTO) 387 K/uL (140-450); RED BLOOD CELL COUNT(AUTO) 3.85 MIL/uL (4.20-5.40); RED CELL DISTRIBUTION WIDTH 15.6 % (11.6-13.7); WHITE BLOOD COUNT (AUTO) 13.3 K/uL (4.8-10.8)
[2020-01-30 07:39] LABS: EOSINOPHILS % (AUTO) 0.1 % (0.0-4.0); LYMPHOCYTES # (AUTO) 1.5 K/uL (2.5-16.5); MONOCYTES % (AUTO) 5.9 % (1.7-9.3)
[2020-01-30 07:40] LABS: MONOCYTES # (AUTO) 0.8 K/uL (0.8-1.0)
[2020-01-30 08:00] VITALS: BP 151/78
[2020-01-30] MEDS: FERROUS SULFATE 325 MG TABEC PO SCH (08:25)
[2020-01-30] MEDS: VITAMIN D 400 IU TAB PO SCH (08:25)
[2020-01-30 08:26] LABS: LACTATE DEHYDROGENASE 323 U/L (81-234); MAGNESIUM 2.1 mg/dL (1.8-2.4); PHOSPHORUS 3.8 mg/dL (2.5-4.9)
[2020-01-30] MEDS: ZINC SULF 220 MG CAP PO SCH (08:26)
[2020-01-30] MEDS: LORATADINE 10 MG TAB PO SCH (08:26)
[2020-01-30] MEDS: ATORVASTATIN 20 MG TAB PO SCH (08:26)
[2020-01-30] MEDS: ASCORBIC ACID 500 MG TAB PO SCH (08:27)
[2020-01-30] MEDS: ACETAMINOPHEN 325 MG TAB PO PRN ×2 (08:27→17:21)
[2020-01-30] MEDS: busPIRone 5 MG TAB PO SCH ×3 (08:27→17:21)
[2020-01-30] MEDS: FUROSEMIDE 40 MG TAB PO SCH (08:28)
[2020-01-30] MEDS: ASPIRIN 81 MG TAB.CHEW PO SCH (08:28)
[2020-01-30] MEDS: OXYBUTYNIN 5 MG TAB PO SCH (08:29)
[2020-01-30] MEDS: carvediloL 6.25 MG TAB PO SCH ×2 (08:30→20:53)
[2020-01-30] MEDS: SERTRALINE 50 MG TAB PO SCH (08:31)
--- NOTE | 2020-01-30 08:31 | NUR ---
SCHEDULED MORNING MEDICATIONS ADMINISTERED, PARAMETERS CHECKED, BP 151/78 HR 82 O2 94%, RR 20, PT TOLERATED MEDICATIONS WELL, TEACHING GIVEN, PT VERBALIZED UNDERSTANDING, WILL CONTINUE TO MONITOR
--- NOTE | 2020-01-30 10:45 | NUR ---
PTY IS RESTING AND O2 SATURATION IS 90%, WILL MONITOR PT.
[2020-01-30 12:00] VITALS: BP 130/66
[2020-01-30 12:06] LABS: ALBUMIN 2.3 g/dL (3.4-5.0); ANION GAP 20.5 (8-16); ASPARTATE AMINOTRANSFERASE 45 U/L (15-37); CARBON DIOXIDE 18.4 mmol/L (21-32); CHLORIDE 103 mmol/L (98-107); CREATININE 2.6 mg/dL (0.6-1.3); GLUCOSE 134 mg/dL (74-106); POTASSIUM 3.9 mmol/L (3.5-5.1); SODIUM SERUM 138 mmol/L (136-145); TOTAL BILIRUBIN 0.2 mg/dL (0.0-1.0)
[2020-01-30 12:29] LABS: UREA NITROGEN, BLOOD 65 mg/dL (7-18)
[2020-01-30] MEDS: MUPIROCIN CA NASAL 2% 1GM TUBE NS SCH (12:35)
[2020-01-30] MEDS: CHLORHEXADINE GLUC 2% CLOTH TP SCH (12:40)
[2020-01-30] MEDS: PROMETHAZINE DM 6.25/15MG-5ML ORASYR PO PRN ×2 (13:03→21:17)
--- NOTE | 2020-01-30 13:03 | NUR ---
PT WAS GIVEN THE SCHEDULED MEDICATIONS, BLOOD GLUCOSE IS 131, NO INSULIN COVERAGE NEEDED.
--- NOTE | 2020-01-30 13:22 | NUR ---
01/30/20 RD INITIAL ASSESSMENT COMPLETED PLEASE REFER TO NUTRITION ASSESSMENT UNDER CARE ACTIVITY FOR ESTIMATED NUTRITIONAL NEEDS. 1. CONTINUE MECHANICAL SOFT CCHO 60GM DIET TOLERATED 2. CONTINUE GLUCERNA TID 3. PROVIDED ASSISTANCE WITH MEALS AND ENCOURAGE PO INTAKE 4. RD TO FOLLOW-UP 2-3 DAYS, HIGH RISK REBEKAH VERMA RD
--- NOTE | 2020-01-30 13:54 | NUR ---
TITRATED TO 4L OXIMIZER.
[2020-01-30 16:00] VITALS: BP 146/74
--- NOTE | 2020-01-30 17:21 | NUR ---
PT WAS GIVEN THE SCHEDULED MEDICATIONS AND TYLENOL FOR THE C/O HEADACHE, BLOOD GLUCOSE IS 222 AND INSULIN 4 UNITS WAS GIVEN ON THE LEFT UA, WILL MONITOR PT.
[2020-01-30] MEDS: INSULIN LISPRO SLIDING SCALE 100 UNITS/ML VIAL SUBQ PRN ×2 (17:40→21:13)
--- NOTE | 2020-01-30 19:30 | NUR ---
ENDORSED PT TO ELEVATOR MECHANIC NURSE FOR CONTINUITY OF CARE.
--- NOTE | 2020-01-30 19:31 | NUR ---
RECEIVED ENDORSEMENT FROM AM SHIFT RN. AOX4, NO DISTRESS, ON OXIMIZER AT 9L, NO SOB, IVF INFUSING, FALL PROTOCOL IN PLACE, SAFETY MEASURES IN PLACE, DROPLET & CONTACT PRECAUTION IN PLACE, CALL LIGHT WITHIN REACH.
[2020-01-30 20:00] VITALS: BP 151/78
--- NOTE | 2020-01-30 20:18 | NUR ---
PT CHECK. ON 4L OXYMIZER. VITAL SIGN STABLE. WILL CONT TO MONITOR
[2020-01-30] MEDS ORDERED: MEROPENEM 500 MG VIAL IV ONE (20:42)
[2020-01-30] MEDS: MEROPENEM 500 MG in NACL 0.9% 50 ML IV SCH (20:53)
[2020-01-30] MEDS: FAMOTIDINE 20 MG TAB PO SCH (20:53)
--- NOTE | 2020-01-30 20:53 | NUR ---
MERREM IV GIVEN ORDERED, NO A/R NOTED.
[2020-01-30 21:20] LABS: CHLORIDE,URINE RANDOM 83 mmol/L (110-250); URINE SODIUM, RANDOM 78 mmol/l (40-220)
[2020-01-31] VITALS: BP 132/64
[2020-01-31 04:00] VITALS: BP 153/82
[2020-01-31] MEDS: LEVOTHYROXINE 0.088 MG TAB PO SCH (05:44)
--- NOTE | 2020-01-31 05:51 | NUR ---
SYNTHROID PO GIVEN ORDERED, TOLERATED WELL, NO SOB, DIRECTOR [employer]ES [employer] MARKETING CAME IN TO TAKE BLOOD SAMPLE, PERINEAL CARE RENDERED, KEPT CLEAN, DRY AND COMFORTABLE, ALL NEEDS ATTENDED, CALL LIGHT WITHIN REACH.
[2020-01-31] MEDS: ACETAMINOPHEN 325 MG TAB PO PRN ×2 (06:13→11:42)
[2020-01-31] MEDS: PROMETHAZINE DM 6.25/15MG-5ML ORASYR PO PRN ×4 (06:13→23:01)
--- NOTE | 2020-01-31 06:13 | NUR ---
C/O LEFT KNEE PAIN 05/27, TYLENOL PO GIVEN PRN ORDERED. ALSO COUGH MEDICINE GIVEN ORDERED PER PT REQUEST.
[2020-01-31] MEDS: BLOOD GLUCOSE MONITORING 1 DEV DEV FS SCH ×3 (06:35→17:09)
--- NOTE | 2020-01-31 06:36 | NUR ---
GLUCOSE CHECK 95. NO INSULIN COVERAGE, TYLENOL GIVEN AT 0613 FOR LEFT KNEE 3/10 PAIN.
[2020-01-31 06:57] LABS: ANION GAP 18.1 (8-16); CARBON DIOXIDE 20.3 mmol/L (21-32); CHLORIDE 103 mmol/L (98-107); CREATININE 2.3 mg/dL (0.6-1.3); GLUCOSE 106 mg/dL (74-106); POTASSIUM 4.4 mmol/L (3.5-5.1); SODIUM SERUM 137 mmol/L (136-145); UREA NITROGEN, BLOOD 58 mg/dL (7-18)
--- NOTE | 2020-01-31 07:20 | NUR ---
PT IS IN STABLE CONDITION. NO DISTRESS. ENDORSED TO AM SHIFT RN FOR CONTINUITY OF CARE.
[2020-01-31 08:00] VITALS: BP 144/78
[2020-01-31] MEDS: SERTRALINE 50 MG TAB PO SCH (09:49)
[2020-01-31] MEDS: VITAMIN D 400 IU TAB PO SCH (09:50)
[2020-01-31] MEDS: ASCORBIC ACID 500 MG TAB PO SCH (09:50)
[2020-01-31] MEDS: busPIRone 5 MG TAB PO SCH ×3 (09:50→17:09)
[2020-01-31] MEDS: FUROSEMIDE 40 MG TAB PO SCH (09:50)
[2020-01-31] MEDS: ASPIRIN 81 MG TAB.CHEW PO SCH (09:50)
[2020-01-31] MEDS: LORATADINE 10 MG TAB PO SCH (09:50)
[2020-01-31] MEDS: ZINC SULF 220 MG CAP PO SCH (09:51)
[2020-01-31] MEDS: FERROUS SULFATE 325 MG TABEC PO SCH (09:51)
[2020-01-31] MEDS: OXYBUTYNIN 5 MG TAB PO SCH (09:51)
[2020-01-31] MEDS: ATORVASTATIN 20 MG TAB PO SCH (09:51)
[2020-01-31] MEDS: carvediloL 6.25 MG TAB PO SCH ×2 (09:51→22:45)
[2020-01-31] MEDS: MEROPENEM 500 MG in NACL 0.9% 50 ML IV SCH ×2 (09:54→22:00)
[2020-01-31] MEDS ORDERED: CEPH250C16 PO (11:03)
[2020-01-31] MEDS ORDERED: DEC4 PO (11:03)
[2020-01-31] MEDS ORDERED: AZIT250T3 PO (11:03)
[2020-01-31 11:12] LABS: HEMATOCRIT 31.9 % (36-48); MEAN CORPUSCULAR HEMOGLOBIN 24 pg (27-31); MEAN CORPUSCULAR HGB CONC 32 g/dL (33-37); MEAN CORPUSCULAR VOLUME 76.5 fL (80-94); PLATELET COUNT (AUTO) 474 K/uL (140-450); RED BLOOD CELL COUNT(AUTO) 4.16 MIL/uL (4.20-5.40); RED CELL DISTRIBUTION WIDTH 16.1 % (11.6-13.7); WHITE BLOOD COUNT (AUTO) 23.6 K/uL (4.8-10.8)
--- NOTE | 2020-01-31 11:52 | NUR ---
Observed pt's SaO2 decrease to 86% on O2 @ 6Lpm via n/c when coughing and with min exertion. Promethazine DM administered. Pt kept HOB > 30. Left hand 24G IV intact & asymptomatic with ongoing NS @40ml/h. Addendum: 01/31/20 at 1915 by Anny Laguna RN Addendum: Pt's SaO2 improves to 91-93% on O2 @ 6Lpm via n/c at rest.
[2020-01-31 12:00] VITALS: BP 152/76
[2020-01-31] MEDS: NACL 0.9% 1,000 ML IV SCH (12:05)
[2020-01-31 12:16] LABS: LYMPHOCYTES % (MANUAL) 12 % (20-46); MONOCYTES % (MANUAL) 8 % (5-12)
[2020-01-31] MEDS: MUPIROCIN CA NASAL 2% 1GM TUBE NS SCH (13:07)
[2020-01-31] MEDS: CHLORHEXADINE GLUC 2% CLOTH TP SCH (13:07)
[2020-01-31 16:00] VITALS: BP 139/70
[2020-01-31] MEDS: INSULIN LISPRO SLIDING SCALE 100 UNITS/ML VIAL SUBQ PRN ×2 (17:13→23:43)
--- NOTE | 2020-01-31 19:20 | NUR ---
RECEIVED PT AAOX4 , NID - O2 SAT 91 % - W/ O2 AT 6LPM/NC . IV SITE INTACT AND PATENT . W/ URINE FC DRAINING CLEAR U.O .SAFETY MEASURES IN PLACE - CALL LIGHT WITHIN REACH . PLAN OF CARE DISCUSSED AND VERBALIZE UNDERSTANDING . ON TELE MONITOR - SR , DENIES ANY PAIN . WILL CONT. TO MONITOR
[2020-01-31 20:00] VITALS: BP 133/81
--- NOTE | 2020-01-31 22:00 | NUR ---
MADE ROUNDS , NO S/SX OF ACUTE DISTRESS NOTED O2 SAT 92 % CALL LIGHT WITHIN REACH .
[2020-01-31] MEDS: SODIUM BICARBONATE 650 MG TAB PO SCH (22:45)
[2020-01-31] MEDS: FAMOTIDINE 20 MG TAB PO SCH (22:45)
[2020-02-01] VITALS: BP 130/60
--- NOTE | 2020-02-01 | NUR ---
COUGHING - JUST GIVEN THE PHENERGAN /MD . WILL CONT. TO [facility]
[2020-02-01] MEDS: NACL 0.9% 1,000 ML IV SCH (00:48)
[2020-02-01] MEDS: MELATONIN 3 MG TAB PO PRN ×2 (00:49→20:36)
--- NOTE | 2020-02-01 01:30 | NUR ---
STILL C/O COUGH - PHERNEGAN / DM GIVEN P.O 2 HRS AGO - BUT PT. STILL C/O PAIN SHE SAID IT BOTHERS A LOT - SHE SAID SEEMS THE COUGH MED. SHE TOOK WHILE AGO DOES NOT WORKS FOR HER - WILL REFER TO DR. MILTON - PT REQUESTING DIFFIRENT COUGH MED. - WILL CONT. TO MONITOR.
--- NOTE | 2020-02-01 01:34 | NUR ---
INCESSANTLY COUGHING - O2 SAT DECREASING TO 80'2 - ON 02 AT 6LPM/ NC - PALE LOOKING - WILL REFER TO RT FOR FURTHER ASSESSMENT . TEXTED DR. MILTON ABOUT COUGH MED - NO REPLY . WILL CONT. TO MONITOR .
--- NOTE | 2020-02-01 01:40 | NUR ---
ASSESS BY RT - THE RT FIX THE [PULOSE O2 - THE O2 SAT IS 87 TO 88 % OCASSIONALLY 92 - PT WELL [id number] - AAOX4 - REFUSED TO USE O2 VIA MASK - SHE SAID I'M OK I JUST NEED COUGH MEDICINE - WILL CONT. TO MONITOR - NO TEXT BACK FROM DR. MILTON ABOUT COUGH MED . - WILL CONT. TO MONITOR .
--- NOTE | 2020-02-01 02:00 | NUR ---
MADE ROUNDS . SLEEPING - O2 SAT 92 % . WILL CONT. TO MONITOR . UNTILL NOW NO REPONSE FROM DR. MILTON ABOUT THE PT'S COUGH MED . REQUEST . ON TELE MONITOR
[2020-02-01 04:00] VITALS: BP 149/86
--- NOTE | 2020-02-01 04:00 | NUR ---
MADE ROUNDS . NO S/SX OF ACUTE DISTRESS NOTED - O2 91 % - NO TEXT BACK FROM DR. MILTON
--- NOTE | 2020-02-01 06:00 | NUR ---
MADE ROUNDS , NO S/SX OF ACUTE DISTRESS NOTED 02 SAT 91 % - REQUESTING COUGH MEDICINE SHE DONT LIKE THE PHENERGAN /DM - WILL RE TXT DR. MILTON .
--- NOTE | 2020-02-01 07:16 | NUR ---
ENDORSED TO AM SHIFT - PT - STABLE - ENDORSE TO FF UP COUGH MEDICINE
--- NOTE | 2020-02-01 07:17 | NUR ---
Received report from shift production associate nurse at bedside for continuity of care. Patient resting with eyes closed, AOX4, IV site intact, asymptomatic, and infusing IVF well. Rodriguez catheter in place, draining to gravity with yellow urine. Droplet and safety precautions in place, bed on lowest setting with brakes and alarm on, call light within reach, will continue to monitor patient.
[2020-02-01] MEDS: LEVOTHYROXINE 0.088 MG TAB PO SCH (07:24)
[2020-02-01] MEDS: BLOOD GLUCOSE MONITORING 1 DEV DEV FS SCH ×4 (07:24→20:56)
[2020-02-01 08:00] VITALS: BP 144/83
--- NOTE | 2020-02-01 08:40 | NUR ---
Patient's son, César, called. Updated him on patient's status and plan of care. He verbalized understanding and said he will call his mother later.
[2020-02-01 09:23] LABS: ANION GAP 15.8 (8-16); CHLORIDE 105 mmol/L (98-107); CREATININE 2.2 mg/dL (0.6-1.3); GLUCOSE 129 mg/dL (74-106); POTASSIUM 3.8 mmol/L (3.5-5.1); SODIUM SERUM 140 mmol/L (136-145); UREA NITROGEN, BLOOD 58 mg/dL (7-18)
[2020-02-01 09:25] LABS: MAGNESIUM 1.8 mg/dL (1.8-2.4); PHOSPHORUS 3.2 mg/dL (2.5-4.9)
[2020-02-01 09:27] LABS: BASOPHILS % (AUTO) 0.2 % (0.0-2.0); EOSINOPHILS # (AUTO) 0.3 K/uL (0-0.4); EOSINOPHILS % (AUTO) 1.7 % (0.0-4.0); HEMATOCRIT 31.7 % (36-48); HEMOGLOBIN 9.8 g/dL (12.0-16.0); LYMPHOCYTES # (AUTO) 2.9 K/uL (2.5-16.5); LYMPHOCYTES % (AUTO) 16.3 % (20.5-51.1); MEAN CORPUSCULAR HEMOGLOBIN 24 pg (27-31); MEAN CORPUSCULAR HGB CONC 31 g/dL (33-37); MEAN CORPUSCULAR VOLUME 75.8 fL (80-94); MONOCYTES # (AUTO) 1.4 K/uL (0.8-1.0); MONOCYTES % (AUTO) 7.7 % (1.7-9.3); NEUTROPHILS # (AUTO) 13.3 K/uL (1.8-7.7); NEUTROPHILS % (AUTO) 74.1 % (42.2-75.2); PLATELET COUNT (AUTO) 454 K/uL (140-450); RED BLOOD CELL COUNT(AUTO) 4.18 MIL/uL (4.20-5.40); RED CELL DISTRIBUTION WIDTH 15.5 % (11.6-13.7)
[2020-02-01] MEDS: ZINC SULF 220 MG CAP PO SCH (09:50)
[2020-02-01] MEDS: busPIRone 5 MG TAB PO SCH ×3 (09:50→16:51)
[2020-02-01] MEDS: VITAMIN D 400 IU TAB PO SCH (09:50)
[2020-02-01] MEDS: carvediloL 6.25 MG TAB PO SCH ×2 (09:50→20:35)
[2020-02-01] MEDS: FERROUS SULFATE 325 MG TABEC PO SCH (09:50)
[2020-02-01] MEDS: ASCORBIC ACID 500 MG TAB PO SCH (09:50)
--- NOTE | 2020-02-01 09:50 | NUR ---
Ordered medications given. Patient requested for cough medication. PRN pain medication given. Patient tolerated them well. All needs met at this time. Patient has no complaints. Droplet and safety precautions in place, call light within reach, will continue to monitor patient.
[2020-02-01] MEDS: FUROSEMIDE 40 MG TAB PO SCH (09:51)
[2020-02-01] MEDS: ATORVASTATIN 20 MG TAB PO SCH (09:51)
[2020-02-01] MEDS: SODIUM BICARBONATE 650 MG TAB PO SCH ×2 (09:51→20:37)
[2020-02-01] MEDS: SERTRALINE 50 MG TAB PO SCH (09:51)
[2020-02-01] MEDS: ASPIRIN 81 MG TAB.CHEW PO SCH (09:51)
[2020-02-01] MEDS: LORATADINE 10 MG TAB PO SCH (09:51)
[2020-02-01] MEDS: MEROPENEM 500 MG in NACL 0.9% 50 ML IV SCH ×2 (09:52→20:38)
[2020-02-01] MEDS: OXYBUTYNIN 5 MG TAB PO SCH (09:52)
[2020-02-01] MEDS: PROMETHAZINE DM 6.25/15MG-5ML ORASYR PO PRN ×2 (10:00→16:54)
--- NOTE | 2020-02-01 11:40 | NUR ---
BLOOD SUGAR 164, PATIENT REFUSING INSULIN COVERAGE. VS WNL. PATIENT HAS NO COMPLAINTS AT THIS TIME. DROPLET AND CONTACT PRECAUTIONS IN PLACE, CALL LIGHT WITHIN REACH, WILL CONTINUE TO MONITOR PATIENT.
[2020-02-01 11:44] VITALS: BP 140/70
[2020-02-01] MEDS: ACETAMINOPHEN 325 MG TAB PO PRN ×2 (12:52→20:35)
[2020-02-01] MEDS: MUPIROCIN CA NASAL 2% 1GM TUBE NS SCH (12:52)
[2020-02-01] MEDS: guaiFENesin/CODEINE 100/10MG 5 ML UDC PO PRN ×2 (12:53→20:35)
[2020-02-01] MEDS: CHLORHEXADINE GLUC 2% CLOTH TP SCH (12:53)
--- NOTE | 2020-02-01 12:53 | NUR ---
SCHEDULED MEDICATIONS GIVEN. PATIENT REQUESTED FOR PRN COUGH MEDICATION AND PRN PAIN MEDICATION FOR HEADACHE. REQUESTED MEDICATIONS GIVEN. PATIENT TOLERATED THEM WELL. NO COMPLAINTS AT THIS TIME. WILL CONTINUE TO MONITOR PATIENT.
[2020-02-01 16:00] VITALS: BP 130/69
[2020-02-01] MEDS: INSULIN LISPRO SLIDING SCALE 100 UNITS/ML VIAL SUBQ PRN ×2 (17:38→20:59)
[2020-02-01 20:00] VITALS: BP 136/68
--- NOTE | 2020-02-01 20:00 | NUR ---
RECEIVED PATIENT AWAKE IN BED. PATIENT CURRENTLY RECEIVING 5L O2 VIA NC. O2 SAT 96%. NO SOB OR S/S OF DISTRESS AT THIS TIME. FALL PRECAUTIONS IN PLACE, CALL LIGHT WITHIN REACH
--- NOTE | 2020-02-01 20:35 | NUR ---
ADMINISTERED DUE MEDICATIONS. PT TOLERATED WELL
[2020-02-01] MEDS: FAMOTIDINE 20 MG TAB PO SCH (20:36)
--- NOTE | 2020-02-01 20:50 | NUR ---
PT RESTING IN SEMI FOWLERS W/ RN AT BEDSIDE NO DISTRESS NOTED AT THIS TIME WILL CONTINUE TO MONITOR
--- NOTE | 2020-02-01 21:00 | NUR ---
PT HAD BM. STOOL SOFT, BROWN AND MODERATE IN AMOUNT. PT CLEANED AND REPOSITIONED FOR COMFORT
[2020-02-02] VITALS: BP 132/65
[2020-02-02 04:09] VITALS: BP 135/67
[2020-02-02] MEDS: LEVOTHYROXINE 0.088 MG TAB PO SCH (06:28)
[2020-02-02] MEDS: BLOOD GLUCOSE MONITORING 1 DEV DEV FS SCH ×4 (06:28→21:14)
[2020-02-02 07:20] LABS: ANION GAP 11.5 (8-16); CARBON DIOXIDE 25.2 mmol/L (21-32); CHLORIDE 104 mmol/L (98-107); CREATININE 2.2 mg/dL (0.6-1.3); GLUCOSE 109 mg/dL (74-106); POTASSIUM 3.7 mmol/L (3.5-5.1); SODIUM SERUM 137 mmol/L (136-145); UREA NITROGEN, BLOOD 59 mg/dL (7-18)
[2020-02-02 07:33] LABS: BASOPHILS # (AUTO) 0.1 K/uL (0.00-0.22); BASOPHILS % (AUTO) 0.3 % (0.0-2.0); EOSINOPHILS # (AUTO) 0.6 K/uL (0-0.4); EOSINOPHILS % (AUTO) 3.1 % (0.0-4.0); HEMATOCRIT 29.2 % (36-48); HEMOGLOBIN 9.2 g/dL (12.0-16.0); LYMPHOCYTES # (AUTO) 3.8 K/uL (2.5-16.5); MEAN CORPUSCULAR HEMOGLOBIN 24 pg (27-31); MEAN CORPUSCULAR HGB CONC 32 g/dL (33-37); MEAN CORPUSCULAR VOLUME 75.1 fL (80-94); MONOCYTES # (AUTO) 1.4 K/uL (0.8-1.0); MONOCYTES % (AUTO) 7.5 % (1.7-9.3); NEUTROPHILS % (AUTO) 69.1 % (42.2-75.2); PLATELET COUNT (AUTO) 449 K/uL (140-450); RED BLOOD CELL COUNT(AUTO) 3.88 MIL/uL (4.20-5.40); WHITE BLOOD COUNT (AUTO) 18.8 K/uL (4.8-10.8)
--- NOTE | 2020-02-02 07:38 | NUR ---
PT REPORT GIVEN TO AM NURSE. PT ENDORSED IN STABLE CONDITION
--- NOTE | 2020-02-02 07:39 | NUR ---
RECEIVED REPORT FROM COORDINATE MEASURING EQUIPMENT OPERATOR NURSE. PATIENT LYING DOWN IN BED WATCHING TV. NO DISTRESS NOTED. DENIES ANY PAIN. RESPIRATIONS EVEN, UNLABORED, ON O2 3L/MIN VIA NC. IV SITE INTACT, PATENT, AND INFUSING IVF PER MD ORDERS. LEBRON CATHETER IN PLACE, DRAINING CLEAR YELLOW URINE. AAOX3, CALM, COOPERATIVE, BEDREST, SKIN COLOR APPROPRIATE TO ETHNICITY, WARM TO TOUCH. SKIN INTACT. REVIEWED PLAN OF CARE WITH PATIENT. PATIENT VERBALIZED UNDERSTANDING. SAFETY MEASURES IN PLACE, CALL LIGHT WITHIN REACH. WILL CONTINUE TO MONITOR.
[2020-02-02 08:00] VITALS: BP 136/96
[2020-02-02] MEDS: OXYBUTYNIN 5 MG TAB PO SCH (09:11)
[2020-02-02] MEDS: FERROUS SULFATE 325 MG TABEC PO SCH (09:11)
[2020-02-02] MEDS: ATORVASTATIN 20 MG TAB PO SCH (09:11)
[2020-02-02] MEDS: ZINC SULF 220 MG CAP PO SCH (09:11)
[2020-02-02] MEDS: LORATADINE 10 MG TAB PO SCH (09:12)
[2020-02-02] MEDS: busPIRone 5 MG TAB PO SCH ×3 (09:12→17:20)
[2020-02-02] MEDS: carvediloL 6.25 MG TAB PO SCH ×2 (09:12→20:48)
[2020-02-02] MEDS: ASCORBIC ACID 500 MG TAB PO SCH (09:12)
[2020-02-02] MEDS: SERTRALINE 50 MG TAB PO SCH (09:13)
[2020-02-02] MEDS: FUROSEMIDE 40 MG TAB PO SCH (09:13)
[2020-02-02] MEDS: SODIUM BICARBONATE 650 MG TAB PO SCH ×2 (09:13→20:47)
[2020-02-02] MEDS: ASPIRIN 81 MG TAB.CHEW PO SCH (09:13)
[2020-02-02] MEDS: VITAMIN D 400 IU TAB PO SCH (09:26)
--- NOTE | 2020-02-02 09:32 | NUR ---
SCHEDULED MEDICATIONS DUE GIVEN. WILL CONTINUE TO MONITOR.
[2020-02-02] MEDS: MEROPENEM 500 MG in NACL 0.9% 50 ML IV SCH ×2 (09:34→20:49)
[2020-02-02] MEDS: guaiFENesin/CODEINE 100/10MG 5 ML UDC PO PRN (11:38)
[2020-02-02 12:00] VITALS: BP 152/76
[2020-02-02] MEDS: NACL 0.9% 1,000 ML IV SCH (12:05)
[2020-02-02] MEDS: INSULIN LISPRO SLIDING SCALE 100 UNITS/ML VIAL SUBQ PRN ×3 (13:06→21:14)
[2020-02-02] MEDS: PROMETHAZINE DM 6.25/15MG-5ML ORASYR PO PRN ×3 (13:12→21:35)
--- NOTE | 2020-02-02 13:12 | NUR ---
PATIENT COMPLAINTS OF A COUGH. GAVE ROBITUSSIN WITH CODEINE EARLIER DID NOT WORK. WILL GIVE PROMETHAZINE PER MD ORDERS. OTHER SCHEDULED MEDICATIONS DUE GIVEN. WILL CONTINUE TO MONITOR.
[2020-02-02] MEDS: ACETAMINOPHEN 325 MG TAB PO PRN (14:32)
[2020-02-02 16:00] VITALS: BP 134/91
--- NOTE | 2020-02-02 17:00 | NUR ---
SCHEDULED MEDICATIONS DUE GIVEN. WILL CONTINUE TO MONITOR.
--- NOTE | 2020-02-02 19:15 | NUR ---
RECEIVED BEDSIDE REPORT FROM DAY SHIFT NURSE. PATIENT IS AWAKE, ALERT, AND COOPERATIVE. RESPIRATION EVEN UNLABORED ON 3L NC O2. NO DISTRESS NOTED. SKIN IS WARM AND DRY. IV PATENT AND INTACT. PLAN OF CARE WAS DISCUSSED. ALL SAFETY MEASURES IN PLACE. BED IS AT LOW POSITION. CALL LIGHT WITHIN REACH. WILL CONTINUE TO MONITOR.
--- NOTE | 2020-02-02 19:25 | NUR ---
GAVE REPORT TO UNDERGROUND ROOF BOLTER NURSE FOR CONTINUITY OF CARE. PATIENT IN STABLE CONDITION.
[2020-02-02 20:00] VITALS: BP 141/76
--- NOTE | 2020-02-02 20:45 | NUR ---
LEBRON CATHETER DRAINING YELLOW URINE NOTED.
[2020-02-02] MEDS: FAMOTIDINE 20 MG TAB PO SCH (20:48)
--- NOTE | 2020-02-02 20:49 | NUR ---
ALL SCHEDULED MEDS WERE GIVEN PER ORDER. NO ASE NOTED. PATIENT IS COUGHING A LOT, O2 STARTING TO DECREASED TO 88% INCREASED O2 TO 5L. PATIENT IS NOW SATING 93%. WILL CONTINUE TO MONITOR
[2020-02-02] MEDS: MELATONIN 3 MG TAB PO PRN (21:36)
--- NOTE | 2020-02-02 21:36 | NUR ---
PRN COUGH MEDICINE AND SLEEPING AID GIVEN PER ORDER. WILL CONTINUE TO MONITOR.
--- NOTE | 2020-02-02 23:35 | NUR ---
CHECKED PATIENT. PATIENT SLEEPING RESPIRATION EVEN UNLABORED ON 5L NC O2. NO DISTRESS NOTED. PT O2 LEVEL SATING 93%. WILL CONTINUE TO MONITOR.
[2020-02-03] VITALS: BP 133/69
--- NOTE | 2020-02-03 01:52 | NUR ---
CHECKED PATIENT. PATIENT SLEEPING RESPIRATION EVEN UNLABORED ON 5L NC O2. NO DISTRESS NOTED. WILL CONTINUE TO MONITOR.
[2020-02-03 04:00] VITALS: BP 146/76
[2020-02-03] MEDS: PROMETHAZINE DM 6.25/15MG-5ML ORASYR PO PRN (05:17)
--- NOTE | 2020-02-03 05:24 | NUR ---
PATIENT WOKE UP WITH A BAD COUGH. PRN COUGH MEDICINE ADMINISTERED PER ORDER. WILL CONTINUE TO MONITOR.
[2020-02-03] MEDS: NACL 0.9% 1,000 ML IV SCH (05:25)
[2020-02-03] MEDS: BLOOD GLUCOSE MONITORING 1 DEV DEV FS SCH ×2 (06:35→12:30)
[2020-02-03] MEDS: LEVOTHYROXINE 0.088 MG TAB PO SCH (06:35)
[2020-02-03 07:11] LABS: BASOPHILS % (AUTO) 0.1 % (0.0-2.0); EOSINOPHILS # (AUTO) 0.7 K/uL (0-0.4); EOSINOPHILS % (AUTO) 3.6 % (0.0-4.0); HEMATOCRIT 28.5 % (36-48); HEMOGLOBIN 8.9 g/dL (12.0-16.0); LYMPHOCYTES # (AUTO) 3.9 K/uL (2.5-16.5); MEAN CORPUSCULAR HEMOGLOBIN 24 pg (27-31); MEAN CORPUSCULAR HGB CONC 31 g/dL (33-37); MEAN CORPUSCULAR VOLUME 75.8 fL (80-94); MONOCYTES # (AUTO) 1.2 K/uL (0.8-1.0); MONOCYTES % (AUTO) 6.3 % (1.7-9.3); NEUTROPHILS # (AUTO) 12.9 K/uL (1.8-7.7); PLATELET COUNT (AUTO) 435 K/uL (140-450); RED BLOOD CELL COUNT(AUTO) 3.76 MIL/uL (4.20-5.40); RED CELL DISTRIBUTION WIDTH 16.2 % (11.6-13.7); WHITE BLOOD COUNT (AUTO) 18.7 K/uL (4.8-10.8)
--- NOTE | 2020-02-03 07:18 | NUR ---
ENDORSED PATIENT TO DAY SHIFT NURSE AT BEDSIDE FOR CONTINUITY OF CARE
--- NOTE | 2020-02-03 07:19 | NUR ---
RECEIVED ENDORSEMENT FROM NIGHT, AWAKE,ALERT, ORIENTED X3, BREATHING SPONTANEOUSLY WITH O2 AT 5L/MIN VIA NC, NON LABORED NOTED. WITH ONGOING IV FLUID WITH 0.9% NS AT 40ML/HOUR INFUSING AT LEFT HAND G24 IV CANNULA NOTED. ON DROPLET ISOLATION DX WITH COVID POSITIVE. SAFETY MEASURES IN PLACE AND CONTINUE MONITOR.
[2020-02-03 07:20] LABS: ANION GAP 15.1 (8-16); CARBON DIOXIDE 22.3 mmol/L (21-32); CHLORIDE 106 mmol/L (98-107); CREATININE 1.7 mg/dL (0.6-1.3); GLUCOSE 116 mg/dL (74-106); POTASSIUM 3.4 mmol/L (3.5-5.1); SODIUM SERUM 140 mmol/L (136-145); UREA NITROGEN, BLOOD 49 mg/dL (7-18)
[2020-02-03 08:00] VITALS: BP 138/76
--- NOTE | 2020-02-03 08:46 | NUR ---
AWAKE AND HAVING HER BREAKFAST, NOT IN DISTRESS NOTED
[2020-02-03] MEDS: LORATADINE 10 MG TAB PO SCH (10:30)
--- NOTE | 2020-02-03 10:34 | NUR ---
FULLY AWAKE AND ALERT, DUE MEDICATION GIVEN
[2020-02-03] MEDS: carvediloL 6.25 MG TAB PO SCH (10:35)
[2020-02-03] MEDS: SERTRALINE 50 MG TAB PO SCH (10:35)
[2020-02-03] MEDS: ZINC SULF 220 MG CAP PO SCH (10:35)
[2020-02-03] MEDS: OXYBUTYNIN 5 MG TAB PO SCH (10:36)
[2020-02-03] MEDS: FERROUS SULFATE 325 MG TABEC PO SCH (10:36)
[2020-02-03] MEDS: SODIUM BICARBONATE 650 MG TAB PO SCH (10:36)
[2020-02-03] MEDS: ASPIRIN 81 MG TAB.CHEW PO SCH (10:36)
[2020-02-03] MEDS: ASCORBIC ACID 500 MG TAB PO SCH (10:37)
[2020-02-03] MEDS: VITAMIN D 400 IU TAB PO SCH (10:37)
[2020-02-03] MEDS: FUROSEMIDE 40 MG TAB PO SCH (10:37)
[2020-02-03] MEDS: ATORVASTATIN 20 MG TAB PO SCH (10:37)
[2020-02-03] MEDS: MEROPENEM 500 MG in NACL 0.9% 50 ML IV SCH (10:39)
[2020-02-03] MEDS ORDERED: MERO500P7 IV (10:53)
[2020-02-03 12:00] VITALS: BP 142/79
[2020-02-03] MEDS: guaiFENesin/CODEINE 100/10MG 5 ML UDC PO PRN (12:25)
--- NOTE | 2020-02-03 12:30 | NUR ---
VITAL SIGNS TAKEN AND RECORDED. GLUCOSE- 142, NO INSULIN COVERAGE. POTASSIUM LEVEL-3.4, POTASSIUM 40MEQ TAB PO ORDERED PRN GIVEN. ROBITUSSIN 10ML PO ORDERED PRN FOR COUGH GIVEN. KEPT COMFORTABLE TO BED
[2020-02-03 13:22] VITALS: BP 142/79
--- NOTE | 2020-02-03 13:45 | NUR ---
SHIRRER CALLED THAT PATIENT WILL TRANSFER TO [facility] AND TRANSPORT PERSONNEL WILL RADIOLOGICAL ENGINEER ITH IN A Addendum: 02/03/20 at 1627 by Kristi Sebastian RN WILL RADIOLOGICAL ENGINEER WITHIN AN HOUR.
--- NOTE | 2020-02-03 14:48 | NUR ---
[facility] CONTACTED AND SPOKE WITH NURSE PRIETO, REPORT GIVEN. IV CANNULA WILL KEEP IN PLACE, TO CONTINUE ANTIBIOTIC AND LEBRON CATHETER IN PLACE ORDERED BY DR. MILTON.
--- NOTE | 2020-02-03 15:01 | NUR ---
TRANSPORT PERSONNEL CAME AND WANTED TO BORROW THE WHEELCHAIR, WOOL HAT FLANGER SARAH MADE AWARE.
--- NOTE | 2020-02-03 15:09 | NUR ---
DISCHARGED IN STABLE CONDITION PER WHEELCHAIR ACCOMPANIED BY TRANSPORT PERSONNEL WITH O2 AT 5L/MIN VIA NC VIA PORTABLE O2. DISCHARGE PACKET INSTRUCTION GIVEN TO THE TRANSPORT PERSONNEL.
== END 2020-02-03 15:10 | DRG 871 ==
LOC: MED 09:40 → MTU 12:07
PROVIDERS: ADMIT Hospitalist; ATTEND Hospitalist
PROC: XW13325 Transfusion of Convalescent Plasma (Nonautologous) into Peripheral Vein, Percutaneous Approach, New Technology Group 5 (ICD-10-PCS; principal; 2020-01-27)
DX: A41.89 Other specified sepsis (principal); U07.1 COVID-19; E43 Unspecified severe protein-calorie malnutrition; N17.0 Acute kidney failure with tubular necrosis; J12.89 Other viral pneumonia; J96.21 Acute and chronic respiratory failure with hypoxia; J44.1 Chronic obstructive pulmonary disease with (acute) exacerbation; N39.0 Urinary tract infection, site not specified; I13.0 Hypertensive heart and chronic kidney disease with heart failure and stage 1 through stage 4 chronic kidney disease, or unspecified chronic kidney disease; Z16.12 Extended spectrum beta lactamase (ESBL) resistance; N18.4 Chronic kidney disease, stage 4 (severe); J44.0 Chronic obstructive pulmonary disease with (acute) lower respiratory infection; A41.9 Sepsis, unspecified organism; D63.8 Anemia in other chronic diseases classified elsewhere; B96.20 Unspecified Escherichia coli [E. coli] as the cause of diseases classified elsewhere; E03.9 Hypothyroidism, unspecified; E11.22 Type 2 diabetes mellitus with diabetic chronic kidney disease; F32.9 Major depressive disorder, single episode, unspecified; F41.9 Anxiety disorder, unspecified; J84.10 Pulmonary fibrosis, unspecified; N32.81 Overactive bladder; Z96.653 Presence of artificial knee joint, bilateral; E86.0 Dehydration; E87.6 Hypokalemia; I50.9 Heart failure, unspecified; Z85.3 Personal history of malignant neoplasm of breast; Z88.7 Allergy status to serum and vaccine; Z99.81 Dependence on supplemental oxygen; Z88.5 Allergy status to narcotic agent; Z88.2 Allergy status to sulfonamides; Z68.28 Body mass index [BMI] 28.0-28.9, adult
CPT/HCPCS: 36415; 71045; 80048; 80053; 81001; 82436; 82550; 82570; 82728; 82948; 83605; 83615; 83735; 83880; 84100; 84300; 84484; 85025; 85379; 85384; 85610; 85651; 85730; 86140; 86886; 86900; 86901; 87040; 87081; 87086; 87420; 87804; 93005; 94664; 96361; 96365; 97110; 97112; 97116; 97161-GP; 97530; 99285; J0696; J1644; J1815; J2185; J3475; J7030; J7060; P9017; U0003